=== PATIENT | male | born 1990 | race Caucasian/White ===

== ENCOUNTER 2022-10-12 00:48 | Outpatient (CLI) | payer BC, SELFPAY | END 2022-10-12 00:49 | disposition home or self-care (01) | LOC: AMB 02:42 | PROVIDERS: PCP Physician Assistant Medical; Visit Provider Family Medicine | DX: K70.31 Alcoholic cirrhosis of liver with ascites (principal); R45.1 Restlessness and agitation | CPT/HCPCS: 36415; 85610; A0425; A0427 ==

== ENCOUNTER 2022-10-12 01:22 | Emergency (ER) | payer BC, SELFPAY ==
[2022-10-12] VITALS (34 sets, daily range): BP systolic 112–138; BP diastolic 64–95; PULSE 79–114; RESP 16–23; TEMP 37.3–37.5; O2SAT 92–98
[2022-10-12 02:35] LABS: HCO3 VBG 23 mmol/L (21-28); PCO2 VBG 33 mmHG (40-50); pH VBG 7.455 (7.32-7.43)
[2022-10-12 02:40] LABS: Basophils Absolute Auto 0.02 K/uL (0.00-0.30); Basophils Percent Auto 0.3 % (0.0-3.0); Eosinophils Percent Auto 1.7 % (0.0-7.0); Hematocrit 33.5 % (37.0-53.0); Hemoglobin* 12.6 gm/dL (13.5-17.5); Immature Granulocytes Abs Auto 0.01 K/uL (0.00-0.30); Immature Granulocytes Pct Auto 0.2 %; Mean Corpuscular HGB Conc 38 gm/dL (32-36); Mean Corpuscular Hemoglobin 38 pg (26-34); Mean Corpuscular Volume 101 fL (80-100); Monocytes Percent Auto 7.1 % (0.0-11.0); Neutrophils Percent Auto 74.7 % (42.0-72.0); Red Blood Count 3.31 m/uL (4.30-5.90); White Blood Count* 5.93 K/uL (4.50-11.00)
[2022-10-12 02:45] LABS: Platelet Count* 36 K/uL (140-440); Slide Review Reflex Yes
[2022-10-12 02:52] LABS: Chloride* 110 mmol/L (96-114); Sodium* 141 mmol/L (135-149)
[2022-10-12 02:54] LABS: Creatinine* 0.4 mg/dL (0.5-1.5); Estimated Glomerular Filt Rate 150 ml/min
[2022-10-12 02:55] LABS: Blood Urea Nitrogen* 5 mg/dL (5-24); Carbon Dioxide* 20 mmol/L (20-32); Glucose* 115 mg/dL (60-115)
[2022-10-12 02:56] LABS: Calcium* 7.7 mg/dL (8.4-10.6)
[2022-10-12 02:58] LABS: Acetaminophen* < 10.0 ug/mL (10.0-30.0); C Reactive Protein* 3.3 mg/dL (0.5-1.0); Potassium* 2.6 mmol/L (3.6-5.1)
[2022-10-12] MEDS: 0.9 % SODIUM CHLORIDE 1000 ml 1,000 ML IV ×2 (03:00→07:25)
[2022-10-12 03:05] LABS: Albumin* 3.1 g/dL (3.3-5.0); Aspartate Amino Transferase* 259 U/L (12-35); Bilirubin Direct* 13.1 mg/dL (0.0-0.5); NT Pro B Type NatriureticPept* 143 pg/mL; Total Protein* 7.9 g/dL (6.0-8.3)
[2022-10-12 03:06] LABS: Alanine Aminotransferase* 76 U/L (4-50); Alkaline Phosphatase* 194 U/L (40-150); Ethanol* 0.23 % (0.01-0.03); Salicylate* < 1.0 mg/dL (1.0-10)
[2022-10-12 03:07] LABS: Bilirubin Total* 18.4 mg/dL (0.1-1.5)
[2022-10-12 03:19] LABS: SARS PCR* Negative SARS-CoV-2 (Negative)
[2022-10-12 03:31] LABS: Slide Review Acceptable Review (Acceptable)
[2022-10-12 04:23] LABS: Magnesium* 1.6 mg/dL (1.5-2.6)
--- NOTE | 2022-10-12 04:25 | ED.GENADULT ---
HPI - General Adult General Chief complaint: Unspecified Complaint, Adult <Chris Sparks MD - Last Filed: 10/12/22 09:14> Stated complaint: Mental Health <Chris Sparks MD - Last Filed: 10/12/22 09:14> Time Seen by Provider: 10/12/22 01:46 <Chris Sparks MD - Last Filed: 10/12/22 09:14> History of Present Illness HPI narrative: 32-year-old young man presenting to the emergency department with concern of not acting right. Has been increasingly jaundiced over the last 1-2 months. Drinks pt of vodka daily he says. Is a living with mom with a history of alcohol abuse and dependence. He thinks it was 1 maybe 2 years ago when he was last in treatment. Sounds like he ?fell off the wagon? he says after about 7 months. Mom's concerned about ammonia levels as he has not been acting right. Adrián does recall a history of detox-related seizure at about day 3. He believes he detoxed in [place] or [facility] where he has an aunt and uncle. Not really having any pain. Has been no recent falls described. During interview seems to have some difficulty with recall. More information from conversation later with Mom. He is welcome to return home though she is quite concerned about him. Her understanding and so questioning potentially high ammonia levels as related to the of Felix father her from alcohol-related liver failure within the last 2 years. She also has a [id number] from same. Adrián apparently was hospitalized/detox/treatment in [place]. [facility] that [facility]. This was about a year and half ago and did include alcohol treatment. Adrián is a diagnosis per mom of PTSD and probable depression. Certainly alcohol abuse dependence. Had been prescribed gabapentin for anxiety symptoms but isn't taking that. Mom does not believe that this was actually a detox related seizure as Adrián had reported. <Chris Sparks MD - Last Filed: 10/12/22 09:14> Related Data Allergies/adverse reactions: Allergies Allergy/AdvReac Type Severity Reaction Status Date / Time Penicillins Allergy Verified 10/12/22 01:32 <Chris Sparks MD - Last Filed: 10/12/22 09:14> Review of Systems Status of ROS: Reports: 6 or more systems reviewed and unremarkable except as noted in History and below <Chris Sparks MD - Last Filed: 10/12/22 09:14> [facility] Social History: Social History How often do you have a drink containing alcohol: 4 or more times a week AUDIT-C Alcohol total score: 4 Non-prescribed substance use: denies use service: Yes <Chris Sparks MD - Last Filed: 10/12/22 09:14> Exam Narrative: Exam Narrative: Is initially standoffish. Seems upset. Flat affect and slowed mentation. Skin is warm and dry. I do not see evidence of harm self-harm or accidental. He is generally jaundiced. There is marked scleral icterus. Does seem a little slowed in his thinking/processing though not inconsistent with intoxication. Erosion at right cheek/paralabial fold. Wearing a stocking cap. Is breathing slightly labored not tachypneic. Lungs are clear heart is elevated and in a regular rhythm. Abdomen is quite full and generally little tender. More so along the right and difficult to assess liver size. Cannot determine that there is a fluid wave. Extremities are without edema is well perfused. Oropharynx is hyperemic consistent with nicotine dependence. a little dry as well. Cranial nerves 2-12 look to be intact. <Chris Sparks MD - Last Filed: 10/12/22 09:14> Const: Vital Signs, click to edit/add: Vital Signs - 24 hr 10/12/22 01:32 10/12/22 05:47 10/12/22 07:11 Temperature 99.1 F Pulse Rate Pulse Rate [Apical ] Pulse Rate [Left F emoral] 100 86 Respiratory Rate 18 16 16 Blood Pressure Blood Pressure [Ri ght Upper Arm] 129/89 124/76 138/92 H Pulse Oximetry 98 98 96 Oxygen Delivery Me thod Room Air Room Air Room Air Fraction of Inspir ed Oxygen 10/12/22 02:15 10/12/22 02:14 10/12/22 04:08 Temperature Pulse Rate Pulse Rate [Apical ] Pulse Rate [Left F emoral] 106 H 106 H Respiratory Rate 16 16 Blood Pressure Blood Pressure [Ri ght Upper Arm] 136/82 126/64 Pulse Oximetry 97 96 98 Oxygen Delivery Me thod Room Air Room Air Fraction of Inspir ed Oxygen 10/12/22 08:00 10/12/22 09:00 10/12/22 10:45 Temperature 99.5 F Pulse Rate 97 Pulse Rate [Apical ] 96 Pulse Rate [Left F emoral] Respiratory Rate 23 16 Blood Pressure 132/95 H 129/90 H Blood Pressure [Ri ght Upper Arm] 112/81 Pulse Oximetry 94 93 Oxygen Delivery Me thod Room Air Room Air Fraction of Inspir ed Oxygen 93 10/12/22 01:48 10/12/22 02:00 10/12/22 02:03 Temperature Pulse Rate 88 84 88 Pulse Rate [Apical ] Pulse Rate [Left F emoral] Respiratory Rate Blood Pressure 124/87 Blood Pressure [Ri ght Upper Arm] Pulse Oximetry 97 97 97 Oxygen Delivery Me thod Fraction of Inspir ed Oxygen 10/12/22 02:15 10/12/22 02:30 10/12/22 02:45 Temperature Pulse Rate 86 87 89 Pulse Rate [Apical ] Pulse Rate [Left F emoral] Respiratory Rate Blood Pressure Blood Pressure [Ri ght Upper Arm] Pulse Oximetry 97 97 97 Oxygen Delivery Me thod Fraction of Inspir ed Oxygen 10/12/22 03:00 10/12/22 03:01 10/12/22 03:15 Temperature Pulse Rate 83 83 79 Pulse Rate [Apical ] Pulse Rate [Left F emoral] Respiratory Rate Blood Pressure 126/90 H Blood Pressure [Ri ght Upper Arm] Pulse Oximetry 97 96 98 Oxygen Delivery Me thod Fraction of Inspir ed Oxygen 10/12/22 03:30 10/12/22 03:45 10/12/22 04:00 Temperature Pulse Rate 82 82 100 Pulse Rate [Apical ] Pulse Rate [Left F emoral] Respiratory Rate Blood Pressure Blood Pressure [Ri ght Upper Arm] Pulse Oximetry 96 96 94 Oxygen Delivery Me thod Fraction of Inspir ed Oxygen 10/12/22 04:04 10/12/22 04:15 10/12/22 04:30 Temperature Pulse Rate 91 91 91 Pulse Rate [Apical ] Pulse Rate [Left F emoral] Respiratory Rate Blood Pressure 124/91 H Blood Pressure [Ri ght Upper Arm] Pulse Oximetry 94 96 96 Oxygen Delivery Me thod Fraction of Inspir ed Oxygen 10/12/22 04:45 10/12/22 05:00 10/12/22 05:01 Temperature Pulse Rate 89 95 93 Pulse Rate [Apical ] Pulse Rate [Left F emoral] Respiratory Rate Blood Pressure 132/90 H Blood Pressure [Ri ght Upper Arm] Pulse Oximetry 96 96 95 Oxygen Delivery Me thod Fraction of Inspir ed Oxygen 10/12/22 05:15 10/12/22 05:30 10/12/22 05:45 Temperature Pulse Rate 97 114 H 96 Pulse Rate [Apical ] Pulse Rate [Left F emoral] Respiratory Rate Blood Pressure Blood Pressure [Ri ght Upper Arm] Pulse Oximetry 94 92 95 Oxygen Delivery Me thod Fraction of Inspir ed Oxygen 10/12/22 06:00 10/12/22 06:02 10/12/22 06:15 Temperature Pulse Rate 104 H 94 92 Pulse Rate [Apical ] Pulse Rate [Left F emoral] Respiratory Rate Blood Pressure 121/90 H Blood Pressure [Ri ght Upper Arm] Pulse Oximetry 96 96 96 Oxygen Delivery Me thod Fraction of Inspir ed Oxygen 10/12/22 06:30 10/12/22 06:45 Temperature Pulse Rate 93 96 Pulse Rate [Apical ] Pulse Rate [Left F emoral] Respiratory Rate Blood Pressure Blood Pressure [Ri ght Upper Arm] Pulse Oximetry 96 95 Oxygen Delivery Me thod Fraction of Inspir ed Oxygen <Chris Sparks MD - Last Filed: 10/12/22 09:14> Vital Signs, click to edit/add: Vital Signs - 24 hr 10/12/22 01:32 10/12/22 05:47 10/12/22 07:11 Temperature 99.1 F Pulse Rate Pulse Rate [Apical ] Pulse Rate [Left F emoral] 100 86 Respiratory Rate 18 16 16 Blood Pressure Blood Pressure [Ri ght Upper Arm] 129/89 124/76 138/92 H Pulse Oximetry 98 98 96 Oxygen Delivery Me thod Room Air Room Air Room Air Fraction of Inspir ed Oxygen 10/12/22 02:15 10/12/22 02:14 10/12/22 04:08 Temperature Pulse Rate Pulse Rate [Apical ] Pulse Rate [Left F emoral] 106 H 106 H Respiratory Rate 16 16 Blood Pressure Blood Pressure [Ri ght Upper Arm] 136/82 126/64 Pulse Oximetry 97 96 98 Oxygen Delivery Me thod Room Air Room Air Fraction of Inspir ed Oxygen 10/12/22 08:00 10/12/22 09:00 10/12/22 10:45 Temperature 99.5 F Pulse Rate 97 Pulse Rate [Apical ] 96 Pulse Rate [Left F emoral] Respiratory Rate 23 16 Blood Pressure 132/95 H 129/90 H Blood Pressure [Ri ght Upper Arm] 112/81 Pulse Oximetry 94 93 Oxygen Delivery Me thod Room Air Room Air Fraction of Inspir ed Oxygen 93 10/12/22 01:48 10/12/22 02:00 10/12/22 02:03 Temperature Pulse Rate 88 84 88 Pulse Rate [Apical ] Pulse Rate [Left F emoral] Respiratory Rate Blood Pressure 124/87 Blood Pressure [Ri ght Upper Arm] Pulse Oximetry 97 97 97 Oxygen Delivery Me thod Fraction of Inspir ed Oxygen 10/12/22 02:15 10/12/22 02:30 10/12/22 02:45 Temperature Pulse Rate 86 87 89 Pulse Rate [Apical ] Pulse Rate [Left F emoral] Respiratory Rate Blood Pressure Blood Pressure [Ri ght Upper Arm] Pulse Oximetry 97 97 97 Oxygen Delivery Me thod Fraction of Inspir ed Oxygen 10/12/22 03:00 10/12/22 03:01 10/12/22 03:15 Temperature Pulse Rate 83 83 79 Pulse Rate [Apical ] Pulse Rate [Left F emoral] Respiratory Rate Blood Pressure 126/90 H Blood Pressure [Ri ght Upper Arm] Pulse Oximetry 97 96 98 Oxygen Delivery Me thod Fraction of Inspir ed Oxygen 10/12/22 03:30 10/12/22 03:45 10/12/22 04:00 Temperature Pulse Rate 82 82 100 Pulse Rate [Apical ] Pulse Rate [Left F emoral] Respiratory Rate Blood Pressure Blood Pressure [Ri ght Upper Arm] Pulse Oximetry 96 96 94 Oxygen Delivery Me thod Fraction of Inspir ed Oxygen 10/12/22 04:04 10/12/22 04:15 10/12/22 04:30 Temperature Pulse Rate 91 91 91 Pulse Rate [Apical ] Pulse Rate [Left F emoral] Respiratory Rate Blood Pressure 124/91 H Blood Pressure [Ri ght Upper Arm] Pulse Oximetry 94 96 96 Oxygen Delivery Me thod Fraction of Inspir ed Oxygen 10/12/22 04:45 10/12/22 05:00 10/12/22 05:01 Temperature Pulse Rate 89 95 93 Pulse Rate [Apical ] Pulse Rate [Left F emoral] Respiratory Rate Blood Pressure 132/90 H Blood Pressure [Ri ght Upper Arm] Pulse Oximetry 96 96 95 Oxygen Delivery Me thod Fraction of Inspir ed Oxygen 10/12/22 05:15 10/12/22 05:30 10/12/22 05:45 Temperature Pulse Rate 97 114 H 96 Pulse Rate [Apical ] Pulse Rate [Left F emoral] Respiratory Rate Blood Pressure Blood Pressure [Ri ght Upper Arm] Pulse Oximetry 94 92 95 Oxygen Delivery Me thod Fraction of Inspir ed Oxygen 10/12/22 06:00 10/12/22 06:02 10/12/22 06:15 Temperature Pulse Rate 104 H 94 92 Pulse Rate [Apical ] Pulse Rate [Left F emoral] Respiratory Rate Blood Pressure 121/90 H Blood Pressure [Ri ght Upper Arm] Pulse Oximetry 96 96 96 Oxygen Delivery Me thod Fraction of Inspir ed Oxygen 10/12/22 06:30 10/12/22 06:45 Temperature Pulse Rate 93 96 Pulse Rate [Apical ] Pulse Rate [Left F emoral] Respiratory Rate Blood Pressure Blood Pressure [Ri ght Upper Arm] Pulse Oximetry 96 95 Oxygen Delivery Me thod Fraction of Inspir ed Oxygen <Osvaldo Boogie MD - Last Filed: 10/12/22 13:20> Documenting provider has reviewed patient's vital signs: yes <Chris Sparks MD - Last Filed: 10/12/22 09:14> Course Reevaluation(s) Reevaluation #1: Patient was accepted to [facility], please see that dictation. Transferred by ALS <Osvaldo Boogie MD - Last Filed: 10/12/22 13:20> Time: 13:20 <Osvaldo Boogie MD - Last Filed: 10/12/22 13:20> Vital Signs Vital signs: Initial Vital Signs Temperature 99.1 F 10/12/22 01:32 Temperature Source Temporal Artery Scan 10/12/22 01:32 Respiratory Rate 18 10/12/22 01:32 Blood Pressure 129/89 10/12/22 01:32 Blood Pressure Mean 102 10/12/22 01:32 Blood Pressure Position Semi-Fowlers 10/12/22 01:32 Pulse Oximetry 98 10/12/22 01:32 Oxygen Delivery Method 10/12/22 01:32 Vital Signs Temperature 99.1 F 10/12/22 01:32 Respiratory Rate 18 10/12/22 01:32 Blood Pressure 129/89 10/12/22 01:32 Pulse Oximetry 98 10/12/22 01:32 Oxygen Delivery Method 10/12/22 01:32 Temperature 99.5 F 10/12/22 10:45 Pulse Rate 96 10/12/22 10:45 Respiratory Rate 16 10/12/22 10:45 Blood Pressure 112/81 10/12/22 10:45 Pulse Oximetry 93 10/12/22 10:45 Oxygen Delivery Method 10/12/22 10:45 Fraction of Inspired Oxygen 93 10/12/22 09:00 <Chris Sparks MD - Last Filed: 10/12/22 09:14> Initial Vital Signs Temperature 99.1 F 10/12/22 01:32 Temperature Source Temporal Artery Scan 10/12/22 01:32 Respiratory Rate 18 10/12/22 01:32 Blood Pressure 129/89 10/12/22 01:32 Blood Pressure Mean 102 10/12/22 01:32 Blood Pressure Position Semi-Fowlers 10/12/22 01:32 Pulse Oximetry 98 10/12/22 01:32 Oxygen Delivery Method 10/12/22 01:32 Vital Signs Temperature 99.1 F 10/12/22 01:32 Respiratory Rate 18 10/12/22 01:32 Blood Pressure 129/89 10/12/22 01:32 Pulse Oximetry 98 10/12/22 01:32 Oxygen Delivery Method 10/12/22 01:32 Temperature 99.5 F 10/12/22 10:45 Pulse Rate 96 10/12/22 10:45 Respiratory Rate 16 10/12/22 10:45 Blood Pressure 112/81 10/12/22 10:45 Pulse Oximetry 93 10/12/22 10:45 Oxygen Delivery Method 10/12/22 10:45 Fraction of Inspired Oxygen 93 10/12/22 09:00 <Osvaldo Boogie MD - Last Filed: 10/12/22 13:20> Medical Decision Making MDM Narrative Medical decision making narrative: I discussed with him that I was already concerned regarding potential liver failure. He agreed to do labs. Was also amenable to hospitalization somewhere. Ordered also for L of normal saline. Numerous abnormal labs. Of note his ammonia level of 105. [place] 0[place] [address]. Total bilirubin over 18. Potassium of 2.6. Red cell distribution is macrocytic, not unexpected. Do initiate IV hydration. This is also followed by administration of folate and thiamine. I do think that would benefit from medical stabilization and then detox and treatment. He was accepting of hospitalization in [facility] he tells me is near [place]. Later is intending on departing the emergency department. We have discussed that that is not an ideal situation at this point At a minimum I would anticipate returning home with multivitamin supplementation and lactulose and maybe potassium supplementation. I am still hoping to find a hospital bed somewhere. <Chris Sparks MD - Last Filed: 10/12/22 09:14> Lab Data Lab results reviewed: Yes I reviewed the patient's lab results <Chris Sparks MD - Last Filed: 10/12/22 09:14> Labs: Lab Results 10/12/22 10/12/22 10/12/22 Range/Units 02:32 02:32 02:32 WBC 5.93 (4.50-11.00) K/uL RBC 3.31 L (4.30-5.90) m/uL Hgb 12.6 L (13.5-17.5) gm/dL Hct 33.5 L (37.0-53.0) % MCV 101 H (80-100) fL MCH 38 H (26-34) pg MCHC 38 H (32-36) gm/dL RDW Coeff of Pastor 14.0 (11.5-15.5) % Plt Count 36 L* (140-440) K/uL Neut % (Auto) 74.7 H (42.0-72.0) % Lymph % (Auto) 16.0 L (20-44) % [place] % (Auto) 7.1 (0.0-11.0) % Eos % (Auto) 1.7 (0.0-7.0) % Baso % (Auto) 0.3 (0.0-3.0) % Neut # (Auto) 4.40 (1.7-7.0) K/uL Lymph # (Auto) 0.90 (0.90-2.90) K/uL [place] # (Auto) 0.40 (0.00-0.90) K/UL Eos # (Auto) 0.10 (0.00-0.50) K/uL Baso # (Auto) 0.02 (0.00-0.30) K/uL Diff Slide Review Acceptable Review (Acceptable) VBG pH (7.32-7.43) VBG pCO2 (40-50) mmHG VBG pO2 (25-47) mmHG VBG HCO3 (21-28) mmol/L Sodium 141 (135-149) mmol/L Potassium 2.6 L* (3.6-5.1) mmol/L Chloride 110 (96-114) mmol/L Carbon Dioxide 20 (20-32) mmol/L BUN 5 (5-24) mg/dL Creatinine 0.4 L (0.5-1.5) mg/dL Estimated GFR 150 ml/min Glucose 115 (60-115) mg/dL Calcium 7.7 L (8.4-10.6) mg/dL Magnesium 1.6 (1.5-2.6) mg/dL Total Bilirubin (0.1-1.5) mg/dL Direct Bilirubin (0.0-0.5) mg/dL AST (12-35) U/L ALT (4-50) U/L Alkaline Phosphatase (40-150) U/L Ammonia 105.0 H (13.1-30.0) umol/L C-Reactive Protein 3.3 H (0.5-1.0) mg/dL NT-Pro-B Natriuret Pep pg/mL Total Protein (6.0-8.3) g/dL Albumin (3.3-5.0) g/dL Urine Color (Yellow) Urine Appearance (Clear) Urine pH (5.0-8.5) Ur Specific [place] (1.000-1.030) Urine Protein (Negative) Urine Glucose (UA) (Negative) Urine Ketones (Negative) Urine Blood (Negative) Urine Nitrite (Negative) Urine Bilirubin (Negative) Urine Urobilinogen (0.2-1.0) Ur Leukocyte Esterase (Negative) Urine RBC (0-2) Urine WBC (0-5) Ur Squamous Epith Cells (None-Few) Urine Bacteria (None) Salicylates (1.0-10) mg/dL Urine Opiates Screen (Negative) Ur Oxycodone Screen (Negative) Urine Methadone Screen (Negative) Ur Propoxyphene Screen (Negative) Acetaminophen < 10.0 L (10.0-30.0) ug/mL Ur Barbiturates Screen (Negative) U Tricyclic Antidepress (Negative) Ur Phencyclidine Scrn (Negative) Ur Amphetamines Screen (Negative) U Methamphetamines Scrn (Negative) U Benzodiazepines Scrn (Negative) Urine Cocaine Screen (Negative) U Marijuana (THC) Screen (Negative) Ur Drug Screen Comment Ethyl Alcohol (0.01-0.03) % SARS-CoV-2 (PCR) (Negative) 10/12/22 10/12/22 10/12/22 Range/Units 02:32 02:32 02:32 WBC (4.50-11.00) K/uL RBC (4.30-5.90) m/uL Hgb (13.5-17.5) gm/dL Hct (37.0-53.0) % MCV (80-100) fL MCH (26-34) pg MCHC (32-36) gm/dL RDW Coeff of Pastor (11.5-15.5) % Plt Count (140-440) K/uL Neut % (Auto) (42.0-72.0) % Lymph % (Auto) (20-44) % [place] % (Auto) (0.0-11.0) % Eos % (Auto) (0.0-7.0) % Baso % (Auto) (0.0-3.0) % Neut # (Auto) (1.7-7.0) K/uL Lymph # (Auto) (0.90-2.90) K/uL [place] # (Auto) (0.00-0.90) K/UL Eos # (Auto) (0.00-0.50) K/uL Baso # (Auto) (0.00-0.30) K/uL Diff Slide Review (Acceptable) VBG pH 7.455 H (7.32-7.43) VBG pCO2 33 L (40-50) mmHG VBG pO2 56.0 H (25-47) mmHG VBG HCO3 23 (21-28) mmol/L Sodium (135-149) mmol/L Potassium (3.6-5.1) mmol/L Chloride (96-114) mmol/L Carbon Dioxide (20-32) mmol/L BUN (5-24) mg/dL Creatinine (0.5-1.5) mg/dL Estimated GFR ml/min Glucose (60-115) mg/dL Calcium (8.4-10.6) mg/dL Magnesium (1.5-2.6) mg/dL Total Bilirubin 18.4 H* (0.1-1.5) mg/dL Direct Bilirubin 13.1 H (0.0-0.5) mg/dL AST 259 H (12-35) U/L ALT 76 H (4-50) U/L Alkaline Phosphatase 194 H (40-150) U/L Ammonia (13.1-30.0) umol/L C-Reactive Protein (0.5-1.0) mg/dL NT-Pro-B Natriuret Pep 143 pg/mL Total Protein 7.9 (6.0-8.3) g/dL Albumin 3.1 L (3.3-5.0) g/dL Urine Color (Yellow) Urine Appearance (Clear) Urine pH (5.0-8.5) Ur Specific [place] (1.000-1.030) Urine Protein (Negative) Urine Glucose (UA) (Negative) Urine Ketones (Negative) Urine Blood (Negative) Urine Nitrite (Negative) Urine Bilirubin (Negative) Urine Urobilinogen (0.2-1.0) Ur Leukocyte Esterase (Negative) Urine RBC (0-2) Urine WBC (0-5) Ur Squamous Epith Cells (None-Few) Urine Bacteria (None) Salicylates < 1.0 L (1.0-10) mg/dL Urine Opiates Screen (Negative) Ur Oxycodone Screen (Negative) Urine Methadone Screen (Negative) Ur Propoxyphene Screen (Negative) Acetaminophen (10.0-30.0) ug/mL Ur Barbiturates Screen (Negative) U Tricyclic Antidepress (Negative) Ur Phencyclidine Scrn (Negative) Ur Amphetamines Screen (Negative) U Methamphetamines Scrn (Negative) U Benzodiazepines Scrn (Negative) Urine Cocaine Screen (Negative) U Marijuana (THC) Screen (Negative) Ur Drug Screen Comment Ethyl Alcohol 0.23 H (0.01-0.03) % SARS-CoV-2 (PCR) Negative SARS-CoV-2 (Negative) 01/28/23 01/28/23 Range/Units 07:10 07:10 WBC (4.50-11.00) K/uL RBC (4.30-5.90) m/uL Hgb (13.5-17.5) gm/dL Hct (37.0-53.0) % MCV (80-100) fL MCH (26-34) pg MCHC (32-36) gm/dL RDW Coeff of Pastor (11.5-15.5) % Plt Count (140-440) K/uL Neut % (Auto) (42.0-72.0) % Lymph % (Auto) (20-44) % [place] % (Auto) (0.0-11.0) % Eos % (Auto) (0.0-7.0) % Baso % (Auto) (0.0-3.0) % Neut # (Auto) (1.7-7.0) K/uL Lymph # (Auto) (0.90-2.90) K/uL [place] # (Auto) (0.00-0.90) K/UL Eos # (Auto) (0.00-0.50) K/uL Baso # (Auto) (0.00-0.30) K/uL Diff Slide Review (Acceptable) VBG pH (7.32-7.43) VBG pCO2 (40-50) mmHG VBG pO2 (25-47) mmHG VBG HCO3 (21-28) mmol/L Sodium (135-149) mmol/L Potassium (3.6-5.1) mmol/L Chloride (96-114) mmol/L Carbon Dioxide (20-32) mmol/L BUN (5-24) mg/dL Creatinine (0.5-1.5) mg/dL Estimated GFR ml/min Glucose (60-115) mg/dL Calcium (8.4-10.6) mg/dL Magnesium (1.5-2.6) mg/dL Total Bilirubin (0.1-1.5) mg/dL Direct Bilirubin (0.0-0.5) mg/dL AST (12-35) U/L ALT (4-50) U/L Alkaline Phosphatase (40-150) U/L Ammonia (13.1-30.0) umol/L C-Reactive Protein (0.5-1.0) mg/dL NT-Pro-B Natriuret Pep pg/mL Total Protein (6.0-8.3) g/dL Albumin (3.3-5.0) g/dL Urine Color [place] A (Yellow) Urine Appearance Clear (Clear) Urine pH 7.0 (5.0-8.5) Ur Specific [place] 1.015 (1.000-1.030) Urine Protein 1+ A (Negative) Urine Glucose (UA) Trace A (Negative) Urine Ketones Trace A (Negative) Urine Blood 2+ A (Negative) Urine Nitrite Negative (Negative) Urine Bilirubin 3+ A (Negative) Urine Urobilinogen >=8.0 (0.2-1.0) Ur Leukocyte Esterase Negative (Negative) Urine RBC 5-10 A (0-2) Urine WBC 0-2 (0-5) Ur Squamous Epith Cells Few (None-Few) Urine Bacteria Few A (None) Salicylates (1.0-10) mg/dL Urine Opiates Screen Negative (Negative) Ur Oxycodone Screen Negative (Negative) Urine Methadone Screen Negative (Negative) Ur Propoxyphene Screen Negative (Negative) Acetaminophen (10.0-30.0) ug/mL Ur Barbiturates Screen Negative (Negative) U Tricyclic Antidepress Negative (Negative) Ur Phencyclidine Scrn Negative (Negative) Ur Amphetamines Screen Negative (Negative) U Methamphetamines Scrn Negative (Negative) U Benzodiazepines Scrn Negative (Negative) Urine Cocaine Screen Negative (Negative) U Marijuana (THC) Screen Negative (Negative) Ur Drug Screen Comment See Note Ethyl Alcohol (0.01-0.03) % SARS-CoV-2 (PCR) (Negative) <Chris Sparks MD - Last Filed: 10/12/22 09:14> Lab Results 10/12/22 10/12/22 10/12/22 Range/Units 02:32 02:32 02:32 WBC 5.93 (4.50-11.00) K/uL RBC 3.31 L (4.30-5.90) m/uL Hgb 12.6 L (13.5-17.5) gm/dL Hct 33.5 L (37.0-53.0) % MCV 101 H (80-100) fL MCH 38 H (26-34) pg MCHC 38 H (32-36) gm/dL RDW Coeff of Pastor 14.0 (11.5-15.5) % Plt Count 36 L* (140-440) K/uL Neut % (Auto) 74.7 H (42.0-72.0) % Lymph % (Auto) 16.0 L (20-44) % [place] % (Auto) 7.1 (0.0-11.0) % Eos % (Auto) 1.7 (0.0-7.0) % Baso % (Auto) 0.3 (0.0-3.0) % Neut # (Auto) 4.40 (1.7-7.0) K/uL Lymph # (Auto) 0.90 (0.90-2.90) K/uL [place] # (Auto) 0.40 (0.00-0.90) K/UL Eos # (Auto) 0.10 (0.00-0.50) K/uL Baso # (Auto) 0.02 (0.00-0.30) K/uL Diff Slide Review Acceptable Review (Acceptable) VBG pH (7.32-7.43) VBG pCO2 (40-50) mmHG VBG pO2 (25-47) mmHG VBG HCO3 (21-28) mmol/L Sodium 141 (135-149) mmol/L Potassium 2.6 L* (3.6-5.1) mmol/L Chloride 110 (96-114) mmol/L Carbon Dioxide 20 (20-32) mmol/L BUN 5 (5-24) mg/dL Creatinine 0.4 L (0.5-1.5) mg/dL Estimated GFR 150 ml/min Glucose 115 (60-115) mg/dL Calcium 7.7 L (8.4-10.6) mg/dL Magnesium 1.6 (1.5-2.6) mg/dL Total Bilirubin (0.1-1.5) mg/dL Direct Bilirubin (0.0-0.5) mg/dL AST (12-35) U/L ALT (4-50) U/L Alkaline Phosphatase (40-150) U/L Ammonia 105.0 H (13.1-30.0) umol/L C-Reactive Protein 3.3 H (0.5-1.0) mg/dL NT-Pro-B Natriuret Pep pg/mL Total Protein (6.0-8.3) g/dL Albumin (3.3-5.0) g/dL Urine Color (Yellow) Urine Appearance (Clear) Urine pH (5.0-8.5) Ur Specific [place] (1.000-1.030) Urine Protein (Negative) Urine Glucose (UA) (Negative) Urine Ketones (Negative) Urine Blood (Negative) Urine Nitrite (Negative) Urine Bilirubin (Negative) Urine Urobilinogen (0.2-1.0) Ur Leukocyte Esterase (Negative) Urine RBC (0-2) Urine WBC (0-5) Ur Squamous Epith Cells (None-Few) Urine Bacteria (None) Salicylates (1.0-10) mg/dL Urine Opiates Screen (Negative) Ur Oxycodone Screen (Negative) Urine Methadone Screen (Negative) Ur Propoxyphene Screen (Negative) Acetaminophen < 10.0 L (10.0-30.0) ug/mL Ur Barbiturates Screen (Negative) U Tricyclic Antidepress (Negative) Ur Phencyclidine Scrn (Negative) Ur Amphetamines Screen (Negative) U Methamphetamines Scrn (Negative) U Benzodiazepines Scrn (Negative) Urine Cocaine Screen (Negative) U Marijuana (THC) Screen (Negative) Ur Drug Screen Comment Ethyl Alcohol (0.01-0.03) % SARS-CoV-2 (PCR) (Negative) 10/12/22 10/12/22 10/12/22 Range/Units 02:32 02:32 02:32 WBC (4.50-11.00) K/uL RBC (4.30-5.90) m/uL Hgb (13.5-17.5) gm/dL Hct (37.0-53.0) % MCV (80-100) fL MCH (26-34) pg MCHC (32-36) gm/dL RDW Coeff of Pastor (11.5-15.5) % Plt Count (140-440) K/uL Neut % (Auto) (42.0-72.0) % Lymph % (Auto) (20-44) % [place] % (Auto) (0.0-11.0) % Eos % (Auto) (0.0-7.0) % Baso % (Auto) (0.0-3.0) % Neut # (Auto) (1.7-7.0) K/uL Lymph # (Auto) (0.90-2.90) K/uL [place] # (Auto) (0.00-0.90) K/UL Eos # (Auto) (0.00-0.50) K/uL Baso # (Auto) (0.00-0.30) K/uL Diff Slide Review (Acceptable) VBG pH 7.455 H (7.32-7.43) VBG pCO2 33 L (40-50) mmHG VBG pO2 56.0 H (25-47) mmHG VBG HCO3 23 (21-28) mmol/L Sodium (135-149) mmol/L Potassium (3.6-5.1) mmol/L Chloride (96-114) mmol/L Carbon Dioxide (20-32) mmol/L BUN (5-24) mg/dL Creatinine (0.5-1.5) mg/dL Estimated GFR ml/min Glucose (60-115) mg/dL Calcium (8.4-10.6) mg/dL Magnesium (1.5-2.6) mg/dL Total Bilirubin 18.4 H* (0.1-1.5) mg/dL Direct Bilirubin 13.1 H (0.0-0.5) mg/dL AST 259 H (12-35) U/L ALT 76 H (4-50) U/L Alkaline Phosphatase 194 H (40-150) U/L Ammonia (13.1-30.0) umol/L C-Reactive Protein (0.5-1.0) mg/dL NT-Pro-B Natriuret Pep 143 pg/mL Total Protein 7.9 (6.0-8.3) g/dL Albumin 3.1 L (3.3-5.0) g/dL Urine Color (Yellow) Urine Appearance (Clear) Urine pH (5.0-8.5) Ur Specific [place] (1.000-1.030) Urine Protein (Negative) Urine Glucose (UA) (Negative) Urine Ketones (Negative) Urine Blood (Negative) Urine Nitrite (Negative) Urine Bilirubin (Negative) Urine Urobilinogen (0.2-1.0) Ur Leukocyte Esterase (Negative) Urine RBC (0-2) Urine WBC (0-5) Ur Squamous Epith Cells (None-Few) Urine Bacteria (None) Salicylates < 1.0 L (1.0-10) mg/dL Urine Opiates Screen (Negative) Ur Oxycodone Screen (Negative) Urine Methadone Screen (Negative) Ur Propoxyphene Screen (Negative) Acetaminophen (10.0-30.0) ug/mL Ur Barbiturates Screen (Negative) U Tricyclic Antidepress (Negative) Ur Phencyclidine Scrn (Negative) Ur Amphetamines Screen (Negative) U Methamphetamines Scrn (Negative) U Benzodiazepines Scrn (Negative) Urine Cocaine Screen (Negative) U Marijuana (THC) Screen (Negative) Ur Drug Screen Comment Ethyl Alcohol 0.23 H (0.01-0.03) % SARS-CoV-2 (PCR) Negative SARS-CoV-2 (Negative) 10/12/22 10/12/22 Range/Units 07:10 07:10 WBC (4.50-11.00) K/uL RBC (4.30-5.90) m/uL Hgb (13.5-17.5) gm/dL Hct (37.0-53.0) % MCV (80-100) fL MCH (26-34) pg MCHC (32-36) gm/dL RDW Coeff of Pastor (11.5-15.5) % Plt Count (140-440) K/uL Neut % (Auto) (42.0-72.0) % Lymph % (Auto) (20-44) % [place] % (Auto) (0.0-11.0) % Eos % (Auto) (0.0-7.0) % Baso % (Auto) (0.0-3.0) % Neut # (Auto) (1.7-7.0) K/uL Lymph # (Auto) (0.90-2.90) K/uL [place] # (Auto) (0.00-0.90) K/UL Eos # (Auto) (0.00-0.50) K/uL Baso # (Auto) (0.00-0.30) K/uL Diff Slide Review (Acceptable) VBG pH (7.32-7.43) VBG pCO2 (40-50) mmHG VBG pO2 (25-47) mmHG VBG HCO3 (21-28) mmol/L Sodium (135-149) mmol/L Potassium (3.6-5.1) mmol/L Chloride (96-114) mmol/L Carbon Dioxide (20-32) mmol/L BUN (5-24) mg/dL Creatinine (0.5-1.5) mg/dL Estimated GFR ml/min Glucose (60-115) mg/dL Calcium (8.4-10.6) mg/dL Magnesium (1.5-2.6) mg/dL Total Bilirubin (0.1-1.5) mg/dL Direct Bilirubin (0.0-0.5) mg/dL AST (12-35) U/L ALT (4-50) U/L Alkaline Phosphatase (40-150) U/L Ammonia (13.1-30.0) umol/L C-Reactive Protein (0.5-1.0) mg/dL NT-Pro-B Natriuret Pep pg/mL Total Protein (6.0-8.3) g/dL Albumin (3.3-5.0) g/dL Urine Color [place] A (Yellow) Urine Appearance Clear (Clear) Urine pH 7.0 (5.0-8.5) Ur Specific [place] 1.015 (1.000-1.030) Urine Protein 1+ A (Negative) Urine Glucose (UA) Trace A (Negative) Urine Ketones Trace A (Negative) Urine Blood 2+ A (Negative) Urine Nitrite Negative (Negative) Urine Bilirubin 3+ A (Negative) Urine Urobilinogen >=8.0 (0.2-1.0) Ur Leukocyte Esterase Negative (Negative) Urine RBC 5-10 A (0-2) Urine WBC 0-2 (0-5) Ur Squamous Epith Cells Few (None-Few) Urine Bacteria Few A (None) Salicylates (1.0-10) mg/dL Urine Opiates Screen Negative (Negative) Ur Oxycodone Screen Negative (Negative) Urine Methadone Screen Negative (Negative) Ur Propoxyphene Screen Negative (Negative) Acetaminophen (10.0-30.0) ug/mL Ur Barbiturates Screen Negative (Negative) U Tricyclic Antidepress Negative (Negative) Ur Phencyclidine Scrn Negative (Negative) Ur Amphetamines Screen Negative (Negative) U Methamphetamines Scrn Negative (Negative) U Benzodiazepines Scrn Negative (Negative) Urine Cocaine Screen Negative (Negative) U Marijuana (THC) Screen Negative (Negative) Ur Drug Screen Comment See Note Ethyl Alcohol (0.01-0.03) % SARS-CoV-2 (PCR) (Negative) <Osvaldo Boogie MD - Last Filed: 10/12/22 13:20> ECG Data Attestation: I personally reviewed and interpreted this ECG as follows: (Normal sinus rhythm of rate 89. QT of 422 to with QTC of 513) <Chris Sparks MD - Last Filed: 10/12/22 09:14> Discharge Plan Discharge Clinical Impression: Encephalopathy due to ammonia, Alcohol dependence, Alcohol intoxication, Alcoholic liver failure, Hypokalemia <Chris Sparks MD - Last Filed: 10/12/22 09:14> Patient Disposition: [facility] <Chris Sparks MD - Last Filed: 10/12/22 09:14> Discharge Location: [facility] <Chris Sparks MD - Last Filed: 10/12/22 09:14> Condition: Stable <Chris Sparks MD - Last Filed: 10/12/22 09:14> Stand Alone Forms: [facility] Info Instructions <Chris Sparks MD - Last Filed: 10/12/22 09:14>
[2022-10-12] MEDS: POTASSIUM BICARB 25 MEQ EFFERVESCENT TAB PO (04:33)
[2022-10-12] MEDS: POTASSIUM CHLORIDE 10 MEQ/100 ML PIGGYBACK 100 MEQ IVPB (04:34)
[2022-10-12 07:27] LABS: Appearance Urine Clear (Clear); Bilirubin Urine 3+ (Negative); Blood Urine 2+ (Negative); Color Urine Orange (Yellow); Glucose Urine Trace (Negative); Ketones Urine Trace (Negative); Leukocyte Esterase Urine Negative (Negative); Nitrite Urine Negative (Negative); Protein Urine 1+ (Negative); Specific Gravity Urine 1.015 (1.000-1.030); Urobilinogen Urine >=8.0 (0.2-1.0)
[2022-10-12 07:35] LABS: Bacteria Urine Few; Squamous Epithelial Cell Urine Few (None-Few); WBC Urine 0-2 (0-5)
[2022-10-12 07:38] LABS: Amphetamine Screen Urine Negative (Negative); Barbiturate Screen Urine Negative (Negative); Benzodiazepines Screen Urine Negative (Negative); Cannabinoid Screen Urine Negative (Negative); Cocaine Screen Urine Negative (Negative); Methadone Screen Urine Negative (Negative); Methamphetamines Screen Urine Negative (Negative); Opiate Screen Urine Negative (Negative); Oxycodone Screen Urine Negative (Negative); Phencyclidine Screen Urine Negative (Negative); Tricyclic Antidepressant Urine Negative (Negative)
[2022-10-12] MEDS: LACTULOSE 20 GM/30 ML PO (08:43)
[2022-10-12] MEDS: FOLIC ACID 1 MG TABLET PO (08:43)
[2022-10-12] MEDS: THIAMINE 250 MG in 0.9 % SODIUM CHLORIDE 100 ml 100 ML 102.5 MG IVPB (08:43)
[2022-10-12 08:44] LABS: INR 2.32 (0.91-1.10); Prothrombin Time 26.6 Seconds
--- NOTE | 2022-10-12 09:43 | ED.NURSE ---
[facility] called back and declines Pt.
[2022-10-12] MEDS: LACTULOSE 20 GM/30 ML 10 GM PO (11:00)
--- NOTE | 2022-10-12 11:15 | ED.NURSE ---
did not want to sign transfer sheet. was placed on a transport hold after dr queen was notified of him wanting to go home and not wanting to be transferred. did understand need to go to [facility] for further care.
--- NOTE | 2022-10-12 15:14 | ED.NURSE ---
report was given to Belinda jaimes at [facility] ok to transfer now. has been up to void.
== END 2022-10-12 11:10 | disposition short-term general hospital (02) ==
PROVIDERS: Family Medicine; Emergency Provider Family Medicine; PCP Physician Assistant Medical
DX: G92.8 Other toxic encephalopathy (principal); T50.995A Adverse effect of other drugs, medicaments and biological substances, initial encounter; F10.229 Alcohol dependence with intoxication, unspecified; K70.40 Alcoholic hepatic failure without coma; E87.6 Hypokalemia
CPT/HCPCS: 36415; 80048; 80076; 80143; 80179; 80306; 81001; 82077; 82140; 82803; 83735; 83880; 85025; 85610; 86140; 87086; 87635; 94761; 96361; 96365; 96367; 99284; 99285; A9270; J3411; J3480; J7030

== ENCOUNTER 2022-10-12 10:50 | Outpatient (CLI) | payer BC, SELFPAY | END 2022-10-12 10:51 | disposition home or self-care (01) | LOC: AMB 10-13 02:41 | PROVIDERS: PCP Physician Assistant Medical; Visit Provider Family Medicine | DX: K72.90 Hepatic failure, unspecified without coma (principal) | CPT/HCPCS: A0425; A0426 ==

== ENCOUNTER 2023-05-12 22:43 | Outpatient (CLI) | payer BC, SELFPAY | END 2023-05-12 22:44 | disposition home or self-care (01) | LOC: AMB 05-14 11:02 | PROVIDERS: PCP Physician Assistant Medical; Visit Provider Family Medicine | DX: R10.9 Unspecified abdominal pain (principal); R50.9 Fever, unspecified | CPT/HCPCS: A0425; A0427 ==

== ENCOUNTER 2023-05-12 23:14 | Emergency (ER) | payer BC, SELFPAY ==
[2023-05-12 23:19] VITALS: BP 131/74; PULSE 90; RESP 18; TEMP 37.2; O2SAT 96; BMI 23.1
[2023-05-12 23:34] LABS: Lactate* 2.3 mmol/L (0.5-1.9)
[2023-05-12 23:37] LABS: Basophils Absolute Auto 0.02 K/uL (0.00-0.30); Basophils Percent Auto 0.3 % (0.0-3.0); Eosinophils Percent Auto 7.4 % (0.0-7.0); Hematocrit 35.7 % (37.0-53.0); Hemoglobin* 12.3 gm/dL (13.5-17.5); Immature Granulocytes Abs Auto 0.02 K/uL (0.00-0.30); Immature Granulocytes Pct Auto 0.3 %; Lymphocytes Percent Auto 11.3 % (20-44); Mean Corpuscular HGB Conc 35 gm/dL (32-36); Mean Corpuscular Hemoglobin 34 pg (26-34); Mean Corpuscular Volume 98 fL (80-100); Monocytes Percent Auto 3.8 % (0.0-11.0); Neutrophils Percent Auto 76.9 % (42.0-72.0); RDW Coefficient of Variation % 14.5 % (11.5-15.5); Red Blood Count 3.64 m/uL (4.30-5.90); White Blood Count* 6.09 K/uL (4.50-11.00)
[2023-05-12 23:41] LABS: Platelet Count* 38 K/uL (140-440); Slide Review Reflex Yes
[2023-05-12 23:42] VITALS: BP 111/78; PULSE 88; RESP 18; O2SAT 93
[2023-05-12 23:43] LABS: Slide Review Acceptable Review (Acceptable)
[2023-05-12 23:52] LABS: Albumin* 2.9 g/dL (3.3-5.0); Chloride* 111 mmol/L (96-114); Potassium* 3.8 mmol/L (3.6-5.1); Sodium* 138 mmol/L (135-149)
[2023-05-12 23:55] LABS: Alanine Aminotransferase* 48 U/L (4-50); Alkaline Phosphatase* 243 U/L (40-150); Anion Gap 8 mEq/L (7-15); Aspartate Amino Transferase* 66 U/L (12-35); Bilirubin Direct* 2.4 mg/dL (0.0-0.5); Bilirubin Total* 9.8 mg/dL (0.1-1.5); Blood Urea Nitrogen* 8 mg/dL (5-24); Carbon Dioxide* 19 mmol/L (20-32); Creatinine* 0.6 mg/dL (0.5-1.5); Est. Creatinine Clearance* 194.56; Estimated Glomerular Filt Rate 132 ml/min; Glucose* 98 mg/dL (60-115); Total Protein* 6.5 g/dL (6.0-8.3)
[2023-05-12 23:57] LABS: HCO3 VBG 23 mmol/L (21-28); PCO2 VBG 38 mmHG (40-50); PO2 VBG 59.9 mmHG (25-47)
[2023-05-13] VITALS (10 sets, daily range): BP systolic 115–140; BP diastolic 62–78; PULSE 78–91; RESP 18; TEMP 37.1; O2SAT 88–93
[2023-05-13 00:06] LABS: Magnesium* 1.3 mg/dL (1.5-2.6); Phosphorus* 3.6 mg/dL (2.5-4.5)
[2023-05-13] MEDS: 0.9 % SODIUM CHLORIDE 1000 ml 1,000 ML 2000 ML IV (00:07)
[2023-05-13 00:10] LABS: C Reactive Protein* 0.9 mg/dL (0.5-1.0)
[2023-05-13 00:12] LABS: Ethanol* < 0.01 % (0.01-0.03)
--- NOTE | 2023-05-13 00:21 | CRLHL7_ITS ---
For Patients: As a result of the Century Cures Act, medical imaging exams and procedure reports are released immediately into your electronic medical record. You may view this report before your referring provider. If you have questions, please contact your health care provider. INDICATION: abdominal pain, hx cirrhosis, labs stable for liver, nausea and vomiting since 2100hrs. TECHNIQUE: CT abdomen and pelvis acquired with 83 cc Isovue 370 IV contrast. Permanently recorded images are archived. COMPARISON: None. FINDINGS: Lower chest: Partially imaged tiny pleural effusions, right greater than left, with associated passive atelectasis. Extensive collateral vessels in the posterior mediastinum about the distal esophagus. Probable esophageal varices. Liver: Shrunken, micro nodular liver. No focal suspicious lesion identified. Gallbladder and bile ducts: Hydropic with pericholecystic fluid, which may be reactive to the patient`s ascites. No discrete renal thickening. No biliary ductal dilatation. Pancreas: Unremarkable. No mass or inflammation. Spleen: Splenomegaly. No focal mass. Adrenal glands: Unremarkable. No nodules. Kidneys, Ureters, and Bladder: Unremarkable. No suspicious masses, stones, or hydronephrosis. Unremarkable ureters and bladder. GI tract: Mild mural thickening of the colon, particularly the ascending and transverse colon. No obstruction. Normal appendix. Vasculature: Abdominal aorta is normal in caliber. Mesenteric arteries are patent. Extensive collateral vessels within the upper abdomen, particularly about the distal esophagus. Lymph nodes: No lymphadenopathy. Peritoneum/Abdominal Wall: Mild to moderate volume simple ascites. Anasarca. No free air. Pelvis: Unremarkable. Bones: Unremarkable for age. IMPRESSION: Cirrhosis with stigmata of portal hypertension include prominence collateral vessels, particularly about the distal esophagus, splenomegaly, ascites, and probable esophageal varices. Mild mural thickening of the ascending colon and transverse colon. Differential considerations include colitis and portal hypertensive colopathy. Hydropic gallbladder with pericholecystic fluid, though no discrete mural thickening. These findings are likely reactive to the patient`s ascites; however, cannot entirely exclude acute cholecystitis in the correct clinical setting. Please note that all CT scans at this facility use dose modulation, iterative reconstruction, and/or weight-based dosing when appropriate to reduce radiation dose to as low as reasonably achievable. Dictated by Jatin Flower MD @ 05/13/2023 1:18:31 AM (Electronically Signed)
--- NOTE | 2023-05-13 00:25 | ED_ITS ---
HPI - General Adult General Chief complaint: Abdominal Pain Stated complaint: abdominal pain Time Seen by Provider: 05/13/23 00:01 Source: patient Mode of arrival: ambulatory History of Present Illness HPI narrative: 32-year-old male with known history of significant alcoholic cirrhosis presents to the emergency department with abdominal pain for the last 2-3 hours. Stabbing pain on occasion in the left upper quadrant area but also reporting diffuse periumbilical pain. States that he looks jaundiced and reports that he has not been jaundiced in quite a long time. I am able to Pare the statement down and he has a known history of significant alcoholic cirrhosis with severe liver failure from September. He reports that he has been sober for the past 9 months. He reports that he follows with a liver specialist but cannot tell me his last appointment for lab work. He reports that he was told his labs are getting better. With much coaxing and assistance on my part, we are able to follow-up on his phone that he follows with [facility] and last had labs performed in December. It looks like he had an endoscopy at that time also. In summary, his labs showed that his bilirubin was 9.6 with a direct bilirubin of 4.68. Alk-phos of 223 with an AST of 45 and an ALT of 22 respectively. Critically low platelets under 50. Again, these are from December. He reports that he has upcoming labs in June as well. On specific questioning, he states that he does take a stomach acid medicine but does not remember which 1. He has felt chilled today but has not checked his temperature. He has no localizing symptoms of infection and other sources likely urine, skin, throat or breathing difficulties. The abdominal pain is achy and out of character for him. He reports that he is significantly prone to nausea on a regular basis, worsens with perceived dehydration. He says that he vomits about once per month. He is adamant that he does not drink alcohol. He denies any trauma or injury or sick contacts, no pertinent travel. He has not tried taking any medications to help with the abdominal pain. He says that he initially just thought he may be dehydrated as he had darker urine today and he had been spending quite a bit of time outside over the last couple of days. He tried drinking more water and that made the vomiting worse. He does continue to feel nauseated. I do have a discharge summary from a line from back in September that documents the initial treatment of his alcoholic cirrhosis. Past medical history most notable for alcoholic cirrhosis, no longer drinking alcohol. Allergies are to penicillin. Outside records indicate that he should be on omeprazole 20 mg once daily and has also been prescribed spironolactone rifaximin lactulose and furosemide. He was not able to recall what he takes. ROS is notable for the abdominal symptoms and jaundice as described above. Otherwise, he denies times 12 systems. Related Data Home Medications Medication Instructions Recorded Confirmed furosemide 40 mg tablet 40 mg PO DAILY 05/12/23 05/12/23 lactulose 10 gram/15 mL oral 15 ml PO BID 05/12/23 05/12/23 solution omeprazole 20 mg capsule,delayed 20 mg PO DAILY 05/12/23 05/12/23 release rifaximin 550 mg tablet (Xifaxan) 550 mg PO BID 05/12/23 05/12/23 spironolactone 100 mg tablet 100 mg PO DAILY 05/12/23 05/12/23 Allergies Allergy/AdvReac Type Severity Reaction Status Date / Time Penicillins Allergy Intermediate Rash Verified 05/12/23 23:24 [facility] Medical History Acute alcoholic hepatitis ?K70.10 - Alcoholic hepatitis without ascites (ICD-10) Alcohol abuse ?F10.10 - Alcohol abuse, uncomplicated (ICD-10) Abdominal ascites ?R18.8 - Other ascites (ICD-10) Social History Smoking Status: Current every day smoker What tobacco products do you use: cigarettes How often do you have a drink containing alcohol: never How often do you have six or more drinks on one occasion: Never AUDIT-C Alcohol total score: 0 Non-prescribed substance use: marijuana (any form) Non-prescribed substance use details: pt states he quit drinking, last drink last year. service: Yes Exam Const: Vital Signs, click to edit/add: Vital Signs - 24 hr 05/12/23 23:19 05/12/23 23:42 05/13/23 00:02 Temperature 99.0 F Pulse Rate 88 79 Pulse Rate [Right Pulse Oximeter] 90 Respiratory Rate 18 18 Blood Pressure 111/78 120/74 Blood Pressure [Ri ght Upper Arm] 131/74 Pulse Oximetry 96 93 93 Oxygen Delivery Me thod Room Air Nasal Cannula 05/13/23 00:22 05/13/23 01:02 05/13/23 01:22 Temperature Pulse Rate 78 89 86 Pulse Rate [Right Pulse Oximeter] Respiratory Rate Blood Pressure 129/76 135/78 136/77 Blood Pressure [Ri ght Upper Arm] Pulse Oximetry 92 93 90 Oxygen Delivery Me thod Documenting provider has reviewed patient's vital signs: yes Common normals: alert Orientation/consciousness: Yes awake Other: Patient not a great historian, attributed to the alcoholic cirrhosis. Friendly and cooperative though with no agitation. HENMT: Common normals: normocephalic and head/scalp atraumatic Head and scalp: normocephalic and atraumatic Face and sinus: normal facial exam Mouth: oral and palatal mucosa normal Throat: posterior oropharynx normal Eye: Common normals: conjunctivae normal Conjunctiva: conjunctiva(e) normal Other: Moderate scleral icterus. Pupils otherwise equal and round. Normal visual gaze and tracking. Neck & C-Spine: Common normals: full ROM and no lymphadenopathy Resp: Common normals: normal respiratory effort, no use of accessory muscles and clear to auscultation bilaterally Effort & inspection: able to speak in complete sentences Auscultation: clear to auscultation bilaterally Cardio: Common normals: regular rate, regular rhythm, S1 normal heart sound and S2 normal heart sound Rate: regular rate Rhythm: regular rhythm Heart sounds: S1 normal and S2 normal GI: Other: Liver significantly enlarged. He is diffusely tender to the left upper quadrant and the mid abdomen. Liver so enlarged, it makes my interpretation of anatomy d ifficult. We certainly is quite tender and winces on exam with some mild guarding. No obvious rebound tenderness. Liver is enlarged in this obscures palpation of any mass. Extremity: Common normals: normal to inspection and normal capillary refill Other: Trace edema noted Neuro: Sensorium/orientation: awake and alert Cranial nerves: CN normal except as noted Other: Slight resting tremor Psych: Common normals: speech normal Attitude: engaged Activity/motor behavior: appropriate eye contact Speech: normal speech Mood and affect: euthymic mood Insight: fair Judgement: fair Skin: Narrative: Jaundice to face, neck, upper chest. Course Course Hospital Course: Differential diagnosis including pancreatitis, gastritis, colitis, cholecystitis, liver disease, obstruction, ischemic bowel, other complications of acute or chronic disease. Patient will receive 1 L of normal saline, 4 mg of Zofran use cautiously in the setting of his liver disease, initial CT scan and blood work. I was able to pull up his previous outpatient labs and prior hospital discharge summary for comparison. Await findings. Reevaluation(s) Time of Reevaluation #1: 03:34 Reevaluation #1: Patient is feeling markedly better after IV fluids. He has tolerated the oral magnesium. He has tolerated 2 glasses of clear liquids with no further vomiting. Pain is improved. He has had no bloody stools. All labs and imaging studies reviewed with patient. Though he has significant chronic changes, his labs are stable and his imaging studies look like chronic rather than acute problems with the exception of the colitis. The colitis would certainly explain his discomfort. He showing no signs of sepsis, hypotension, bloody stools, tachycardia or true fever. He responded well to limited interventions. We discussed safety of Zofran in someone with liver disease. He he can use this medication but only once every 18-24 hours and only for maximum of 3 doses, we discussed this and he verbalizes understanding and agreement. I will give him a supply of this for the next few days. He certainly is at very high risk of complications due to his underlying history of esophageal varices, liver disease. We discussed alarm symptoms especially bloody stools, upper GI discomfort, further dehydration, all of which would warrant ED presentation. He verbalizes understanding and agreement. He will be discharged home with family upon completion of the interventions as described above. Vital Signs Vital signs: Initial Vital Signs Temperature 99.0 F 05/12/23 23:19 Temperature Source Oral 05/12/23 23:19 Pulse Rate 90 05/12/23 23:19 Respiratory Rate 18 05/12/23 23:19 Blood Pressure 131/74 05/12/23 23:19 Blood Pressure Mean 93 05/12/23 23:19 Blood Pressure Position Sitting 05/12/23 23:19 Pulse Oximetry 96 05/12/23 23:19 Oxygen Delivery Method Room Air 05/12/23 23:19 Vital Signs Temperature 99.0 F 05/12/23 23:19 Pulse Rate 90 05/12/23 23:19 Respiratory Rate 18 05/12/23 23:19 Blood Pressure 131/74 05/12/23 23:19 Pulse Oximetry 96 05/12/23 23:19 Oxygen Delivery Method Room Air 05/12/23 23:19 Temperature 99.0 F 05/12/23 23:19 Pulse Rate 86 05/13/23 01:22 Respiratory Rate 18 05/12/23 23:42 Blood Pressure 136/77 05/13/23 01:22 Pulse Oximetry 90 05/13/23 01:22 Oxygen Delivery Method Nasal Cannula 05/12/23 23:42 Medical Decision Making [facility] Narrative Medical decision making narrative: Differential diagnosis including biliary obstruction, cholecystitis, pancreatitis, gastritis, spontaneous bacterial peritonitis, urine infection. He does have a low-grade fever. No hypotension or tachycardia to suspect sepsis. Will order basic labs including LFTs, CRP, lipase, urinalysis, electrolyte studies, lactate and await results. Previous provider has already ordered a L of normal saline. I will cautiously also give 4 mg of IV Zofran knowing that he should not have subsequent dosing due to his liver disease. 20 mg of oral famotidine and CT scan. Lab Data Lab results reviewed: Yes I reviewed the patient's lab results Lab results narrative: Reassuring in comparison only to his previous known outpatient values from December through his GI specialist which I am able to view on the patient's phone. Borderline elevation of amylase does appear chronic. Unfortunately we were unable to run lipase due to being out of the reagent temporarily. Labs: Lab Results 05/12/23 05/13/23 05/13/23 Range/Units 23:30 00:00 00:21 WBC 6.09 (4.50-11.00) K/uL RBC 3.64 L (4.30-5.90) m/uL Hgb 12.3 L (13.5-17.5) gm/dL Hct 35.7 L (37.0-53.0) % MCV 98 (80-100) fL MCH 34 (26-34) pg MCHC 35 (32-36) gm/dL RDW Coeff of Pastor 14.5 (11.5-15.5) % Plt Count 38 L* (140-440) K/uL Neut % (Auto) 76.9 H (42.0-72.0) % Lymph % (Auto) 11.3 L (20-44) % [place] % (Auto) 3.8 (0.0-11.0) % Eos % (Auto) 7.4 H (0.0-7.0) % Baso % (Auto) 0.3 (0.0-3.0) % Neut # (Auto) 4.70 (1.7-7.0) K/uL Lymph # (Auto) 0.70 L (0.90-2.90) K/uL [place] # (Auto) 0.20 (0.00-0.90) K/UL Eos # (Auto) 0.50 (0.00-0.50) K/uL Baso # (Auto) 0.02 (0.00-0.30) K/uL Abs Immat Gran (auto) 0.02 (0.00-0.30) K/uL Imm/Tot Granulo (auto) 0.3 % Diff Slide Review Acceptable Review (Acceptable) VBG pH 7.380 (7.32-7.43) VBG pCO2 38 L (40-50) mmHG VBG pO2 59.9 H (25-47) mmHG VBG HCO3 23 (21-28) mmol/L Sodium 138 (135-149) mmol/L Potassium 3.8 (3.6-5.1) mmol/L Chloride 111 (96-114) mmol/L Carbon Dioxide 19 L (20-32) mmol/L Anion Gap 8 (7-15) mEq/L BUN 8 (5-24) mg/dL Creatinine 0.6 (0.5-1.5) mg/dL Estimated Creat Clear 194.56 Estimated GFR 132 ml/min Glucose 98 (60-115) mg/dL Lactate 2.3 H (0.5-1.9) mmol/L Calcium 8.0 L (8.4-10.6) mg/dL Phosphorus 3.6 (2.5-4.5) mg/dL Magnesium 1.3 L (1.5-2.6) mg/dL Total Bilirubin 9.8 H (0.1-1.5) mg/dL Direct Bilirubin 2.4 H (0.0-0.5) mg/dL AST 66 H (12-35) U/L ALT 48 (4-50) U/L Alkaline Phosphatase 243 H (40-150) U/L Ammonia 71.0 H (13.1-30.0) umol/L C-Reactive Protein 0.9 (0.5-1.0) mg/dL Total Protein 6.5 (6.0-8.3) g/dL Albumin 2.9 L (3.3-5.0) g/dL Amylase 103 H (18-89) U/L Lipase Cancelled Ethyl Alcohol < 0.01 L (0.01-0.03) % Lab Acknowledgement Test Added Blood Type B Positive Antibody Screen NEGATIVE Imaging Data CT scan - abdomen: Attestation: I have reviewed the pertinent imaging results. My impression: Colon thickening suspicious for colitis but there is a lot of ascites and certainly some liver enlargement as well Radiologist's impression: IMPRESSION: Cirrhosis with stigmata of portal hypertension include prominence collateral vessels, particularly about the distal esophagus, splenomegaly, ascites, and probable esophageal varices. Mild mural thickening of the ascending colon and transverse colon. Differential considerations include colitis and portal hypertensive colopathy. Hydropic gallbladder with pericholecystic fluid, though no discrete mural thickening. These findings are likely reactive to the patient`s ascites; however, cannot entirely exclude acute cholecystitis in the correct clinical setting. Ultrasound abdomen: Attestation: I have reviewed the pertinent imaging results. My impression: No obvious obstructive pathology, no focal wall thickening of gallbladder. Radiologist's impression: IMPRESSION: 1. The visualized pancreatic parenchyma is hypoechoic in appearance. Correlation with serum amylase and lipase levels are recommended to exclude acute pancreatitis. Discharge Plan Discharge Clinical Impression: Colitis Patient Disposition: Home w/ Parent or Adult Condition: Improved Instructions: Colitis (ED) Additional Instructions: The blood tests reveal that your liver is stable from December which is certainly much better than September. Continue abstaining from alcohol, it is certainly helping. You are not more jaundiced than in December. Keep your follow-up appointment with your GI specialist as is planned for recheck of your labs in June like you told me. Continue taking your stomach acid medicine as prescribed. The ultrasound of your gallbladder today shows no new infection or inflammation other than the mild chronic changes you have from your liver disease. There are no changes needed for this today. Most likely, your symptoms are related to colitis, inflammation of the colon which is not related to your liver disease. This is usually caused by a virus, also known as a ?stomach flu? and tends to last 2-3 days. You were slightly dehydrated and your magnesium level was a little low. Because of this your given IV fluids and some magnesium. Your given a single dose of an anti nausea medicine, Zofran. With this, you have been able to hold down liquids which is reassuring. Because of your liver disease, you will not clear this medication normally. I would recommend that for you you only take this once daily as needed for nausea and vomiting and for no more than just the next few days. You could take another dose Friday evening if needed. As we discussed, the instructions on the package will not be correct for you. This is because of your liver disease. We discussed me sending correct instructions to your local pharmacy we you agreed the convenience of picking it up directly from the vending machine was worthwhile for you and you understand only to take this every 18-24 hours. Rest for the next 48 hours and continue to push fluids. As we discussed, you should come back to the emergency department if you start having bloody stools, bloody vomit, severe abdominal pain, severe weakness and or worsening of symptoms otherwise. Slowly advance her diet as you start feeling better. Activity Level: No strenuous activity Discharge Diet: Regular Prescriptions: No Action furosemide 40 mg tablet 40 mg PO DAILY spironolactone 100 mg tablet 100 mg PO DAILY omeprazole 20 mg capsule,delayed release(DR/EC) 20 mg PO DAILY lactulose 10 gram/15 mL solution 15 ml PO BID Xifaxan 550 mg tablet 550 mg PO BID Follow Up/Referrals: Raven Sanchez PA-C [Primary Care Provider] - Stand Alone Forms: [employer] Info Instructions
[2023-05-13] MEDS: ONDANSETRON 2 MG/ML inj 4 MG IVP (00:30)
[2023-05-13] MEDS: FAMOTIDINE 20 MG TABLET PO (00:30)
[2023-05-13 00:34] LABS: Amylase* 103 U/L (18-89)
--- NOTE | 2023-05-13 01:43 | CRLHL7_ITS ---
For Patients: As a result of the Cures Act, medical imaging exams and procedure reports are released immediately into your electronic medical record. You may view this report before your referring provider. If you have questions, please contact your health care provider. INDICATION: Abdominal pain, abnormal gallbladder TECHNIQUE: Ultrasound abdomen limited. Sonographic images of the right upper quadrant were obtained using diego-scale and color Doppler images. COMPARISON: CT 05/13/2023 FINDINGS: Liver: The liver has a nodular capsular contour, consistent with micronodular cirrhosis. No focal liver lesions are identified. Gallbladder: No gallstones or sludge seen in the lumen. Mild gallbladder wall thickening is present which is nonspecific and may be due to patient`s erosive. No pericholecystic fluid is present. No sonographic Figueroa???s sign is present. Common bile duct: 6 mm. No intrahepatic biliary ductal dilatation seen. Pancreas: The visualized pancreatic parenchyma is hypoechoic in appearance. Right Kidney: 10.8 cm. No hydronephrosis or ureterectasis is seen. Vascular: The visualized abdominal aorta and IVC are unremarkable. IMPRESSION: 1. The visualized pancreatic parenchyma is hypoechoic in appearance. Correlation with serum amylase and lipase levels are recommended to exclude acute pancreatitis. Dictated by Rich Salomon MD @ 05/13/2023 3:14:42 AM Dictated by: Rich Salomon MD @ 05/13/2023 03:14:44 (Electronically Signed)
--- NOTE | 2023-05-13 02:11 | ED.NURSE ---
pt verbal to give mother eric update, updated via phone, mother states she will be the ride home tonight.
[2023-05-13] MEDS: MAGNESIUM OXIDE 400 MG TABLET 800 MG PO (03:37)
== END 2023-05-13 04:00 | disposition home or self-care (01) ==
PROVIDERS: Family Medicine; Emergency Provider Family Medicine; PCP Physician Assistant Medical
DX: K52.9 Noninfective gastroenteritis and colitis, unspecified (principal)
CPT/HCPCS: 36415; 74177; 76705; 80048; 80076; 81003; 82077; 82140; 82150; 82803; 83605; 83690; 83735; 84100; 85025; 86140; 86850; 86900; 86901; 96374; 99284; 99285; A9270; J2405; J7030; Q9967

== ENCOUNTER 2024-10-30 19:34 | Outpatient (CLI) | payer OTHER, SELFPAY | END 2024-10-30 19:35 | disposition home or self-care (01) | PROVIDERS: PCP Physician Assistant Medical; Visit Provider Family Medicine | DX: S09.93XA Unspecified injury of face, initial encounter (principal); R42 Dizziness and giddiness; V43.51XA Car driver injured in collision with sport utility vehicle in traffic accident, initial encounter; Y92.410 Unspecified street and highway as the place of occurrence of the external cause | CPT/HCPCS: A0425; A0427 ==

== ENCOUNTER 2024-10-30 20:21 | Emergency (ER) | payer OTHER, BC, SELFPAY ==
[2024-10-30] VITALS (7 sets, daily range): BP systolic 118–124; BP diastolic 32–89; PULSE 61–67; RESP 14–22; TEMP 36.6–36.7; O2SAT 98–99; BMI 24.4
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
== END 2024-10-30 21:04 | disposition home or self-care (01) ==
LOC: ED 21:03
PROVIDERS: Emergency Provider Emergency Medicine Emergency Medical Services; PCP Internal Medicine Gastroenterology
DX: Z71.1 Person with feared health complaint in whom no diagnosis is made (principal); V43.52XA Car driver injured in collision with other type car in traffic accident, initial encounter
CPT/HCPCS: 94761; 99283; 99284

== ENCOUNTER 2024-12-19 07:09 | Emergency (ER) | payer BC, SELFPAY ==
[2024-12-19 07:15] VITALS: BP 118/78; PULSE 59; RESP 16; TEMP 37; O2SAT 99; BMI 25.1
--- NOTE | 2024-12-19 07:28 | ED_ITS ---
HPI - General Adult General Chief complaint: Overdose Stated complaint: took too much medication Time Seen by Provider: 12/19/24 07:24 History of Present Illness HPI narrative: Patient is a E 34-year-old gentleman with history of hepatic insufficiency. He was distracted by his cat this morning and inadvertently took double doses of Rifaximin, carvedilol 3.125 mg and omeprazole. Patient feels fine. He is concerned and came in for further evaluation. He has developed no nausea no v omiting no fevers no chills no night sweats no cough no shortness of breath no abdominal pain. His pulse is reasonable given the double dose of beta-mago. Related Data Home Medications ?Medication ?Instructions ?Recorded ?Confirmed furosemide 40 mg tablet 40 mg PO DAILY 05/12/23 05/12/23 lactulose 10 gram/15 mL oral 15 ml PO BID 05/12/23 05/12/23 solution omeprazole 20 mg capsule,delayed 20 mg PO DAILY 05/12/23 05/12/23 release rifaximin 550 mg tablet (Xifaxan) 550 mg PO BID 05/12/23 05/12/23 spironolactone 100 mg tablet 100 mg PO DAILY 05/12/23 05/12/23 carvedilol .ROUTE 10/30/24 lactulose PO 10/30/24 omeprazole .ROUTE 10/30/24 rifaximin .ROUTE 10/30/24 Allergies Allergy/AdvReac Type Severity Reaction Status Date / Time Penicillins Allergy Intermediate Rash Verified 12/19/24 07:14 Review of Systems Status of ROS: Reports: 10 or more systems reviewed and unremarkable except as noted in History and below [facility] Medical History Acute alcoholic hepatitis ?K70.10 - Alcoholic hepatitis without ascites (ICD-10) Alcohol abuse ?F10.10 - Alcohol abuse, uncomplicated (ICD-10) Abdominal ascites ?R18.8 - Other ascites (ICD-10) Liver cirrhosis ?K74.60 - Unspecified cirrhosis of liver (ICD-10) Social History Smoking Status: Former smoker What tobacco products do you use: cigarettes Smoking quit date/years: <= 15 years ago Do you use any of these nicotine containing products: None Second hand tobacco smoke exposure: No How often do you have a drink containing alcohol: never How often do you have six or more drinks on one occasion: Never AUDIT-C Alcohol total score: 0 Non-prescribed substance use: marijuana (any form) Non-prescribed substance use details: pt states he quit drinking, last drink last year. service: Yes Exam Narrative: Exam Narrative: EXAM GENERAL: Patient appears comfortable and well. EYES: No scleral icterus. ENT: Tympanic membranes and oropharynx normal. THYROID: no thyroid nodules or thyromegaly. LYMPH: No supraclavicular or cervical lymphadenopathy. SKIN: Visible skin seen during exam normal or with benign process only. EXT: No dependent lower extremity pedal edema. HEART: Regular rate and rhythm with no murmurs, rubs, or gallops. LUNGS: Clear to auscultation bilaterally with no crackles or wheezes. ABD: Soft, non tender, non distended. PSYCH: Good eye contact, speech is not pressured. Const: Vital Signs, click to edit/add: Vital Signs - 24 hr 12/19/24 07:15 Temperature 98.6 F Pulse Rate [Pulse Oximeter] 59 L Respiratory Rate 16 Blood Pressure [Le ft Upper Arm] 118/78 Pulse Oximetry 99 Oxygen Delivery Me thod Room Air Course Course ED Course: Patient seen and examined. I did review all of his medications. He is in no danger. Reassurance is offered. I do not believe he needs stay in the ER or have further evaluation. He can resume his usual dosing this evening will report any changes in his symptoms in the interim. Vital Signs Vital signs: Initial Vital Signs Temperature 98.6 F 12/19/24 07:15 Temperature Source Temporal Artery Scan 12/19/24 07:15 Pulse Rate 59 L 12/19/24 07:15 Pulse Rhythm Regular 12/19/24 07:15 Respiratory Rate 16 12/19/24 07:15 Blood Pressure 118/78 12/19/24 07:15 Blood Pressure Mean 91 12/19/24 07:15 Blood Pressure Position Sitting 12/19/24 07:15 Pulse Oximetry 99 12/19/24 07:15 Oxygen Delivery Method Room Air 12/19/24 07:15 Vital Signs Temperature 98.6 F 12/19/24 07:15 Pulse Rate 59 L 12/19/24 07:15 Respiratory Rate 16 12/19/24 07:15 Blood Pressure 118/78 12/19/24 07:15 Pulse Oximetry 99 12/19/24 07:15 Oxygen Delivery Method Room Air 12/19/24 07:15 Temperature 98.6 F 12/19/24 07:15 Pulse Rate 59 L 12/19/24 07:15 Respiratory Rate 16 12/19/24 07:15 Blood Pressure 118/78 12/19/24 07:15 Pulse Oximetry 99 12/19/24 07:15 Oxygen Delivery Method Room Air 12/19/24 07:15 Medical Decision Making MDM Narrative Medical decision making narrative: As above. Discharge Plan Discharge Clinical Impression: Drug overdose Instructions: Adult Overdose (ED) Additional Instructions: Continue current dosing of medication. Follow-up with your doctor as needed. Activity Level: No Restrictions Discharge Diet: Regular Prescriptions: No Action furosemide 40 mg tablet 40 mg PO DAILY spironolactone 100 mg tablet 100 mg PO DAILY omeprazole 20 mg capsule,delayed release(DR/EC) 20 mg PO DAILY lactulose 10 gram/15 mL solution 15 ml PO BID Xifaxan 550 mg tablet 550 mg PO BID omeprazole .ROUTE carvedilol .ROUTE rifaximin [Xifaxan] .ROUTE lactulose PO Follow Up/Referrals: Raven Sanchez PA-C [Primary Care Provider] - Stand Alone Forms: [employer] Info Instructions
--- OUTSIDE RECORDS SUMMARY | 2024-12-19 07:43 | XMS_ITS ---
Author Organization [place] Address [address] [place] [id number] Care Team Providers Care Laundry Assistant Name Role Phone TaranMoisesYesikacatracho Gee PA-C Unavailable [phone] Unavailable Unavail able Reinier Lehman MD Unavailable Mamadou Gong MD Unavailable + [phone] Arcelia Cid SAFE DEPOSIT BOX RENTAL CLERK Unavailable [phone] Mamadou Gong MD Unavailable + [phone] Reinier Lehman MD Unavailable Trung Duran AUTOMATIC LATHE SETTER Unavailable Unavailable Duran Luong MD Unavailable [phone] Osmany Rausch RN Unavailable Unavailable Hina Rojo MD Unavailable [phone] Fabiola Epperson APRN QUALITY CONTROL SYSTEMS MANAGER Unavailable [phone] Jatin Carcamo MD Unavailable [phone] Mamadou Gong MD Primary Care Provid er Transplant Episode Liver Candidate [facility] ([place], [place]) - [facility] Evaluation began on 08/19/2023 Marked as Active on 08/26/2023 Liver CoordinatorOsmany Rausch RN Phone: N/A Fax: N/A Email: N/A Scores Score Value Updated Expires Exceptions/[place] sons CPRA Not available UNOS MELD Not available MELD (Calc) 15 12/07/2024 [place] Organ Diagnosis Organ Primary Contributory Liver Alcohol-Associated C irrhosis Without Acute Alcohol-Associated Hepatitis Care Team Name Role Phone Fax Email Osmany Rausch RN Liver Coordinator N/A N/A N/A Reinier Lehman MD Transplant Surgeon [phone] [email or web address] Jana Garza LPN Consumer Services Advisor N/A N/A N/A Raven Sanchez PA-C Assigned PCP N/A N/A N/A Osmany Rausch RN Vp Product Marketing N/A N/A N/A Yesika Chirinos PA-C Referring Physician [phone] [email or web address] Mamadou Gong MD Director Of Business Services [phone] [email or web address] Events Pre-Transplant Referred: 07/14/2023 Evaluation began: 08/19/2023 Committee: 08/19/2023
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
--- OUTSIDE RECORDS SUMMARY | 2024-12-19 07:43 | XMS_ITS | Encounter Summary ---
Author Organization [place] Address [address] [place] [address] Care Team Providers Care Jacquard Loom Card Changer Name Role Phone TaranMoisesYesikacatracho Gee PA-C Unavailable [phone] Unavailable Unavail able Reinier Lehman MD Unavailable Ramona Gong MD Unavailable + [phone] Arcelia Cid TOP POLISHER Unavailable [phone] Ramona Gong MD Unavailable + [phone] Reinier Lehman MD Unavailable Trung Duran CONFIDENTIAL INVESTIGATOR Unavailable Unavailable Duran Luong MD Unavailable [phone] Osmany Rausch RN Unavailable Unavailable Hina Rojo MD Unavailable [phone] Fabiola Epperson APRN MACHINE CHAIN MAKER Unavailable [phone] Jatin Carcamo MD Unavailable [phone] Ramona Gong MD Primary Care Provid er Reason for Referral * Diagnostic Imaging Ultrasound (Routine) - Pending Review Specialty Diagnoses / Procedures Referred By Contgrayson t Referred To Contact Radiology. Diagnoses Alcoholic cirrhosis of liver with ascites (H) Secondary esophageal varices without bleeding (H) Procedures US TIPS Doppler Jatin Carcamo MD [address] [place] [address] Phone: tel: fax: Referral ID Status Reason Start Date Expiration Date V isits Requested Visits Authorized [id number] Pending Review 12/09/2024 12/09/2025 1 1 Reason for Visit * Reason Comments RECHECK Encounter Details Date Type Department Care Team (Late st Contact Info) Description 12/09/2024 2:30 PM CDT Virtual Visit [facility] [address] 3[address] [place] [address] Jatin Carcamo MD [address] [place], [place] [phone] Alcoholic cirrhosis of liver with ascites (H) (Primary Dx); Secondary esophageal varices without bleeding (H) Social History Tobacco Use Types Packs/Day Years Used Date Smoking Tobacco: Former Cigarettes 0.1 11.1 S tarted: 11/23/2013 Passive Smoke Exposure: Current Smokeless Tobacco: Never Tobacco Cessation:Counseling Given: Not Answered Alcohol Use Standard Drinks/Week Comments Not Currently 0 (1 standard drink = 0.6 oz pure alcohol) Last drink 10/12/2022; would drink 1.75L of hard alcohol every 2 days PHQ-2 Answer Date Recorded PHQ-2 Score 0 12/09/2024 Adolescent Education Answer Date Record ed Getting [...] PM CDT Legal 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 Gender Identity Male 07/17/2023 2:30 PM CDT Sexual Orientation Not on file documented as of this encounter Last Filed Vital Signs Vital Sign Reading Time Taken Comments Blood Pressure - - Pulse - - Temperature - - Respiratory Rate - - Oxygen Saturation - - Inhaled Oxygen Concentration - - Weight 81.6 kg (180 lb) 12/09/2024 2:08 PM CDT p er pt Height 182.9 cm (6') 12/09/2024 2:08 PM CDT Body Mass Index 24.41 12/09/2024 2:08 PM CDT documented in this encounter Patient Instructions * Patient Instructions* Janae Espinoza RN - 12/09/2024 2:30 PM CDT Efrain Bojorquez, We will have our ultrasound technol reach out and help schedule the US and labs to be completed prior to 's appt. She will also schedule a fup with Dr. Carcamo at that time also. Please do not hesitate to call with any questions. Sincerely, Janae oBone RN, BSN Interventional Radiology/Vascular Nurse Coordinator , option 2 documented in this encounter Progress Notes * Jatin Carcamo MD - 12/09/2024 2:30 PM CDT Images from the original note were not included. INTERVENTIONAL RADIOLOGY ESTABLISHED PATIENT FOLLOW UP HPI: Adrián Sheomaker is a 34 year old male with EtOH cirrhosis who underwent TIPS on 11/08/24 d/t very large esophageal varices. His TIPS was opened to 10 mm and the final portosystemic gradient was 2 mmHg. Initially felt a little sick postprocedurally. He has had no issues with confusion. He actually feels like if anything he has a little more clarity. Still takes lactulose and rifaximin, targeting 2-3bowel movements per day. Sees Dr. Young again in February. No chest pain, shortness of breath. No leg swelling. ROS: Negative unless otherwise stated in HPI. Physical Examination: VITALS: There were no vitals taken for this visit. CONSTITUTIONAL: healthy, alert and no distress. PSYCHIATRIC: mentation appears normal and affect normal. NEURO: Normal movements and speech. EYES: No jaundice or pallor. SKIN: No jaundice. RESP: No audible cough or wheeze. Labs: BMP RESULTS: Lab Results Component Value Date NA 142 12/07/2024 POTASSIUM 4.6 12/07/2024 CHLORIDE 109 (H) 12/07/2024 CHLORIDE 111 (H) 06/30/2023 CO2 23 12/07/2024 ANIONGAP 10 12/07/2024 GLC 105 (H) 12/07/2024 GLC 76 11/08/2024 BUN 7.0 12/07/2024 CR 0.82 12/07/2024 GFRESTIMATED >90 12/07/2024 GREGG 9.0 12/07/2024 CBC RESULTS: Lab Results Component Value Date WBC 5.1 12/07/2024 RBC 4.41 12/07/2024 HGB 14.2 12/07/2024 HGB 14.3 05/01/2004 HCT 38.3 (L) 12/07/2024 MCV 87 12/07/2024 MCH 32.2 12/07/2024 MCHC 37.1 (H) 12/07/2024 RDW 14.1 12/07/2024 PLT 56 (L) 12/07/2024 INR/PTT: Lab Results Component Value Date INR 1.48 (H) 12/07/2024 INR 2.0 (H) 06/30/2023 MELD 3.0: 15 at 12/07/2024 10:12 AM MELD-Na: 15 at 12/07/2024 10:12 AM Calculated from: Serum Creatinine: 0.82 mg/dL (Using min of 1 mg/dL) at 12/07/2024 10:12 AM Serum Sodium: 142 mmol/L (Using max of 137 mmol/L) at 12/07/2024 10:12 AM Total Bilirubin: 3.2 mg/dL at 12/07/2024 10:12 AM Serum Albumin: 3.6 g/dL (Using max of 3.5 g/dL) at 12/07/2024 10:12 AM INR(ratio): 1.48 at 12/07/2024 10:12 AM Age at listing (hypothetical): 34 years Sex: Male at 12/07/2024 10:12 AM Diagnostic studies: US Abdomen 12/07/24 - personally reviewed and interpreted by me. Patent TIPS without evidence of stenosis. Assessment 34 yo w/ EtOH cirrhosis who underwent TIPS placement due to very large esophageal varices. Since the TIPS he has recovered well. Imaging demonstrates patent TIPS without stenosis. From a laboratory standpoint, his liver function tolerated the change in physiology pretty well. Plan - Follow up TIPS duplex in 3 months (has follow up with [facility] in February). No follow up clinic visit with me needed at 3 months. - Follow up TIPS duplex in 6 months and clinic visit with me at that time. Physician Attestation I, Jatin Carcamo MD, saw this patient and agree with the findings and plan of care as documentedin the note. Items personally reviewed/procedural attestation: vitals, labs, imaging and agree with the interpretation documented in the note, and EKG and agree with the interpretation documented in the note. Jatin Carcamo MD Alcoholic cirrhosis of liver with ascites (H) - US TIPS Doppler; Future Secondary esophageal varices without bleeding (H) - US TIPS Doppler; Future Review of external notes as documented above Independent interpretation of a test performed by another physician/other qualified health patient care technician (not separately reported) - yes Discussion of management or test interpretation with external physician/other qualified healthcare professional/appropriate source - yes Diagnosis or treatment significantly limited by social determinants of health - yes 30 minutes spent by me on the date of the encounter doing chart review, review of outside records, review of test results, and interpretation of tests CC Patient Care Team: Ramona Gong MD as PCP - General (Gastroenterology) Yesika Chirinos PA-C as Referring Physician (Gastroenterology) Priscila Rogers RD as Registered Dietitian (Dietitian, Registered) Reinier Lehman MD (Transplant Surgery) Ramona Gong MD as MD (Gastroenterology) Arcelia Cid MSW as Mail Sorter And Delivery Ramona Gong MD as Assigned Gastroenterology Provider Reinier Lehman MD as Assigned Surgical Provider Trung Duran LGSW as Mail Sorter And Delivery (Mail Sorter And Delivery - Clinical) Duran Luong MD as Assigned Pulmonology Provider Rausch, Osmany P, RN as Light Armored Reconnaissance Officer (Transplant) Hina Rojo MD as Assigned Infectious Disease Provider Fabiola Epperson APRN CNP as Nurse Practitioner (Anesthesiology) Jatin Carcamo MD as Physician (Radiology) RAMONA GONG 6 minutes 20 seconds Video-Visit Details Type of service: Video Visit Video Start and End Time:226 - 236 PM (10 minutes) Originating Location (pt. Location): Home Distant Location (provider location): [facility] Platform used for Video Visit: Abraham documented in this encounter Nursing Notes * Yesika Rodríguez - 12/09/2024 2:30 PM CDT Current patient location: [address] [place] [phone] Is the patient currently in the state of OR? YES Visit mode: VIDEO If the visit is dropped, the patient can be reconnected by:VIDEO VISIT: Send to e-mail at: [email or web address] Will anyone else be joining the visit? NO (If patient encounters technical issues they should call [phone] Are changes needed to the allergy or medication list? Pt stated no med changes Are refills needed on medications prescribed by this physician? NO Rooming Documentation: Not applicable Reason for visit: RECHECK No other vitals to report per pt Yesika Rodríguez VVF documented in this encounter Plan of Treatment Upcoming Encounters Date Type Department Care Team (Late st Contact Info) Description 02/14/2025 10:30 AM CDT Appointment [facility] Imaging [address] [facility] [address] [place] [address] Jatin Carcamo MD [address] [place] [address] 02/21/2025 10:30 AM CDT Lab [address] [address] Ramona Gong MD [address] [place] [address] 02/21/2025 11:30 AM CDT Office Visit [facility] [address] [phone] Ramona Gong MD [address] [place] [address] 05/19/2025 10:30 AM CDT Appointment [facility] [address] [place] [phone] Jatin Carcamo MD [address] [place] [address] 05/19/2025 11:[address] [facility] [address] [place] [phone] 05/26/2025 10:30 AM CDT Virtual Visit [facility] [address] 3rd [place] [phone] Jatin Carcamo MD [address] [place] [address] 324275 Scheduled Orders Name Type Priority Associated Diagnoses Orde r Schedule US TIPS Doppler Imaging Routine Alcoholic cirrhosis of liver with ascites (H) Secondary esophageal varices without bleeding (H) Expected: 03/11/2025 (Approximate), Expires: 12/09/2025 documented as of this encounter Visit Diagnoses Diagnosis Alcoholic cirrhosis of liver with ascites (H)- Primary Alcoholic cirrhosis of liver Secondary esophageal varices without bleeding (H) Esophageal varices without mention of bleeding in diseases classified elsewhere Alcoholic cirrhosis of liver with ascites (H) Alcoholic cirrhosis of liver documented in this encounter Additional Health Concerns Assessment Noted Time PHQ-9 Depression Total Score: 23 08/04/ 023 8:49 AM PUBLIC RELATIONS ASSISTANT documented as of this encounter Care Teams Jacquard Loom Card Changer Relationship Specialty Start Date End Date Ramona Gong MD [address] [place] [address] PCP - General Gastroenterology 10/20/24 Yesika Chirinos PA-C [address] [place] [address] Referring Physician Gastroenterology 07/23/[address] [address] Registered Dietitian Dietitian, Registered 08/13/23 Reinier Lehman MD [address] [place] [address] Transplant Surgery 08/13/23 Ramona Gong MD [address] [place] [address] Gastroenterology 08/13/23 Arcelia Cid, TOP POLISHER Mail Sorter And Delivery 08/13/23 Ramona Gong MD [address] [place] [address] Assigned Gastroenterology Provider 08/30/23 Reinier Lehman MD [address] [place] [address] Assigned Surgical Provider 08/30/23 Trung Duran, [facility] Mail Sorter And Delivery Mail Sorter And Delivery - Clinical 09/30/23 Duran Luong MD [address] [place] [address] Assigned Pulmonology Provider 10/17/23 Osmany Rausch, bilingual call center representativeLight Armored Reconnaissance Officer Transplant 01/22/24 Hina Rojo MD [address] [place] [address] Assigned Infectious Disease Provider 03/07/24 Fabiola Epperson APRN [facility] [address] [place] [address] 604645 Nurse Practitioner Anesthesiology 09/30/24 Jatin Carcamo MD [address] [place] [address] Physician Radiology 09/30/24 documented as of this encounter
--- OUTSIDE RECORDS SUMMARY | 2024-12-19 07:43 | XMS_ITS | Encounter Summary ---
Author Organization [facility] Address [address] [place] [address] Care Team Providers Care Car Wash Attendant Name Role Phone Yesika Chirinos PA-C Unavailable [phone] Unavailable Unavail able Reinier Lehman MD Unavailable Mamadou Gong MD Unavailable + [phone] Arcelia Cid SOCIAL WORK SUPERVISOR Unavailable [phone] Mamadou Gong MD Unavailable + [phone] Reinier Lehman MD Unavailable Trung Duran STOCK REPLENISHER Unavailable Unavailable Duran Luong MD Unavailable +[phone] Osmany Rausch RN Unavailable Unavailable Hina Rojo MD Unavailable [phone] Fabiola Epperson APRN GERIATRIC SOCIAL WORK PROFESSOR Unavailable [phone] Jatin Carcamo MD Unavailable +[phone] Mamadou Gong MD Primary Care Provid er Reason for Visit * Reason Onset Date Comments Call Back 12/13/2024 Requesting omepr azole 20mg fax [phone] Encounter Details Date Type Department Care Team (Late st Contact Info) Description 12/13/2024 Telephone [facility] [address] [place] [phone] Osmany Rausch RN Call Back (Requesting omeprazole 20mg fax [phone]) Social History Tobacco Use Types Packs/Day Years [...] PM CDT 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 Yes Return Call Needed Same as documented in contacts section When to return call?: Greater than one day: Route standard priority documented in this encounter Plan of Treatment Upcoming Encounters Date Type Department Care Team (Late st Contact Info) Description 02/14/2025 10:30 AM CDT Appointment [facility] [id number] [facility] [address] [place] [address] Jatin Carcamo MD [address] [place] [address] 02/21/2025 10:30 AM CDT Lab [facility] [address] [phone] Mamadou Gong MD [address] [place] [address] 02/21/2025 11:30 AM CDT Office Visit [facility] [address] [phone] Mamadou Gong MD [address] [place] [address] 05/19/2025 10:30 AM CDT Appointment [facility] [address] [place] [phone] Jatin Carcamo MD [address] [place] [address] [phone] 05/19/2025 11:15 AM CDT Lab [facility] [address] [place] [phone] 05/26/2025 10:30 AM CDT Virtual Visit [facility] [address] [place] [phone] Jatin Carcamo MD [address] [place] [address] [phone] documented as of this encounter Visit Diagnoses Diagnosis Alcoholic cirrhosis of liver with ascites (H) Alcoholic cirrhosis of liver Alcoholic cirrhosis of liver with ascites (H) Alcoholic cirrhosis of liver documented in this encounter Additional Health Concerns Assessment Noted Time PHQ-9 Depression Total Score: 23 023 8:49 AM BOILER ENGINEER documented as of this encounter Care Teams Car Wash Attendant Relationship Specialty Start Date End Date Mamadou Gong MD [address] [place] [address] PCP - General Gastroenterology 10/20/24 Yesika Chirinos, ALEX [address] [place] [address] Referring Physician Gastroenterology 07/23/[address] [address] Registered Dietitian Dietitian, Registered 08/13/23 Reinier Lehman MD [address] [place] [address] Transplant Surgery 08/13/23 Mamadou Gong MD [address] [place] [address] Gastroenterology 08/13/23 Arcelia Cid, SOCIAL WORK SUPERVISOR Steel Loader 08/13/23 Mamadou Gong MD [address] [place] [address] Assigned Gastroenterology Provider 08/30/23 Reinier Lehman MD [address] [place] [address] Assigned Surgical Provider 08/30/23 Trung Duran, [facility] Steel Loader Steel Loader - Clinical 09/30/23 Duran Luong MD [address] [place] [address] Assigned Pulmonology Provider 10/17/23 Osmany Rausch, per diem rnCharge Weigher Transplant 01/22/24 Hina Rojo MD [address] [place] [address] Assigned Infectious Disease Provider 03/07/24 Fabiola Epperson APRN [facility] [address] [place] [address] Nurse Practitioner Anesthesiology 09/30/24 Jatin Carcamo MD [address] [place] [address] [phone] Physician Radiology 09/30/24 documented as of this encounter
--- OUTSIDE RECORDS SUMMARY | 2024-12-19 07:43 | XMS_ITS | Clinical Summary ---
Author Organization [facility] Address [address] [place] [address] Care Team Providers Care Recreational Vehicle Resort Manager Name Role Phone TaranMoisesYesikacatracho Gee PA-C Unavailable [phone] Unavailable Unavail able Reinier Lehman MD Unavailable Mamadou Gong MD Unavailable + [phone] Arcelia Cid MENTAL HEALTH TECH Unavailable [phone] Mamadou Gong MD Unavailable + [phone] Reinier Lehman MD Unavailable Trung Duran SIMULATION SPECIALIST Unavailable Unavailable Duran Luong MD Unavailable [phone] Osmany Rausch RN Unavailable Unavailable Hina Rojo MD Unavailable [phone] Fabiola Epperson APRN WIRE ANNEALER Unavailable [phone] Paula Colbert MD Unavailable [phone] Mamadou Gong MD Primary Care Provid er Allergies Active Allergy Reactions Criticality Noted Date Comments Penicillin G Benzathine & Proc 01/02/2021 Penicillins Anaphylaxis High 09/09/2003 Other Reaction(s): *Unknown - Childhood Rxn, Other: HIVES Rash - hives Spironolactone Other (See Comments) Low 01/05/2024 gynecomastia Medications * This document contains information received from the source organization and may not represent a complete record from that organization. lactulose (CHRONULAC) 10 GM/15ML solutionIndica tions:Alcoholi c cirrhosis of liver with ascites (H) Take 15 mLs (10 g) by mouth 3 times daily. 946 mL 11 4 Active eplerenone (INSPRA) 50 MG tabletIndicati ons:Alcoholic cirrhosis of liver with ascites (H) Take 1 tablet (50 mg) by mouth daily. 90 tablet 3 4 Active Additional Information Patient taking differently:50 mg OralEVERY MORNING, Reported on 11/08/2024 carvedilol (COREG) 3.125 MG tabletIndicati ons:Alcoholic cirrhosis of liver with ascites (H) Take 1 tablet (3.125 mg) by mouth 2 times daily (with meals). 180 tablet 3 4 Active rifaximin (XIFAXAN) 550 MG TABS tabletIndicati ons:Alcoholic cirrhosis of liver with ascites (H) Take 1 tablet (550 mg) by mouth 2 times daily. 180 tablet 3 4 Active nitroGLYcerin 9 MG CR capsule Take 9 mg by mouth 2 times daily. Active omeprazole (PRILOSEC) [address] capsuleIndicat ions:Alcoholic cirrhosis of liver with ascites (H) Take 1 capsule (20 mg) by mouth daily. 90 capsule 3 5 Active omeprazole (PRILOSEC) [address] capsuleIndicat ions:Alcoholic cirrhosis of liver with ascites (H) Take 1 capsule (20 mg) by mouth daily. 90 capsule 2 5 09/13/20 25 Active omeprazole (PRILOSEC) [address] capsuleIndicat ions:Alcoholic cirrhosis of liver with ascites (H) Take 1 capsule (20 mg) by mouth daily 90 capsule 1 4 12/15/19 25 Discontin ued(Reord er (No AVS)) Active Problems Problem Noted Date Diagnosed Date Hepatic encephalopathy 08/19/2023 Moderate protein-calorie malnutrition 08/19/2023 Secondary esophageal varices without bleeding Depressive disorder 07/23/2023 Alcoholic cirrhosis of liver with ascites 2022 Resolved Problems Problem Noted Date Diagnosed Date Resolved Date Alcohol use disorder, severe , in early remission 08/04/2023 08/19/2024 Acute alcoholic hepatitis 10/13/2022 Encounters Date Type Department Care Team Description 12/14/2024 MyC Refill [facility] [address] [phone] Mamadou Gong MD Refill Request 12/13/2024 Orders Only [facility] [address] [place] [address] Paula Colbert MD Alcoholic cirrhosis of liver with ascites (H) (Primary Dx); Secondary esophageal varices without bleeding (H) 12/13/2024 Telephone [facility] [address] [address] Osmany Rausch, RN Call Back (Requesting omeprazole 20mg fax [phone]) 12/09/2024 2:30 PM CDT Virtual Visit [address] [address] Paula Colbert MD Alcoholic cirrhosis of liver with ascites (H) (Primary Dx); Secondary esophageal varices without bleeding (H) 12/07/2024 10:45 AM CDT Lab [facility] [address] [facility] [facility] [address] [place] [address] Alcoholic cirrhosis of liver with ascites (H); Secondary esophageal varices without bleeding (H) 12/07/2024 8:29 AM CDT - 12/07/2024 11:59 PM CDT Hospital Encounter [facility] [address] [place] [address] Paula Colbert MD Alcoholic cirrhosis of liver with ascites (H); Secondary esophageal varices without bleeding (H) Discharge Disposition: Home or Self Care 12/07/2024 Travel 12/02/2024 Telephone [facility] [address] [place] [phone] Paula Colbert MD Clinic Care Coordination - Initial 11/09/2024 MyC Medical Advice [facility] [address] [phone] Rhoda Martinez 11/09/2024 Telephone [facility] [address] [address] Paula Colbert MD Call To Schedule Appointment 11/09/2024 Telephone [facility] [address] [phone] Janae Espinoza RN 11/08/2024 10:43 AM CHILD CARE GIVER Anesthesia Event [facility] [address] [place] [phone] Andre Sales MD Dobbe, Amy, GALLERY OR MUSEUM TECHNICIAN WIRE ANNEALER 11/08/2024 10:30 AM CHILD CARE GIVER - 11/08/2024 1:30 PM CHILD CARE GIVER Surgery [facility] [address] [place] [phone] GENERIC ANESTHESIA PROVIDER ANESTHESIA, IN NON-OPERATING ROOM SETTING transjugular intrahepatic portosystemic shunt (TIPS) procedure with ice possible embolization and paracentesis @1030 11/08/2024 8:14 AM CHILD CARE GIVER - 11/08/2024 8:20 PM CHILD CARE GIVER Hospital Encounter [facility] [address] [place] [address] Paula Colbert MD Alcoholic cirrhosis of liver with ascites (H) Discharge Disposition: Home or Self Care 11/08/2024 Travel 10/21/2024 MyC Medical Advice [facility] [address] [phone] Mamadou Gong MD Alcoholic cirrhosis of liver with ascites (H) 10/20/2024 10:30 AM CHILD CARE GIVER Lab [facility] [address] [place] [phone] Secondary esophageal varices without bleeding (H); Alcoholic cirrhosis of liver with ascites (H); Hepatic encephalopathy (H) 10/20/2024 Documentation Only [facility] [address] [phone] Janae Espinoza, RN 10/20/2024 Travel 10/14/2024 12:45 PM CHILD CARE GIVER Virtual Visit [facility] [address] [phone] Paula Colbert MD Dobbe, Amy, GALLERY OR MUSEUM TECHNICIAN WIRE ANNEALER Preop examination (Primary Dx); Alcoholic cirrhosis of liver with ascites (H); Secondary esophageal varices without bleeding (H) 10/14/2024 MyC Medical Advice [facility] [address] [phone] Arlen Merritt RN 10/14/2024 PRE VISIT [facility] [address] [phone] Fabiola Epperson APRN WIRE ANNEALER 10/01/2024 Documentation Only [facility] [address] [address] Mamadou Gong MD Alcoholic cirrhosis of liver with ascites (H) 09/30/2024 Telephone [facility] [address] [phone] Janae Espinoza, RN 09/28/2024 MyC Medical Advice [facility] [address] [phone] Mamadou Gong MD Alcoholic cirrhosis of liver with ascites (H) 09/28/2024 Telephone [facility] [address] [phone] Janae Espinoza, RN 09/23/2024 2:00 PM CHILD CARE GIVER Virtual Visit [facility] [address] [facility] 3rd [place] [address] Paula Colbert MD Alcoholic cirrhosis of liver with ascites (H) (Primary Dx) 09/21/2024 2:54 PM CHILD CARE GIVER - 09/21/2024 11:59 PM CHILD CARE GIVER Hospital Encounter [facility] [address] [place] [address] Paula Colbert MD Secondary esophageal varices without bleeding (H); Alcoholic cirrhosis of liver with ascites (H); Hepatic encephalopathy (H) Discharge Disposition: Home or Self Care 09/21/2024 Travel from Last 3 Months Immunizations Name Administration Dates Next Due Anthrax 12/29/2012,11/25/2012 COVID-19 12+ (Pfizer) 02/06/2024 COVID-19 Monovalent 18+ (Moderna) 02/06/2021, Hepatitis A/B (Twinrix) 04/07/2012,07/26,07/24/2011,07/05 Influenza (intradermal) 06/21/2013 Influenza Intranasal Vaccine 07/30/2012,07/05/20 11 Influenza Vaccine >6 months,quad, PF 06/29/2019 Influenza Vaccine, 6+MO IM (QUADRIVALENT W/PRESERVATIVES) 07/07/2014 MMR (MMRII) 05/01/2004 Meningococcal ACWY (Menactra ) 07/05/2011 Pneumo Conj 13-V (2010&after) 07/05/2011 Pneumococcal 23 valent 03/06/2021 Small Pox (Vaccinia) 01/09/2013 TD,PF 7+ (Tenivac) 05/01/2004 TDAP (Adacel,Boostrix) 03/06/2021,07/05/2011, Td (Adult), Adsorbed 05/01/2004 Typhoid IM 04/07/2012 Typhoid-h-p 04/04/2014 Yellow Fever 08/05/2011 Family History Medical History Relation Comments Substance Abuse Father Substance Abuse Mother Substance Abuse Paternal Uncle Anesthesia Reaction No family hx of Venous thrombosis No family hx of Relation Status Comments Father Maternal Grandfather Other Maternal Grandmother Alive Mother Alive Paternal Grandfather Alive Paternal Grandmother Alive Paternal Uncle Alive Sister Alive Social History Tobacco Use Types Packs/Day Years [...] PM CDT Legal Sex Male 3:07 AM CHILD CARE GIVER Gender Identity Male 07/17/2023 2:30 PM CDT Sexual Orientation Not on file Last Filed Vital Signs Vital Sign Reading Time Taken Comments Blood Pressure 111/71 11/08/2024 6:04 PM CHILD CARE GIVER Pulse 61 11/08/2024 6:04 PM CHILD CARE GIVER Temperature 37.2 C (99 F) 11/08/2024 6:04 PM CHILD CARE GIVER Respiratory Rate 12 11/08/2024 6:04 PM CHILD CARE GIVER Oxygen Saturation 98% 11/08/2024 8:00 PM CHILD CARE GIVER Inhaled Oxygen Concentration - - Weight 81.6 kg (180 lb) 12/09/2024 2:08 PM CDT p er pt Height 182.9 cm (6') 12/09/2024 2:08 PM CDT Body Mass Index 24.41 12/09/2024 2:08 PM CDT Plan of Treatment Upcoming Encounters Date Type Department Care Team (Late st Contact Info) Description 02/14/2025 10:30 AM CDT Appointment [facility] [address] [place] [address] Paula Colbert MD [address] [place] [address] 02/21/2025 10:30 AM CDT Lab [facility] [address] [place] [phone] Mamadou Gong MD [address] [place] [phone] 02/21/2025 11:30 AM CDT Office Visit [facility] [address] [phone] Mamadou Gong MD [address] [place] [phone] 05/19/2025 10:30 AM CDT Appointment [facility] [address] [place] [phone] Paula Colbert MD [address] [place] [phone] 05/19/2025 11:15 AM CDT Lab [facility] [address] [place] [phone] 05/26/2025 10:30 AM CDT Virtual Visit [facility] [address] [place] [phone] Paula Colbert MD [address] [place] [phone] Health Maintenance Due Date Last Done Comments ADVANCE CARE PLANNING 1990 ANNUAL REVIEW OF HM ORDERS 1990 YEARLY PREVENTIVE VISIT 05/01/2005 05/01/2004 HEPATITIS A IMMUNIZATION (4 of 4 - Hep A Twinrix risk 4-dose series) 07/05/2012 04/07/2012, 07/26/2011, 07/24/2011, Additional history exists HEPATITIS B IMMUNIZATION (4 of 4 - Hep B Twinrix 4-dose series) 07/05/2012 04/07/2012, 07/26/2011, 07/24/2011, Additional history exists COVID-19 Vaccine (5 - Mixed Product risk ) 04/20/2025 10/21/2024, 02/06/2024, 02/06/2021, Additional history exists DTAP/TDAP/TD IMMUNIZATION (4 - Td or Tdap) 03/06/2031 03/06/2021, 07/05/2011, 02/08/2011, Additional history exists Pneumococcal Vaccine: Pediatrics (0 to 5 Years) and At-Risk Patients (6 to 49 Years) (3 of 3 - PCV20 or PCV21) 2041 03/06/2021, 07/05/2011 ZOSTER IMMUNIZATION (1 of 2) 2041 MENINGITIS IMMUNIZATION Aged Out 07/05/2011 No l onger eligible based on patient's age to complete this topic HEPATITIS C SCREENING Completed 08/19/2024, 023 HIV SCREENING Completed 08/19/2024, 08/19/2023 INFLUENZA VACCINE Completed 10/21/2024, , 07/07/2014, Additional history exists PHQ-2 (once per calendar year) Completed 12/09/2024, 09/23/2024, 03/29/2024, Additional history exists HPV IMMUNIZATION Aged Out No longer e ligible based on patient's age to complete this topic Medical Devices Implanted Type Area Construction Ironworker Device Identifier Shelf Expiration Date Model / Serial / Lot Cordova Viatorr 8-10 Mm X 6cm/2cm Implanted:Qty: 1 on 11/08/2024 by Paula Colbert MD Stent Liver GORE 06/13/2027 [id number] / [id number] / Description:Cordova Viatorr 8-1 0 mm x 6cm/ 2cm 10FR Tips Stent Expires: 06/13/2027 Procedures Procedure Name Priority Date/Time Associated Diagnosis Comments INR Routine 12/07/2024 10:12 AM CDT Alcoholic cirrhosis of liver with ascites (H) Secondary esophageal varices without bleeding (H) COMPREHENSIVE METABOLIC PANEL Routine 12/07/2024 10:12 AM CDT Alcoholic cirrhosis of liver with ascites (H) Secondary esophageal varices without bleeding (H) CBC WITH PLATELETS Routine 12/07/2024 10:12 AM CDT Alcoholic cirrhosis of liver with ascites (H) Secondary esophageal varices without bleeding (H) US ABDOMEN COMPLETE WITH TIPS DOPPLER Routine 12/07/2024 9:14 AM CDT Alcoholic cirrhosis of liver with ascites (H) Secondary esophageal varices without bleeding (H) IR TRANSVEN INTRAHEPATIC PORTOSYST SHUNT Routine 11/08/2024 2:57 PM CHILD CARE GIVER Alcoholic cirrhosis of liver with ascites (H) IR PROCEDURE NOTE Routine 11/08/2024 2:5 3 PM CHILD CARE GIVER ANE AIRWAY ETT PERFORMABLE Routine 11/08/2024 11:01 AM CHILD CARE GIVER ANESTHESIA, IN NON-OPERATING ROOM SETTING 11/08/2024 10:30 AM CHILD CARE GIVER Alcoholic cirrhosis of liver with ascites (H) Special Needs PAC 10/14/24 CBC WITH PLATELETS & DIFFERENTIAL STAT 11/08/2024 9:14 AM CHILD CARE GIVER ABO/RH TYPE AND SCREEN STAT 11/08/2024 9:14 AM CHILD CARE GIVER TYPE AND SCREEN, ADULT STAT 11/08/2024 9:14 AM CHILD CARE GIVER CBC WITH PLATELETS AND DIFFERENTIAL STAT 11/08/2024 9:14 AM CHILD CARE GIVER BILIRUBIN DIRECT STAT 11/08/2024 9:14 AM CHILD CARE GIVER INR STAT 11/08/2024 9:14 AM CHILD CARE GIVER COMPREHENSIVE METABOLIC PANEL STAT 11/08/2024 9:14 AM CHILD CARE GIVER PREPARE RED BLOOD CELLS (UNIT) Routine 11/08/2024 8:56 AM CHILD CARE GIVER PREPARE RED BLOOD CELLS (UNIT) Routine 11/08/2024 8:56 AM CHILD CARE GIVER GLUCOSE BY METER Routine 11/08/2024 8:53 AM CHILD CARE GIVER INR Routine 10/20/2024 10:35 AM CHILD CARE GIVER Secondary esophageal varices without bleeding (H) Alcoholic cirrhosis of liver with ascites (H) Hepatic encephalopathy (H) HEPATIC FUNCTION PANEL Routine 10/20/2024 10:35 AM CHILD CARE GIVER Secondary esophageal varices without bleeding (H) Alcoholic cirrhosis of liver with ascites (H) Hepatic encephalopathy (H) BASIC METABOLIC PANEL Routine 10/20/2024 10:35 AM CHILD CARE GIVER Secondary esophageal varices without bleeding (H) Alcoholic cirrhosis of liver with ascites (H) Hepatic encephalopathy (H) CBC WITH PLATELETS Routine 10/20/2024 10:35 AM CHILD CARE GIVER Secondary esophageal varices without bleeding (H) Alcoholic cirrhosis of liver with ascites (H) Hepatic encephalopathy (H) CT ABDOMEN PELVIS W CONTRAST Routine 09/21/2024 3:28 PM CHILD CARE GIVER Secondary esophageal varices without bleeding (H) Alcoholic cirrhosis of liver with ascites (H) Hepatic encephalopathy (H) HIV ANTIGEN ANTIBODY COMBO PRETRANSPLANT Routine 08/19/2024 10:54 AM CHILD CARE GIVER Alcoholic cirrhosis of liver with ascites (H) HEPATITIS C ANTIBODY Routine 08/19/2024 10:54 AM CHILD CARE GIVER Alcoholic cirrhosis of liver with ascites (H) from Last 3 Months or Most Recently Relevant to Health Maintenance Results * (ABNORMAL) INR (12/07/2024 10:12 AM CDT) Only the most recent of3 resultswithin the time period is included. INR 1.48(H) 0.85 - 1.15 12/07/2024 6:35 PM CDT [facility] Blood BLOOD SPECIMEN / Unknown Venipuncture / Unknown 12/07/2024 10:12 AM CDT 12/07/2024 10:13 AM CDT us Paula Colbert MD LAB - BLOOD ORDERABLES Final Result [facility] [address] Lab (no room number, 1st floor of clinic) [place] [address], [facility] * (ABNORMAL) Comprehensive metabolic panel (12/07/2024 10:12 AM CDT) Only the most recent of2 resultswithin the time period is included. Sodium 142 135 - 145 mmol/L 12/07/2024 10:37 PM CDT [facility] Potassium 4.6 3.4 - 5.3 mmol/L 12/07/2024 10:37 PM CDT [facility] Carbon Dioxide (CO2) 23 22 - 29 mmol/L 12/07/2024 10:37 PM CDT [facility] Anion Gap 10 7 - 15 mmol/L 12/07/2024 10:37 PM CDT [facility] Urea Nitrogen 7.0 6.0 - 20.0 mg/dL 12/07/2024 10:37 PM CDT [facility] Creatinine 0.82 0.67 - 1.17 mg/dL 12/07/2024 10:37 PM CDT [facility] GFR Estimate >90 >60 mL/min/1.7 3m2 12/07/2024 10:37 PM CDT [facility] Comment:eGFR calculated 2020 CKD-EPI equation. Calcium 9.0 8.8 - 10.4 mg/dL 12/07/2024 10:37 PM CDT [facility] Chloride 109(H) 98 - 107 mmol/L 12/07/2024 10:37 PM CDT [facility] Glucose 105(H) 70 - 99 mg/dL 12/07/2024 10:37 PM CDT [facility] Alkaline Phosphatase 152(H) 40 - 150 U/L 12/07/2024 10:37 PM CDT [facility] AST 52(H) 0 - 45 U/L 12/07/2024 10:37 PM CDT [facility] ALT 39 0 - 70 U/L 12/07/2024 10:37 PM CDT [facility] Protein Total 6.5 6.4 - 8.3 g/dL 12/07/2024 10:37 PM CDT [facility] Albumin 3.6 3.5 - 5.2 g/dL 12/07/2024 10:37 PM CDT [facility] Bilirubin Total 3.2(H) <=1.2 mg/dL 12/07/2024 10:37 PM CDT [facility] Blood BLOOD SPECIMEN / Unknown Venipuncture / Unknown 12/07/2024 10:12 AM CDT 12/07/2024 10:13 AM CDT us Paula Colbert MD LAB - BLOOD ORDERABLES Final Result [facility] [address] [facility], Room [address] [phone] * (ABNORMAL) CBC with platelets (12/07/2024 10:12 AM CDT) Only the most recent of2 resultswithin the time period is included. WBC Count 5.1 4.0 - 11.0 10e3/uL 12/07/2024 5:54 PM CDT [facility] RBC Count 4.41 4.40 - 5.90 10e6/uL 12/07/2024 5:54 PM CDT [facility] Hemoglobin 14.2 13.3 - 17.7 g/dL 12/07/2024 5:54 PM CDT [facility] Hematocrit 38.3(L) 40.0 - 53.0 % 12/07/2024 5:54 PM CDT [facility] MCV 87 78 - 100 fL 12/07/2024 5:54 PM CDT [facility] MCH 32.2 26.5 - 33.0 pg 12/07/2024 5:54 PM CDT [facility] MCHC 37.1(H) 31.5 - 36.5 g/dL 12/07/2024 5:54 PM CDT [facility] RDW 14.1 10.0 - 15.0 % 12/07/2024 5:54 PM CDT [facility] Platelet Count 56(L) 150 - 450 10e3/uL 12/07/2024 5:54 PM CDT [facility] Blood BLOOD SPECIMEN / Unknown Venipuncture / Unknown 12/07/2024 10:12 AM CDT 12/07/2024 10:13 AM CDT us Paula Colbert MD LAB - BLOOD ORDERABLES Final Result LABORATORY [facility] [address] Lab (1st floor, no room number) [place] [address] * US Abdomen Complete with TIPS Doppler (12/07/2024 9:14 AM CDT) Anatomical Region Laterality Modality Abdomen/Pelvis, Vascular Ultraso und 12/07/2024 9:14 AM CDT Impressions 12/07/2024 4:24 PM CDT IMPRESSION: 1. Patent TIPS without definite evidence for a significant stenosis. Narrative 12/07/2024 4:24 PM CDT EXAM: US ABDOMEN COMPLETE WITH TIPS DOPPLER LOCATION: [facility] DATE: 12/07/2024 INDICATION: 1 mos fup [...] US ABDOMEN COMPLETE WITH TIPS DOPPLER LOCATION: [facility] DATE: 12/07/2024 INDICATION: 1 mos fup [...] without definite evidence for a significant stenosis. us Paula Colbert MD [facility] ORDERABLES Final Resul t * IR Transven Intrahepatic Portosyst Shunt (11/08/2024 2:57 PM CHILD CARE GIVER) Anatomical Region Laterality Modality Abdomen/Pelvis Radio Fluoroscop y Impressions 11/12/2024 8:08 AM CHILD CARE GIVER IMPRESSION: Initial TIPS placement with reduction of portosystemic gradient from 12 mmHg to 2 mmHg. Plan: -4 hour bedrest -TIPS ultrasound in 1 month -Follow up in clinic in 1 month PROCEDURE SUMMARY: - Venous access with ultrasound guidance - Transjugular intrahepatic portosystemic stent placement - Portosystemic pressure measurements - Additional procedure(s): None PROCEDURE DETAILS: Pre-procedure Consent: Informed consent for the procedure including risks, benefits and alternatives was obtained and time-out was performed prior to the procedure. Preparation: The site was prepared and draped using maximal sterile barrier technique including cutaneous antisepsis. Anesthesia/sedation Level of anesthesia/sedation: General anesthesia Anesthesia/sedation administered by: Anesthesiology Total intra-service sedation time (minutes): 0 Access The access vein was sonographically evaluated and determined to be patent. Real time ultrasound was used to visualize needle entry into the vessel and a permanent image was stored. A 10 Fr sheath was placed. Vein accessed: Right internal jugular vein Access technique: Micropuncture set with 21 gauge needle Access indication: TIPS placement The access vein was sonographically evaluated and determined to be patent. Real time ultrasound was used to visualize needle entry into the vessel and a permanent image was stored. A 9 Fr sheath was placed. Vein accessed: Right common femoral vein Access technique: Micropuncture set with 21 gauge needle Access indication: Intravascular ultrasound Venography Vein catheterized: Right hepatic vein Indication for venography: Document catheter position Findings: Patent right hepatic artery Indirect Portography Vein catheterized: Right hepatic vein Portography technique: Wedged end-hole catheter Portography contrast agent: Iodinated contrast Findings: Patent right portal and main portal vein Intravascular ultrasound: Ultrasound demonstrates patent and appropriate dark and waveforms in the right portal vein. No evidence of thrombus. TIPS A TIPS access needle was passed from the right hepatic vein into a portal vein branch under fluoroscopic, transabdominal ultrasound, and intravascular ultrasound guidance. Pressures were measured. Direct portal venography was performed. The TIPS was deployed and pressure measurements and portal venography were repeated. Intravascular ultrasound guidance: Yes Access needle: Liverty Portal vein accessed: Right portal vein TIPS device: Cordova Viatorr Cx TIPS diameter (mm): 10 TIPS covered length (mm): 60 TIPS uncovered length (mm): 20 Balloon dilation of TIPS (mm): 10 Findings: Portogram demonstrates patent right portal vein and main portal vein. There is a large esophageal varix opacified which fills preferentially vs the portal vein. Post-TIPS portogram demonstrates patent TIPS with brisk flow through the TIPS. There is reduction of flow into the esophageal varix. Pressure measurements Pressure measurements were obtained before and after TIPS placement. Mean right atrial pressure pre-TIPS (mmHg): 12 Mean portal pressure pre-TIPS (mmHg): 24 Mean portal pressure post-TIPS (mmHg): 11 Mean right atrial pressure post-TIPS (mmHg): 9 Closure The sheath was removed and hemostasis was achieved with absorbable suture and glue at the neck and woggle at the groin. Contrast Contrast agent: Visipaque 320 Contrast volume (mL): 100 Radiation Dose Fluoroscopy time (minutes): 59.3 Reference air kerma (mGy): 458.1 Kerma area product (uGy-cm2): 9839.0 Additional Details Additional description of procedure: None Registry event: V/3/g Device used: None Equipment details: None Unique Device Identifiers: Not available Specimens removed: None Estimated blood loss (mL): Less than 10 Standardized report: [email or web address]_v3.1 Attestation Signer name: PAULA COLBERT MD I, Dr. Paula Colbert, attest that I was present in the room for the entire procedure. I reviewed the stored images and agree with the report as written. I have personally reviewed the examination and initial interpretation and I agree with the findings. PAULA COLBERT MD Narrative 11/12/2024 8:08 AM CHILD CARE GIVER PROCEDURE: Transjugular Intrahepatic Portosystemic Shunt (TIPS) Procedural Personnel Attending physician(s): Primary: Paula Colbert, Secondary: Yani Smith Fellow physician(s): Rabia Collins Resident physician(s): None Advanced practice provider(s): None Pre-procedure diagnosis: Cirrhosis Post-procedure diagnosis: Same Indication: Variceal bleeding Additional clinical history: None Complications: No immediate complications. Procedure Note Paula Colbert MD - 11/12/2024 PROCEDURE: Transjugular Intrahepatic Portosystemic Shunt (TIPS) Procedural Personnel Attending physician(s): Primary: Paula Colbert, Secondary: Yani Smith Fellow physician(s): Rabia Collins Resident physician(s): None Advanced practice provider(s): None Pre-procedure diagnosis: Cirrhosis Post-procedure diagnosis: Same Indication: Variceal bleeding Additional clinical history: None Complications: No immediate complications. IMPRESSION: Initial TIPS placement with reduction of portosystemic gradient from 12 mmHg to 2 mmHg. Plan: -4 hour bedrest -TIPS ultrasound in 1 month -Follow up in clinic in 1 month PROCEDURE SUMMARY: - Venous access with ultrasound guidance - Transjugular intrahepatic portosystemic stent placement - Portosystemic pressure measurements - Additional procedure(s): None PROCEDURE DETAILS: Pre-procedure Consent: Informed consent for the procedure including risks, benefits and alternatives was obtained and time-out was performed prior to the procedure. Preparation: The site was prepared and draped using maximal sterile barrier technique including cutaneous antisepsis. Anesthesia/sedation Level of anesthesia/sedation: General anesthesia Anesthesia/sedation administered by: Anesthesiology Total intra-service sedation time (minutes): 0 Access The access vein was sonographically evaluated and determined to be patent. Real time ultrasound was used to visualize needle entry into the vessel and a permanent image was stored. A 10 Fr sheath was placed. Vein accessed: Right internal jugular vein Access technique: Micropuncture set with 21 gauge needle Access indication: TIPS placement The access vein was sonographically evaluated and determined to be patent. Real time ultrasound was used to visualize needle entry into the vessel and a permanent image was stored. A 9 Fr sheath was placed. Vein accessed: Right common femoral vein Access technique: Micropuncture set with 21 gauge needle Access indication: Intravascular ultrasound Venography Vein catheterized: Right hepatic vein Indication for venography: Document catheter position Findings: Patent right hepatic artery Indirect Portography Vein catheterized: Right hepatic vein Portography technique: Wedged end-hole catheter Portography contrast agent: Iodinated contrast Findings: Patent right portal and main portal vein Intravascular ultrasound: Ultrasound demonstrates patent and appropriate dark and waveforms in the right portal vein. No evidence of thrombus. TIPS A TIPS access needle was passed from the right hepatic vein into a portal vein branch under fluoroscopic, transabdominal ultrasound, and intravascular ultrasound guidance. Pressures were measured. Direct portal venography was performed. The TIPS was deployed and pressure measurements and portal venography were repeated. Intravascular ultrasound guidance: Yes Access needle: Liverty Portal vein accessed: Right portal vein TIPS device: Cordova Viatorr Cx TIPS diameter (mm): 10 TIPS covered length (mm): 60 TIPS uncovered length (mm): 20 Balloon dilation of TIPS (mm): 10 Findings: Portogram demonstrates patent right portal vein and main portal vein. There is a large esophageal varix opacified which fills preferentially vs the portal vein. Post-TIPS portogram demonstrates patent TIPS with brisk flow through the TIPS. There is reduction of flow into the esophageal varix. Pressure measurements Pressure measurements were obtained before and after TIPS placement. Mean right atrial pressure pre-TIPS (mmHg): 12 Mean portal pressure pre-TIPS (mmHg): 24 Mean portal pressure post-TIPS (mmHg): 11 Mean right atrial pressure post-TIPS (mmHg): 9 Closure The sheath was removed and hemostasis was achieved with absorbable suture and glue at the neck and woggle at the groin. Contrast Contrast agent: Visipaque 320 Contrast volume (mL): 100 Radiation Dose Fluoroscopy time (minutes): 59.3 Reference air kerma (mGy): 458.1 Kerma area product (uGy-cm2): 9839.0 Additional Details Additional description of procedure: None Registry event: V/3/g Device used: None Equipment details: None Unique Device Identifiers: Not available Specimens removed: None Estimated blood loss (mL): Less than 10 Standardized report: [email or web address]_v3.1 Attestation Signer name: PAULA COLBERT MD I, Dr. Paula Colbert, attest that I was present in the room for the entire procedure. I reviewed the stored images and agree with the report as written. I have personally reviewed the examination and initial interpretation and I agree with the findings. PAULA COLBERT MD Paula Colbert MD IM IR ORDERABLES Final Resul t * IR Procedure Note (11/08/2024 2:53 PM CHILD CARE GIVER) Narrative Paula Colbert MD - 11/08/2024 2:53 PM CHILD CARE GIVER Paula Colbert MD 11/10/2024 7:55 AM [facility] Procedure: IR Procedure Note Date/Time: 11/08/2024 2:53 PM Performed by: Rabia Collins DO Authorized by: Paula Colbert MD IR Fellow Physician: Pre Procedure Diagnosis: Cirrhosis Post Procedure Diagnosis: Same UNIVERSAL PROTOCOL Site Marked: NA Prior Images Obtained and Reviewed: Yes Required items: Required blood products, implants, devices and special equipment available Patient identity confirmed: Arm band, provided demographic data, hospital-assigned identification number and verbally with patient Patient was reevaluated immediately before administering moderate or deep sedation or anesthesia Confirmation Checklist: Correct equipment/implants were available, procedure was appropriate and matched the consent or emergent situation, relevant allergies and patient's identity using two indicators Time out: Immediately prior to the procedure a time out was called [place] Protocol: the Joint Commission [place] Protocol was followed Preparation: Patient was prepped and draped in usual sterile fashion ESBL (mL): 15 ANESTHESIA Anesthesia: Local infiltration Local Anesthetic: Lidocaine 1% without epinephrine Anesthetic Total (mL): 5 SEDATION Patient Sedated: Yes Sedation Type: Deep Sedation: See MAR for details Vital signs: Vital signs monitored during sedation See dictated procedure note for full details. Findings: Right internal jugular vein access. Right femoral vein access. 6 cm + 2 cm x 10 mm Viatorr Cx stent placed. Gradient 4 mmHg post TIPS. No immediate complications. Specimens: none Procedural Complications: None Condition: Stable Plan: - 4 hour bedrest head up 30 degrees. -TIPS ultrasound in 4 weeks, obtain prior to clinic appointment. -Follow up in clinic in 1 month PROCEDURE Patient Tolerance: Patient tolerated the procedure well with no immediate complications Length of time physician/provider present for 1:1 monitoring during sedation: 0 min us Paula Colbert MD PROCEDURE/MINOR SURGICAL SRINIVASA ADAMS Edited Result - Final * ANE AIRWAY ETT PERFORMABLE (11/08/2024 11:01 AM CHILD CARE GIVER) Narrative Jessica Ball MD - 11/08/2024 11:01 AM CHILD CARE GIVER Jessica Ball MD 11/08/2024 11:17 AM Airway Patient location during procedure: OR Procedure Start/Stop Times: 11/08/2024 11:01 AM Staff - Anesthesiologist: Andre Sales MD Resident/Fellow: Jessica Ball MD Performed By: resident Consent for Airway Urgency: elective Indications and Patient Condition Indications for airway management: marielena-procedural Induction type:intravenous Mask difficulty assessment: 1 - vent by mask Final Airway Details Final airway type: endotracheal airway Successful airway: ETT - single Endotracheal Airway Details ETT size (mm): 7.5 Cuffed: yes Successful intubation technique: direct laryngoscopy DL Blade Type: MAC 4 Grade View of Cords: 1 Adjucts: stylet Position: Left Measured from: gums/teeth Secured at (cm): 23 Bite block used: None Post intubation assessment Placement verified by: capnometry, equal breath sounds and chest rise Number of attempts at approach: 1 Number of other approaches attempted: 0 Secured with: pink tape Ease of procedure: easy Dentition: Intact and Unchanged Medication(s) Administered Medication Administration Time: 11/08/2024 11:01 AM us Andre Sales MD [place] ANESTHESIA Final Result * (ABNORMAL) CBC with platelets and differential (11/08/2024 9:14 AM CHILD CARE GIVER) WBC Count 5.2 4.0 - 11.0 10e3/uL 11/08/2024 9:31 AM CHILD CARE GIVER [facility] RBC Count 4.54 4.40 - 5.90 10e6/uL 11/08/2024 9:31 AM CHILD CARE GIVER [facility] Hemoglobin 14.6 13.3 - 17.7 g/dL 11/08/2024 9:31 AM CHILD CARE GIVER [facility] Hematocrit 43.2 40.0 - 53.0 % 11/08/2024 9:31 AM CHILD CARE GIVER [facility] MCV 95 78 - 100 fL 11/08/2024 9:31 AM CHILD CARE GIVER [facility] MCH 32.2 26.5 - 33.0 pg 11/08/2024 9:31 AM CHILD CARE GIVER [facility] MCHC 33.8 31.5 - 36.5 g/dL 11/08/2024 9:31 AM CHILD CARE GIVER [facility] RDW 13.2 10.0 - 15.0 % 11/08/2024 9:31 AM CHILD CARE GIVER [facility] Platelet Count 50(L) 150 - 450 10e3/uL 11/08/2024 9:31 AM CHILD CARE GIVER [facility] % Neutrophils 56 % 11/08/2024 9:31 AM CHILD CARE GIVER [facility] % Lymphocytes 31 % 11/08/2024 9:31 AM CHILD CARE GIVER [facility] % Monocytes 8 % 11/08/2024 9:31 AM CHILD CARE GIVER [facility] % Eosinophils 4 % 11/08/2024 9:31 AM CHILD CARE GIVER [facility] % Basophils 1 % 11/08/2024 9:31 AM CHILD CARE GIVER [facility] % Immature Granulocytes 0 % 11/08/2024 9:31 AM CHILD CARE GIVER [facility] NRBCs per 100 WBC 0 <1 /100 025 9:31 AM CHILD CARE GIVER [facility] Absolute Neutrophils 2.9 1.6 - 8.3 10e3/uL 11/08/2024 9:31 AM CHILD CARE GIVER [facility] Absolute Lymphocytes 1.6 0.8 - 5.3 10e3/uL 11/08/2024 9:31 AM CHILD CARE GIVER [facility] Absolute Monocytes 0.4 0.0 - 1.3 10e3/uL 11/08/2024 9:31 AM CHILD CARE GIVER [facility] Absolute Eosinophils 0.2 0.0 - 0.7 10e3/uL 11/08/2024 9:31 AM CHILD CARE GIVER [facility] Absolute Basophils 0.1 0.0 - 0.2 10e3/uL 11/08/2024 9:31 AM CHILD CARE GIVER [facility] Absolute Immature Granulocytes 0.0 <=0.4 10e3/uL 11/08/2024 9:31 AM CHILD CARE GIVER [facility] Absolute NRBCs 0.0 10e3/uL 11/08/2024 9:31 AM CHILD CARE GIVER [facility] Blood STRUCTURE OF RIGHT UPPER LIMB / Unknown Venipuncture / Unknown 11/08/2024 9:14 AM CHILD CARE GIVER 11/08/2024 9:21 AM CHILD CARE GIVER Peg Rai APRN, CNP LAB - BLOOD ORDERABL ES Final Result LABORATORY [facility] [address] [facility], [address] [id number] * Adult Type and Screen (11/08/2024 9:14 AM CHILD CARE GIVER) ABO/RH(D) B POS 11/08/2024 8:56 AM CHILD CARE GIVER U BLOOD BANK Antibody Screen Negative Negative 11/08/2024 8:56 AM CHILD CARE GIVER U BLOOD BANK SPECIMEN EXPIRATION DATE [id number] 11/08/2024 8:56 AM CHILD CARE GIVER BLOOD BANK Blood STRUCTURE OF RIGHT UPPER LIMB / Unknown Venipuncture / Unknown 11/08/2024 9:14 AM CHILD CARE GIVER 11/08/2024 9:20 AM CHILD CARE GIVER Peg Rai APRN, CNP LAB - BLOOD BANK BOB T ORDER Final Result BLOOD BANK [address] [place] [address] * (ABNORMAL) Bilirubin direct (11/08/2024 9:14 AM CHILD CARE GIVER) Bilirubin Direct 1.46(H) 0.00 - 0.30 mg/dL 11/08/2024 9:53 AM CHILD CARE GIVER [facility] Blood STRUCTURE OF RIGHT UPPER LIMB / Unknown Venipuncture / Unknown 11/08/2024 9:14 AM CHILD CARE GIVER 11/08/2024 9:21 AM CHILD CARE GIVER Peg Rai APRN WIRE ANNEALER LAB - BLOOD ORDERABL ES Final Result U LABORATORY [facility] [address] [facility], Room [address] * Glucose by meter (11/08/2024 8:53 AM CHILD CARE GIVER) Pathologist [facility] GLUCOSE BY METER POCT 76 70 - 99 mg/dL 11/08/2024 9:00 AM CHILD CARE GIVER [facility] POC Blood, Capillary BLOOD SPECIMEN / Unknown 11/08/2024 8:53 AM CHILD CARE GIVER 11/08/2024 9:00 AM CHILD CARE GIVER us Paula Colbert MD LAB - BEAKER POCT Final Resul t Performing Organization Address City/[facility]/ZIP Co de Phone Number LABORATORY POC [facility] [address] [facility], Room [address] * (ABNORMAL) Hepatic panel (10/20/2024 10:35 AM CHILD CARE GIVER) Protein Total 6.2(L) 6.4 - 8.3 g/dL 10/20/2024 10:56 AM CHILD CARE GIVER [facility] Albumin 3.7 3.5 - 5.2 g/dL 10/20/2024 10:56 AM CHILD CARE GIVER [facility] Bilirubin Total 3.4(H) <=1.2 mg/dL 10/20/2024 10:56 AM CHILD CARE GIVER [facility] Alkaline Phosphatase 152(H) 40 - 150 U/L 10/20/2024 10:56 AM CHILD CARE GIVER [facility] AST 52(H) 0 - 45 U/L 10/20/2024 10:56 AM CHILD CARE GIVER [facility] ALT 38 0 - 70 U/L 10/20/2024 10:56 AM [facility] LABORATORY Bilirubin Direct 0.91(H) 0.00 - 0.30 mg/dL 10/20/2024 10:56 AM [facility] LABORATORY Blood BLOOD SPECIMEN / Unknown Venipuncture / Unknown 10/20/2024 10:35 AM CHILD CARE GIVER 10/20/2024 10:35 AM [facility] Paula Colbert MD LAB - BLOOD ORDERABLES Final Result LABORATORY [facility] Acute Care Lab [address] [facility] Lab (1st floor, no room number) [place] [address] * (ABNORMAL) Basic metabolic panel (10/20/2024 10:35 AM [facility]) Sodium 137 135 - 145 mmol/L 10/20/2024 10:56 AM [facility]ORATORY Potassium 4.0 3.4 - 5.3 mmol/L 10/20/2024 10:56 AM [facility] Chloride 106 98 - 107 mmol/L 10/20/2024 10:56 AM [facility] Carbon Dioxide (CO2) 23 22 - 29 mmol/L 10/20/2024 10:56 AM [facility] Anion Gap 8 7 - 15 mmol/L 10/20/2024 10:56 AM [facility] Urea Nitrogen 8.6 6.0 - 20.0 mg/dL 10/20/2024 10:56 AM [facility]ORY Creatinine 0.82 0.67 - 1.17 mg/dL 10/20/2024 10:56 AM [facility] GFR Estimate >90 >60 mL/min/1.7 3m2 10/20/2024 10:56 AM [facility] Comment:eGFR calculated usin g 2020 CKD-EPI equation. Calcium 8.6(L) 8.8 - 10.4 mg/dL 10/20/2024 10:56 AM [facility] Glucose 96 70 - 99 mg/dL 10/20/2024 10:56 AM [facility] Blood BLOOD SPECIMEN / Unknown Venipuncture / Unknown 10/20/2024 10:35 AM CHILD CARE GIVER 10/20/2024 10:35 AM CHILD CARE GIVER us Paula Colbert MD LAB - BLOOD ORDERABLES Final Result [facility] Acute Care Lab [address] Lab (1st floor, no room number) [place] [address], [facility] * CT Abdomen pelvis w contrast* (09/21/2024 3:28 PM CHILD CARE GIVER) Anatomical Region Laterality Modality Abdomen/Pelvis, SUBRAD CT NIKKIE DY, UMP CT ABDOMEN PELVIS, RAD CT Computed Tomography 09/21/2024 3:28 PM CHILD CARE GIVER Impressions 09/22/2024 7:55 AM CHILD CARE GIVER IMPRESSION: 1. Cirrhotic configuration of the liver. 2. Sequelae of portal venous hypertension, including portosystemic collaterals and splenomegaly. 3. Diffuse edematous wall thickening of the gallbladder, likely secondary to underlying liver disease. Narrative 09/22/2024 7:55 AM CHILD CARE GIVER EXAM: CT ABDOMEN AND PELVIS WITH CONTRAST LOCATION: [facility] DATE: 09/21/2024 INDICATION: Multiphasic CT for pending TIPS placement. COMPARISON: None. TECHNIQUE: CT scan of the abdomen and pelvis was performed following injection of IV contrast. Multiplanar reformats were obtained. Dose reduction techniques were used. CONTRAST: 94 mL Isovue 370. FINDINGS: LOWER CHEST: Normal. HEPATOBILIARY: The liver demonstrates a diffusely nodular and shrunken appearance, compatible with cirrhosis. There is a single tiny nonenhancing cyst in the left hepatic lobe measuring 5 mm. No specific follow-up is necessary. No suspicious-appearing hepatic observations are seen. Specifically, no areas of early arterial enhancement or capsule appearance. The gallbladder demonstrates diffuse edematous wall thickening and possible trace pericholecystic fluid. No signs of cholelithiasis. No bile duct dilation. PANCREAS: Normal. SPLEEN: The spleen is enlarged at 20.1 cm in craniocaudal dimension. No splenic mass. ADRENAL GLANDS: Normal. KIDNEYS/BLADDER: Normal. BOWEL: Normal. LYMPH NODES: Normal. VASCULATURE: The portal vein is patent. Portosystemic collaterals are seen in the upper abdomen with large distal paraesophageal varices and splenorenal shunting. No significant atherosclerosis of the abdominal aorta or iliac arteries. No aneurysmal dilation. Conventional hepatic artery. PELVIC ORGANS: Normal. MUSCULOSKELETAL: Normal. Procedure Note Gab Brothers, DO - 09/22/2024 EXAM: CT ABDOMEN AND PELVIS WITH CONTRAST LOCATION: [facility] DATE: 09/21/2024 INDICATION: Multiphasic CT for pending TIPS placement. COMPARISON: None. TECHNIQUE: CT scan of the abdomen and pelvis was performed followinginjection of IV contrast. Multiplanar reformats were obtained. Dosereduction techniques were used. CONTRAST: 94 mL Isovue 370. FINDINGS: LOWER CHEST: Normal. HEPATOBILIARY: The liver demonstrates a diffusely nodular and shrunkenappearance, compatible with cirrhosis. There is a single tiny nonenhancingcyst in the left hepatic lobe measuring 5 mm. No specific follow-up isnecessary. No suspicious-appearing hepatic observations are seen. Specifically, no areas of early arterialenhancement or capsule appearance. The gallbladder demonstrates diffuseedematous wall thickening and possible trace pericholecystic fluid. Nosigns of cholelithiasis. No bile duct dilation. PANCREAS: Normal. SPLEEN: The spleen is enlarged at 20.1 cm in craniocaudal dimension. Nosplenic mass. ADRENAL GLANDS: Normal. KIDNEYS/BLADDER: Normal. BOWEL: Normal. LYMPH NODES: Normal. VASCULATURE: The portal vein is patent. Portosystemic collaterals are seenin the upper abdomen with large distal paraesophageal varices andsplenorenal shunting. No significant atherosclerosis of the abdominalaorta or iliac arteries. No aneurysmal dilation. Conventional hepatic artery. PELVIC ORGANS: Normal. MUSCULOSKELETAL: Normal. IMPRESSION: 1. Cirrhotic configuration of the liver. 2. Sequelae of portal venous hypertension, including portosystemiccollaterals and splenomegaly. 3. Diffuse edematous wall thickening of the gallbladder, likely secondaryto underlying liver disease. Paula Colbert MD [facility] [place] ORDERABLES Final Resul t * HIV Antigen Antibody Combo Pretransplant [place] (08/19/2024 10:54 AM CHILD CARE GIVER) HIV Antigen Antibody Combo Pretransplant Nonreactive Nonreactive 08/19/2024 2:42 PM CHILD CARE GIVER [facility] Comment:Negative HIV-1 p24 a ntigen and HIV-1/2 antibody screening test results usually indicate the absence of HIV-1 and HIV-2 infection. However, such negative results do not rule-out acute HIV infection. If acute HIV-1 or HIV-2 infection is suspected, detection of HIV-1 or HIV-2 RNA is recommended. This result is obtained using the [employer] HIV Duo method on the sadie e801 immunoassay analyzer. Blood STRUCTURE OF RIGHT UPPER LIMB / Unknown Venipuncture / Unknown 08/19/2024 10:54 AM CHILD CARE GIVER 08/19/2024 10:54 AM CHILD CARE GIVER Mamadou Gong MD LAB - BLOOD ORDERABL ES Final Result Performing Organization Address [facility] Co de Phone Number LABORATORY [facility] Core Lab [address] [place] [address], [facility] [address] * Hepatitis C antibody (08/19/2024 10:54 AM CHILD CARE GIVER) [facility] Hepatitis C Antibody Nonreactive Nonreactive 08/19/2024 2:42 PM CHILD CARE GIVER [facility]ORY Comment:A nonreactive screen ing test result does not exclude the possibility of exposure to or infection with HCV. Nonreactive screening test results in individuals with prior exposure to HCV may be due to antibody levels below the limit of detection of this assay or lack of reactivity to the HCV antigens used in this assay. Patients with recent HCV infections (<3 months from time of exposure) may have false- negative HCV antibody results due to the time needed for seroconversion (average of 8 to 9 weeks). Blood STRUCTURE OF RIGHT UPPER LIMB / Unknown Venipuncture / Unknown 08/19/2024 10:54 AM CHILD CARE GIVER 08/19/2024 10:54 AM CHILD CARE GIVER Mamadou Gong MD LAB - BLOOD ORDERABL ES Final Result Performing Organization Address [facility] Co de Phone Number LABORATORY [facility] Core Lab [address] [place] [address], [address] from Last 3 Months or Most Recently Relevant to Health Maintenance Insurance [employer] [place] [employer] [facility] [employer] [place] [employer] [facility] Care Teams Recreational Vehicle Resort Manager Relationship Specialty Start Date End Date Mamadou Gong MD [address] [place] [id number] PCP - General Gastroenterology 10/20/24 Yesika Chirinos PA-C [facility] [address] [place] [address] [place] [address] Referring Physician Gastroenterology 07/23/[address] [facility] [address] [facility] [address] [place] [address] Registered Dietitian Dietitian, Registered 08/13/23 Reinier Lehman MD [address] [place] [id number] Transplant Surgery 08/13/23 Mamadou Gong MD [address] [place] [id number] MD Gastroenterology 08/13/23 Arcelia Cid, MENTAL HEALTH TECH Caramel Candy Maker 08/13/23 Mamadou Gong MD [address] [place] [address] [phone] Assigned Gastroenterology Provider 08/30/23 Reinier Lehman MD [address] [place] [id number] Assigned Surgical Provider 08/30/23 Trung Duran, [facility] Caramel Candy Maker Caramel Candy Maker - Clinical 09/30/23 Duran Luong MD [address] [place] [address] [id number] Assigned Pulmonology Provider 10/17/23 Osmany Rausch, semiconductor packages testerDeveloping Machine Operator Transplant 01/22/24 Hina Rojo MD [address] [place] [address] [address] [place], [place] [address] Assigned Infectious Disease Provider 03/07/24 Fabiola Epperson APRN [facility] [address] [place] [address] Nurse Practitioner Anesthesiology 09/30/24 Paula Colbert MD [address] [place] [address] Physician Radiology 09/30/24
--- OUTSIDE RECORDS SUMMARY | 2024-12-19 07:43 | XMS_ITS | Encounter Summary ---
Author Organization [place] Address [address] [place] [address] Care Team Providers Care Hay Baler Name Role Phone TaranMoisesYesikacatracho Gee PA-C Unavailable [phone] Unavailable Unavail able Reinier Lehman MD Unavailable Mamadou Gong MD Unavailable + [phone] Arcelia Cid ADVICE NURSE Unavailable [phone] Mamadou Gong MD Unavailable + [phone] Reinier Lehman MD Unavailable Trung Duran WHARF HAND Unavailable Unavailable Duran Luong MD Unavailable [phone] Osmany Rausch RN Unavailable Unavailable Hina Rojo MD Unavailable [phone] Fabiola Epperson APRN FOOD SERVICE HOTEL RUNNER Unavailable [phone] Jatin Carcamo MD Unavailable [phone] Mamadou Gong MD Primary Care Provid er Encounter Details Date Type Department Care Team (Latest Contact Info) Description 12/07/2024 Travel Social History Tobacco Use Types Packs/Day Years [...] PM CDT Legal 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 Gender Identity Male 07/17/2023 2:30 PM CDT Sexual Orientation Not on file documented as of this encounter Plan of Treatment Upcoming Encounters Date Type Department Care Team (Late st Contact Info) Description 02/14/2025 10:30 AM CDT Appointment [facility] [address] [facility] [address] [place] [address] Jatin Carcamo MD [address] [place] [address] [phone] 02/21/2025 10:30 AM CDT Lab [facility] Lab [address] [address] Mamadou Gong MD [address] [place] [address] 142005 02/21/2025 11:30 AM CDT Office Visit [facility]ology [facility] [address] [address] Mamadou Gong MD [address] [place] [address] 05/19/2025 10:30 AM CDT Appointment [facility] Imaging [address] [place] [address] [place] [phone] Jatin Carcamo MD [address] [place] [address] 05/19/2025 11:15 AM CDT Lab [facility] [address] [place] [phone] 05/26/2025 10:30 AM CDT Virtual Visit [facility] [address] 3rd [place] [phone] Jatin Carcamo MD [address] [place] [address] [phone] documented as of this encounter Visit Diagnoses Not on filedocumented in this encounter Additional Health Concerns Assessment Noted Time PHQ-9 Depression Total Score: 23 023 8:49 AM VESSEL CREW MEMBER documented as of this encounter Care Teams Hay Baler Relationship Specialty Start Date End Date Mamadou Gong MD [address] [place] [address] PCP - General Gastroenterology 10/20/24 Yesika Chirinos PA-C [facility] [address] [place] [address] [place] [address] Referring Physician Gastroenterology 07/23/[address] [place] [address] Registered Dietitian Dietitian, Registered 08/13/23 Reinier Lehman MD [address] [place] [address] Transplant Surgery 08/13/23 Mamadou Gong MD [address] [place] [address] [id number] Gastroenterology 08/13/23 Arcelia Cid, ADVICE NURSE Consulting Solution Director 08/13/23 Mamadou Gong MD [address] [place] [address] Assigned Gastroenterology Provider 08/30/23 Reinier Lehman MD [address] [place] [address] Assigned Surgical Provider 08/30/23 Trung Duran, [facility] Consulting Solution Director Consulting Solution Director - Clinical 09/30/23 Duran Luong MD [address] [place] [address] Assigned Pulmonology Provider 10/17/23 Osmany Rausch, lumber straightenedTrack Welder Transplant 01/22/24 Hina Rojo MD [address] [place] [address] [phone] Assigned Infectious Disease Provider 03/07/24 Fabiola Epperson APRN FOOD SERVICE HOTEL RUNNER [address] [place] [address] [id number] Nurse Practitioner Anesthesiology 09/30/24 Jatin Carcamo MD [address] [place] [address] [id number] Physician Radiology 09/30/24 documented as of this encounter
--- OUTSIDE RECORDS SUMMARY | 2024-12-19 07:43 | XMS_ITS | Encounter Summary ---
Author Organization [place] Address [address] [place] [address] Care Team Providers Care Voucher Clerk Name Role Phone TaranMoisesYesikacatracho Gee PA-C Unavailable [phone] Unavailable Unavail able Reinier Lehman MD Unavailable Mamadou Gong MD Unavailable + [phone] Arcelia Cid BUTTON SAWYER Unavailable [phone] Mamadou Gong MD Unavailable + [phone] Reinier Lehman MD Unavailable Trung Duran MOVIE WRITER Unavailable Unavailable Duran Luong MD Unavailable [phone] Osmany Rausch RN Unavailable Unavailable Hina Rojo MD Unavailable [phone] Fabiola Epperson APRN LEAF BINNER Unavailable [phone] Jatin Carcamo MD Unavailable [phone] Mamadou Gong MD Primary Care Provid er Reason for Referral * Diagnostic Imaging Ultrasound (Routine) - Pending Review Specialty Diagnoses / Procedures Referred By Contgrayson t Referred To Contact Radiology. Diagnoses Alcoholic cirrhosis of liver with ascites (H) Secondary esophageal varices without bleeding (H) Procedures US TIPS Doppler Jatin Carcamo MD [address] [place] [address] Phone: tel: fax: Referral ID Status Reason Start Date Expiration Date V isits Requested Visits Authorized [id number] Pending Review 12/13/2024 12/13/2025 1 1 Encounter Details Date Type Department Care Team (Nhi Fowler Info) Description 12/13/2024 Orders Only [facility] [address] 3rd [place] [address] Jatin Carcaom MD [address] [place] [address] Alcoholic cirrhosis of liver with ascites (H) [...] PM CDT 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 Gender Identity Male 07/17/2023 2:30 PM CDT Sexual Orientation Not on file documented as of this encounter Plan of Treatment Upcoming Encounters Date Type Department Care Team (Nhi maza Contact Info) Description 02/14/2025 10:30 AM CDT Appointment [facility] Imaging [address] [place] [phone] Jatin Carcamo MD [address] [place] [address] 02/21/2025 10:30 AM CDT Lab [facility] Lab [address] [phone] Mamadou Gong MD [address] [place] [address] [phone] 02/21/2025 11:30 AM CDT Office Visit [facility] [address] [phone] Mamadou Gong MD [address] [place] [address] 659805 05/19/2025 10:30 AM CDT Appointment [facility] Imaging [address] [place] [phone] Jatin Carcamo MD [address] [place] [address] [phone] 05/19/2025 11:15 AM CDT Lab [facility] [address] [place] [address] 05/26/2025 10:30 AM CDT Virtual Visit [facility] [address] [phone] Jatin Carcamo MD [address] [place] [address] [phone] Scheduled Orders Name Type Priority Associated Diagnoses Orde r Schedule US TIPS Doppler Imaging Routine Alcoholic cirrhosis of liver with ascites (H) Secondary esophageal varices without bleeding (H) Expected: 06/14/2025 (Approximate), Expires: 12/13/2025 CBC with platelets Lab Routine Alcoholic cirrhosis of liver with ascites (H) Secondary esophageal varices without bleeding (H) Expected: 06/14/2025 (Approximate), Expires: 12/13/2025 Comprehensive metabolic panel Lab Routine Alcoholic cirrhosis of liver with ascites (H) Secondary esophageal varices without bleeding (H) Expected: 06/14/2025 (Approximate), Expires: 12/13/2025 INR Lab Routine Alcoholic cirrhosis of liver with ascites (H) Secondary esophageal varices without bleeding (H) Expected: 06/14/2025 (Approximate), Expires: 12/13/2025 documented as of this encounter Visit Diagnoses [...] Depression Total Score: 23 023 8:49 AM LANDFILL GAS COLLECTION OPERATOR documented as of this encounter Care Teams Voucher Clerk Relationship Specialty Start Date End Date Mamadou Gong MD [address] [place] [address] PCP - General Gastroenterology 10/20/24 Yesika Chirnios PA-C [facility] [address] [place] [address] [place] [address] Referring Physician Gastroenterology 07/23/[address] [place] [address] Registered Dietitian Dietitian, Registered 08/13/23 Reinier Lehman MD [address] [place] [address] Transplant Surgery 08/13/23 Mamadou Gong MD [address] [place] [address] Gastroenterology 08/13/23 Arcelia Cid, BUTTON SAWYER Grape Crusher 08/13/23 Mamadou Gong MD [address] [place] [address] Assigned Gastroenterology Provider 08/30/23 Reinier Lehman MD [address] [place] [address] Assigned Surgical Provider 08/30/23 Trung Duran, [facility] Grape Crusher Grape Crusher - Clinical 09/30/23 Duran Luong MD [address] [place] [address] Assigned Pulmonology Provider 10/17/23 Osmany Rausch, road roller operator hot mixEcg Technician Transplant 01/22/24 Hina Rojo MD [address] [place] [address] Assigned Infectious Disease Provider 03/07/24 Fabiola Epperson APRN LEAF BINNER [address] [place] [address] 71349 Nurse Practitioner Anesthesiology 09/30/24 Jatin Carcamo MD [address] [place] [address] [phone] Physician Radiology 09/30/24 documented as of this encounter
--- OUTSIDE RECORDS SUMMARY | 2024-12-19 07:43 | XMS_ITS | Encounter Summary ---
Author Organization [place] Address [address] [place] [address] Care Team Providers Care Director Of Student Life Name Role Phone Moises Gaston MD Primary Care Provider [phone] Yesika Chirinos PA-C Unavailable [phone] Everette Pfeiffer RN, Mamadou Unavailable [phone] No Ref-Primary, Physician Primary Care Provider Priscila Rogers RD Unavailable Unavail able Reinier Lehman MD Unavailable Mamadou Gong MD Unavailable + [phone] Arcelia Cid MACHINE VENEER REPAIRER Unavailable [phone] Mamadou Gong MD Unavailable + [phone] Reinier Lehman MD Unavailable Trung Duran SNACK BAR CASHIER Unavailable Unavailable Duran Luong MD Unavailable [phone] Osmany Rausch RN Unavailable Unavailable Hina Rojo MD Unavailable [phone] Fabiola Epperson APRN [facility] Unavailable [phone] Jatin Carcamo MD Unavailable [phone] Mamadou Gong MD Primary Care Provid er Encounter Details Date Type Department Care Team (Late st Contact Info) Description 12/23/2022 External Order Results [facility] [address] [place] [address] Outside, Provider Social History Tobacco Use Types Packs/Day Years Used Date Smoking Tobacco: Never Assessed Sex and Gender Information Value Date Recorded Sex Assigned at Male 07/17/2023 2:30 PM CDT 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 Gender Identity Male 07/17/2023 2:30 PM CDT Sexual Orientation Not on file documented as of this encounter Plan of Treatment Upcoming Encounters Date Type Department Care Team (Late st Contact Info) Description 02/14/2025 10:30 AM CDT Appointment [facility] Imaging [address] [facility] [address] [place] [phone] Jatin Carcamo MD [address] [place] [address] [phone] 02/21/2025 10:30 AM CDT Lab [facility] [address] [phone] Mamadou Gong MD [address] [place] [address] 02/21/2025 11:30 AM CDT Office Visit [facility] [address] [phone] Mamadou Gong MD [address] [place] [address] 05/19/2025 10:30 AM CDT Appointment [facility] Imaging [address] [place] [address] [place] [phone] Jatin Carcamo MD [address] [place] [address] 05/19/2025 11:15 AM CDT Lab [facility] [address] [place] [address] 05/26/2025 10:30 AM CDT Virtual Visit [facility] [address] [place] [phone] Jatin Carcamo MD [address] [place] [address] documented as of this encounter Procedures Procedure Name Priority Date/Time Associated Diagnosis Comments INR Routine 06/30/2023 10:13 AM CDT HEPATIC FUNCTION PANEL Routine 06/30/2023 10:13 AM CDT AFP TUMOR MARKER Routine 06/30/2023 10:1 3 AM CDT BASIC METABOLIC PANEL Routine 06/30/2023 10:13 AM CDT CBC WITH PLATELETS Routine 06/30/2023 10 :13 AM CDT INR Routine 12/23/2022 2:11 PM CDT HEPATIC FUNCTION PANEL Routine 12/23/2022 2:11 PM CDT CREATININE Routine 12/23/2022 2:11 PM CDT CBC WITH PLATELETS Routine 12/23/2022 2: 11 PM CDT documented in this encounter Results * (ABNORMAL) INR (06/30/2023 10:13 AM CDT) INR (External) 2.0(H) 0.9 - 1.2 NON-I NTERFACE D (ONBASE SCANS) PT - Prothrombine Time (External) 20.5(H) 9.1 - 12.0 sec NON-INTERFACE D (ONBASE SCANS) Blood BLOOD SPECIMEN / Unknown 06/30/2023 10:13 AM CDT Narrative BREEZE PFT - 07/24/2023 9:54 AM DRAFT ROLLER PICKER Verified by Alexsander Vila on 07/24/2023. Provider Outside LAB - BLOOD ORDERABLES Edited [facility] Performing Organization Address [facility] de Phone Number KIKE PFT NON-INTERFACED (ONBASE SCANS) * AFP tumor marker (06/30/2023 10:13 AM CDT) [facility] Alpha Fetoprotein Nonpreg (External) 2.4 0.0 - 6.9 ng/mL NON-INTERFACED (ONBASE SCANS) Blood BLOOD SPECIMEN / Unknown 06/30/2023 10:13 AM CDT Narrative BREEZE PFT - 07/24/2023 9:54 AM DRAFT ROLLER PICKER Verified by Alexsander Vila on 07/24/2023. Provider Outside LAB - BLOOD ORDERABLES Edited [facility] Performing Organization Address [facility] de Phone Number KIKE PFT NON-INTERFACED (ONBASE SCANS) * (ABNORMAL) Hepatic function panel (06/30/2023 10:13 AM CDT) [facility] Bilirubin Total (External) 7.7(H) 0.0 - 1.2 mg/dL NON-INTERFACE D (ONBASE SCANS) Bilirubin Direct (External) 2.32(H) 0.00 - 0.40 mg/dL NON-INTERFACE D (ONBASE SCANS) AST (External) 48(H) 0 - 40 IU/L NON-INTERFACE D (ONBASE SCANS) ALT (External) 35 0 - 44 IU/L NON-INTERFACE D (ONBASE SCANS) Albumin (External) 2.9(L) 4.1 - 5.1 g/dL NON-INTERFACE D (ONBASE SCANS) Alk Phosphatase (External) 191(H) 44 - 121 IU/L NON-INTERFACE D (ONBASE SCANS) Protein Total (External) 5.8(L) 6.0 - 8.5 g/dL NON-INTERFACE D (ONBASE SCANS) Blood BLOOD SPECIMEN / Unknown 06/30/2023 10:13 AM CDT Narrative KIKE PFT - 07/24/2023 9:54 AM DRAFT ROLLER PICKER Verified by Alexsander Vila on 07/24/2023. Provider Outside LAB - BLOOD ORDERABLES Edited R esult - Final KIKE PFT NON-INTERFACED (ONBASE SCANS) * (ABNORMAL) Basic metabolic panel (06/30/2023 10:13 AM CDT) Pathologist [facility] Urea Nitrogen (External) 6 6 - 20 mg/dL NON-INTERFACE D (ONBASE SCANS) BUN/Creatinine Ratio (External) 9 9 - 20 NON-INTERFACE D (ONBASE SCANS) CO2 (External) 21 20 - 29 mmol/L NON-INTERFACE D (ONBASE SCANS) Calcium (External) 8.4(L) 8.7 - 10.2 mg/dL NON-INTERFACE D (ONBASE SCANS) Chloride (External) 111(H) 96 - 106 mmol/L NON-INTERFACE D (ONBASE SCANS) Creatinine (External) 0.65(L) 0.76 - 1.27 mg/dL NON-INTERFACE D (ONBASE SCANS) GFR Estimated (External) 129 >59 mL/min NON-INTERFACE D (ONBASE SCANS) Glucose (External) 123(H) 70 - 99 mg/dL NON-INTERFACE D (ONBASE SCANS) Potassium (External) 3.8 3.5 - 5.2 mmol/L NON-INTERFACE D (ONBASE SCANS) Sodium (External) 141 134 - 144 mmol/L NON-INTERFACE D (ONBASE SCANS) Blood BLOOD SPECIMEN / Unknown 06/30/2023 10:13 AM CDT Narrative KIKE PFT - 07/24/2023 9:54 AM DRAFT ROLLER PICKER Verified by Alexsander Vila on 07/24/2023. Provider Outside LAB - BLOOD ORDERABLES Edited R esult - Final KIKE PFT NON-INTERFACED (ONBASE SCANS) * (ABNORMAL) CBC with platelets (06/30/2023 10:13 AM CDT) Hematocrit (External) 32.4(L) 37.5 - 51.0 % NON-INTERFACE D (ONBASE SCANS) Hemoglobin (External) 11.6(L) 13.0 - 17.7 g/dL NON-INTERFACE D (ONBASE SCANS) MCH (External) 34.3(H) 26.6 - 33.0 pg NON-INTERFACE D (ONBASE SCANS) MCHC (External) 35.8(H) 31.5 - 35.7 g/dL NON-INTERFACE D (ONBASE SCANS) MCV (External) 96 79 - 97 fL NON- INTERFACE D (ONBASE SCANS) Platelet Count (External) 32(LL) 150 - 450 x10E3/uL NON-INTERFACE D (ONBASE SCANS) RBC Count (External) 3.38(L) 4.14 - 5.80 x10E6/uL NON-INTERFACE D (ONBASE SCANS) RDW (External) 12.9 11.6 - 15.4 % NON-INTERFACE D (ONBASE SCANS) WBC Count (External) 5.5 3.4 - 10.8 x10E3/uL NON-INTERFACE D (ONBASE SCANS) Blood BLOOD SPECIMEN / Unknown 06/30/2023 10:13 AM CDT Sharda STOKES PFT - 07/24/2023 9:54 AM DRAFT ROLLER PICKER Verified by Alexsander Vila on 07/24/2023. us Provider Outside LAB - BLOOD ORDERABLES Mellissa R kris - Final KIKE PFT NON-INTERFACED (ONBASE SCANS) * (ABNORMAL) Creatinine (12/23/2022 2:11 PM CDT) Creatinine (External) 0.49(L) 0.76 - 1.27 mg/dL NON-INTERFACE D (ONBASE SCANS) GFR Estimated (External) 141 >59 mL/min/1.7 3m2 NON-INTERFACE D (ONBASE SCANS) Blood BLOOD SPECIMEN / Unknown 12/23/2022 2:11 PM CDT Narrative BREEZE PFT - 07/24/2023 9:43 AM DRAFT ROLLER PICKER Verified by Alexsander Vila on 07/24/2023. Provider Outside LAB - BLOOD ORDERABLES Edited [facility] KIKE PFT NON-INTERFACED (ONBASE SCANS) * (ABNORMAL) Hepatic function panel (12/23/2022 2:11 PM CDT) Bilirubin Total (External) 9.6(H) 0.0 - 1.2 mg/dL NON-INTERFACE D (ONBASE SCANS) Bilirubin Direct (External) 4.68(H) 0.00 - 0.40 mg/dL NON-INTERFACE D (ONBASE SCANS) AST (External) 45(H) 0 - 40 IU/L NON-INTERFACE D (ONBASE SCANS) ALT (External) 22 0 - 44 IU/L NON-INTERFACE D (ONBASE SCANS) Albumin (External) 2.9(L) 4.0 - 5.0 g/dL NON-INTERFACE D (ONBASE SCANS) Alk Phosphatase (External) 223(H) 44 - 121 IU/L NON-INTERFACE D (ONBASE SCANS) Protein Total (External) 6.1 6.0 - 8.5 g/dL NON-INTERFACE D (ONBASE SCANS) Blood BLOOD SPECIMEN / Unknown 12/23/2022 2:11 PM CDT Narrative IVANAE PFT - 07/24/2023 9:43 AM DRAFT ROLLER PICKER Verified by Alexsander Vila on 07/24/2023. Provider Outside LAB - BLOOD ORDERABLES Edited [employer] IVANAE PFT NON-INTERFACED (ONBASE SCANS) * (ABNORMAL) CBC with platelets (12/23/2022 2:11 PM CDT) Hematocrit (External) 33.7(L) 37.5 - 51.0 % NON-INTERFACE D (ONBASE SCANS) Hemoglobin (External) 12.1(L) 13.0 - 17.7 g/dL NON-INTERFACE D (ONBASE SCANS) MCH (External) 36.4(H) 26.6 - 33.0 pg NON-INTERFACE D (ONBASE SCANS) MCHC (External) 35.9(H) 31.5 - 35.7 g/dL NON-INTERFACE D (ONBASE SCANS) MCV (External) 102(H) 79 - 97 fL NON- INTERFACE D (ONBASE SCANS) Platelet Count (External) 48(L) 150 - 450 x10E3/uL NON-INTERFACE D (ONBASE SCANS) RBC Count (External) 3.32(L) 4.14 - 5.80 x10E6/uL NON-INTERFACE D (ONBASE SCANS) RDW (External) 13.1 11.6 - 15.4 % NON-INTERFACE D (ONBASE SCANS) WBC Count (External) 4.7 3.4 - 10.8 x10E3/uL NON-INTERFACE D (ONBASE SCANS) Blood BLOOD SPECIMEN / Unknown 12/23/2022 2:11 PM CDT Narrative BREEZE PFT - 07/24/2023 9:43 AM DRAFT ROLLER PICKER Verified by Alexsander Vila on 07/24/2023. Provider Outside LAB - BLOOD ORDERABLES Edited [employer] Performing Organization Address City/[facility]/ZIP Co de Phone Number KIKE PFT NON-INTERFACED (ONBASE SCANS) * (ABNORMAL) INR (12/23/2022 2:11 PM CDT) INR (External) 1.9(H) 0.9 - 1.2 NON-I NTERFACE D (ONBASE SCANS) PT - Prothrombine Time (External) 20.0(H) 9.1 - 12.0 sec NON-INTERFACE D (ONBASE SCANS) Blood BLOOD SPECIMEN / Unknown 12/23/2022 2:11 PM CDT Narrative RAUDELEZE PFT - 07/24/2023 9:43 AM DRAFT ROLLER PICKER Verified by Alexsander Vila on 07/24/2023. us Provider Outside LAB - BLOOD ORDERABLES Edited [facility] KIKE PFT NON-INTERFACED (ONBASE SCANS) documented in this encounter Visit Diagnoses Not on filedocumented in this encounter Care Teams Director Of Student Life Relationship Specialty [place] [address] [place] [address] PCP - General 10/30/01 07/15/23 No Ref-Primary, Physician PCP - General 07/24/23 10/19/24 Mamadou Gong MD [address] [place] [address]21 PCP - General Gastroenterology 10/20/24 Yesika Chirinos, ALEX [address] [place] [address] Referring Physician Gastroenterology 07/23/23 Mamadou Gaviria Jr., RN Nurse Coordinator Transplant 07/23/23 01/21/[address] [address] Registered Dietitian Dietitian, Registered 08/13/23 Reinier Lehman MD [address] [place] [address] Transplant Surgery 08/13/23 Mamadou Gong MD [address] [place] [address] Gastroenterology 08/13/23 Arcelia Cid, MACHINE VENEER REPAIRER Party Demonstrator 08/13/23 Mamadou Gong MD [address] [place] [address]259 Assigned Gastroenterology Provider 08/30/23 Reinier Lehman MD [address] [place] [address]2277 Assigned Surgical Provider 08/30/23 Trung Duran, [facility] Party Demonstrator Party Demonstrator - Clinical 09/30/23 Duran Luong MD [address] [place] [address] Assigned Pulmonology Provider 10/17/23 Osmany Rausch, shredder pickerCustomer Service Cashier Transplant 01/22/24 Hina Rojo MD [address] [place] [address] 13473 Assigned Infectious Disease Provider 03/07/24 Fabiola Epperson APRN BLUE LINE OPERATOR [address] [place] [address] [phone] Nurse Practitioner Anesthesiology 09/30/24 Jatin Carcamo MD [address] [place] [address] 290805 Physician Radiology 09/30/24 documented as of this encounter
--- OUTSIDE RECORDS SUMMARY | 2024-12-19 07:43 | XMS_ITS | Encounter Summary ---
Author Organization [place] Address [address] [place] [address] Care Team Providers Care Church History Professor Name Role Phone Yesika Chirinos PA-C Unavailable [phone] Unavailable Unavail able Reinier Lehman MD Unavailable Mamadou Gong MD Unavailable + [phone] Arcelia Cid AIRPLANE ELECTRICAL REPAIRER Unavailable [phone] Mamadou Gong MD Unavailable + [phone] Reinier Lehman MD Unavailable Trung Duran PUBLIC HEALTH TRAINING ASSISTANT Unavailable Unavailable Duran Luong MD Unavailable +[phone] Osmany Rausch RN Unavailable Unavailable Hina Rojo MD Unavailable +[phone] Fabiola Epperson APRN AUTOMATIC PAINT SPRAYER OPERATOR Unavailable +[phone] Jatin Carcamo MD Unavailable +[phone] Mamadou Gong MD Primary Care Provid er Encounter Details Date Type Department Care Team (Late st Contact Info) Description 12/07/2024 10:45 AM CDT [facility] [address] [place] [address] Alcoholic cirrhosis of liver with ascites (H); Secondary esophageal varices without bleeding (H) Social [...] PM CDT 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 Gender Identity Male 07/17/2023 2:30 PM CDT Sexual Orientation Not on file documented as of this encounter Plan of Treatment Upcoming Encounters Date Type Department Care Team (Late st Contact Info) Description 02/14/2025 10:30 AM CDT Appointment [facility] [address] [facility] [address] [place] [address] Jatin Carcamo MD [address] [place] [address] 505815 02/21/2025 10:30 AM CDT Lab [address] [address] Mamadou Gong MD [address] [place] [address] 308535 02/21/2025 11:30 AM CDT Office Visit [facility]ology [facility] [address] [phone] Mamadou Gong MD [address] [place] [address] 05/19/2025 10:30 AM CDT Appointment [facility] [address] [place] [phone] Jatin Carcamo MD [address] [place] [address] 05/19/2025 11:15 AM CDT Lab [facility] [address] [place] [address] 05/26/2025 10:30 AM CDT Virtual Visit [facility] V[facility] Clinic [address] 3rd [place] [phone] Jatin Carcamo MD [address] [place] [address] 359665 documented as of this encounter Procedures Procedure Name Priority Date/Time Associated Diagnosis Comments INR Routine 12/07/2024 10:12 AM CDT Alcoholic cirrhosis of liver with ascites (H) Secondary esophageal varices without bleeding (H) COMPREHENSIVE METABOLIC PANEL Routine 12/07/2024 10:12 AM CDT Alcoholic cirrhosis of liver with ascites (H) Secondary esophageal varices without bleeding (H) CBC WITH PLATELETS Routine 12/07/2024 10 :12 AM CDT Alcoholic cirrhosis of liver with ascites (H) Secondary esophageal varices without bleeding (H) documented in this encounter Results * (ABNORMAL) INR (12/07/2024 10:12 AM CDT) INR 1.48(H) 0.85 - 1.15 12/07/2024 6:35 PM CDT [facility] Blood BLOOD SPECIMEN / Unknown Venipuncture / Unknown 12/07/2024 10:12 AM CDT 12/07/2024 10:13 AM CDT Jatin Carcamo MD LAB - BLOOD ORDERABLES Final Result [facility] Lab [address] Lab (no room number, 1st floor of clinic) [place] [address], [facility] * (ABNORMAL) Comprehensive metabolic panel (12/07/2024 10:12 AM CDT) Sodium 142 135 - 145 mmol/L 12/07/2024 [...] 10:37 PM CDT [facility] Comment:eGFR calculated us2020 CKD-EPI equation. Calcium 9.0 8.8 - 10.4 [...] AM CDT 12/07/2024 10:13 AM CDT us Jatin Carcamo MD LAB - BLOOD ORDERABLES Final Result [facility] [address] [facility], Room [address] [place] [id number] * (ABNORMAL) CBC with platelets (12/07/2024 10:12 AM CDT) WBC Count 5.1 4.0 - 11.0 10e3/uL [...] - 450 10e3/uL 12/07/2024 5:54 PM CDT LABORATORY Blood BLOOD SPECIMEN / Unknown Venipuncture / Unknown 12/07/2024 10:12 AM CDT 12/07/2024 10:13 AM CDT us Jatin Carcamo MD LAB - BLOOD ORDERABLES Final Result LABORATORY [facility] [address] Lab (1st floor, no room number) [place] [address] documented in this encounter Visit Diagnoses Diagnosis Alcoholic cirrhosis of liver with ascites (H) Alcoholic cirrhosis of liver Secondary esophageal varices without bleeding (H) Esophageal varices without mention of bleeding in diseases classified elsewhere Alcoholic cirrhosis of liver with ascites (H) Alcoholic cirrhosis of liver documented in this encounter Additional Health Concerns Assessment Noted Time PHQ-9 Depression Total Score: 23 023 8:49 AM BLEACHING SUPERVISOR documented as of this encounter Care Teams Church History Professor Relationship Specialty Start Date End Date Mamadou Gong MD [address] [place] [address] PCP - General Gastroenterology 10/20/24 Yesika Chirinos PA-C [facility] [address] [place] [address] [place] [address] Referring Physician Gastroenterology 07/23/[address] [address] Registered Dietitian Dietitian, Registered 08/13/23 Reinier Lehman MD [address] [place] [address] 957875 Transplant Surgery 08/13/23 Mamadou Gong MD [address] [place] [address] Gastroenterology 08/13/23 Arcelia Cid, AIRPLANE ELECTRICAL REPAIRER Plastics Spreading Machine Operator 08/13/23 Mamadou Gong MD [address] [place] [address]60 Assigned Gastroenterology Provider 08/30/23 Reinier Lehman MD [address] [place] [address] Assigned Surgical Provider 08/30/23 Trung Duran, [facility] Plastics Spreading Machine Operator Plastics Spreading Machine Operator - Clinical 09/30/23 Duran Luong MD [address] [place] [address] 266215 Assigned Pulmonology Provider 10/17/23 Osmany Rausch, buccaroManager New Product Transplant 01/22/24 Hina Rojo MD [address] [place] [address] 390955 Assigned Infectious Disease Provider 03/07/24 Fabiola Epperson APRN AUTOMATIC PAINT SPRAYER OPERATOR [address] [place] [address] 098765 Nurse Practitioner Anesthesiology 09/30/24 Jatin Carcamo MD [address] [place] [address] 347855 Physician Radiology 09/30/24 documented as of this encounter
--- OUTSIDE RECORDS SUMMARY | 2024-12-19 07:44 | XMS_ITS | Encounter Summary ---
Author Organization [facility] Address [address] [place] [address] Care Team Providers Care .Net Developer Name Role Phone TaranMoisesYesikacatracho Gee PA-C Unavailable [phone] No Ref-Primary, Physician Primary Care Provider Priscila Rogers RD Unavailable Unavail able Reinier Lehman MD Unavailable Mamadou Gong MD Unavailable + [phone] Arcelia Cid HEATER HELPER FORGE Unavailable [phone] Mamadou Gong MD Unavailable + [phone] Reinier Lehman MD Unavailable Trung Duran LGSW Unavailable Unavailable Duran Luong MD Unavailable [phone] Osmany Rausch RN Unavailable Unavailable Hina Rojo MD Unavailable [phone] Fabiola Epperson APRN GENERAL CAR YARD SUPERVISOR Unavailable +[phone] Jtain Carcamo MD Unavailable +[phone] Mamadou Gong MD Primary Care Provid er Encounter Details Date Type Department Care Team (Late st Contact Info) Description 04/07/2024 [facility] [address] [phone] Felipa Flynn Social History Tobacco Use Types Packs/Day Years Used Date Smoking Tobacco: Former Cigarettes 0.1 11.1 S tarted: 11/23/2013 Passive Smoke Exposure: Current Smokeless Tobacco: Never Comments:Down 1-2 cigs daily Alcohol Use Standard Drinks/Week Comments Not Currently 0 (1 standard drink = 0.6 oz pure alcohol) Last drink 10/12/2022; would drink 1.75L of hard alcohol every 2 days PHQ-2 Answer Date Recorded PHQ-2 Score 2 03/29/2024 Adolescent Education Answer Date Record ed Getting School Help Needed Not on file 06/21 Sex and Gender Information Value Date Recorded Sex Assigned at Male 07/17/2023 2:30 PM CDT Legal 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 Gender Identity Male 07/17/2023 2:30 PM CDT Sexual Orientation Not on file documented as of this encounter Plan of Treatment Upcoming Encounters Date Type Department Care Team (Late st Contact Info) Description 02/14/2025 10:30 AM CDT Appointment [facility] Imaging [address] [place] [phone] Jatin Carcamo MD [address] [place] [address] 02/21/2025 10:30 AM CDT Lab [facility] Lab [address] 1st [place] [phone] Mamadou Gong MD [address] [place] [address] 02/21/2025 11:30 AM CDT Office Visit [facility] Hepatology Clinic [address] [address] Mamadou Gong MD [address] [place] [address] 05/19/2025 10:30 AM CDT Appointment [facility] Imaging [address] [place] [address] [place] [phone] Jatin Carcamo MD [address] [place] [address] 05/19/2025 11:15 AM CDT Lab [facility] [address] [place] [phone] 05/26/2025 10:30 AM CDT Virtual Visit [facility] Vascular Clinic [address] 3rd [place] [phone] Jatin Carcamo MD [address] [place] [address] documented as of this encounter Visit Diagnoses Not on filedocumented in this encounter Additional Health Concerns Assessment Noted Time PHQ-9 Depression Total Score: 023 8:49 AM MAGISTRATE ASSISTANT documented as of this encounter Care Teams .Net Developer Relationship Specialty Start Date End Date No Ref-Primary, Physician PCP - General 07/24/23 10/19/24 Mamadou Gong MD [address] [place] [address]46 PCP - General Gastroenterology 10/20/24 Yesika Chirinos PA-C [facility] [address] [place] [address] [place] [address] Referring Physician Gastroenterology 07/23/[address] [place] [address] Registered Dietitian Dietitian, Registered 08/13/23 Reinier Lehman MD [address] [place] [address] Transplant Surgery 08/13/23 Mamadou Gong MD [address] [place] [address] 755245 Gastroenterology 08/13/23 Arcelia Cid, HEATER HELPER FORGE Patternmaker Pressure Cast 08/13/23 Mamadou Gong MD [address] [place] [address] 957755 Assigned Gastroenterology Provider 08/30/23 Reinier Lehman MD [address] [place] [address] 485595 Assigned Surgical Provider 08/30/23 Trung Duran, [facility] Patternmaker Pressure Cast Patternmaker Pressure Cast - Clinical 09/30/23 Duran Luong MD [address] [place] [address] 943495 Assigned Pulmonology Provider 10/17/23 Osmany Rausch, winder fixerDirector College Transplant 01/22/24 Hina Rojo MD [address] [place] [address] 977865 Assigned Infectious Disease Provider 03/07/24 Fabiola Epperson APRN GENERAL CAR YARD SUPERVISOR [address] [place] [address] 772385 Nurse Practitioner Anesthesiology 09/30/24 Jatin Carcamo MD [address] [place] [address] 366065 Physician Radiology 09/30/24 documented as of this encounter
--- OUTSIDE RECORDS SUMMARY | 2024-12-19 07:44 | XMS_ITS | Encounter Summary ---
Author Organization [facility] Address [address] [place] [address] Care Team Providers Care Proof Tester Name Role Phone TaranMoisesYesikacatracho Gee PA-C Unavailable [phone] No Ref-Primary, Physician Primary Care Provider Priscila Rogers RD Unavailable Unavail able Reinier Lehman MD Unavailable Mamadou Gong MD Unavailable + [phone] Arcelia Cid MINIBUS DRIVER Unavailable [phone] Mamadou Gong MD Unavailable + [phone] Reinier Lehman MD Unavailable Trung Duran LGSW Unavailable Unavailable Duran Luong MD Unavailable [phone] Osmany Rausch RN Unavailable Unavailable Hina Rojo MD Unavailable [phone] Fabiola Epperson APRN POT BUILDER Unavailable [phone] Jatin Carcamo MD Unavailable [phone] Mamadou Gong MD Primary Care Provid er Encounter Details Date Type Department Care Team (Late st Contact Info) Description 05/12/2024 [facility] Gastroenterology Clinic [address] [phone] Yeimy Briceño RN Social History Tobacco Use Types Packs/Day Years [...] PM CDT Legal 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 Male 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 DESK OFFICER Gender Identity Male 07/17/2023 2:30 PM CDT Sexual Orientation Not on file documented as of this encounter Plan of Treatment Upcoming Encounters Date Type Department Care Team (Late st Contact Info) Description 02/14/2025 10:30 AM CDT Appointment [facility] Imaging [address] [place] [phone] Jatin Carcamo MD [address] [place] [address] 02/21/2025 10:30 AM CDT Lab [facility] Lab [address] 1st [place] [phone] Mamadou Gong MD [address] [place] [address] 02/21/2025 11:30 AM CDT Office Visit [facility] Hepatology Clinic [address] [phone] Mamadou Gong MD [address] [place] [address] 05/19/2025 10:30 AM CDT Appointment [facility] Imaging [address] [place] [phone] Jatin Caracmo MD [address] [place] [address] 05/19/2025 11:15 AM CDT Lab [facility] [address] [place] [phone] 05/26/2025 10:30 AM CDT Virtual Visit [facility] Vascular Clinic [address] 3rd [place] [address] Jatin Carcamo MD [address] [place] [address] documented as of this encounter Visit Diagnoses Not on filedocumented in this encounter Additional Health Concerns Assessment Noted Time PHQ-9 Depression Total Score: 023 8:49 AM DESK OFFICER documented as of this encounter Care Teams Proof Tester Relationship Specialty Start Date End Date No Ref-Primary, Physician PCP - General 07/24/23 10/19/24 Mamadou Gong MD [address] [place] [address] 156215 PCP - General Gastroenterology 10/20/24 Yesika Chirinos PA-C [facility] [address] [place] [address] [place] [address] Referring Physician Gastroenterology 07/23/[address] [place] [address] Registered Dietitian Dietitian, Registered 08/13/23 Reinier Lehman MD [address] [place] [address] Transplant Surgery 08/13/23 Mamadou Gong MD [address] [place] [address] 779755 Gastroenterology 08/13/23 Arcelia Cid, MINIBUS DRIVER Jordan Worker 08/13/23 Mamadou Gong MD [address] [place] [address]45 Assigned Gastroenterology Provider 08/30/23 Reinier Lehman MD [address] [place] [address]246 Assigned Surgical Provider 08/30/23 Trung Duran, [facility] Jordan Worker Jordan Worker - Clinical 09/30/23 Duran Luong MD [address] [place] [address]217 Assigned Pulmonology Provider 10/17/23 Osmany Rausch, cafeteria aideTeam Primary Care Physician Transplant 01/22/24 Hina Rojo MD [address] [place] [address] 595515 Assigned Infectious Disease Provider 03/07/24 Fabiola Epperson APRN POT BUILDER [address] [place] [address] 187165 Nurse Practitioner Anesthesiology 09/30/24 Jatin Carcamo MD [address] [place] [address] 919005 Physician Radiology 09/30/24 documented as of this encounter
--- OUTSIDE RECORDS SUMMARY | 2024-12-19 07:44 | XMS_ITS | Encounter Summary ---
Author Organization [facility] Address [address] [place] [address] Care Team Providers Care Highway Construction Inspector Name Role Phone TaranMoisesYesikacatracho Gee PA-C Unavailable [phone] Everette Pfeiffer RN, Thomas Unavailable [phone] No Ref-Primary, Physician Primary Care Provider Priscila Rogers RD Unavailable Unavail able Reinier Lehman MD Unavailable Mamadou Gong MD Unavailable + [phone] Arcelia Cid GUIDE TRAVEL Unavailable [phone] Mamadou Gong MD Unavailable + [phone] Reinier Lehman MD Unavailable Trung Duran GEOLOGICAL MANAGER Unavailable Unavailable Duran Luong MD Unavailable [phone] Osmany Rausch RN Unavailable Unavailable Hina Rojo MD Unavailable [phone] Fabiola Epperson APRN WINE BLENDER Unavailable [phone] Jatni Carcamo MD Unavailable [phone] Mamadou Gong MD Primary Care Provid er Encounter Details Date Type Department Care Team (Late st Contact Info) Description 01/06/2024 [facility] Gastroenterology Clinic [address] [place] [phone] Danyel Whaley Social History Tobacco Use Types Packs/Day Years Used Date Smoking Tobacco: Every Day Cigarettes 0.1 10 Smokeless Tobacco: Never Comments:Down 1-2 cigs daily Alcohol Use Standard Drinks/Week Comments Not Currently 0 (1 standard drink = 0.6 oz pure alcohol) Last drink 10/12/2022; would drink 1.75L of hard alcohol every 2 days PHQ-2 Answer Date Recorded PHQ-2 Score 0 01/05/2024 Adolescent Education Answer Date Record ed Getting School Help Needed Not on file 06/21 Sex and Gender Information Value Date Recorded Sex Assigned at Male 07/17/2023 2:30 PM CDT Legal Sex Male 3:07 AM CAR SALTER Gender Identity Male 07/17/2023 2:30 PM CDT Sexual Orientation Not on file documented as of this encounter Plan of Treatment Upcoming Encounters Date Type Department Care Team (Late st Contact Info) Description 02/14/2025 10:30 AM CDT Appointment [facility] Imaging [address] [facility] [address] [place] [phone] Jatin Carcamo MD [address] [place] [address] 432475 02/21/2025 10:[address] [facility] Lab [address] [place] [phone] Mamadou Gong MD [address] [place] [address] 02/21/2025 11:30 AM CDT Office [facility] Hepatology Clinic [address] [phone] Mamadou Gong MD [address] [place] [address] 05/19/2025 10:30 AM CDT Appointment [facility] Imaging [address] [place] [phone] Jatin Carcamo MD [address] [place] [address] 05/19/2025 11:15 AM CDT Lab [facility] [address] [place] [phone] 05/26/2025 10:30 AM CDT Virtual Visit [facility] Vascular Clinic [address] 3rd [place] [phone] Jatin Carcamo MD [address] [place] [address] documented as of this encounter Visit Diagnoses Not on filedocumented in this encounter Additional Health Concerns Assessment Noted Time PHQ-9 Depression Total Score: 023 8:49 AM CAR SALTER documented as of this encounter Care Teams Highway Construction Inspector Relationship Specialty Start Date End Date No Ref-Primary, Physician PCP - General 07/24/23 10/19/24 Mamadou Gong MD [address] [place] [address]70 PCP - General Gastroenterology 10/20/24 Yesika Chirinos PA-C [facility] [address] [place] [address] [place] [address] Referring Physician Gastroenterology 07/23/23 Mamadou Gaviria Jr., RN Nurse Coordinator Transplant 07/23/23 01/21/[address] [facility] [address] [facility] 84 [place] [address] Registered Dietitian Dietitian, Registered 08/13/23 Reinier Lehman MD [address] [place] [address]277 Transplant Surgery 08/13/23 Mamadou Gong MD [address] [place] [address]751 Gastroenterology 08/13/23 Arcelia Cid, GUIDE TRAVEL Grease And Tallow Pumper 08/13/23 Mamadou Gong MD [address] [place] [address] 066545 Assigned Gastroenterology Provider 08/30/23 Reinier Lehman MD [address] [place] [address] 69061 Assigned Surgical Provider 08/30/23 Trung Duran, [facility] Grease And Tallow Pumper Grease And Tallow Pumper - Clinical 09/30/23 Duran Luong MD [address] [place] [address] [phone] Assigned Pulmonology Provider 10/17/23 Osmany Rausch, mounter handRoustabout Crew Transplant 01/22/24 Hina Rojo MD [address] [place] [address] 64368 Assigned Infectious Disease Provider 03/07/24 Fabiola Epperson APRN WINE BLENDER [address] [place] [address] 919405 Nurse Practitioner Anesthesiology 09/30/24 Jatin Carcamo MD [address] [place] [address] 166625 Physician Radiology 09/30/24 documented as of this encounter
--- OUTSIDE RECORDS SUMMARY | 2024-12-19 07:44 | XMS_ITS | Encounter Summary ---
Author Organization [facility] Address [address] [place] [address] Care Team Providers Care Office Aide Name Role Phone TaranMoisesYesikacatracho Gee PA-C Unavailable [phone] Everette Pfeiffer RN, Thomas Unavailable [phone] No Ref-Primary, Physician Primary Care Provider Priscila Rogers RD Unavailable Unavail able Reinier Lehman MD Unavailable Mamadou Gong MD Unavailable + [phone] Arcelia Cid COMMUNICATIONS EXECUTIVE Unavailable [phone] Mamadou Gong MD Unavailable + [phone] Reinier Lehman MD Unavailable Trung Duran VOLTAGE TESTER Unavailable Unavailable Duran Luong MD Unavailable [phone] Osmany Rausch RN Unavailable Unavailable Hina Rojo MD Unavailable +[phone] Fabiola Epperson APRN RADIAL DRILL OPERATOR FOR PLASTIC Unavailable [phone] Jatin Carcamo MD Unavailable [phone] Mamadou Gong MD Primary Care Provid er Encounter Details Date Type Department Care Team (Late st Contact Info) Description 08/26/2023 [facility] Transplant Clinic [address] [place] [phone] Mamadou Gaviria Jr., RN Social History Tobacco Use Types Packs/Day Years Used Date Smoking Tobacco: Every Day Cigarettes 0.1 10 Smokeless Tobacco: Never Comments:Down 2-3 cigs daily Alcohol Use Standard Drinks/Week Comments Not Currently 0 (1 standard drink = 0.6 oz pure alcohol) Last drink 10/12/2022; would drink 1.75L of hard alcohol every 2 days PHQ-2 Answer Date Recorded PHQ-2 Score 5 08/04/2023 Adolescent Education Answer Date Record ed Getting School Help Needed Not on file 06/21 Sex and Gender Information Value Date Recorded Sex Assigned at Male 07/17/2023 2:30 PM CDT Legal 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 [address] [place] [address] Jatin Carcamo MD [address] [place] [address] 02/21/2025 10:30 AM CDT Lab [facility] Lab [address] 1st [place] [phone] Mamadou Gong MD [address] [place] [address] 02/21/2025 11:30 AM CDT Office Visit [facility] Hepatology Clinic [address] [phone] Mamadou Gong MD [address] [place] [address] 05/19/2025 10:30 AM CDT Appointment [facility] Imaging [address] [place] [phone] Jatin Carcamo MD [address] [place] [address] [phone] 05/19/2025 11:15 AM CDT Lab [facility] [address] [place] [phone] 05/26/2025 10:30 AM CDT Virtual Visit [facility] Vascular Clinic [address] 3rd [place] [address] Jatin Carcamo MD [address] [place] [address] [phone] documented as of this encounter Visit Diagnoses Not on filedocumented in this encounter Additional Health Concerns Assessment Noted Time PHQ-9 Depression Total Score: 023 8:49 AM ACID CRANE OPERATOR documented as of this encounter Care Teams Office Aide Relationship Specialty Start Date End Date No Ref-Primary, Physician PCP - General 07/24/23 10/19/24 Mamadou Gong MD [address] [place] [address] PCP - General Gastroenterology 10/20/24 Yesika Chirinos PA-C [facility] [address] [place] [address] [place] [address] Referring Physician Gastroenterology 07/23/23 Mamadou Gaviria Jr., RN Nurse Coordinator Transplant 07/23/23 01/21/[address] [place] [address] Registered Dietitian Dietitian, Registered 08/13/23 Reinier Lehman MD [address] [place] [address] Transplant Surgery 08/13/23 Mamadou Gong MD [address] [place] [address] Gastroenterology 08/13/23 Arcelia Cid, COMMUNICATIONS EXECUTIVE Trip Rider 08/13/23 Mamadou Gong MD [address] [place] [address] 455005 Assigned Gastroenterology Provider 08/30/23 Reinier Lehman MD [address] [place] [address] 50109 Assigned Surgical Provider 08/30/23 Trung Duran, [facility] Trip Rider Trip Rider - Clinical 09/30/23 Duran Luong MD [address] [place] [address] [phone] Assigned Pulmonology Provider 10/17/23 Osmany Rausch, academic advisorInterventional Sale Consultant Transplant 01/22/24 Hina Rojo MD [address] [place] [address] 893175 Assigned Infectious Disease Provider 03/07/24 Fabiola Epperson APRN RADIAL DRILL OPERATOR FOR PLASTIC [address] [place] [address] [phone] Nurse Practitioner Anesthesiology 09/30/24 Jatin Carcamo MD [address] [place] [address]39 Physician Radiology 09/30/24 documented as of this encounter
--- OUTSIDE RECORDS SUMMARY | 2024-12-19 07:44 | XMS_ITS | Encounter Summary ---
Author Organization [facility] Address [address] [place] [address] Care Team Providers Care Director Market Research Name Role Phone TaranMoisesYesikacatracho Gee PA-C Unavailable [phone] Everette Pfeiffer RN, Thomas Unavailable [phone] No Ref-Primary, Physician Primary Care Provider Priscila Rogers RD Unavailable Unavail able Reinier Lehman MD Unavailable Mamadou Gong MD Unavailable + [phone] Arcelia Cid RECOVERY RN Unavailable [phone] Mamadou Gong MD Unavailable + [phone] Reinier Lehman MD Unavailable Trung Duran Unavailable Unavailable Duran Luong MD Unavailable [phone] Osmany Rausch RN Unavailable Unavailable Hina Rojo MD Unavailable [phone] Fabiola Epperson APRN FENCE ERECTOR Unavailable [phone] Jatin Carcamo MD Unavailable [phone] Mamadou Gong MD Primary Care Provid er Reason for Visit * Reason Onset Date Comments Eval/Assessment 07/24/2023 Encounter Details Date Type Department Care Team (Late st Contact Info) Description 07/24/2023 Telephone [facility] Behavioral Health Intake [address] [place] [phone] Generic, Behavioral Intake, MD Palomo/Assessment Social History Tobacco Use Types Packs/Day Years Used Date Smoking Tobacco: Every Day Cigarettes Smokeless Tobacco: Never Comments:6-7 cigs daily Alcohol Use Standard Drinks/Week Comments Not Currently 0 (1 standard drink = 0.6 oz pur e alcohol) Last drink 10/12/2022 Adolescent Education Answer Date Record ed Getting School Help Needed Not on file 06/21 Sex and Gender Information Value Date Recorded Sex Assigned at Male 07/17/2023 2:30 PM CDT Legal Sex Male 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 Discussed, but not limited too, the following: - [facility] will put together a summary from IVANIA anuedy done 08/04 with possible recs for him to complete that will be part of his evaluation, so he should jump on them right away. - this will be spearheaded by MING who he will meet on 08/19. - otherwise, bulk of evaluation will happen starting 08/19. He has my direct number to call with questions. AL REHABILITATOR * Telephone Encounter - Sabrina Espinoza - 08/04/2023 12:11 PM CST 08/04/2023 Patient requesting follow-up call from MING from Liver Transplant team regarding his transplant status and further requirements. Sabrina Espinoza, Patient Navigator [phone] AL REHABILITATOR * Telephone Encounter - Carmen Sousa LADC - 08/04/2023 11:30 AM ANIMAL REHABILITATOR Telecommunications Cable Jointer Summary of Patient Care Communication Handoff to Patient Navigator Coordinator PATIENT'S NAME: Adrián Shoemaker : 1990 DATE OF SERVICE: 07/24/23 Referral Needed: No Is the patient coming from an inpatient unit? No Adult Substance Use Disorder Level of Care Recommended: Abstain from the use of alcohol and all mood-altering drugs except those prescribed by a medical professional. The pt meets criteria for an Intensive outpatient co-occurring IVANIA Program(resources provided). Discussed [facility] options, but pt prefers services in the [facility] or with the [place]. In addition, the pt prefers to work with an individual therapist rather than participate in a Tx group. Pt reports he will reach out to the [place] to find a therapist knowledgeable in addiction and mental health (other resources also provided). Follow all recommendations of your treatment and medical providers. Pt reports he is interested in getting a medical marijuana card. Schedule Preferences: NA Referral Needed: No Other Referrals Needed: Adult IVANIA LOC Recommendations: Abstain from alcohol and from all other non-prescribed mood altering chemicals. and Other: Pt will reach out if needing his evaluation to be sent to any providers. Is this a Lodging Plus Referral? Lodging Plus Screening: No. Are there any potential barriers for entrance into programmatic care? 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 Specialty Gm Video Referral Needed: No Mental Health Referral Needed: No Release of Information Needed: Not at this time. Faxing Needed: No Follow up Requests: Patient Navigator Coordinator Follow-Up Needed: Other: Per pt request, could someone ask that a SW from the Liver Transplant reach out to him as to his status for a transplant andwhat is required. Comments: MADAN San Patient Navigator Coordinator Contact Information Pool Message: [email or web address] ([id number]) Email: [email or web address] AL REHABILITATOR * Telephone Encounter - Sabrina Espinoza - 08/01/2023 11:29 AM CST 08/01/2023 Completed reminder call regarding appointment date and time. No further questions at this time. Sabrina Espinoza, Patient Navigator [phone] AL REHABILITATOR * Telephone Encounter - Sabrina Espinoza - 07/29/2023 11:51 AM CST Substance Use Evaluation Intake Form Demographic Information Patient's legal name: Adrián Shoemaker Patient's preferred/chosen name: [place] Patient's pronouns: He/Him Last 4 of SSN: [id number] Insurance: [employer] [place] PMI: [id number] Date of eval: 08/04/2023 Emergency contact: Art tong Does the patient have a legal guardian (if so, phone number for guardian about placement): No Applicable guardianship and decision making information was sent to honoring choices: No Does the patient have a psychiatric advance directive: No Appointment Information Who is recommending/reason for appointment: did not ask ict customer support officer/ HPSP / other entity that might need assessment: no Drug of Choice: did not ask Have you ever had a [facility]: [facility] Service information Primary Care Provider: no Mental Health Providers: no Are there MH concerns: No Where is the patient in the care system: Pt is in the community and self referred. Has consent been obtained for Care Everywhere: No Advised patient/guardian that appt may take up to 120 min: Yes Reminder to arrive 15 minutes early: Yes Is there an active my chart: No Have pre-visit forms been sent: No Would you like another reminder call: yes AL REHABILITATOR * Telephone Encounter - Denise Bryan - 07/24/2023 10:11 AM CST Pt is a(n) adult (18+ out of HS) Seeking as eval for Adult IVANIA Assessment required for court.. Appointment scheduled by: Other (no cost estimate) Caller name: Aster WYATT [facility] Caller phone #: [phone] Legal Guardianship Reviewed? No Honoring Choices Notified? No Brief reason for appt: SOT needs pt to get eval for transplant Risk Assessment Analyst needed? NO Contact information verified/updated: Yes Denise Bryan AL REHABILITATOR documented in this encounter Plan of Treatment Upcoming Encounters Date Type Department Care Team (Late st Contact Info) Description 02/14/2025 10:[address] [facility] Imaging [address] [place] [address] Jatin Carcamo MD [address] [place] [address] [phone] 02/21/2025 10:30 AM CDT Lab [facility] Lab [address] [place] [phone] Mamadou Gong MD [address] [place] [address] 02/21/2025 11:30 AM CDT Office Visit [facility] Hepatology Clinic [address] [phone] Mamadou Gong MD [address] [place] [address] 29[address] 05/19/2025 10:[address] [facility] Imaging [address] [facility] [address] [place] [phone] Jatin Carcamo MD [address] [place] [address] [phone] 05/19/2025 11:15 AM CDT Lab [facility] [address] [place] [address] [place] [address] 05/26/2025 10:30 AM CDT Virtual Visit [facility] Vascular Clinic [address] [facility] 3[address] [place] [address] Jatin Carcamo MD [address] [place] [address] 024185 documented as of this encounter Visit Diagnoses Not on filedocumented in this encounter Care Teams Director Market Research Relationship Specialty Start Date End Date No Ref-Primary, Physician PCP - General 07/24/23 10/19/24 Mamadou Gong MD [address] [place] [address] 664815 PCP - General Gastroenterology 10/20/24 Yesika Chirinos PA-C [address] [place] [address] Referring Physician Gastroenterology 07/23/23 Mamadou Gaviria Jr., RN Nurse Coordinator Transplant 07/23/23 01/21/[address] [address] Registered Dietitian Dietitian, Registered 08/13/23 Reinier Lehman MD [address] [place] [address]60 Transplant Surgery 08/13/23 Mamadou Gong MD [address] [place] [address] [phone] Gastroenterology 08/13/23 Arcelia Cid, RECOVERY RN In Class Special Education Teacher 08/13/23 Mamadou Gong MD [address] [place] [address] [phone] Assigned Gastroenterology Provider 08/30/23 Reinier Lehman MD [address] [place] [address] [phone] Assigned Surgical Provider 08/30/23 Trung Duran, [facility] In Class Special Education Teacher In Class Special Education Teacher - Clinical 09/30/23 Duran Luong MD [address] [place] [address] 75452 Assigned Pulmonology Provider 10/17/23 Osmany Rausch, mechanical product engineerCigar Head Pegger Transplant 01/22/24 Hina Rojo MD [address] [place] [address] 309125 Assigned Infectious Disease Provider 03/07/24 Fabiola Epperson APRN FENCE ERECTOR [address] [place] [address] 739225 Nurse Practitioner Anesthesiology 09/30/24 Jatin Carcamo MD [address] [place] [address] [phone] Physician Radiology 09/30/24 documented as of this encounter
--- OUTSIDE RECORDS SUMMARY | 2024-12-19 07:44 | XMS_ITS | Encounter Summary ---
Author Organization [facility] Address [address] [place] [address] Care Team Providers Care Press Operator Automatic Name Role Phone Taran Yesikacatracho Gee PA-C Unavailable [phone] No Ref-Primary, Physician Primary Care Provider Priscila Rogers RD Unavailable Unavail able Reinier Lehman MD Unavailable Mamadou Gong MD Unavailable + [phone] Arcelia Cid MAINT MECHANIC Unavailable [phone] Mamadou Gong MD Unavailable + [phone] Reinier Lehman MD Unavailable Trung Duran LGSW Unavailable Unavailable Duran Luong MD Unavailable [phone] Osmany Rausch RN Unavailable Unavailable Hina Rojo MD Unavailable [phone] Fabiola Epperson APRN TUFTING MACHINE FIXER Unavailable [phone] Jatin Carcamo MD Unavailable [phone] Mamadou Gong MD Primary Care Provid er Reason for Visit * Reason Onset Date Comments Appointment 08/02/2024 Encounter Details Date Type Department Care Team (Late st Contact Info) Description 08/02/2024 Telephone [facility] Transplant [address] [place] [phone] Mamadou Gong MD [address] [place] [address] Appointment Social History Tobacco Use Types Packs/Day Years [...] PM CDT Legal Sex Male 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 Pt declined to schedule stating that he wanted to see MD on 08/19 to discuss overall health before anymore testing or appts. FYI only. I will defer order to 08/21 and check back with you then. Thanks! AND FENDER WORKER documented in this encounter Plan of Treatment Upcoming Encounters Date Type Department Care Team (Late st Contact Info) Description 02/14/2025 10:30 AM CDT Appointment [facility] Imaging [address] [facility] [address] [place] [phone] Jatin Carcamo MD [address] [place] [address] 02/21/2025 10:30 AM CDT Lab [facility] Lab [address] [place] [phone] Mamadou Gong MD [address] [place] [address] 02/21/2025 11:30 AM CDT Office Visit [facility] Hepatology Clinic [address] [phone] Mamadou Gong MD [address] [place] [address] 05/19/2025 10:30 AM CDT Appointment [facility] Imaging [address] [place] [phone] Jatin Carcamo MD [address] [place] [address] 05/19/2025 11:15 AM CDT Lab [facility] [address] [place] [address] 05/26/2025 10:30 AM CDT Virtual Visit [facility] Vascular Clinic [address] [place] [phone] Jatin Carcamo MD [address] [place] [address] documented as of this encounter Visit Diagnoses Diagnosis Alcoholic cirrhosis of liver with ascites (H) Alcoholic cirrhosis of liver Alcoholic cirrhosis of liver with ascites (H) Alcoholic cirrhosis of liver documented in this encounter Additional Health Concerns Assessment Noted Time PHQ-9 Depression Total Score: 023 8:49 AM BODY AND FENDER WORKER documented as of this encounter Care Teams Press Operator Automatic Relationship Specialty Start Date End Date No Ref-Primary, Physician PCP - General 07/24/23 10/19/24 Mamadou Gong MD [address] [place] [address] PCP - General Gastroenterology 10/20/24 Yesika Chirinos PA-C [address] [place] [address] Referring Physician Gastroenterology 07/23/[address] [address] Registered Dietitian Dietitian, Registered 08/13/23 Reinier Lehman MD [address] [place] [address] Transplant Surgery 08/13/23 Mamadou Gong MD [address] [place] [address]40 MD Gastroenterology 08/13/23 Arcelia Cid, MAINT MECHANIC Development Consultant 08/13/23 Mamadou Gong MD [address] [place] [address] 57465 Assigned Gastroenterology Provider 08/30/23 Reinier Lehman MD [address] [place] [address] 04804 Assigned Surgical Provider 08/30/23 Trung Duran, [facility] Development Consultant Development Consultant - Clinical 09/30/23 Duran Luong MD [address] [place] [address] 36074 Assigned Pulmonology Provider 10/17/23 Osmany Rausch, personal clothing laundry aideLegal Officer Transplant 01/22/24 Hina Rojo MD [address] [place] [address] 950885 Assigned Infectious Disease Provider 03/07/24 Fabiola Epperson APRN TUFTING MACHINE FIXER [address] [place] [address] 298285 Nurse Practitioner Anesthesiology 09/30/24 Jatin Carcamo MD [address] [place] [address]455 Physician Radiology 09/30/24 documented as of this encounter
--- OUTSIDE RECORDS SUMMARY | 2024-12-19 07:44 | XMS_ITS | Encounter Summary ---
Author Organization [facility] Address [address] [place] [address] Care Team Providers Care Sales Expert Name Role Phone TaranMoisesYesikacatracho Gee PA-C Unavailable [phone] No Ref-Primary, Physician Primary Care Provider Priscila Rogers RD Unavailable Unavail able Reinier Lehman MD Unavailable Mamadou Gong MD Unavailable + [phone] Arcelia Cid GUIDE Unavailable [phone] Mamadou Gong MD Unavailable + [phone] Reinier Lehman MD Unavailable Trung Duran LGSW Unavailable Unavailable Duran Luong MD Unavailable +[phone] Osmany Rausch RN Unavailable Unavailable Hina Rojo MD Unavailable +[phone] Fabiola Epperson APRN PATIENT SCHEDULER Unavailable [phone] Jatin Carcamo MD Unavailable +[phone] Mamadou Gong MD Primary Care Provid er Encounter Details Date Type Department Care Team (Late st Contact Info) Description 04/07/2024 [facility] Gastroenterology Clinic [address] [phone] Janae Villafuerte RN Social History Tobacco Use Types Packs/Day [...] PM CDT Legal 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 Male 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 Gender Identity Male 07/17/2023 2:30 PM CDT Sexual Orientation Not on file documented as of this encounter Plan of Treatment Upcoming Encounters Date Type Department Care Team (Late st Contact Info) Description 02/14/2025 10:30 AM CDT Appointment [facility] Imaging [address] [facility] [address] [place] [phone] Jatin Carcamo MD [address] [place] [address] 02/21/2025 10:30 AM CDT Lab [facility] Lab [address] 1st [place] [phone] Mamadou Gong MD [address] [place] [address] 02/21/2025 11:30 AM CDT Office Visit [facility] Hepatology Clinic [address] [phone] Mamadou Gong MD [address] [place] [address] 05/19/2025 10:30 AM CDT Appointment [facility] Imaging [address] [place] [phone] Jatin Carcamo MD [address] [place] [address] 05/19/2025 11:15 AM CDT Lab [facility] [address] [place] [phone] 05/26/2025 10:30 AM CDT Virtual Visit [facility] Vascular Clinic [address] 3rd [place] [phone] Jatin Carcamo MD [address] [place] [address] documented as of this encounter Visit Diagnoses Not on filedocumented in this encounter Additional Health Concerns Assessment Noted Time PHQ-9 Depression Total Score: 023 8:49 AM HOBBING PRESS OPERATOR documented as of this encounter Care Teams Sales Expert Relationship Specialty Start Date End Date No Ref-Primary, Physician PCP - General 07/24/23 10/19/24 Mamadou Gong MD [address] [place] [address] PCP - General Gastroenterology 10/20/24 Yesika Chirinos PA-C [facility] [address] [place] [address] [place] [address] Referring Physician Gastroenterology 07/23/[address] [place] [address] Registered Dietitian Dietitian, Registered 08/13/23 Reinier Lehman MD [address] [place] [address] Transplant Surgery 08/13/23 Mamadou Gong MD [address] [place] [address] 777965 Gastroenterology 08/13/23 Arcelia Cid, GUIDE Forestry Instructor 08/13/23 Mamadou Gong MD [address] [place] [address] 214675 Assigned Gastroenterology Provider 08/30/23 Reinier Lehman MD [address] [place] [address]20 Assigned Surgical Provider 08/30/23 Trung Duran, [facility] Forestry Instructor Forestry Instructor - Clinical 09/30/23 Duran Luong MD [address] [place] [address] 024675 Assigned Pulmonology Provider 10/17/23 Osmany Rausch, slot floor attendantEnglish As A Second Language Teacher Transplant 01/22/24 Hina Rojo MD [address] [place] [address] 837745 Assigned Infectious Disease Provider 03/07/24 Fabiola Epperson APRN PATIENT SCHEDULER [address] [place] [address] 160005 Nurse Practitioner Anesthesiology 09/30/24 Jatin Carcamo MD [address] [place] [address] 992665 Physician Radiology 09/30/24 documented as of this encounter
--- OUTSIDE RECORDS SUMMARY | 2024-12-19 07:44 | XMS_ITS | Encounter Summary ---
Author Organization [facility] Address [address] [place] [address] Care Team Providers Care Business Support Assistant Name Role Phone TaranMoisesYesikacatracho Gee PA-C Unavailable [phone] Everette Pfeiffer RN, Thomas Unavailable [phone] No Ref-Primary, Physician Primary Care Provider Priscila Rogers RD Unavailable Unavail able Reinier Lehman MD Unavailable Mamadou Gong MD Unavailable + [phone] Arcelia Cid CASHIER AND SALESPERSON Unavailable [phone] Mamadou Gong MD Unavailable + [phone] Reinier Lehman MD Unavailable Trung Duran EARTH SCIENCE LABORATORY TECHNICIAN Unavailable Unavailable Duran Luong MD Unavailable [phone] Osmany Rausch RN Unavailable Unavailable Hina Rojo MD Unavailable [phone] Fabiola Epperson APRN FITNESS CENTRE MANAGER Unavailable [phone] Jatin Carcamo MD Unavailable [phone] Mamadou Gong MD Primary Care Provid er Encounter Details Date Type Department Care Team (Late st Contact Info) Description 11/18/2023 [facility] Transplant Clinic [address] [place] [phone] Mamadou Gong MD [address] [place] [address] [phone] Social History Tobacco Use Types Packs/Day Years [...] PM CDT Legal Sex Male 3:07 AM FOUNDATION RELATIONS DIRECTOR Gender Identity Male 07/17/2023 2:30 PM CDT Sexual Orientation Not on file documented as of this encounter Plan of Treatment Upcoming Encounters Date Type Department Care Team (Late st Contact Info) Description 02/14/2025 10:30 AM CDT Appointment [facility] Specialty Care [facility] Imaging [address] [facility] [address] [place] [phone] Jatin Carcamo MD [address] [place] [address] [phone] 02/21/2025 10:30 AM CDT Lab [facility] Lab [address] 1st [place] [phone] Mamadou Gong MD [address] [place] [address] 249975 02/21/2025 11:30 AM CDT Office Visit [facility] Hepatology Clinic [address] [phone] Mamadou Gong MD [address] [place] [address] 05/19/2025 10:30 AM CDT Appointment [facility] Care Center Imaging [address] [place] [address] Jatin Carcamo MD [address] [place] [address] 05/19/2025 11:15 AM CDT Lab [facility] [address] [place] [phone] 05/26/2025 10:30 AM CDT Virtual Visit [facility] Vascular Clinic [address] 3rd [place] [phone] Jatin Carcamo MD [address] [place] [address] documented as of this encounter Visit Diagnoses Not on filedocumented in this encounter Additional Health Concerns Assessment Noted Time PHQ-9 Depression Total Score: 23 023 8:49 AM FOUNDATION RELATIONS DIRECTOR documented as of this encounter Care Teams Business Support Assistant Relationship Specialty Start Date End Date No Ref-Primary, Physician PCP - General 07/24/23 10/19/24 Mamadou Gong MD [address] [place] [address] PCP - General Gastroenterology 10/20/24 Yesika Chirinos PA-C [facility] [address] [place] [address] TASHIA SYED [address] Referring Physician Gastroenterology 07/23/23 Mamadou Gaviria Jr., RN Nurse Coordinator Transplant 07/23/23 01/21/[address] [facility] [address] [facility] [address] [place] [address] Registered Dietitian Dietitian, Registered 08/13/23 Reinier Lehman MD [address] [place] [address] Transplant Surgery 08/13/23 Mamadou Gong MD [address] [place] [address] Gastroenterology 08/13/23 Arcelia Cid, CASHIER AND SALESPERSON Rehabilitation Manager 08/13/23 Mamadou Gong MD [address] [place] [address]882 Assigned Gastroenterology Provider 08/30/23 Reinier Lehman MD [address] [place] [address] 80503 Assigned Surgical Provider 08/30/23 Trung Duran, [facility] Rehabilitation Manager Rehabilitation Manager - Clinical 09/30/23 Duran Luong MD [address] [place] [address] Assigned Pulmonology Provider 10/17/23 Osmany Rausch, eligibility workerLocal Tanker Truck Driver Transplant 01/22/24 Hina Rojo MD [address] [place] [address] 250 [place] [address] Assigned Infectious Disease Provider 03/07/24 Fabiola Epperson APRN FITNESS CENTRE MANAGER [address] [place] [address] 31902 Nurse Practitioner Anesthesiology 09/30/24 Jatin Carcamo MD [address] [place] [address] Physician Radiology 09/30/24 documented as of this encounter
--- OUTSIDE RECORDS SUMMARY | 2024-12-19 07:44 | XMS_ITS | Encounter Summary ---
Author Organization [facility] Address [address] [place] [address] Care Team Providers Care Operations Project Manager Name Role Phone TaranMoisesYesikacatracho Gee PA-C Unavailable [phone] Everette Pfeiffer RN, Thomas Unavailable [phone] No Ref-Primary, Physician Primary Care Provider Priscila Rogers RD Unavailable Unavail able Reinier Lehman MD Unavailable Mamadou Gong MD Unavailable + [phone] Arcelia Cid RETURNING OFFICER Unavailable [phone] Mamadou Gong MD Unavailable + [phone] Reinier Lehman MD Unavailable Trung Duran DRAY TRUCK DRIVER Unavailable Unavailable Duarn Luong MD Unavailable [phone] Osmany Rausch RN Unavailable Unavailable Hina Rojo MD Unavailable [phone] Fabiola Epperson APRN DIVISIONAL MERCHANDISING MANAGER Unavailable [phone] Jatin Carcamo MD Unavailable [phone] Mamadou Gong MD Primary Care Provid er Encounter Details Date Type Department Care Team (Late st Contact Info) Description 08/19/2023 [facility] Transplant Clinic [address] [place] [phone] Arcelia Cid, RETURNING OFFICER Social History Tobacco Use Types Packs/Day Years [...] PM CDT Legal Sex Male 3:07 AM RADIO INTERFERENCE EXPERT Gender Identity Male 07/17/2023 2:30 PM CDT Sexual Orientation Not on file documented as of this encounter Plan of Treatment Upcoming Encounters Date Type Department Care Team (Late st Contact Info) Description 02/14/2025 10:30 AM CDT Appointment [facility] Specialty Care Center Imaging [address] [facility] [address] [place] [address] Jatin Carcamo MD [address] [place] [address] [phone] 02/21/2025 10:30 AM CDT Lab [facility] [address] 1st [place] [phone] Mamadou Gong MD [address] [place] [address] 02/21/2025 11:30 AM CDT Office Visit [facility] Hepatology Clinic [address] [phone] Mamadou Gong MD [address] [place] [address] 05/19/2025 10:30 AM CDT Appointment [facility] Care Center Imaging [address] [place] [address] [place] [phone] Jatin Carcamo MD [address] [place] [address] 05/19/2025 11:15 AM CDT Lab [facility] [address] [place] [phone] 05/26/2025 10:30 AM CDT Virtual Visit [facility] Vascular Clinic [address] 3rd [place] [address] Jatin Carcamo MD [address] [place] [address] [phone] documented as of this encounter Visit Diagnoses Not on filedocumented in this encounter Additional Health Concerns Assessment Noted Time PHQ-9 Depression Total Score: 23 023 8:49 AM RADIO INTERFERENCE EXPERT documented as of this encounter Care Teams Operations Project Manager Relationship Specialty Start Date End Date No Ref-Primary, Physician PCP - General 07/24/23 10/19/24 Mamadou Gong MD [address] [place] [address] PCP - General Gastroenterology 10/20/24 Yesika Chirinos PA-C [facility] [address] [place] [address] [place] [address] Referring Physician Gastroenterology 07/23/23 Mamadou Gaviria Jr., RN Nurse Coordinator Transplant 07/23/23 01/21/[address] [place] [address] Registered Dietitian Dietitian, Registered 08/13/23 Reinier Lehman MD [address] [place] [address] Transplant Surgery 08/13/23 Mamadou Gong MD [address] [place] [address] 908345 Gastroenterology 08/13/23 Arcelia Cid, RETURNING OFFICER Raw Finish Mill Operator 08/13/23 Mamadou Gong MD [address] [place] [address] 213555 Assigned Gastroenterology Provider 08/30/23 Reinier Lehman MD [address] [place] [address] Assigned Surgical Provider 08/30/23 Trung Duran, [facility] Raw Finish Mill Operator Raw Finish Mill Operator - Clinical 09/30/23 Duran Luong MD [address] [place] [address] 833585 Assigned Pulmonology Provider 10/17/23 Osmany Raushc, feeder driverInterior Surface Insulation Worker Transplant 01/22/24 Hina Rojo MD [address] [place] [address] [phone] Assigned Infectious Disease Provider 03/07/24 Fabiola Epperson APRN DIVISIONAL MERCHANDISING MANAGER [address] [place] [address]691 Nurse Practitioner Anesthesiology 09/30/24 Jatin Carcamo MD [address] [place] [address] Physician Radiology 09/30/24 documented as of this encounter
--- OUTSIDE RECORDS SUMMARY | 2024-12-19 07:44 | XMS_ITS | Clinical Summary ---
Author Organization [facility] Address [address] [place] [address] Care Team Providers Care Pricing/Signage Team Member Name Role Phone None Primary Care Provider Unavailabl e Allergies Active Allergy Reactions Criticality Noted Date Comments Penicillins *Unknown - Childhood Rxn 05/12/2009 Rash - hives Medications lactulose 10 gram/15 mL solutionIndicat ions:Alcoholic liver disease (HC) Take 15 mL (10 g) by mouth or nasogastric tube two times daily. 900 mL 1 3 Active spironolactone (ALDACTONE) 100 mg tabletIndicatio ns:Ascites due to alcoholic cirrhosis (HC) Take 1 Tablet (100 mg) by mouth every morning. 30 Tablet 10/18/2022 12:48 PM CLOTH BOIL OFF MACHINE OPERATOR 3 Active rifAXIMin (XIFAXAN) 550 mg tabletIndicatio ns:Alcoholic liver disease (HC) Take 1 Tablet (550 mg) by mouth two times daily. 60 Tablet 1 3 Active magnesium oxide (MAG-OX 400) 400 mg tabletIndicatio ns:Hypomagnesem ia,Alcoholic hepatitis with ascites (HC) Take 1 Tablet (400 mg) by mouth once daily. 90 Tablet 3 Active carvediloL (COREG) 3.125 mg tablet Take 3.125 mg by mouth two times daily. Active Active Problems Problem Noted Date Diagnosed Date Anxiety 11/06/2023 End stage liver disease 11/06/2023 Overview (11/06/2023): Oct 14, 2023 Entered By: BASILIO MAC Comment: due to Laennec's Somnolence 11/06/2023 Depressive disorder 07/23/2023 Acute alcoholic hepatitis 10/13/2022 Alcohol abuse 10/13/2022 Ascites 10/13/2022 Alcohol dependence in remission 06/25/2018 Hematemesis 06/25/2018 Alcoholic liver disease 06/25/2018 Immunizations Immunization Administration Dates Next Due Influenza, IIV4 06/29/2019 MMR 05/01/2004 Td (Age >=7 Years) 05/01/2004 Td, Preservative Free (age >= 7 Years) 4 Tdap 02/08/2011 Family History Medical History Relation Name Comments Alcoholism Father Liver disease Father No Known Problems Mother Alcoholism Paternal Uncle No Known Problems Sister Anesthesia Malignant Hyperthermia No Family History Anesthesia Problem No Family History Relation Name Status Comments Father Mother Alive Paternal Uncle Alive Sister Alive Social History Tobacco Use Types Packs/Day Years Used Date Smoking Tobacco: Every Day Cigarettes Smokeless Tobacco: Never Tobacco Cessation:Ready to Q uit: No; Counseling Given: Yes Alcohol Use Standard Drinks/Week Comments Not Currently 0 (1 standard drink = 0.6 oz pur e alcohol) quit beginning of May 2019 PHQ-2 Answer Date Recorded PHQ-2 Score 0 06/29/2019 Social Connections Answer Date Recorded Frequency of Communication with Friends and Fami ly Not on file 10/21/2022 Sex and Gender Information Value Date Recorded Sex Assigned at Not on file Legal Sex Male 7:12 AM CLOTH BOIL OFF MACHINE OPERATOR Gender Identity Not on file Sexual Orientation Not on file Obstetrics History Last Filed Vital Signs Vital Sign Reading Time Taken Comments Blood Pressure 107/57 11/07/2023 8:00 AM CLOTH BOIL OFF MACHINE OPERATOR Pulse 63 11/07/2023 8:00 AM CLOTH BOIL OFF MACHINE OPERATOR Temperature 36.4 C (97.5 F) 11/07/2023 8:00 AM CLOTH BOIL OFF MACHINE OPERATOR Respiratory Rate 18 11/07/2023 8:00 AM CLOTH BOIL OFF MACHINE OPERATOR Oxygen Saturation 93% 11/07/2023 8:00 AM CLOTH BOIL OFF MACHINE OPERATOR Inhaled Oxygen Concentration - - Weight 83.9 kg (185 lb) 10/21/2022 1:52 PM CLOTH BOIL OFF MACHINE OPERATOR Height 182.9 cm (6') 10/21/2022 1:52 PM CLOTH BOIL OFF MACHINE OPERATOR Body Mass Index 25.09 10/21/2022 1:52 PM CLOTH BOIL OFF MACHINE OPERATOR Plan of Treatment Health Maintenance Due Date Last Done Comments HIV for age 15-65 2006 Hepatitis C screening for ag e 18-79 2009 Pneumococcal series for age 6-49 (1 of 2 - PCV) 2010 Depression screening for age 12+ 06/29/2020 06/29/2019, 06/24/2018, 06/22/2018 Tetanus booster 02/08/2021 02/08/2011, 04/15, 05/01/2004 BMI (ht and wt on same day) for age 18+ 10/21/2023 10/21/2022, 06/29/2019, 06/24/2018, Additional history exists COVID-19 vaccine series ( season) 2024 Influenza Vaccine (Season Ended) 2025 06/29/20 19 Tdap Completed 02/08/2011 Insurance [facility] [employer] INS Advance Directives * Full Code (Latest Code Status on File) Date Activated Date Inactivated Comments 11/06/2023 4:49 PM 11/07/2023 2:52 PM Question Answer Comments Code Status Discussion: Reviewed Preferences * Full Code Date Activated Date Inactivated Comments 10/12/2022 12:00 PM 10/18/2022 3:46 PM Question Answer Comments Code Status Discussion: Reviewed Preferences Care Teams Pricing/Signage Team Member Relationship Specialty Start Date End Date None . PCP - General 08/15/23
--- OUTSIDE RECORDS SUMMARY | 2024-12-19 07:44 | XMS_ITS | Encounter Summary ---
Author Organization [place] Address [address] [place] [address] Care Team Providers Care Manager [id number] Name Role Phone Moises Gaston MD Primary Care Provider [phone] Yesika Chirinos PA-C Unavailable [phone] Everette Pfeiffer RN, Mamadou Unavailable [phone] Ref-Primary, Physician Primary Care Provider Priscila Rogers RD Unavailable Unavail able Reinier Lehman MD Unavailable Mamadou Gong MD Unavailable + [phone] Arcelia Cid ADMINISTRATIVE INTERN Unavailable [phone] Mamadou Gong MD Unavailable + [phone] Reinier Lehman MD Unavailable Trung Duran HISTORY FACULTY MEMBER Unavailable Unavailable Duran Luong MD Unavailable +[phone] Osmany Raucsh RN Unavailable Unavailable Hina Rojo MD Unavailable [phone] Fabiola Epperson APRN [facility] Unavailable +[phone] Jatin Carcamo MD Unavailable [phone] Mamadou Gong MD Primary Care Provid er Encounter Details Date Type Department Care Team (Late st Contact Info) Description 07/11/2023 External Order Results [facility] [address] [place] [address] Outside, Provider Social History Tobacco Use Types Packs/Day Years Used Date Smoking Tobacco: Never Assessed Adolescent Education Answer Date Record ed Getting School Help Needed Not on file 06/21 Sex and Gender Information Value Date Recorded Sex Assigned at Male 07/17/2023 2:30 PM CDT Legal Sex Male 3:07 AM ANALYTICS DIRECTOR Gender Identity Male 07/17/2023 2:30 PM CDT Sexual Orientation Not on file documented as of this encounter Plan of Treatment Upcoming Encounters Date Type Department Care Team (Late st Contact Info) Description 02/14/2025 10:30 AM CDT Appointment [facility] [address] [place] [phone] Jatin Carcamo MD [address] [place] [address] [phone] 02/21/2025 10:[address] [facility] [address] 1st [place] [phone] Mamadou Gong MD [address] [place] [address] [phone] 02/21/2025 11:30 AM CDT Office Visit [facility] Hepatology Clinic [address] [phone] Mamadou Gong MD [address] [place] [address] [phone] 05/19/2025 10:30 AM CDT Appointment [facility] [address] [place] [phone] Jatin Carcamo MD [address] [place] [address] 855405 05/19/2025 11:15 AM CDT Lab [facility] [place] [address] 05/26/2025 10:30 AM CDT Virtual Visit [facility] Vascular Clinic [address] [place] [address] Jatin Carcamo MD [address] [place] [address] documented as of this encounter Procedures Procedure Name Priority Date/Time Associated Diagnosis Comments PHOSPHATIDYLETHANOL (PETH), WHOLE BLOOD Routine 07/11/2023 8:52 AM CDT CBC WITH PLATELETS Routine 07/11/2023 8: 52 AM CDT documented in this encounter Results * (ABNORMAL) CBC with platelets (07/11/2023 8:52 AM CDT) Hematocrit (External) 31.6(L) 37.5 - 51.0 % NON-INTERFACE D (ONBASE SCANS) Hemoglobin (External) 12.0(L) 13.0 - 17.7 g/dL NON-INTERFACE D (ONBASE SCANS) MCH (External) 34.8(H) 26.6 - 33.0 pg NON-INTERFACE D (ONBASE SCANS) MCHC (External) 38.0(H) 31.5 - 35.7 g/dL NON-INTERFACE D (ONBASE SCANS) MCV (External) 92 79 - 97 fL NON- INTERFACE D (ONBASE SCANS) Platelet Count (External) 36(LL) 150 - 450 x10E3/uL NON-INTERFACE D (ONBASE SCANS) RBC Count (External) 3.45(L) 4.14 - 5.80 x10E6/uL NON-INTERFACE D (ONBASE SCANS) RDW (External) 12.2 11.6 - 15.4 % NON-INTERFACE D (ONBASE SCANS) WBC Count (External) 5.2 3.4 - 10.8 x10E3/uL NON-INTERFACE D (ONBASE SCANS) Blood BLOOD SPECIMEN / Unknown 07/11/2023 8:52 AM CDT Narrative [facility] - 07/24/2023 10:03 AM ANALYTICS DIRECTOR Verified by Alexsander Vila on 07/24/2023. Provider Outside LAB - BLOOD ORDERABLES Edited R [facility] NON-INTERFACED (ONBASE SCANS) * Phosphatidylethanol (PEth), Whole Blood (07/11/2023 8:52 AM CDT) Phosphatidylethanol (External) Negative Negative ng/mL NON-INTERFA TAMMI (ONBASE SCANS) Blood BLOOD SPECIMEN / Unknown 07/11/2023 8:52 AM CDT Narrative [facility] - 07/24/2023 10:03 AM ANALYTICS DIRECTOR Verified by Alexsander Vila on 07/24/2023. Provider Outside LAB - BLOOD ORDERABLES Edited R [employer] - Final [facility] NON-INTERFACED (ONBASE SCANS) documented in this encounter Visit Diagnoses Not on filedocumented in this encounter Care Teams Manager Business Relationship Specialty [place] [address] [place] [address] PCP - General 10/30/01 07/15/23 No Ref-Primary, Physician PCP - General 07/24/23 10/19/24 Mamadou Gong MD [address] [place] [address] 94[address] PCP - General Gastroenterology 10/20/24 Yesika Chirinos PA-C [facility] [address] [place] [address] [place] [address] Referring Physician Gastroenterology 07/23/23 Mamadou Gaviria Jr., RN Nurse Coordinator Transplant 07/23/23 01/21/[address] [facility] [address] [address] Registered Dietitian Dietitian, Registered 08/13/23 Reinier Lehman MD [address] [place] [address] 79646 Transplant Surgery 08/13/23 Mamadou Gong MD [address] [place] [address]912 Gastroenterology 08/13/23 Arcelia Cid, ADMINISTRATIVE INTERN Supervisor Vacuum Metalizing 08/13/23 Mamadou Gong MD [address] [place] [address] 146605 Assigned Gastroenterology Provider 08/30/23 Reinier Lehman MD [address] [place] [address] 09486 Assigned Surgical Provider 08/30/23 Trung Duran, [facility] Supervisor Vacuum Metalizing Supervisor Vacuum Metalizing - Clinical 09/30/23 Duran Luong MD [address] [place] [address] [phone] Assigned Pulmonology Provider 10/17/23 Osmany Rausch, computer installation engineerEthanol Operator Transplant 01/22/24 Hina Rojo MD [address] [place] [address] 515235 Assigned Infectious Disease Provider 03/07/24 Fabiola Epperson APRN [facility] [address] [place] [address] Nurse Practitioner Anesthesiology 09/30/24 Jatin Carcamo MD [address] [place], [place] [phone] Physician Radiology 09/30/24 documented as of this encounter
--- OUTSIDE RECORDS SUMMARY | 2024-12-19 07:44 | XMS_ITS | Encounter Summary ---
Author Organization [place] Address [address] [place] [address] Care Team Providers Care Wood Router Name Role Phone Taran Yesikacatracho Gee PA-C Unavailable [phone] Unavailable Unavail able Reinier Lehman MD Unavailable Mamadou Gong MD Unavailable + [phone] Arcelia Cid RANGE AIDE Unavailable Mamadou Gong MD Unavailable + [phone] Reinier Lehman MD Unavailable Trung Duran CLIENT PROGRAM MANAGER Unavailable Unavailable Duran Luong MD Unavailable [phone] Osmany Rausch RN Unavailable Unavailable Hina Rojo MD Unavailable [phone] Fabiola Epperson APRN [facility] Unavailable [phone] Jatin Carcamo MD Unavailable [phone] Mamadou Gong MD Primary Care Provid er Reason for Visit * Reason Onset Date Comments Clinic Care Coordination - Initial 12/02/2024 Encounter Details Date Type Department Care Team (Late st Contact Info) Description 12/02/2024 Telephone [facility] V[facility] Clinic [address] [phone] Jatin Carcamo MD [address] [place], [place] [phone] Clinic Care Coordination - Initial Social History Tobacco Use Types Packs/Day Years [...] PM CDT Legal Sex Male 3:07 AM BOX GLUER Gender Identity Male 07/17/2023 2:30 PM CDT Sexual Orientation Not on file documented as of this encounter Progress Notes * Rhoda Martinez - 12/02/2024 8:42 AM CDT Patient confirmed rescheduled appointment: Date: 12/07/24 Time: 10:45 AM Visit type: Lab Requested by provider: Carlos Alberto Location: [facility] Lab Additional Notes: Rescheduled per lab; patient cannot be scheduled in Cardiology Lab documented in this encounter Plan of Treatment Upcoming Encounters Date Type Department Care Team (Late st Contact Info) Description 02/14/2025 10:30 AM CDT Appointment [facility] [address] [facility] [address] [place] [address] Jatin Carcamo MD [address] [place] [address] 02/21/2025 10:30 AM CDT Lab [facility] Lab [address]st [place] [phone] Mamadou Gong MD [address] [place] [address] 02/21/2025 11:30 AM CDT Office Visit [facility] Hepatology Clinic [address] [phone] Mamadou Gong MD [address] [place] [address] 05/19/2025 10:30 AM CDT Appointment [facility] [address] [place] [address] [place] [address] Jatin Carcamo MD [address] [place] [address] 295735 05/19/2025 11:15 AM CDT Lab [facility] [address] [place] [address] 05/26/2025 10:30 AM CDT Virtual Visit [facility] Vascular Clinic [address] [place] [phone] Jatin Carcamo MD [address] [place] [address] 999055 documented as of this encounter Visit Diagnoses Not on filedocumented in this encounter Additional Health Concerns Assessment Noted Time PHQ-9 Depression Total Score: 23 08/04/ 023 8:49 AM BOX GLUER documented as of this encounter Care Teams Wood Router Relationship Specialty Start Date End Date Mamadou Gong MD [address] [place] [address] PCP - General Gastroenterology 10/20/24 Yesika Chirinos PA-C [facility] [address] [place] [address] [place] [address] Referring Physician Gastroenterology 07/23/[address] [address] Registered Dietitian Dietitian, Registered 08/13/23 Reinier Lehman MD [address] [place] [address] 9[address]37 Transplant Surgery 08/13/23 Mamadou Gong MD [address] [place] [address] 13535 Gastroenterology 08/13/23 Arcelia Cid, RANGE AIDE Shine Worker 08/13/23 Mamadou Gong MD [address] [place] [address] 29510 Assigned Gastroenterology Provider 08/30/23 Reinier Lehman MD [address] [place] [address] 14070 Assigned Surgical Provider 08/30/23 Trung Duran, [facility] Shine Worker Shine Worker - Clinical 09/30/23 Duran Luong MD [address] [place] [address] Assigned Pulmonology Provider 10/17/23 Osmany Rausch, launderer handPacking Machine Inspector Transplant 01/22/24 Hina Rojo MD [address] [place] [address] Assigned Infectious Disease Provider 03/07/24 Fabiola Epperson APRN [facility] [address] [place] [address] 338885 Nurse Practitioner Anesthesiology 09/30/24 Jatin Carcamo MD [address] [place] [address] [phone] Physician Radiology 09/30/24 documented as of this encounter
--- OUTSIDE RECORDS SUMMARY | 2024-12-19 07:44 | XMS_ITS | Encounter Summary ---
Author Organization [place] Address [address] [place] [address] Care Team Providers Care Corral Boss Name Role Phone Moises Gaston MD Primary Care Provider [phone] Yesika Chirinos PA-C Unavailable [phone] Everette Pfeiffer RN, Mamadou Unavailable [phone] No Ref-Primary, Physician Primary Care Provider Priscila Rogers RD Unavailable Unavail able Reinier Lehman MD Unavailable Mamadou Gong MD Unavailable + [phone] Arcelia Cid TRACER CLERK Unavailable [phone] Mamadou Gong MD Unavailable + [phone] Reinier Lehman MD Unavailable Trung Duran CARBIDER Unavailable Unavailable Duran Luong MD Unavailable +[phone] Osmany Rausch RN Unavailable Unavailable Hina Rojo MD Unavailable [phone] Fabiola Epperson APRN [facility] Unavailable [phone] Jatin Carcamo MD Unavailable [phone] Mamadou Gong MD Primary Care Provid er Encounter Details Date Type Department Care Team (Late st Contact Info) Description 07/11/2023 External Order Results [facility] [address] [place] [address] Outside, Provider Social History Tobacco Use Types Packs/Day Years Used Date Smoking Tobacco: Never Assessed Adolescent Education Answer Date Record ed Getting School Help Needed Not on file 06/21 Sex and Gender Information Value Date Recorded Sex Assigned at Male 07/17/2023 2:30 PM CDT Legal Sex Male 3:07 AM ENGINEERING INSTRUCTOR Gender Identity Male 07/17/2023 2:30 PM CDT Sexual Orientation Not on file documented as of this encounter Plan of Treatment Upcoming Encounters Date Type Department Care Team (Late st Contact Info) Description 02/14/2025 10:30 AM CDT Appointment [facility] [address] [place] [phone] Jatin Carcamo MD [address] [place] [address] [phone] 02/21/2025 10:30 AM CDT Lab [facility] Lab [address] 1st [place] [phone] Mamadou Gong MD [address] [place] [address] 816815 02/21/2025 11:30 AM CDT Office Visit [facility] Hepatology Clinic [address] [phone] Mamadou Gong MD [address] [place] [address] [phone] 05/19/2025 10:30 AM CDT Appointment [facility] [address] [place] [phone] Jatin Carcamo MD [address] [place] [address] 808695 05/19/2025 11:15 AM CDT Lab [facility] [address] [place] [address] 05/26/2025 10:30 AM CDT Virtual Visit [facility] Vascular Clinic [place] [address] [facility] 3rd [place] [phone] Jatin Carcamo MD [address] [place] [address] [phone] documented as of this encounter Visit Diagnoses Not on filedocumented in this encounter Care Teams Corral Boss Relationship Specialty [place] [address] [place] [address] PCP - General 10/30/01 07/15/23 No Ref-Primary, Physician PCP - General 07/24/23 10/19/24 Mamadou Gong MD [address] [place] [address] PCP - General Gastroenterology 10/20/24 Yesika Chirinos, PAVitorC [facility] [address] [place] [address] [place] [address] Referring Physician Gastroenterology 07/23/23 Mamadou Gaviria Jr., RN Nurse Coordinator Transplant 07/23/23 01/21/[address] [place] [address] Registered Dietitian Dietitian, Registered 08/13/23 Reinier Lehman MD [address] [place] [address] Transplant Surgery 08/13/23 Mamadou Gong MD [address] [place] [address] 859395 Gastroenterology 08/13/23 Arcelia Cid, TRACER CLERK Peanut Picker 08/13/23 Mamadou Gong MD [address] [place] [address] Assigned Gastroenterology Provider 08/30/23 Reinier Lehman MD [address] [place] [address]84 Assigned Surgical Provider 08/30/23 Trung Duran, [facility] Peanut Picker Peanut Picker - Clinical 09/30/23 Duran Luong MD [address] [place] [address] 842565 Assigned Pulmonology Provider 10/17/23 Osmany Rausch, crayon molding machine operatorClaim Analyst Transplant 01/22/24 Hina Rojo MD [address] [place] [address] 751725 Assigned Infectious Disease Provider 03/07/24 Fabiola Epperson APRN SKIN FITTER [address] [place] [address] 760675 Nurse Practitioner Anesthesiology 09/30/24 Jatin Carcamo MD [address] [place] [address] [phone] Physician Radiology 09/30/24 documented as of this encounter
--- OUTSIDE RECORDS SUMMARY | 2024-12-19 07:44 | XMS_ITS | Clinical Summary ---
Author Organization [facility] Address [address] [address] Phone Care Team Providers Care Investments Manager Name Role Phone Unavailable Primary Care Provider Unavailabl e Allergies Active Allergy Reactions Criticality Noted Date Comments Penicillin G Anaphylaxis 02/03/2019 Medications pantoprazole (PROTONIX) 40 MG delayed-release tablet TK 1 T PO BID 2 08/27/2018 Active Active Problems No known active problems Social History Tobacco Use Types Packs/Day Years Used Date Smoking Tobacco: Every Day Cigarettes Smokeless Tobacco: Never PHQ-2 Answer Date Recorded PHQ-2 Score 0 02/03/2019 Sex and Gender Information Value Date Recorded Sex Assigned at Not on file Legal Sex Male 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 Gender Identity Not on file Sexual Orientation Not on file Obstetrics History Last Filed Vital Signs Vital Sign Reading Time Taken Comments Blood Pressure 125/73 02/03/2019 8:40 PM CDT Pulse 77 02/03/2019 8:40 PM CDT Temperature 37.1 C (98.7 F) 02/03/2019 8:40 PM CDT Respiratory Rate 18 02/03/2019 8:40 PM CDT Oxygen Saturation 100% 02/03/2019 8:40 PM CDT Inhaled Oxygen Concentration - - Weight 76 kg (167 lb 8 oz) 02/03/2019 5:02 PM CD T Height - - Body Mass Index - - Plan of Treatment Health Maintenance Due Date Last Done Comments Hepatitis B Vaccine (Standin g Order) (1 of 3 - 19+ 3-dose series) 2010 PERTUSSIS (Standing Order) 2010 TETANUS (Standing Order) 2010 COVID-19 Vaccine (2023-2 5 season) 2024 Influenza Vaccine Seasonal (Standing Order) (#1) 2024 HPV Vaccine (Standing Order) Aged Out No longer eligible based on patient's age to complete this topic Pneumococcal/PCV20 Vaccine: Pediatrics (2-5 yrs) and At-Risk Patients (6-49 yrs) (Standing Order) Aged Out No longer eligible b ased on patient's age to complete this topic [place] [address] [place] [address]
--- OUTSIDE RECORDS SUMMARY | 2024-12-19 07:44 | XMS_ITS | Encounter Summary ---
Author Organization [place] Address [address] [place] [address] Care Team Providers Care Fur Grader Name Role Phone TaranMoisesYesikacatracho Gee PA-C Unavailable [phone] Ref-Primary, Physician Primary Care Provider Priscila Rogers RD Unavailable Unavail able Reinier Lehman MD Unavailable Mamadou Gong MD Unavailable + [phone] Arcelia Cid SITE INTERPRETER Unavailable [phone] Mamadou Gong MD Unavailable + [phone] Reinier Lehman MD Unavailable Trnug Duran LGSW Unavailable Unavailable Duran Luong MD Unavailable [phone] Osmany Rausch RN Unavailable Unavailable Hina Rojo MD Unavailable [phone] Fabiola Epperson APRN INSURANCE CLAIMS ANALYST Unavailable [phone] Jatin Carcamo MD Unavailable [phone] Mamadou Gong MD Primary Care Provid er Encounter Details Date Type Department Care Team (Late st Contact Info) Description 04/12/2024 [facility] Transplant Clinic [address] [place] [address] Osmany Rausch, RN Social History Tobacco Use Types Packs/Day [...] PM CDT 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 Gender Identity Male 07/17/2023 2:30 PM CDT Sexual Orientation Not on file documented as of this encounter Plan of Treatment Upcoming Encounters Date Type Department Care Team (Late st Contact Info) Description 02/14/2025 10:30 AM CDT Appointment [facility] [address] [facility] [address] [place] [phone] Jatin Carcamo MD [address] [place] [address] 765125 02/21/2025 10:30 AM CDT Lab [facility] Lab [address] 1st [place] [phone] Mamadou Gong MD [address] [place] [address] 02/21/2025 11:30 AM CDT Office Visit [facility] Hepatology Clinic [address] [phone] Mamadou Gong MD [address] [place] [address] 05/19/2025 10:30 AM CDT Appointment [facility] [address] [place] [address] [place] [phone] Jatin Carcamo MD [address] [place] [address] 05/19/2025 11:15 AM CDT Lab [facility] [address] [place] [phone] 05/26/2025 10:30 AM CDT Virtual Visit [facility] Vascular Clinic [address] 3rd [place] [phone] Jatin Carcamo MD [address] [place] [address] documented as of this encounter Visit Diagnoses Not on filedocumented in this encounter Additional Health Concerns Assessment Noted Time PHQ-9 Depression Total Score: 023 8:49 AM RETAIL SALES ASSOCIATE documented as of this encounter Care Teams Fur Grader Relationship Specialty Start Date End Date No Ref-Primary, Physician PCP - General 07/24/23 10/19/24 Mamadou Gong MD [address] [place] [address] PCP - General Gastroenterology 10/20/24 Yesika Chirinos PA-C [facility] [address] [place] [address] [place] [address] Referring Physician Gastroenterology 07/23/[address] [place] [address] Registered Dietitian Dietitian, Registered 08/13/23 Reinier Lehman MD [address] [place] [address] Transplant Surgery 08/13/23 Mamadou Gong MD [address] [place] [address] 614305 Gastroenterology 08/13/23 Arcelia Cid, SITE INTERPRETER Music Therapy Teacher 08/13/23 Mamadou Gong MD [address] [place] [address] Assigned Gastroenterology Provider 08/30/23 Reinier Lehman MD [address] [place] [address] 61566 Assigned Surgical Provider 08/30/23 Trung Duran, [facility] Music Therapy Teacher Music Therapy Teacher - Clinical 09/30/23 Duran Luong MD [address] [place] [address] Assigned Pulmonology Provider 10/17/23 Osmany Rausch, high school music teacherTeacher Of Gifted Students Transplant 01/22/24 Hina Rojo MD [address] [place] [address] [phone] Assigned Infectious Disease Provider 03/07/24 Fabiola Epperson APRN INSURANCE CLAIMS ANALYST [address] [place] [address] [phone] Nurse Practitioner Anesthesiology 09/30/24 Jatin Carcamo MD [address] [place] [address] 867175 Physician Radiology 09/30/24 documented as of this encounter
--- OUTSIDE RECORDS SUMMARY | 2024-12-19 07:44 | XMS_ITS | Encounter Summary ---
Author Organization [facility] Address [address] [place] [address] Care Team Providers Care Reservations Sales Agent Name Role Phone TaranMoisesYesikacatracho Gee PA-C Unavailable [phone] Everette Pfeiffer RN, Thomas Unavailable [phone] No Ref-Primary, Physician Primary Care Provider Priscila Rogers RD Unavailable Unavail able Reinier Lehman MD Unavailable Mamadou Gong MD Unavailable + [phone] Arcelia Cid SUSHI CHEF Unavailable [phone] Mamadou Gong MD Unavailable + [phone] Reinier Lehman MD Unavailable Trung Duran SATELLITE SPECIALIST Unavailable Unavailable Duran Luong MD Unavailable +[phone] Osmany Rausch RN Unavailable Unavailable Hina Rojo MD Unavailable +[phone] Fabiola Epperson APRN POULTRY FEED SUPERVISOR Unavailable [phone] Jatin Carcamo MD Unavailable [phone] Mamadou Gong MD Primary Care Provid er Encounter Details Date Type Department Care Team (Late st Contact Info) Description 10/17/2023 [facility] [address] [place] [phone] Mamadou Gaviria Jr., RN Social History Tobacco [...] PM CDT Legal 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 Gender Identity Male 07/17/2023 2:30 PM CDT Sexual Orientation Not on file documented as of this encounter Plan of Treatment Upcoming Encounters Date Type Department Care Team (Late st Contact Info) Description 02/14/2025 10:30 AM CDT Appointment [facility] [address] [facility] [address] [place] [address] Jatin Carcamo MD [address] [place] [address] 15124 02/21/2025 10:30 AM CDT Lab [facility] Lab [address] 1st [place] [phone] Mamadou Gong MD [address] [place] [address] 77848 02/21/2025 11:30 AM CDT Office Visit [facility] Hepatology Clinic [address] [phone] Mamadou Gong MD [address] [place] [address] 86317 05/19/2025 10:30 AM CDT Appointment [facility] Imaging [address] [place] [phone] Jatin Carcamo MD [address] [place] [address] 271485 05/19/2025 11:15 AM CDT Lab [facility] [address] [place] [phone] 05/26/2025 10:30 AM CDT Virtual Visit [facility] Vascular Clinic [address] 3rd [place] [address] Jatin Carcamo MD [address] [place] [address] 163325 documented as of this encounter Visit Diagnoses Not on filedocumented in this encounter Additional Health Concerns Assessment Noted Time PHQ-9 Depression Total Score: 023 8:49 AM BUFFING WHEEL RAKER documented as of this encounter Care Teams Reservations Sales Agent Relationship Specialty Start Date End Date No Ref-Primary, Physician PCP - General 07/24/23 10/19/24 Mamadou Gong MD [address] [place] [address] 80728 PCP - General Gastroenterology 10/20/24 Yesika Chirinos PA-C [facility] [address] [place] [address] [place] [address] Referring Physician Gastroenterology 07/23/23 Mamadou Gaviria Jr., RN Nurse Coordinator Transplant 07/23/23 01/21/[address] [place] [address] Registered Dietitian Dietitian, Registered 08/13/23 Reinier Lehman MD [address] [place] [address] 85171 Transplant Surgery 08/13/23 Mamadou Gong MD [address] [place] [address] 17130 Gastroenterology 08/13/23 Arcelia Cid, SUSHI CHEF Freight Car Builder 08/13/23 Mamadou Gong MD [address] [place] [address] 474685 Assigned Gastroenterology Provider 08/30/23 Reinier Lehman MD [address] [place] [address] 80332 Assigned Surgical Provider 08/30/23 Trung Duran, [facility] Freight Car Builder Freight Car Builder - Clinical 09/30/23 Duran Luong MD [address] [place] [address] 401295 Assigned Pulmonology Provider 10/17/23 Osmany Rausch, french polisherEngineering Production Liaison Transplant 01/22/24 Hina Rojo MD [address] [place] [address] 536365 Assigned Infectious Disease Provider 03/07/24 Fabiola Epperson APRN POULTRY FEED SUPERVISOR [address] [place] [address] 558265 Nurse Practitioner Anesthesiology 09/30/24 Jatin Carcamo MD [address] [place] [address] 73089 Physician Radiology 09/30/24 documented as of this encounter
--- OUTSIDE RECORDS SUMMARY | 2024-12-19 07:44 | XMS_ITS | Encounter Summary ---
Author Organization [place] Address [address] [place] [address] 18921 Care Team Providers Care Integrated Circuits Inspector Name Role Phone TaranMoisesYesikacatracho Gee PA-C Unavailable [phone] No Ref-Primary, Physician Primary Care Provider Priscila Rogers RD Unavailable Unavail able Reinier Lehman MD Unavailable Mamadou Gong MD Unavailable + [phone] Arcelia Cid BIZTALK DEVELOPER Unavailable [phone] Mamadou Gong MD Unavailable + [phone] Reinier Lehman MD Unavailable Trung Duran LGSW Unavailable Unavailable Duran Luong MD Unavailable [phone] Osmany Rausch RN Unavailable Unavailable Hina Rojo MD Unavailable [phone] Fabiola Epperson APRN FREELANCE DATA ENTRY Unavailable +[phone] Jatin Carcamo MD Unavailable [phone] Mamadou Gong MD Primary Care Provid er Encounter Details Date Type Department Care Team (Late st Contact Info) Description 08/23/2024 [facility] [address] [place] [address] Osmany Rausch, RN Alcoholic cirrhosis of liver with ascites (H) Social History Tobacco Use Types Packs/Day [...] PM CDT 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 Gender Identity Male 07/17/2023 2:30 PM CDT Sexual Orientation Not on file documented as of this encounter Plan of Treatment Upcoming Encounters Date Type Department Care Team (Late st Contact Info) Description 02/14/2025 10:30 AM CDT Appointment [facility] Imaging [address] [facility] [address] [place] [address] Jatin Carcamo MD [address] [place] [address] 008475 02/21/2025 10:30 AM CDT Lab [facility] Lab [address] 1st [place] [phone] Mamadou Gong MD [address] [place] [address] 46199 02/21/2025 11:30 AM CDT Office Visit [facility] Hepatology Clinic [address] [phone] Mamadou Gong MD [address] [place] [address] 10438 05/19/2025 10:30 AM CDT Appointment [facility] Imaging [address] [place] [phone] Jatin Carcamo MD [address] [place] [address] 67370 05/19/2025 11:15 AM CDT Lab [facility] [address] [place] [phone] 05/26/2025 10:30 AM CDT Virtual Visit [facility] Vascular Clinic [address] 3rd [place] [phone] Jatin Carcamo MD [address] [place] [address] 20799 documented as of this encounter Visit Diagnoses Diagnosis Alcoholic cirrhosis of liver with ascites (H) Alcoholic cirrhosis of liver Alcoholic cirrhosis of liver with ascites (H) Alcoholic cirrhosis of liver documented in this encounter Additional Health Concerns Assessment Noted Time PHQ-9 Depression Total Score: 023 8:49 AM DESKTOP SPECIALIST documented as of this encounter Care Teams Integrated Circuits Inspector Relationship Specialty Start Date End Date No Ref-Primary, Physician PCP - General 07/24/23 10/19/24 Mamadou Gong MD [address] [place] [address] 35300 PCP - General Gastroenterology 10/20/24 Yesika Chirinos PAVitorC [facility] [address] [place] [address] TASHIA SYED [address] Referring Physician Gastroenterology 07/23/[address] [place] [address] Registered Dietitian Dietitian, Registered 08/13/23 Reinier Lehman MD [address] [place] [address] 17287 Transplant Surgery 08/13/23 Mamadou Gong MD [address] [place] [address] 10344 Gastroenterology 08/13/23 Arcelia Cid, BIZTALK DEVELOPER Periodicals Library Assistant 08/13/23 Mamadou Gong MD [address] [place] [address] 623075 Assigned Gastroenterology Provider 08/30/23 Reinier Lehman MD [address] [place] [address] 715645 Assigned Surgical Provider 08/30/23 Trung Duran, [facility] Periodicals Library Assistant Periodicals Library Assistant - Clinical 09/30/23 Duran Luong MD [address] [place] [address] 930575 Assigned Pulmonology Provider 10/17/23 Osmany Rausch, nurseEmergency Spill Response Technician Transplant 01/22/24 Hina Rojo MD [address] [place] [address] 983415 Assigned Infectious Disease Provider 03/07/24 Fabiola Epperson APRN FREELANCE DATA ENTRY [address] [place] [address] 065405 Nurse Practitioner Anesthesiology 09/30/24 Jatin Carcamo MD [address] [place] [address] 677905 Physician Radiology 09/30/24 documented as of this encounter
--- OUTSIDE RECORDS SUMMARY | 2024-12-19 07:44 | XMS_ITS | Encounter Summary ---
Author Organization [place] Address [address] [place] [address] 41429 Care Team Providers Care Television Maintenance Worker Name Role Phone Taran Yesikacatracho Gee PA-C Unavailable [phone] Unavailable Unavail able Reinier Lehman MD Unavailable Mamadou Gong MD Unavailable + [phone] Arcelia Cid SOLID PLASTERER Unavailable [phone] Mamadou Gong MD Unavailable + [phone] Reinier Lehman MD Unavailable Trung Duran SENIOR MECHANICAL PROJECT MANAGER Unavailable Unavailable Duran Luong MD Unavailable [phone] Osmany Rausch RN Unavailable Unavailable Hina Rojo MD Unavailable [phone] Fabiola Epperson APRN EDUCATION INSTRUCTOR Unavailable [phone] Jatin Carcamo MD Unavailable [phone] Mamadou Gong MD Primary Care Provid er Reason for Visit * Reason Onset Date Comments Refill Request 12/14/2024 Encounter Details Date Type Department Care Team (Late st Contact Info) Description 12/14/2024 Victorino Paredes [facility] [address] [place] [address] Mamadou Gong MD [address] [place] [address] 782935 Refill Request Social History Tobacco Use Types Packs/Day Years [...] CDT Legal 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 Male 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 DESK LIEUTENANT Gender Identity Male 07/17/2023 2:30 PM CDT Sexual Orientation Not on file documented as of this encounter Plan of Treatment Upcoming Encounters Date Type Department Care Team (Late st Contact Info) Description 02/14/2025 10:30 AM CDT Appointment [facility] Imaging [address] [facility] [address] [place] [address] Jatin Carcamo MD [address] [place] [address] 556175 02/21/2025 10:30 AM CDT Lab [address] [phone] Mamadou Gong MD [address] [place] [address] [phone] 02/21/2025 11:30 AM CDT Office Visit [facility] [address] [phone] Mamadou Gong MD [address] [place] [address] 73940 05/19/2025 10:30 AM CDT Appointment [facility] Imaging [address] [address] [place] [phone] Jatin Carcamo MD [address] [place] [address] 68639 05/19/2025 11:15 AM CDT Lab [facility] [address] [place] [address]-9627[address] 05/26/2025 10:30 AM CDT Virtual Visit [facility] [address] 3rd [place] [address] Jatin Carcamo MD [address] [place] [address] 20874 documented as of this encounter Visit Diagnoses Diagnosis Alcoholic cirrhosis of liver with ascites (H) Alcoholic cirrhosis of liver Alcoholic cirrhosis of liver with ascites (H) Alcoholic cirrhosis of liver documented in this encounter Additional Health Concerns Assessment Noted Time PHQ-9 Depression Total Score: 23 023 8:49 AM DESK LIEUTENANT documented as of this encounter Care Teams Television Maintenance Worker Relationship Specialty Start Date End Date Mamadou Gong MD [address] [place] [address] 28194 PCP - General Gastroenterology 10/20/24 Yesika Chirinos PA-C [facility] [address] [place] [address] [place] [address] Referring Physician Gastroenterology 07/23/[address] [facility] [address] [facility] 84 [place] [address] Registered Dietitian Dietitian, Registered 08/13/23 Reinier Lehman MD [address] [place] [address] 18366 Transplant Surgery 08/13/23 Mamadou Gong MD [address] [place] [address] 29273 MD Gastroenterology 08/13/23 Arcelia Cid, SOLID PLASTERER Strategic Manager 08/13/23 Mamadou Gong MD [address] [place] [address] 40615 Assigned Gastroenterology Provider 08/30/23 Reinier Lehman MD [address] [place] [address] 79774 Assigned Surgical Provider 08/30/23 Trung Duran, [facility] Strategic Manager Strategic Manager - Clinical 09/30/23 Duran Luong MD [address] [place] [address] 01517 Assigned Pulmonology Provider 10/17/23 Osmany Rausch, chick room supervisorTelevision Service Engineer Transplant 01/22/24 Hina Rojo MD [address] [place] [address] 250 [place] [address] Assigned Infectious Disease Provider 03/07/24 Fabiola Epperson APRN EDUCATION INSTRUCTOR [address] [place] [address] Nurse Practitioner Anesthesiology 09/30/24 Jatin Carcamo MD [address] [place] [address] Physician Radiology 09/30/24 documented as of this encounter
--- OUTSIDE RECORDS SUMMARY | 2024-12-19 07:44 | XMS_ITS | Encounter Summary ---
Author Organization [place] Address [address] [place] [address] 75682 Care Team Providers Care Top Frame Maker Name Role Phone Taran Yesikacatracho Gee PA-C Unavailable [phone] No Ref-Primary, Physician Primary Care Provider Priscila Rogers RD Unavailable Unavail able Reinier Lehman MD Unavailable Mamadou Gong MD Unavailable + [phone] Arcelia Cid MEAT TEAM LEAD Unavailable [phone] Mamadou Gong MD Unavailable + [phone] Reinier Lehman MD Unavailable Trung Duran LGSW Unavailable Unavailable Duran Luong MD Unavailable [phone] Osmany Rausch RN Unavailable Unavailable Hina Rojo MD Unavailable +[phone] Fabiola Epperson APRN ECOLOGIST Unavailable [phone] Jatin Carcamo MD Unavailable +[phone] Mamadou Gong MD Primary Care Provid er Encounter Details Date Type Department Care Team (Late st Contact Info) Description 08/23/2024 Telephone [facility] Transplant Clinic [address] [place] [address] Mamadou Gong MD [address] [place], [place] [phone] Social History Tobacco Use Types Packs/Day Years [...] PM CDT Legal Sex Male 3:07 AM HUMAN SERVICE SPECIALIST Gender Identity Male 07/17/2023 2:30 PM CDT Sexual Orientation Not on file documented as of this encounter Miscellaneous Notes * Telephone Encounter - Germania Hudson - 08/23/2024 3:11 PM CST Spoke to [place] - he believes that the CT scheduled on 09/[address] of the US needed. [place] stated that is what he was told on 08/19. Please review and let me know - pt will need a call from you to discuss if the US is still needed. Thanks! N SERVICE SPECIALIST * Telephone Encounter - Germania Hudson - 08/23/2024 3:11 PM CST ----- Message from Osmany Jimenez sent at 08/23/2024 3:03 PM HUMAN SERVICE SPECIALIST ----- Regarding: RE: US order Yes please. Cesar is fine with me ----- Message ----- From: Germania Hudson Sent: 08/23/2024 2:50 PM HUMAN SERVICE SPECIALIST To: Osmany Rausch RN Subject: US order Peter Ceron - I have a note to check back with you after Dr Gong appt 08/19 for this pt. Can I move forward with reaching out to [place] to schedule the US? And if so, is Troutmanmehrdad ok? Let me know please. Thanks! Germania N SERVICE SPECIALIST documented in this encounter Plan of Treatment Upcoming Encounters Date Type Department Care Team (Late st Contact Info) Description 02/14/2025 10:30 AM CDT Appointment [facility] Imaging [address] [facility] [address] [place] [phone] Jatin Carcamo MD [address] [place] [address] 376425 02/21/2025 10:30 AM CDT Lab [facility] Lab [address] [place] [phone] Mamadou Gong MD [address] [place] [address] 99717 02/21/2025 11:30 AM CDT Office Visit [facility] Hepatology Clinic [address] [phone] Mamadou Gong MD [address] [place] [address] 68581 05/19/2025 10:30 AM CDT Appointment [facility] Imaging [address] [facility] [address] [place] [phone] Jatin Carcamo MD [address] [place] [address] 750625 05/19/2025 11:15 AM CDT Lab [facility] [address] [place] [address]14 05/26/2025 10:30 AM CDT Virtual Visit [facility] Vascular Clinic [address] [place] [address] Jatin Carcamo MD [address] [place] [address] 001385 documented as of this encounter Visit Diagnoses Diagnosis Alcoholic cirrhosis of liver with ascites (H) Alcoholic cirrhosis of liver Alcoholic cirrhosis of liver with ascites (H) Alcoholic cirrhosis of liver documented in this encounter Additional Health Concerns Assessment Noted Time PHQ-9 Depression Total Score: 023 8:49 AM HUMAN SERVICE SPECIALIST documented as of this encounter Care Teams Top Frame Maker Relationship Specialty Start Date End Date No Ref-Primary, Physician PCP - General 07/24/23 10/19/24 Mamadou Gong MD [address] [place] [address] 22653 PCP - General Gastroenterology 10/20/24 Yesika Chirinos PA-C [facility] [address] [place] [address] [place] [address] Referring Physician Gastroenterology 07/23/[address] [place] [address] Registered Dietitian Dietitian, Registered 08/13/23 Reinier Lehman MD [address] [place] [address] 84115 Transplant Surgery 08/13/23 Mamadou Gong MD [address] [place] [address] 29342 Gastroenterology 08/13/23 Arcelia Cid, MEAT TEAM LEAD Resourcing Advisor 08/13/23 Mamadou Gong MD [address] [place] [address] 69379 Assigned Gastroenterology Provider 08/30/23 Reinier Lehman MD [address] [place] [address] 73344 Assigned Surgical Provider 08/30/23 Trung Duran, [facility] Resourcing Advisor Resourcing Advisor - Clinical 09/30/23 Duran Luong MD [address] [place] [address] 50009 Assigned Pulmonology Provider 10/17/23 Osmany Rausch, regional transportation managerMachine Whitener Transplant 01/22/24 Hina Rojo MD [address] [place] [address] 81740 Assigned Infectious Disease Provider 03/07/24 Fabiola Epperson APRN ECOLOGIST [address] [place] [address] 093455 Nurse Practitioner Anesthesiology 09/30/24 Jatin Carcamo MD [address] [place] [address] [phone] Physician Radiology 09/30/24 documented as of this encounter
--- OUTSIDE RECORDS SUMMARY | 2024-12-19 07:44 | XMS_ITS | Encounter Summary ---
Author Organization [place] Address [address] [place] [address] 8[address]56 Care Team Providers Care Eyeglass Lens Grinder Name Role Phone TaranMoisesYesikacatracho Gee PA-C Unavailable [phone] Everette Pfeiffer RN, Thomas Unavailable [phone] No Ref-Primary, Physician Primary Care Provider Priscila Rogers RD Unavailable Unavail able Reinier Lehman MD Unavailable Mamadou Gong MD Unavailable + [phone] Arcelia Cid SERVICE DOG TRAINER Unavailable [phone] Mamadou Gong MD Unavailable + [phone] Reinier Lehman MD Unavailable Trung Duran ACCOUNTING MANAGER ASSISTANT CONTROLLER Unavailable Unavailable Duran Luong MD Unavailable [phone] Osmany Rausch RN Unavailable Unavailable Hina Rojo MD Unavailable [phone] Fabiola Epperson APRN GOLF SALES MANAGER Unavailable [phone] Jatin Carcamo MD Unavailable [phone] Mamadou Gong MD Primary Care Provid er Encounter Details Date Type Department Care Team (Late st Contact Info) Description 01/06/2024 [facility] Gastroenterology Clinic [address] [place] [phone] Ingrid Carballo Social History Tobacco Use Types Packs/Day Years [...] PM CDT Legal Sex Male 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 Gender Identity Male 07/17/2023 2:30 PM CDT Sexual Orientation Not on file documented as of this encounter Plan of Treatment Upcoming Encounters Date Type Department Care Team (Late st Contact Info) Description 02/14/2025 10:30 AM CDT Appointment [facility] Imaging [address] [facility] [address] [place] [address] Jatin Carcamo MD [address] [place] [address] 216075 02/21/2025 10:30 AM CDT Lab [facility] Lab [address] [phone] Mamadou Gong MD [address] [place] [address] 13266 02/21/2025 11:30 AM CDT Office Visit [facility] Hepatology Clinic [address] [phone] Mamadou Gong MD [address] [place] [address] 21644 05/19/2025 10:30 AM CDT Appointment [facility] Imaging [address] [place] [phone] Jatin Carcamo MD [address] [place] [address] 78266 05/19/2025 11:15 AM CDT Lab [facility] [address] [place] [phone] 05/26/2025 10:30 AM CDT Virtual Visit [facility] Vascular Clinic [address] 3rd [place] [phone] Jatin Carcamo MD [address] [place] [address] 29985 documented as of this encounter Visit Diagnoses Not on filedocumented in this encounter Additional Health Concerns Assessment Noted Time PHQ-9 Depression Total Score: 023 8:49 AM SUPERVISOR BORDER DEPARTMENT documented as of this encounter Care Teams Eyeglass Lens Grinder Relationship Specialty Start Date End Date No Ref-Primary, Physician PCP - General 07/24/23 10/19/24 Mamadou Gong MD [address] [place] [address] 26409 PCP - General Gastroenterology 10/20/24 Yesika Chirinos PA-C [facility] [address] [place] [address] [place] [address] Referring Physician Gastroenterology 07/23/23 Mamadou Gaviria Jr., RN Nurse Coordinator Transplant 07/23/23 01/21/[address] [facility] 420 [facility] 84 [place] [address] Registered Dietitian Dietitian, Registered 08/13/23 Reinier Lehman MD [address] [place] [address] 92063 Transplant Surgery 08/13/23 Mamadou Gong MD [address] [place] [address] 00848 Gastroenterology 08/13/23 Arcelia Cid, SERVICE DOG TRAINER Floor Supervisor 08/13/23 Mamadou Gong MD [address] [place] [address] 690305 Assigned Gastroenterology Provider 08/30/23 Reinier Lehman MD [address] [place] [address] 009215 Assigned Surgical Provider 08/30/23 Trung Duran, [facility] Floor Supervisor Floor Supervisor - Clinical 09/30/23 Duran Luong MD [address] [place] [address] 036935 Assigned Pulmonology Provider 10/17/23 Osmany Rausch, center machine operatorInspector Poising Transplant 01/22/24 Hina Rojo MD [address] [place] [address] 46363 Assigned Infectious Disease Provider 03/07/24 Fabiola Epperson APRN GOLF SALES MANAGER [address] [place] [address] 926455 Nurse Practitioner Anesthesiology 09/30/24 Jatin Carcamo MD [address] [place] [address] 819725 Physician Radiology 09/30/24 documented as of this encounter
--- OUTSIDE RECORDS SUMMARY | 2024-12-19 07:44 | XMS_ITS | Encounter Summary ---
Author Organization [place] Address [address] [place] [address] 49959 Care Team Providers Care Condenser Winder Name Role Phone TaranMoisesYesikacatracho Gee PA-C Unavailable [phone] Everette Pfeiffer RN, Thomas Unavailable [phone] No Ref-Primary, Physician Primary Care Provider Priscila Rogers RD Unavailable Unavail able Reinier Lehman MD Unavailable Mamadou Gong MD Unavailable + [phone] Arcelia Cid DIE MAKER ELECTRONIC Unavailable [phone] Mamadou Gong MD Unavailable + [phone] Reinier Lehman MD Unavailable Trung Duran RETORT FEEDER GROUND BONE Unavailable Unavailable Duran Luong MD Unavailable [phone] Osmany Rausch RN Unavailable Unavailable Hina Rojo MD Unavailable [phone] Fabiola Epperson APRN CHILD CARE DEVELOPMENT SPECIALIST Unavailable [phone] Jatin Carcamo MD Unavailable [phone] Mamadou Gong MD Primary Care Provid er Encounter Details Date Type Department Care Team (Late st Contact Info) Description 09/04/2023 MyC Medical [facility] [address] [place] [phone] Trung Duran, RETORT FEEDER GROUND BONE Social History Tobacco Use Types Packs/Day Years [...] PM CDT Legal 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 Male 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 Gender Identity Male 07/17/2023 2:30 PM CDT Sexual Orientation Not on file documented as of this encounter Plan of Treatment Upcoming Encounters Date Type Department Care Team (Late st Contact Info) Description 02/14/2025 10:30 AM CDT Appointment [facility] Imaging [address] [facility] [address] [place] [phone] Jatin Carcamo MD [address] [place] [address] 269955 02/21/2025 10:30 AM CDT Lab [facility] [address] 1st [place] [phone] Mamadou Gong MD [address] [place] [address] 22553 02/21/2025 11:30 AM CDT Office Visit [facility]ology [facility] [address] [phone] Mamadou Gong MD [address] [place] [address] 66531 05/19/2025 10:30 AM CDT Appointment [facility] Imaging [address] [place] [address] [place] [phone] Jatin Carcamo MD [address] [place] [address] 49965 05/19/2025 11:15 AM CDT Lab [facility] [address] [place] [phone] 05/26/2025 10:30 AM CDT Virtual Visit [facility] [address] 3rd [place] [phone] Jatin Carcamo MD [address] [place] [address] 36197 documented as of this encounter Visit Diagnoses Not on filedocumented in this encounter Additional Health Concerns Assessment Noted Time PHQ-9 Depression Total Score: 023 8:49 AM AIRPORT 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 documented as of this encounter Care Teams Condenser Winder Relationship Specialty Start Date End Date No Ref-Primary, Physician PCP - General 07/24/23 10/19/24 Mamadou Gong MD [address] [place] [address] 00947 PCP - General Gastroenterology 10/20/24 Yesika Chirinos PA-C [facility] [address] [place] [address] [place] [address] Referring Physician Gastroenterology 07/23/23 Mamadou Gaviria Jr., RN Nurse Coordinator Transplant 07/23/23 01/21/[address] [facility] [address] [facility] 84 [place] [address] Registered Dietitian Dietitian, Registered 08/13/23 Reinier Lehman MD [address] [place] [address] 91132 Transplant Surgery 08/13/23 Mamadou Gong MD [address] [place] [address] 76767 Gastroenterology 08/13/23 Arcelia Cid, DIE MAKER ELECTRONIC Board Setter 08/13/23 Mamadou Gong MD [address] [place] [address] 12358 Assigned Gastroenterology Provider 08/30/23 Reinier Lehman MD [address] [place] [address] [phone] Assigned Surgical Provider 08/30/23 Trung Duran, [facility] Board Setter Board Setter - Clinical 09/30/23 Duran Luong MD [address] [place] [address] [phone] Assigned Pulmonology Provider 10/17/23 Osmany Rausch, group fitness assistant department headRoller Coaster Designer Transplant 01/22/24 Hina Rojo MD [address] [place] [address] 21923 Assigned Infectious Disease Provider 03/07/24 Fabiola Epperson APRN CHILD CARE DEVELOPMENT SPECIALIST [address] [place] [address] 847445 Nurse Practitioner Anesthesiology 09/30/24 Jatin Carcamo MD [address] [place] [address] 914255 Physician Radiology 09/30/24 documented as of this encounter
--- OUTSIDE RECORDS SUMMARY | 2024-12-19 07:44 | XMS_ITS | Encounter Summary ---
Author Organization [place] Address [address] [place] [address]120 Care Team Providers Care Clinical Research Manager Name Role Phone Taran Yesikacatracho Gee PA-C Unavailable [phone] Unavailable Unavail able Reinier Lehman MD Unavailable Mamadou Gong MD Unavailable + [phone] Arcelia Cid RANCH HAND SUPERVISOR Unavailable [phone] Mamadou Gong MD Unavailable + [phone] Reinier Lehman MD Unavailable Trung Duran SENIOR IOS DEVELOPER Unavailable Unavailable Duran Luong MD Unavailable [phone] Osmany Rausch RN Unavailable Unavailable Hina Rojo MD Unavailable [phone] Fabiola Epperson APRN LITIGATION LEGAL ASSISTANT Unavailable [phone] Jatin Carcamo MD Unavailable [phone] Mamadou Gong MD Primary Care Provid er Encounter Details Date Type Department Care Team (Late st Contact Info) Description 11/09/2024 MyC Medical Advice [facility] Clinic [address] 3[address] [place] [address] Rhoda Martinez Social History Tobacco Use Types Packs/Day Years [...] PM CDT Legal Sex Male 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 TOLL TRANSMISSION 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 Gender Identity Male 07/17/2023 2:30 PM CDT Sexual Orientation Not on file documented as of this encounter Plan of Treatment Upcoming Encounters Date Type Department Care Team (Late st Contact Info) Description 02/14/2025 10:30 AM CDT Appointment [facility] [address] [facility] [address] [place] [phone] Jatin Carcamo MD [address] [place] [address] [phone] 02/21/2025 10:30 AM CDT Lab [facility] Lab [address] 1st [place] [address] Mamadou Gong MD [address] [place] [address] 878805 02/21/2025 11:30 AM CDT Office Visit [facility] Hepatology Clinic [address] [address] Mamadou Gong MD [address] [place] [address] 46610 05/19/2025 10:30 AM CDT Appointment [facility] Imaging [address] [place] [address] [place] [phone] Jatin Carcamo MD [address] [place] [address] 770[address] 05/19/2025 11:15 AM CDT Lab [facility] [address] [place] [address] 05/26/2025 10:30 AM CDT Virtual Visit [facility] [address] 3rd [place] [phone] Jatin Carcamo MD [address] [place] [address] 54626 documented as of this encounter Visit Diagnoses Not on filedocumented in this encounter Additional Health Concerns Assessment Noted Time PHQ-9 Depression Total Score: 23 023 8:49 AM TOLL TRANSMISSION WORKER documented as of this encounter Care Teams Clinical Research Manager Relationship Specialty Start Date End Date Mamadou Gong MD [address] [place] [address] 29898 PCP - General Gastroenterology 10/20/24 Yesika Chirinos PA-C [facility] [address] [place] [address] TASHIA SYED 14779 Referring Physician Gastroenterology 07/23/[address] [place] [address] Registered Dietitian Dietitian, Registered 08/13/23 Reinier Lehman MD [address] [place] [address] 32004 Transplant Surgery 08/13/23 Mamadou Gong MD [address] [place] [address] 11001 Gastroenterology 08/13/23 Arcelia Cid, RANCH HAND SUPERVISOR Director Of Supply Chain 08/13/23 Mamadou Gong MD [address] [place] [address] 759465 Assigned Gastroenterology Provider 08/30/23 Reinier Lehman MD [address] [place] [address] 75009 Assigned Surgical Provider 08/30/23 Trung Duran, [facility] Director Of Supply Chain Director Of Supply Chain - Clinical 09/30/23 Duran Luong MD [address] [place] [address] 163335 Assigned Pulmonology Provider 10/17/23 Osmany Rausch, student services counselorFlame Burner Transplant 01/22/24 Hina Rojo MD [address] [place] [address] 797135 Assigned Infectious Disease Provider 03/07/24 Fabiola Epperson APRN [facility] [address] [place] [address] 349395 Nurse Practitioner Anesthesiology 09/30/24 Jatin Carcamo MD [address] [place] [address] [phone] Physician Radiology 09/30/24 documented as of this encounter
--- OUTSIDE RECORDS SUMMARY | 2024-12-19 07:45 | XMS_ITS | Encounter Summary ---
Author Organization [place] Address [address] [place] [address]60 Care Team Providers Care Cell Pourer Name Role Phone TaranMoisesYesikacatracho Gee PA-C Unavailable [phone] No Ref-Primary, Physician Primary Care Provider Priscila Rogers RD Unavailable Unavail able Reinier Lehman MD Unavailable Mamadou Gong MD Unavailable + [phone] Arcelia Cid CHILLER TECHNICIAN Unavailable [phone] Mamadou Gong MD Unavailable + [phone] Reinier Lehman MD Unavailable Trung Duran LGSW Unavailable Unavailable Duran Luong MD Unavailable [phone] Osmany Rausch RN Unavailable Unavailable Hina Rojo MD Unavailable [phone] Fabiola Epperson APRN SOUND ENGINEER AUDIO CONTROL Unavailable [phone] Jatin Carcamo MD Unavailable [phone] Mamadou Gong MD Primary Care Provid er Encounter Details Date Type Department Care Team (Late st Contact Info) Description 01/23/2024 [facility] [address] [place] [phone] Osmany Rausch, RN Social History Tobacco Use [...] PM CDT Legal Sex Male 3:07 AM SOCIAL MEDIA DEVELOPER Gender Identity Male 07/17/2023 2:30 PM CDT Sexual Orientation Not on file documented as of this encounter Plan of Treatment Upcoming Encounters Date Type Department Care Team (Late st Contact Info) Description 02/14/2025 10:30 AM CDT Appointment [facility] Imaging [address] [place] [address] [place] [address] Jatin Carcamo MD [address] [place] [address] 166005 02/21/2025 10:30 AM CDT Lab [facility] [address] [place] [phone] Mamadou Gong MD [address] [place] [address] 32700 02/21/2025 11:30 AM CDT Office Visit [facility] Hepatology Clinic [address] [phone] Mamadou Gong MD [address] [place] [address] 47023 05/19/2025 10:30 AM CDT Appointment [facility] Imaging [address] [place] [address] [place] [phone] Jatin Carcamo MD [address] [place] [address] 84317 05/19/2025 11:15 AM CDT Lab [facility] [address] [place] [phone] 05/26/2025 10:30 AM CDT Virtual Visit [facility] V[facility] Clinic [address] 3rd [place] [address] Jatin Carcamo MD [address] [place] [address] 655275 documented as of this encounter Visit Diagnoses Not on filedocumented in this encounter Additional Health Concerns Assessment Noted Time PHQ-9 Depression Total Score: 023 8:49 AM SOCIAL MEDIA DEVELOPER documented as of this encounter Care Teams Cell Pourer Relationship Specialty Start Date End Date No Ref-Primary, Physician PCP - General 07/24/23 10/19/24 Mamadou Gong MD [address] [place] [address] 28370 PCP - General Gastroenterology 10/20/24 Yesika Chirinos, PA-C [facility] [address] [place] [address] [place] [address] Referring Physician Gastroenterology 07/23/[address] [place] [address] Registered Dietitian Dietitian, Registered 08/13/23 Reinier Lehman MD [address] [place] [address] 00670 Transplant Surgery 08/13/23 Mamadou Gong MD [address] [place] [address] 04623 Gastroenterology 08/13/23 Arcelia Cid, CHILLER TECHNICIAN Hospitality Manager 08/13/23 Mamadou Gong MD [address] [place] [address] 64868 Assigned Gastroenterology Provider 08/30/23 Reinier Lehman MD [address] [place] [address] 978145 Assigned Surgical Provider 08/30/23 Trung Duran, [facility] Hospitality Manager Hospitality Manager - Clinical 09/30/23 Duran Luong MD [address] [place] [address] 76294 Assigned Pulmonology Provider 10/17/23 Osmany Rausch, scene and lighting design lecturerRn Orthopedic Transplant 01/22/24 Hina Rojo MD [address] [place] [address] 04464 Assigned Infectious Disease Provider 03/07/24 Fabiola Epperson APRN SOUND ENGINEER AUDIO CONTROL [address] [place] [address] 53396 Nurse Practitioner Anesthesiology 09/30/24 Jatin Carcamo MD [address] [place] [address] 437175 Physician Radiology 09/30/24 documented as of this encounter
--- OUTSIDE RECORDS SUMMARY | 2024-12-19 07:45 | XMS_ITS | Encounter Summary ---
Author Organization [place] Address [address] [place] [address]23 Care Team Providers Care Cmm Operator Name Role Phone TaranMoisesYesikacatracho Gee PA-C Unavailable [phone] Unavailable Unavail able Reinier Lehman MD Unavailable Mamadou Gong MD Unavailable + [phone] Arcelia Cid BENCH WORKER HOLLOW HANDLE Unavailable [phone] Mamadou Gong MD Unavailable + [phone] Reinier Lehman MD Unavailable Trung Duran [facility] Unavailable Unavailable Duran Luong MD Unavailable [phone] Osmany Rausch RN Unavailable Unavailable Hina Rojo MD Unavailable [phone] Fabiola Epperson APRN LIBRARIAN SPECIAL COLLECTIONS Unavailable [phone] Jatin Carcamo MD Unavailable +[phone] Mamadou Gong MD Primary Care Provid er Encounter Details Date Type Department Care Team (Late st Contact Info) Description 10/21/2024 [place] Medical Advice [facility] Hepatology Clinic [address] [address] Mamadou Gong MD [address] [place] [place] [address] 02399 Alcoholic cirrhosis of liver with ascites (H) [...] PM CDT Legal Sex Male 3:07 AM BLOOD BANK ORDER CONTROL CLERK Gender Identity Male 07/17/2023 2:30 PM CDT Sexual Orientation Not on file documented as of this encounter Plan of Treatment Upcoming Encounters Date Type Department Care Team (Late st Contact Info) Description 02/14/2025 10:30 AM CDT Appointment [facility] Imaging [address] [facility] [address] [place] [address] Jatin Carcamo MD [address] [place] [address] 02/21/2025 10:30 AM CDT Lab [facility] Lab [address] 1st [place] [phone] Mamadou Gong MD [address] [place] [place] [address] 00456 02/21/2025 11:30 AM CDT Office Visit [facility] Hepatology Clinic [address] [phone] Mamadou Gong MD [address] [place] [place] [address] 43546 05/19/2025 10:30 AM CDT Appointment [facility] Imaging [address] [place] [address] [place] [address]25[address] Jatin Carcamo MD [address] [place] [address] 02109 05/19/2025 11:15 AM CDT Lab [facility] [address] [place] [phone] 05/26/2025 10:30 AM CDT Virtual Visit [facility] Vascular Clinic [address] 3rd [place] [phone] Jatin Carcamo MD [address] [place] [address] 363535 documented as of this encounter Visit Diagnoses Diagnosis Alcoholic cirrhosis of liver with ascites (H) Alcoholic cirrhosis of liver Alcoholic cirrhosis of liver with ascites (H) Alcoholic cirrhosis of liver documented in this encounter Additional Health Concerns Assessment Noted Time PHQ-9 Depression Total Score: 23 023 8:49 AM BLOOD BANK ORDER CONTROL CLERK documented as of this encounter Care Teams Cmm Operator Relationship Specialty Start Date End Date Mamadou Gong MD [address] [place] [place] [address] 15478 PCP - General Gastroenterology 10/20/24 Yesika Chirinos PA-C [facility] [address] [place] [address] [place] [address] Referring Physician Gastroenterology 07/23/[address] [place] [address] Registered Dietitian Dietitian, Registered 08/13/23 Reinier Lehman MD [address] [place] [address] 89986 Transplant Surgery 08/13/23 Mamadou Gong MD [address] [place] [place] [address] 96290 Gastroenterology 08/13/23 Arcelia Cid, BENCH WORKER HOLLOW HANDLE Float Phlebotomist 08/13/23 Mamadou Gong MD [address] [place] [place] [address] 96118 Assigned Gastroenterology Provider 08/30/23 Reinier Lehman MD [address] [place] [address] 63203 Assigned Surgical Provider 08/30/23 Trung Duran, [facility] Float Phlebotomist Float Phlebotomist - Clinical 09/30/23 Duran Luong MD [address] [place] [address] 83397 Assigned Pulmonology Provider 10/17/23 Osmany Rausch, teacher home therapyUnderwriting Account Representative Transplant 01/22/24 Hina Rojo MD [address] [place] [address] 17051 Assigned Infectious Disease Provider 03/07/24 Fabiola Epperson APRN LIBRARIAN SPECIAL COLLECTIONS [address] [place] [place] [address] 089665 Nurse Practitioner Anesthesiology 09/30/24 Jatin Carcamo MD [address] [place] [address] 69416 Physician Radiology 09/30/24 documented as of this encounter
--- OUTSIDE RECORDS SUMMARY | 2024-12-19 07:45 | XMS_ITS | Encounter Summary ---
Author Organization [place] Address [address] [place] [address] 69755 Care Team Providers Care Hand Cloth Folder Name Role Phone TaranMoisesYesikacatracho Gee PA-C Unavailable [phone] No Ref-Primary, Physician Primary Care Provider Priscila Rogers RD Unavailable Unavail able Reinier Lehman MD Unavailable Mamadou Gong MD Unavailable + [phone] Arcelia Cid ORACLE DATABASE DEVELOPER Unavailable [phone] Mamadou Gong MD Unavailable + [phone] Reinier Lehman MD Unavailable Trung Duran LGSW Unavailable Unavailable Duran Luong MD Unavailable +[phone] Osmany Rausch RN Unavailable Unavailable Hina Rojo MD Unavailable [phone] Fabiola Epperson APRN TOMBSTONE CARVER Unavailable [phone] Jatin Carcamo MD Unavailable [phone] Mamadou Gong MD Primary Care Provid er Encounter Details Date Type Department Care Team (Late st Contact Info) Description 09/28/2024 [facility] Hep[facility]ology Clinic [address] [phone] Mamadou Gong MD [address] [place] [place] [address]1852 Alcoholic cirrhosis of liver with ascites (H) [...] PM CDT Legal Sex Male 3:07 AM WELL DRILL OPERATOR HELPER CABLE TOOL Gender Identity Male 07/17/2023 2:30 PM CDT Sexual Orientation Not on file documented as of this encounter Plan of Treatment Upcoming Encounters Date Type Department Care Team (Late st Contact Info) Description 02/14/2025 10:30 AM CDT Appointment [facility] Imaging [address] [facility] [address] [place] [phone] Jatin Carcamo MD [address] [place] [address] 058545 02/21/2025 10:30 AM CDT Lab [facility] [address] 1st [place] [address] Mamadou Gong MD [address] [place] [place] [address] 46656 02/21/2025 11:30 AM CDT Office Visit [facility] Hepatology Clinic [address] [phone] Mamadou Gong MD [address] [place] [place] [address] 08387 05/19/2025 10:30 AM CDT Appointment [facility] Imaging [address] [place] [address] [place] [phone] Jatin Carcamo MD [address] [place] [address] 36324 05/19/2025 11:15 AM CDT Lab [facility] [address] [place] [address] 05/26/2025 10:30 AM CDT Virtual Visit [facility] V[facility] Clinic [address] 3rd [place] [phone] Jatin Carcamo MD [address] [place] [address] 69606 documented as of this encounter Visit Diagnoses Diagnosis Alcoholic cirrhosis of liver with ascites (H) Alcoholic cirrhosis of liver Alcoholic cirrhosis of liver with ascites (H) Alcoholic cirrhosis of liver documented in this encounter Additional Health Concerns Assessment Noted Time PHQ-9 Depression Total Score: 23 023 8:49 AM WELL DRILL OPERATOR HELPER CABLE TOOL documented as of this encounter Care Teams Hand Cloth Folder Relationship Specialty Start Date End Date No Ref-Primary, Physician PCP - General 07/24/23 10/19/24 Mamadou Gong MD [address] [place] [place] [address] 00192 PCP - General Gastroenterology 10/20/24 Yesika Chirinos PA-C [facility] [address] [place] [address] [place] [address] Referring Physician Gastroenterology 07/23/[address] [facility] 420 [facility] 84 [place] [address] Registered Dietitian Dietitian, Registered 08/13/23 Reinier Lehman MD [address] [place] [address] 58793 Transplant Surgery 08/13/23 Mamadou Gong MD [address] [place] [place] [address] 18578 Gastroenterology 08/13/23 Arcelia Cid, ORACLE DATABASE DEVELOPER Marble Cutter 08/13/23 Mamadou Gong MD [address] [place] [place] [address] 35692 Assigned Gastroenterology Provider 08/30/23 Reinier Lehman MD [address] [place] [address] 51232 Assigned Surgical Provider 08/30/23 Trung Duran, [facility] Marble Cutter Marble Cutter - Clinical 09/30/23 Duran Luong MD [address] [place] [address] 57628 Assigned Pulmonology Provider 10/17/23 Osmany Rausch, director blood bankSenior Technical Writer Transplant 01/22/24 Hina Rojo MD [address] [place] [address] [address] [place] [address] Assigned Infectious Disease Provider 03/07/24 Fabiola Epperson APRN TOMBSTONE CARVER [address] [place] [address] 40157 Nurse Practitioner Anesthesiology 09/30/24 Jatin Carcamo MD [facility] [place] [address] Physician Radiology 09/30/24 documented as of this encounter
--- OUTSIDE RECORDS SUMMARY | 2024-12-19 07:45 | XMS_ITS | Encounter Summary ---
Author Organization [facility] Address [address] [place] [id number] Care Team Providers Care Residency Program Coordinator Name Role Phone Yesika Chirinos PA-C Unavailable [phone] Unavailable Unavail able Reinier Lehman MD Unavailable Mamadou Gong MD Unavailable + [phone] Arcelia Cid TON CONTAINER SHIPPER Unavailable [phone] Mamadou Gong MD Unavailable + [phone] Reinier Lehman MD Unavailable Trung Duran TERMITE INSPECTOR Unavailable Unavailable Duran Luong MD Unavailable +[phone] Osmany Rausch RN Unavailable Unavailable Hina Rojo MD Unavailable +[phone] Fabiola Epperson APRN RN NEONATAL Unavailable +[phone] Jatin Carcamo MD Unavailable +[phone] Mamadou Gong MD Primary Care Provid er Reason for Visit * Reason Onset Date Comments Call To Schedule Appointment 11/09/2024 Encounter Details Date Type Department Care Team (Late st Contact Info) Description 11/09/2024 Telephone [facility] [address] [phone] Jatin Carcamo MD [address] [place], [place] [phone] Call To Schedule Appointment Social History Tobacco Use Types Packs/Day [...] PM CDT Legal Sex Male 3:07 AM BAILIFF Gender Identity Male 07/17/2023 2:30 PM CDT Sexual Orientation Not on file documented as of this encounter Progress Notes * Michelle Rhoda - 11/09/2024 3:06 PM CST Patient called because he was having difficulty seeing the appointments we scheduled in his [facility]. I verified that his appointment we still scheduled and referred him to the [facility] support number ([phone]). eyr IFF documented in this encounter Miscellaneous Notes * Telephone Encounter - Rhoda Martinez - 11/09/2024 3:06 PM CST Patient confirmed scheduled appointment: Date: 12/09/24 Time: 2:30 PM Appt type: Return Vascular Patient Appt mode: In Person Provider: Dr. Jatin Carcamo Location: [facility] Vascular Is Imaging Needed: Yes, US & labs in [place] (scheduled 12/07) Additional Notes: [address] [place] [address] IFF documented in this encounter Plan of Treatment Upcoming Encounters Date Type Department Care Team (Late st Contact Info) Description 02/14/2025 10:30 AM CDT Appointment [facility] [id number] [facility] [address] [place] [phone] Jatin Carcamo MD [address] [place] [address] [id number] 02/21/2025 10:30 AM CDT Lab [facility] [address] 1st [place] [phone] Mamadou Gong MD [address] [place] [address] 02/21/2025 11:30 AM CDT Office Visit [facility] [address] [phone] Mamadou Gong MD [address] [place] [address] 05/19/2025 10:30 AM CDT Appointment [facility] [address] [facility] [address] [place] [phone] Jatin Carcamo MD [address] [place] [address] [id number] 05/19/2025 11:[address] [facility] [address] [place] [phone] 05/26/2025 10:30 AM CDT Virtual Visit [facility] [address] [facility] 3rd [place] [phone] Jatin Carcamo MD [address] [place] [address] [phone] documented as of this encounter Visit Diagnoses Not on filedocumented in this encounter Additional Health Concerns Assessment Noted Time PHQ-9 Depression Total Score: 23 023 8:49 AM BAILIFF documented as of this encounter Care Teams Residency Program Coordinator Relationship Specialty Start Date End Date Mamadou Gong MD [address] [place] [address] PCP - General Gastroenterology 10/20/24 Yesika Chirinos PA-C [facility] [address] [place] [address] [place] [address] Referring Physician Gastroenterology 07/23/[address] [address] Registered Dietitian Dietitian, Registered 08/13/23 Reinier Lehman MD [address] [place] [address] Transplant Surgery 08/13/23 Mamadou Gong MD [address] [place] [address] Gastroenterology 08/13/23 Arcelia Cid, TON CONTAINER SHIPPER Collar Worker 08/13/23 Mamadou Gong MD [address] [place] [address] Assigned Gastroenterology Provider 08/30/23 Reinier Lehman MD [address] [place] [address] Assigned Surgical Provider 08/30/23 Trung Duran, [facility] Collar Worker Collar Worker - Clinical 09/30/23 Duran Luong MD [address] [place] [address] Assigned Pulmonology Provider 10/17/23 Osmany Rausch, lap cutter truer operatorEnglish Tutor Transplant 01/22/24 Hina Rojo MD [address] [place] [address] [id number] Assigned Infectious Disease Provider 03/07/24 Fabiola Epperson APRN RN NEONATAL [address] [place] [address] [phone] Nurse Practitioner Anesthesiology 09/30/24 Jatin Carcamo MD [address] [place] [address] [id number] Physician Radiology 09/30/24 documented as of this encounter
--- OUTSIDE RECORDS SUMMARY | 2024-12-19 07:45 | XMS_ITS | Encounter Summary ---
Author Organization [facility] Address [address] [place] [address] Care Team Providers Care Print Finishing Worker Name Role Phone Taran Yesikacatracho Gee PA-C Unavailable [phone] Unavailable Unavail able Reinier Lehman MD Unavailable Mamadou Gong MD Unavailable + [phone] Arcelia Cid COMMERCIAL ACCOUNT MANAGER Unavailable [phone] Mamadou Gong MD Unavailable + [phone] Reinier Lehman MD Unavailable Trung Duran PROFESSOR OF BIBLICAL STUDIES Unavailable Unavailable Duran Luong MD Unavailable [phone] Osmany Rausch RN Unavailable Unavailable Hina Rojo MD Unavailable [phone] Fabiola Epperson APRN BLUEPRINT BLOCKER Unavailable [phone] Jatin Carcamo MD Unavailable +[phone] Mamadou Gong MD Primary Care Provid er Reason for Visit * Auth/Cert Specialty Diagnoses / Procedures Referred By Contgrayson t Referred To Contact Surgery Diagnoses Alcoholic cirrhosis of liver with ascites (H) Alcoholic cirrhosis of liver with ascites (H) [K70.31] Procedures ANESTHESIA, IN NON-OPERATING ROOM SETTING transjugular intrahepatic portosystemic shunt (TIPS) procedure with ice possible embolization and paracentesis @1030 [facility] [address] [place] [address] Phone: tel: fax: Referral ID Status Reason Start Date Expiration Date Visits Re quested Visits Authorized [id number] 1 1 Encounter Details Date Type Department Care Team (Late st Contact Info) Description 11/08/2024 10:43 AM AQUEDUCT AND RESERVOIR KEEPER Anesthesia Event [facility] [address] [place] [phone] Andre Sales MD [address] [place] [address] Jessica Ball MD [address] [place] [address] Anesthesia Record Procedure Summary Procedure Name Responsible Anesthesiologist Anesthesia Start Time Anesthesia Stop Time ANESTHESIA, IN NON-OPERATING ROOM SETTING transjugular intrahepatic portosystemic shunt (TIPS) procedure with ice possible embolization and paracentesis @1030 (Update) Andre Sales MD 11/08/24 1043 11/08/24 1457 Events Date Time Event Comment 11/08/2024 0923 Blood Req 0923 Blood Req 1043 An Start Anesthesia Star t is defined as when the anesthesia provider assumed care, began anesthesia prep, remained continuously present with the patient, and excludes all time for performing the pre-anesthesia evaluation. The Pre-Anesthesia Evaluation was completed before Anesthesia Start. 1043 An Start Data 1043 AN REASSESS I attest that I have identified and re-evaluated the patient immediately before the induction of anesthesia and I am satisfied that the anesthetic plan is suitable for the patient's condition and procedure. The first vital signs recorded are pre-induction. Jessica Ball MD 1057 An Induction 1101 An Intubation 1106 Anesthesia Ready for Procedu re 1444 AN Extubation All extubation criteria met prior to removal. 1447 an stop data 1457 An Stop Electronically signed by Jessica Ball MD on November 08, 2024 2:57 PM Meds Name Total fentaNYL 50 mcg/mL 100 mcg lidocaine 2% 80 mg propofol 10 mg/mL 200 mg rocuronium 10 mg/mL 150 mg phenylephrine (ANITA-SYNEPHRINE) injection 400 mcg dexamethasone (DECADRON) 4 mg/mL 4 mg ondansetron 2 mg/mL 4 mg sugammadex (BRIDION) 200mg/2mL 300 mg clindamycin (CLEOCIN) 900 mg in 50 mL D5 W intermittent infusion 900 mg fosaprepitant (EMEND) 150 mg in sodium chloride 0.9 % 275 mL intermittent infusion 150 mg LR 2,000 mL * Agents Name O2 N2O Air Exp Sevoflurane Exp Isoflurane Exp Desflurane Ins Sevoflurane Ins Isoflurane Ins Desflurane * Blood No blood administrations on file. Lines, Drains, and Airways Type Details Placement Removal Peripheral IV 11/08/24; 1021; 16 G ; Anterior, Right; Upper forearm; 1; 1 11/08/24 1021 by Sudhir Garcia RN 11/08/241949 by Dora Montelongo RN ETT Placement Date: 11/08/24; Placement Time: 110 (created via procedure documentation); Mask Ventilation: 1; Induction Type: Intravenous; Ease of Intubation: Easy; Technique: Direct laryngoscopy; Tube Size: 7.5 mm; DL Blade Size: MAC 4; Grade View: 1; Adjucts: Stylet; Placement Person: Resident; Attempts: 1 11/08/24 1101 by Jessica Ball MD 11/08/24 1444 by Jessica Ball MD Peripheral IV 11/08/24; 1105; 16 G ; BD; Left; Lower forearm 11/08/24 1105 by Jessica Ball MD 11/08/241999 by Dora Montelongo RN Urinary Drain 11/08/24; 1116; Urethral Catheter; No; Bull Garcia; Surgical procedure; 16 fr 11/08/24 1116 by Kristen Betancur RN 11/08/24 1430 by Chichi Torres RN Right Jugular Interventional Procedure Access #1; 11/08/24; 1135; 11/08/24; 212811/08/24 1135 by Kristen Betancur RN 11/08/242128 by Inpatient, Nurse Right Groin Interventional Procedure Access #1 (venous); 11/08/24; 1136; 11/08/24; 212811/08/24 1136 by Kristen Betancur RN 11/08/242128 by Inpatient, Nurse documented in this encounter Social History Tobacco Use Types Packs/Day Years [...] PM CDT Legal Sex Male 3:07 AM AQUEDUCT AND RESERVOIR KEEPER Gender Identity Male 07/17/2023 2:30 PM CDT Sexual Orientation Not on file documented as of this encounter OR Notes * Anesthesia Postprocedure Evaluation - Chris Valverde MD - 11/08/2024 3:05 PM CST Patient: Adrián Shoemaker Procedure: Procedure(s): ANESTHESIA, IN NON-OPERATING ROOM SETTING transjugular intrahepatic portosystemic shunt (TIPS) procedure with ice possible embolization and paracentesis @1030 Anesthesia Type: General Note: Disposition: Outpatient Postop Pain Control: Uneventful Sign Out: Well controlled pain PONV: No Neuro/Psych: Uneventful Sign Out: Acceptable/Baseline neuro status Airway/Respiratory: Uneventful Sign Out: Acceptable/Baseline resp. status CV/Hemodynamics: Uneventful Sign Out: Acceptable CV status; No obvious hypovolemia; No obvious fluid overload Other NRE: NONE DID A NON-ROUTINE EVENT OCCUR? No Last vitals: Vitals Value Taken Time BP 123/102 02/24/25 1500 Temp Pulse 78 11/08/24 1504 Resp 16 11/08/24 1504 SpO2 96 % 11/08/24 1504 Vitals shown include unfiled device data. Electronically Signed By: Chris Valverde MD November 08, 2024 3:05 PM DUCT AND RESERVOIR KEEPER * Anesthesia Procedure Notes - Jessica Ball MD - 11/08/2024 11:16 AM AQUEDUCT AND RESERVOIR KEEPER Associated Order(s): Airway Airway Patient location during procedure: OR Procedure [...] Administered Medication Administration Time: 11/08/2024 11:01 AM DUCT AND RESERVOIR KEEPER * Anesthesia Preprocedure Evaluation - Andre Sales MD - 11/07/2024 3:06 PM AQUEDUCT AND RESERVOIR KEEPER Anesthesia Pre-Procedure Evaluation Patient: Adrián Shoemaker : 1990 Procedure : Procedure(s): ANESTHESIA, IN NON-OPERATING ROOM SETTING transjugular intrahepatic portosystemic shunt (TIPS) procedure with ice possible embolization and paracentesis @1030 Past Medical History: Diagnosis Date Acute alcoholic hepatitis (H) Alcoholic cirrhosis of liver with ascites (H) 07/23/2023 Depressive disorder Infectious mononucleosis Marijuana use PTSD (post-traumatic stress disorder) Past Surgical History: Procedure Laterality Date HAND SURGERY Right IR PARACENTESIS 10/13/2022 LIVER BIOPSY Allergies Allergen Reactions Penicillins Anaphylaxis Other Reaction(s): *Unknown - Childhood Rxn, Other: HIVES Rash - hives Penicillin G Benzathine & Proc Spironolactone Other (See Comments) gynecomastia Social History Tobacco Use Smoking status: Former Current packs/day: 0.10 Average packs/day: 0.1 packs/day for 11.0 years (1.1 ttl pk-yrs) Types: Cigarettes Start date: 11/23/2013 Passive exposure: Current Smokeless tobacco: Never Substance Use Topics Alcohol use: Not Currently Comment: Last drink 10/12/2022; would drink 1.75L of hard alcohol every 2 days Wt Readings from Last 1 Encounters: 10/14/24 85.3 kg (188 lb) Anesthesia Evaluation Pt has had prior anesthetic. History of anesthetic complications - PONV. admitted after liver biopsy after receiving midazolam and fentanyl for sleepiness. Had delayed nausea after being admitted to obs.. ROS/MED HX ENT/Pulmonary: (+) tobacco use, Past use, (-) asthma, COPD, sleep apnea and recent URI Neurologic: Comment: - hepatic encephalopathy - H/o TBI in 2014 (+) seizures (alcohol withdrawal seizure), last seizure: 2019, (-) no CVA and migraines Cardiovascular: (+) - - - - - Previous cardiac testing Echo: Date: 08/19/23 Results: Interpretation Summary Global and regional left ventricular function is normal with an EF of 60-65%. Global right ventricular function is normal. No significant valvular abnormalities present. Pulmonary artery systolic pressure is normal. IVC diameter and respiratory changes fall into an intermediate range suggesting an RA pressure of 8 mmHg. No pericardial effusion is present. Stress Test: Date: Results: ECG Reviewed: Date: 08/19/23 Results: SB with sinus arrhythmia Cath: Date: 08/20/23 Results: IMPRESSION: 1. Normal coronary anatomy with no detectable atherosclerosis. 2. Total Agatston score 0 placing the patient in the lowest percentile when compared to an age- and gender-matched control group. 3. Please review the separate Radiology report for incidental noncardiac findings. (-) hypertension, PARR, orthopnea/PND and dyslipidemia METS/Exercise Tolerance: >4 METS Comment: Able to work out for 40 mins without any exertional symptoms. Hematologic: Comments: - Thrombocytopenia (-) history of blood clots and history of blood transfusion Musculoskeletal: - neg musculoskeletal ROS GI/Hepatic: Comment: - Esophageal varices s/p banding in 12/2022 (+) GERD, Asymptomatic on medication, liver disease (alcoholic cirrhosis), Renal/Genitourinary: - neg Renal ROS (-) renal disease and nephrolithiasis Endo: - neg endo ROS (-) Type II DM Psychiatric/Substance Use: (+) psychiatric history anxiety, depression and other (comment) (PTSD) alcohol abuse (in remission since 09/2022) Recreational drug usage: Cannabis. Infectious Disease: - neg infectious disease ROS (-) Recent Fever Malignancy: - neg malignancy ROS Other: Physical Exam Airway Mallampati: I TM distance: > 3 FB Neck ROM: full Mouth opening: > 3 cm Respiratory Devices and Support Dental (+) Minor Abnormalities - some fillings, tiny chips Cardiovascular cardiovascular exam normal Rhythm and rate: regular and normal Pulmonary breath sounds clear to auscultation OUTSIDE LABS: CBC: Lab Results Component Value Date WBC 4.4 10/20/2024 WBC 4.8 08/19/2024 HGB 13.5 10/20/2024 HGB 14.6 08/19/2024 HCT 38.4 (L) 10/20/2024 HCT 41.3 08/19/2024 PLT 45 (LL) 10/20/2024 PLT 46 (LL) 08/19/2024 BMP: Lab Results Component Value Date NA 137 10/20/2024 NA 140 08/19/2024 POTASSIUM 4.0 10/20/2024 POTASSIUM 3.9 08/19/2024 CHLORIDE 106 10/20/2024 CHLORIDE 109 (H) 08/19/2024 CO2 23 10/20/2024 CO2 25 08/19/2024 BUN 8.6 10/20/2024 BUN 6.9 08/19/2024 CR 0.82 10/20/2024 CR 0.84 08/19/2024 GLC 96 10/20/2024 GLC 114 (H) 08/19/2024 COAGS: Lab Results Component Value Date INR 1.67 (H) 10/20/2024 POC: No results found for: BGM, HCG, HCGS HEPATIC: Lab Results Component Value Date ALBUMIN 3.7 10/20/2024 PROTTOTAL 6.2 (L) 10/20/2024 ALT 38 10/20/2024 AST 52 (H) 10/20/2024 ALKPHOS 152 (H) 10/20/2024 BILITOTAL 3.4 (H) 10/20/2024 OTHER: Lab Results Component Value Date A1C 5.0 08/19/2024 GREGG 8.6 (L) 10/20/2024 PHOS 2.8 08/19/2024 TSH 2.32 08/19/2024 Anesthesia Plan ASA Status: 3 NPO Status: NPO Appropriate Anesthesia Type: General. - Airway: ETT Induction: Intravenous, Propofol. Maintenance: Balanced. Techniques and Equipment: - Lines/Monitors: 2nd IV, BIS - Blood: Blood in Room, PRBC, T&C, PLT, FFP Consents Anesthesia Plan(s) and associated risks, benefits, and realistic alternatives discussed. Questions answered and patient/counter sales representative(s) expressed understanding. - Discussed: Risks, Benefits and Alternatives for BOTH SEDATION and the PROCEDURE were discussed - Discussed with: - Extended Intubation/Ventilatory Support Discussed: No. - Patient is DNR/DNI Status: No Use of blood products discussed: Yes. - Discussed with: Patient. - Consented: consented to blood products Postoperative Care Pain management: IV analgesics, Oral pain medications, Multi-modal analgesia. PONV prophylaxis: Ondansetron (or other 5HT-3), Dexamethasone or Solumedrol, Aprepitant Comments: Jessica Ball MD I have reviewed the pertinent notes and labs in the chart from the past 30 days and (re)examined the patient. Any updates or changes from those notes are reflected in this note. Clinically Significant Risk Factors Present on Admission # Overweight: Estimated body mass index is 25.5 kg/m?? as calculated from the following: Height as of 10/14/24: 1.829 m (6'). Weight as of 10/14/24: 85.3 kg (188 lb). DUCT AND RESERVOIR KEEPER DUCT AND RESERVOIR KEEPER DUCT AND RESERVOIR KEEPER documented in this encounter Miscellaneous Notes * Anesthesia Care Transfer Note - Jessica Ball MD - 11/08/2024 2:58 PM AQUEDUCT AND RESERVOIR KEEPER Patient: Adrián Shoemaker Procedure: Procedure(s): ANESTHESIA, IN NON-OPERATING ROOM SETTING transjugular intrahepatic portosystemic shunt (TIPS) procedure with ice possible embolization and paracentesis @1030 Diagnosis: Alcoholic cirrhosis of liver with ascites (H) [K70.31] Diagnosis Additional Information: No value filed. Anesthesia Type: General Note: Oropharynx: oropharynx clear of all foreign objects and spontaneously breathing Level of Consciousness: awake and drowsy Oxygen Supplementation: face mask Level of Supplemental Oxygen (L/min / FiO2): 6 Independent Airway: airway patency satisfactory and stable Dentition: dentition unchanged Vital Signs Stable: post-procedure vital signs reviewed and stable Report to RN Given: handoff report given Patient transferred to: PACU Handoff Report: Identifed the Patient, Identified the Reponsible Provider, Reviewed the pertinent medical history, Discussed the surgical course, Reviewed Intra-OP anesthesia mangement and issues during anesthesia, Set expectations for post-procedure period and Allowed opportunity for questions andacknowledgement of understanding Vitals: Vitals Value Taken Time BP Temp Pulse 91 11/08/24 1457 Resp 12 11/08/24 1457 SpO2 99 % 11/08/24 1457 Vitals shown include unfiled device data. Electronically Signed By: Jessica Ball MD November 08, 2024 2:58 PM DUCT AND RESERVOIR KEEPER documented in this encounter Plan of Treatment Upcoming Encounters Date Type Department Care Team (Late st Contact Info) Description 02/14/2025 10:30 AM CDT Appointment [facility] [id number] [facility] [address] [place] [phone] Jatin Carcamo MD [address] [place] [phone] 02/21/2025 10:30 AM CDT Lab [facility] [address] [place] [phone] Mamadou Gong MD [address] [place] [address] 02/21/2025 11:30 AM CDT Office Visit [facility] [address] [phone] Mamadou Gong MD [address] [place] [address] 05/19/2025 10:30 AM CDT Appointment [facility] [address] [place] [phone] Jatin Carcamo MD [address] [place] [address] 05/19/2025 11:15 AM CDT Lab [facility] [address] [place] [phone] 05/26/2025 10:30 AM CDT Virtual Visit [facility] [address] [place] [phone] Jatin Carcamo MD [address] [place] [address] documented as of this encounter Procedures Procedure Name Priority Date/Time Associated Diagnosis Comments ANE AIRWAY ETT PERFORMABLE Routine 11/08/2024 11:01 AM AQUEDUCT AND RESERVOIR KEEPER documented in this encounter Results * ANE AIRWAY ETT PERFORMABLE (11/08/2024 11:01 AM AQUEDUCT AND RESERVOIR KEEPER) Narrative Jessica Ball MD - 11/08/2024 11:01 AM AQUEDUCT AND RESERVOIR KEEPER Jessica Ball MD 11/08/2024 11:17 AM Airway [...] Administered Medication Administration Time: 11/08/2024 11:01 AM Andre Sales MD [place] ANESTHESIA Final Result documented in this encounter Visit Diagnoses Not on filedocumented in this encounter Administered Medications Inactive Administered Medications - up to 3 most recent administrations Medication Order MAR Action Action Date Dose Rate Site clindamycin (CLEOCIN) 900 mg in 50 mL D5W intermittent infusion Routine, 900 mg, Intravenous, SEE ADMIN INSTRUCTIONS, Starting on Fri11/08/24 at 0855, Intra-Op Dose. Give every 6 hours while patient in surgery, starting 6 hours after pre-op dose., Indications: Perioperative Pharmacoprophylaxis, Pre-procedureIndications:Perioperat tamika Pharmacoprophylaxis $Given 11/08/2024 10:19 AM AQUEDUCT AND RESERVOIR KEEPER 900 mg dexAMETHasone (DECADRON) injection Intravenous, PRN, Administer over 1 Minutes, Starting on Fri11/08/24 at 1113, Anesthesia Intra-op $Given 11/08/2024 11:13 AM AQUEDUCT AND RESERVOIR KEEPER 4 mg fentaNYL (PF) (SUBLIMAZE) injection Intravenous, PRN, Administer over 3-5 Minutes, Starting on Fri11/08/24 at 1050, Anesthesia Intra-op $Given 11/08/2024 2:36 PM AQUEDUCT AND RESERVOIR KEEPER 50 mcg $Given 11/08/2024 10:50 AM AQUEDUCT AND RESERVOIR KEEPER 50 mcg fosaprepitant (EMEND) 150 mg in sodium chloride 0.9 % 275 mL intermittent infusion 150 mg, Intravenous, ONCE, On Fri11/08/24 at 0900, For 1 dose, Administer over 20 Minutes, Pre-procedure $New Bag 11/08/2024 10:36 AM AQUEDUCT AND RESERVOIR KEEPER 150 mg lactated ringers infusion Intravenous, CONTINUOUS PRN, Anesthesia Intra-op, Starting on Fri11/08/24 at 1043, Until Fri11/08/24 at 1457 $New Bag 11/08/2024 10:43 AM AQUEDUCT AND RESERVOIR KEEPER lidocaine 2% injection (MDV) Intravenous, PRN, Starting on Fri11/08/24 at 1057, Anesthesia Intra-op $Given 11/08/2024 10:57 AM AQUEDUCT AND RESERVOIR KEEPER 80 mg ondansetron (ZOFRAN) injection Intravenous, PRN, Administer over 2-5 Minutes, Starting on Fri11/08/24 at 1423, Anesthesia Intra-op $Given 11/08/2024 2:23 PM AQUEDUCT AND RESERVOIR KEEPER 4 mg phenylephrine (ANITA-SYNEPHRINE) injection Intravenous, CONTINUOUS PRN, Starting on Fri11/08/24 at 1057, Anesthesia Intra-op $Bolus 11/08/2024 2:09 PM AQUEDUCT AND RESERVOIR KEEPER 200 mcg $Bolus 11/08/2024 2:02 PM AQUEDUCT AND RESERVOIR KEEPER 100 mcg $New Bag 11/08/2024 10:57 AM AQUEDUCT AND RESERVOIR KEEPER 100 mcg propofol (DIPRIVAN) injection 10 mg/mL vial Intravenous, PRN, Starting on Fri11/08/24 at 1057, Anesthesia Intra-op $Given 11/08/2024 10:57 AM AQUEDUCT AND RESERVOIR KEEPER 200 mg rocuronium injection Intravenous, PRN, Starting on Fri11/08/24 at 1058, Anesthesia Intra-op $Given 11/08/2024 1:35 PM AQUEDUCT AND RESERVOIR KEEPER 30 mg $Given 11/08/2024 1:03 PM AQUEDUCT AND RESERVOIR KEEPER 20 mg $Given 11/08/2024 12:10 PM AQUEDUCT AND RESERVOIR KEEPER 30 mg sugammadex (BRIDION) injection Intravenous, PRN, Starting on Fri11/08/24 at 1439, Anesthesia Intra-op $Given 11/08/2024 2:42 PM AQUEDUCT AND RESERVOIR KEEPER 100 mg $Given 11/08/2024 2:39 PM AQUEDUCT AND RESERVOIR KEEPER 200 mg documented in this encounter Additional Health Concerns Assessment Noted Time PHQ-9 Depression Total Score: 23 023 8:49 AM AQUEDUCT AND RESERVOIR KEEPER documented as of this encounter Care Teams Print Finishing Worker Relationship Specialty Start Date End Date Mamadou Gong MD [address] [place] [address] PCP - General Gastroenterology 10/20/24 Yesika Chirinos PA-C [address] [place] [address] Referring Physician Gastroenterology 07/23/[address] [address] Registered Dietitian Dietitian, Registered 08/13/23 Reinier Lehman MD [address] [place] [address] Transplant Surgery 08/13/23 Mamadou Gong MD [address] [place] [address] Gastroenterology 08/13/23 Arcelia Cid, COMMERCIAL ACCOUNT MANAGER Component Assembler Supervisor 08/13/23 Mamadou Gong MD [address] [place] [address] Assigned Gastroenterology Provider 08/30/23 Reinier Lehman MD [address] [place] [address] Assigned Surgical Provider 08/30/23 Trung Duran, [facility] Component Assembler Supervisor Component Assembler Supervisor - Clinical 09/30/23 Duran Luong MD [address] [place] [address] Assigned Pulmonology Provider 10/17/23 Osmany Rausch, book joggerBrand Communications Manager Transplant 01/22/24 Hina Rojo MD [address] [place] [address] Assigned Infectious Disease Provider 03/07/24 Fabiola Epperson APRN [facility] [address] [place] [address] Nurse Practitioner Anesthesiology 09/30/24 Jatin Carcamo MD [address] [place] [address] [phone] Physician Radiology 09/30/24 documented as of this encounter
--- OUTSIDE RECORDS SUMMARY | 2024-12-19 07:45 | XMS_ITS | Encounter Summary ---
Author Organization [facility] Address [address] [place] [address] 41697 Care Team Providers Care Traffic Reporter Name Role Phone Taran Yesikacatracho Gee PA-C Unavailable [phone] Everette Pfeiffer RN, Thomas Unavailable [phone] No Ref-Primary, Physician Primary Care Provider Priscila Rogers RD Unavailable Unavail able Reinier Lehman MD Unavailable Mamadou Gong MD Unavailable + [phone] Arcelia Cid BOILER MECHANIC Unavailable [phone] Mamadou Gong MD Unavailable + [phone] Reinier Lehman MD Unavailable Trung Duran AUTOMATIC DIE CUTTING MACHINE OPERATOR Unavailable Unavailable Duran Luong MD Unavailable [phone] Osmany Rausch RN Unavailable Unavailable Hina Rojo MD Unavailable [phone] Fabiola Epperson APRN ELECTRONIC PLOTTING SYSTEM OPERATOR Unavailable +[phone] Jatin Carcamo MD Unavailable [phone] Mamadou Gong MD Primary Care Provid er Encounter Details Date Type Department Care Team (Late st Contact Info) Description 01/08/2024 [facility] Transplant [facility] [address] [place] [phone] Mamadou Gaviria Jr., RN Social History Tobacco [...] PM CDT Legal Sex Male 3:07 AM FLORAL ARRANGER Gender Identity Male 07/17/2023 2:30 PM CDT Sexual Orientation Not on file documented as of this encounter Plan of Treatment Upcoming Encounters Date Type Department Care Team (Late st Contact Info) Description 02/14/2025 10:30 AM CDT Appointment [facility] [address] [facility] [address] [place] [address] Jatin Carcamo MD [address] [place] [address] [phone] 02/21/2025 10:30 AM CDT Lab [facility] Lab [address] 1st [place] [phone] Mamadou Gong MD [address] [place] [address] 02[address] 02/21/2025 11:30 AM CDT Office Visit [facility] Hepatology Clinic [address] [phone] Mamadou Gong MD [address] [place] [address]09[address] 05/19/2025 10:30 AM CDT Appointment [facility] [address] [place] [phone] Jatin Carcamo MD [address] [place] [address] [phone] 05/19/2025 11:15 AM CDT Lab [facility] [address] [place] [phone] 05/26/2025 10:30 AM CDT Virtual Visit [facility] Vascular Clinic [address] 3rd [place] [address] Jatin Carcamo MD [address] [place] [address] 786365 documented as of this encounter Visit Diagnoses Not on filedocumented in this encounter Additional Health Concerns Assessment Noted Time PHQ-9 Depression Total Score: 023 8:49 AM FLORAL ARRANGER documented as of this encounter Care Teams Traffic Reporter Relationship Specialty Start Date End Date No Ref-Primary, Physician PCP - General 07/24/23 10/19/24 Mamadou Gong MD [address] [place] [address] 80614 PCP - General Gastroenterology 10/20/24 Yesika Chirinos PA-C [facility] [address] [place] [address] [place] [address] Referring Physician Gastroenterology 07/23/23 Mamadou Gaviria Jr., RN Nurse Coordinator Transplant 07/23/23 01/21/[address] [place] [address] Registered Dietitian Dietitian, Registered 08/13/23 eRinier Lehman MD [address] [place] [address] 80809 Transplant Surgery 08/13/23 Mamadou Gong MD [address] [place] [address] 27741 Gastroenterology 08/13/23 Arcelia Cid, BOILER MECHANIC Solar Panel Technician 08/13/23 Mamadou Gong MD [address] [place] [address] [phone] Assigned Gastroenterology Provider 08/30/23 Reinier Lehman MD [address] [place] [address] 49833 Assigned Surgical Provider 08/30/23 Trung Duran, [facility] Solar Panel Technician Solar Panel Technician - Clinical 09/30/23 Duran Luong MD [address] [place] [address] 497855 Assigned Pulmonology Provider 10/17/23 Osmany Rausch, trim attacherPublic Address System Installer Transplant 01/22/24 Hina Rojo MD [address] [place] [address] 956745 Assigned Infectious Disease Provider 03/07/24 Fabiola Epperson APRN ELECTRONIC PLOTTING SYSTEM OPERATOR [address] [place] [address] 507145 Nurse Practitioner Anesthesiology 09/30/24 Jatin Carcamo MD [address] [place] [address]8 Physician Radiology 09/30/24 documented as of this encounter
--- OUTSIDE RECORDS SUMMARY | 2024-12-19 07:45 | XMS_ITS | Encounter Summary ---
Author Organization [facility] Address [address] [place] [address] Care Team Providers Care Acting Manager Name Role Phone TaranMoisesYesikacatracho Gee PA-C Unavailable [phone] Unavailable Unavail able Reinier Lehman MD Unavailable Mamadou Gong MD Unavailable + [phone] Arcelia Cid EXPANDED FUNCTION DENTAL ASSISTANT Unavailable [phone] Mamadou Gong MD Unavailable + [phone] Reinier Lehman MD Unavailable Trung Duran PACKER DENTURE Unavailable Unavailable Duran Luong MD Unavailable [phone] Osmany Rausch RN Unavailable Unavailable Hina Rojo MD Unavailable [phone] Fabiola Epperson APRN PERSONAL FITNESS TRAINER Unavailable [phone] Jatin Carcamo MD Unavailable +[phone] Mamadou Gong MD Primary Care Provid er Reason for Referral * Diagnostic Imaging Ultrasound (Routine) - Pending Review Specialty Diagnoses / Procedures Referred By Josep t Referred To Contact Radiology. Diagnoses Alcoholic cirrhosis of liver with ascites (H) Secondary esophageal varices without bleeding (H) Procedures US Abdomen Complete with TIPS Doppler Jatin Carcamo MD [address] [place] [address] Phone: tel: fax: Referral ID Status Reason Start Date Expiration Date V isits Requested Visits Authorized [id number] Pending Review 11/09/2024 11/09/2025 1 1 LING GRADER Encounter Details Date Type Department Care Team (Late st Contact Info) Description 11/09/2024 Telephone [facility] Clinic [address] [place] [address] Janae Espinoza, RN Social History Tobacco Use Types Packs/Day [...] PM CDT Legal Sex Male 3:07 AM PICKLING GRADER Gender Identity Male 07/17/2023 2:30 PM CDT Sexual Orientation Not on file documented as of this encounter Miscellaneous Notes * Telephone Encounter - Janae Espinoza, RN - 11/09/2024 10:58 AM CST Called pt to fup on him s/p tips placement. He is doing well; no issues. Denies swelling Does have some pain but getting better; no issues at this time Puncture sites; looks good; closed-not oozing Advised to go back to all his medications stephanie. The lactulose and rifaximin. Informed him of HE. He states that he will. We talked about calling with any questions if needed prior to 1 mos fup. Pt has RN line We will have our communications executive reach out to help him schedule this appt He verbalized understanding Janae Boone RN, BSN Interventional Radiology/Vascular Nurse Coordinator , option 2 LING GRADER documented in this encounter Plan of Treatment Upcoming Encounters Date Type Department Care Team (Late st Contact Info) Description 02/14/2025 10:30 AM CDT Appointment [facility] Imaging [address] [facility] [address] [place] [phone] Jatin Carcamo MD [address] [place] [address] [phone] 02/21/2025 10:30 AM CDT Lab [facility] Lab [address] [place] [phone] Mamadou Gong MD [address] [place] [address] 02/21/2025 11:30 AM CDT Office Visit [facility] Hepatology Clinic [address] [phone] Mamadou Gong MD [address] [place] [address] 05/19/2025 10:30 AM CDT Appointment [facility] Imaging [address] [place] [phone] Jatin Carcamo MD [address] [place] [address] 05/19/2025 11:15 AM CDT Lab [facility] [place] [phone] 05/26/2025 10:30 AM CDT Virtual Visit [facility] Vascular Clinic [address] 3rd [place] [phone] Jatin Caracmo MD [address] [place] [address] documented as of this encounter Results * (ABNORMAL) INR (12/07/2024 10:12 AM CDT) INR 1.48(H) 0.85 - 1.15 12/07/2024 6:35 PM CDT [facility] Blood BLOOD SPECIMEN / Unknown Venipuncture / Unknown 12/07/2024 10:12 AM CDT 12/07/2024 10:13 AM CDT Jatin Carcamo MD LAB - BLOOD ORDERABLES Final Result [facility] [address] Lab (no room number, 1st floor of clinic) [place] [address], [facility] * (ABNORMAL) Comprehensive metabolic [...] - BLOOD ORDERABLES Final Result [facility] [place] [facility] [address] [facility], Room 3-895 [place] [address], [facility] * (ABNORMAL) CBC with platelets (12/07/2024 10:12 [...] MD LAB - BLOOD ORDERABLES Final Result [facility] [address] Lab (1st floor, no room number) [place] [address], [facility] * US Abdomen Complete with TIPS Doppler (12/07/2024 9:14 AM CDT) Anatomical Region Laterality Modality Abdomen/Pelvis, Vascular Ultraso und 12/07/2024 9:14 AM CDT Impressions 12/07/2024 4:24 PM CDT IMPRESSION: 1. Patent TIPS without definite evidence for a significant stenosis. Narrative 12/07/2024 4:24 PM CDT EXAM: US ABDOMEN COMPLETE WITH TIPS DOPPLER LOCATION: [facility] DATE: 12/07/2024 INDICATION: 1 mos fup [...] US ABDOMEN COMPLETE WITH TIPS DOPPLER LOCATION: [facility] DATE: 12/07/2024 INDICATION: 1 mos fup [...] for a significant stenosis. Jatin Carcamo MD Cristela US ORDERABLES Final Resul t documented in this [...] Depression Total Score: 23 023 8:49 AM PICKLING GRADER documented as of this encounter Care Teams Acting Manager Relationship Specialty Start Date End Date Mamadou Gong MD [address] [place] [address] 87369 PCP - General Gastroenterology 10/20/24 Yesika Chirinos PA-C [facility] [address] [place] [address] [place] [address] Referring Physician Gastroenterology 07/23/[address] [address] Registered Dietitian Dietitian, Registered 08/13/23 Reinier Lehman MD [address] [place] [address] 38562 Transplant Surgery 08/13/23 Mamadou Gong MD [address] [place] [address] 20199 Gastroenterology 08/13/23 Arcelia Cid, EXPANDED FUNCTION DENTAL ASSISTANT Contracts Advisor 08/13/23 Mamadou Gong MD [address] [place] [address] 11209 Assigned Gastroenterology Provider 08/30/23 Reinier Lehman MD [address] [place] [address] 52650 Assigned Surgical Provider 08/30/23 Trung Duran, [facility] Contracts Advisor Contracts Advisor - Clinical 09/30/23 Duran Luong MD [address] [place] [address] [phone] Assigned Pulmonology Provider 10/17/23 Osmany Rausch, applications chemistMilking Machine Mechanic Transplant 01/22/24 Hina Rojo MD [address] [place] [address] 56550 Assigned Infectious Disease Provider 03/07/24 Fabiola Epperson APRN [facility] [address] [place] [address] 794365 Nurse Practitioner Anesthesiology 09/30/24 Jatin Carcamo MD [address] [place] [address] [phone] Physician Radiology 09/30/24 documented as of this encounter
--- OUTSIDE RECORDS SUMMARY | 2024-12-19 07:45 | XMS_ITS | Encounter Summary ---
Author Organization [facility] Address [address] [place] [address] 18636 Care Team Providers Care Travel Attendants Name Role Phone TaranMoisesYesikacatracho Gee PA-C Unavailable [phone] No Ref-Primary, Physician Primary Care Provider Priscila Rogers RD Unavailable Unavail able Reinier Lehman MD Unavailable Mamadou Gong MD Unavailable + [phone] Arcelia Cid VULCAN CREWMEMBER Unavailable [phone] Mamadou Gong MD Unavailable + [phone] Reinier Lehman MD Unavailable Trung Duran LGSW Unavailable Unavailable Duran Luong MD Unavailable [phone] Osmany Rausch RN Unavailable Unavailable Hina Rojo MD Unavailable [phone] Fabiola Epperson APRN CORE OVEN TENDER Unavailable [phone] Jatin Carcamo MD Unavailable [phone] Mamadou Gong MD Primary Care Provid er Encounter Details Date Type Department Care Team (Late st Contact Info) Description 02/04/2024 [facility] Gastroenterology Clinic [address] [phone] Reddy Reeves Social History Tobacco Use Types Packs/Day Years [...] PM CDT Legal Sex Male 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 Imaging [address] [facility] [address] [place] [address] Jatin Caracmo MD [address] [place] [address] [phone] 02/21/2025 10:30 AM CDT Lab [facility] [address] 1st [place] [phone] Mamadou Gong MD [address] [place] [address] 687[address] 02/21/2025 11:30 AM CDT Office Visit [facility] Hepatology Clinic [address] [phone] Mamadou Gong MD [address] [place] [address] 15882 05/19/2025 10:[address] [facility] Imaging [address] [address] [place] [phone] Jatin Carcamo MD [address] [place] [address] 69278 05/19/2025 11:15 AM CDT Lab [facility] [address] [place] [phone] 05/26/2025 10:30 AM CDT Virtual Visit [facility] Vascular Clinic [address] 3rd [place] [phone] Jatin Carcamo MD [address] [place] [address] [phone] documented as of this encounter Visit Diagnoses Not on filedocumented in this encounter Additional Health Concerns Assessment Noted Time PHQ-9 Depression Total Score: 023 8:49 AM FLEET OPERATIONS MANAGER documented as of this encounter Care Teams Travel Attendants Relationship Specialty Start Date End Date No Ref-Primary, Physician PCP - General 07/24/23 10/19/24 Mamadou Gong MD [address] [place] [address] 39503 PCP - General Gastroenterology 10/20/24 Yesika Chirinos, PA-C [facility] [address] [place] [address] [place] [address] Referring Physician Gastroenterology 07/23/[address] [facility] [address] [facility] [address] [place] [address] Registered Dietitian Dietitian, Registered 08/13/23 Reinier Lehman MD [address] [place] [address] 14903 Transplant Surgery 08/13/23 Mamadou Gong MD [address] [place] [address] 94755 Gastroenterology 08/13/23 Arcelia Cid, VULCAN CREWMEMBER Store Clerk Checker 08/13/23 Mamadou Gong MD [address] [place] [address] 86059 Assigned Gastroenterology Provider 08/30/23 Reinier Lehman MD [address] [place] [address] [phone] Assigned Surgical Provider 08/30/23 Trung Duran, [facility] Store Clerk Checker Store Clerk Checker - Clinical 09/30/23 Duran Luong MD [address] [place] [address] 52885 Assigned Pulmonology Provider 10/17/23 Osmany Rausch, county coronerReducing Machine Operator Transplant 01/22/24 Hina Rojo MD [address] [place] [address] [phone] Assigned Infectious Disease Provider 03/07/24 Fabiola Epperson APRN CORE OVEN TENDER [address] [place] [address] 76145 Nurse Practitioner Anesthesiology 09/30/24 Jatin Carcamo MD [address] [place] [address] [phone] Physician Radiology 09/30/24 documented as of this encounter
--- OUTSIDE RECORDS SUMMARY | 2024-12-19 07:45 | XMS_ITS | Encounter Summary ---
Author Organization [place] Address [address] [place] [address] Care Team Providers Care Urgent Care Name Role Phone Yesika Chirinos PA-C Unavailable [phone] Unavailable Unavail able Reinier Lehman MD Unavailable Mamadou Gong MD Unavailable + [phone] Arcelia Cid LIFT DRIVER Unavailable Mamadou Gong MD Unavailable + [phone] Reinier Lehman MD Unavailable Trung Duran STITCHDOWN THREAD LASTER Unavailable Unavailable Duran Luong MD Unavailable [phone] Osmany Rausch RN Unavailable Unavailable Hina Rojo MD Unavailable [phone] Fabiola Epperson APRN OFFICE ADMINISTRATION INSTRUCTOR Unavailable [phone] Paula Colbert MD Unavailable [phone] Mamadou Gong MD Primary Care Provid er Reason for Referral * Diagnostic Imaging Ultrasound (Routine) - Pending Review Specialty Diagnoses / Procedures Referred By Josep t Referred To Contact Radiology. Diagnoses Alcoholic cirrhosis of liver with ascites (H) Procedures US Abdomen Complete with TIPS Doppler Rabia Collins, DO [address] [place] [address] Phone: tel: fax: Referral ID Status Reason Start Date Expiration Date V isits Requested Visits Authorized [id number] Pending Review 11/08/2024 11/08/2025 1 1 MANAGEMENT SPECIALIST Reason for Visit * Auth/Cert Specialty Diagnoses / Procedures Referred By Josep birch Referred To Contact Surgery Diagnoses Alcoholic cirrhosis of liver with ascites (H) Alcoholic cirrhosis of liver with ascites (H) [K70.31] Procedures ANESTHESIA, IN NON-OPERATING ROOM SETTING transjugular intrahepatic portosystemic shunt (TIPS) procedure with ice possible embolization and paracentesis @1030 M [facility] [address] [place] [address] Phone: tel: fax: Referral ID Status Reason Start Date Expiration Date Visits Re quested Visits Authorized [id number] 1 1 Encounter Details Date Type Department Care Team (Latest Contact Info) Description 11/08/2024 8:14 AM RISK MANAGEMENT SPECIALIST - 11/08/2024 8:20 PM RISK MANAGEMENT SPECIALIST Hospital Encounter [facility] [address] [place] [phone] Paula Colbert MD [address] [place] [address] [id number] Alcoholic cirrhosis of liver with ascites (H) [...] PM CDT Legal Sex Male 3:07 AM RISK MANAGEMENT SPECIALIST Gender Identity Male 07/17/2023 2:30 PM CDT Sexual Orientation Not on file documented as of this encounter Last Filed Vital Signs Vital Sign Reading Time Taken Comments Blood Pressure 111/71 11/08/2024 6:04 PM RISK MANAGEMENT SPECIALIST Pulse 61 11/08/2024 6:04 PM RISK MANAGEMENT SPECIALIST Temperature 37.2 C (99 F) 11/08/2024 6:04 PM RISK MANAGEMENT SPECIALIST Respiratory Rate 12 11/08/2024 6:04 PM RISK MANAGEMENT SPECIALIST Oxygen Saturation 98% 11/08/2024 8:00 PM RISK MANAGEMENT SPECIALIST Inhaled Oxygen Concentration - - Weight 82.8 kg (182 lb 8.7 oz) 11/08/2024 8:46 A M RISK MANAGEMENT SPECIALIST Height 182.9 cm (6') 11/08/2024 8:46 AM RISK MANAGEMENT SPECIALIST Body Mass Index 24.76 11/08/2024 8:46 AM RISK MANAGEMENT SPECIALIST documented in this encounter Discharge Summaries * Paula Colbert MD - 11/08/2024 8:14 AM CST IR DISCHARGE SUMMARY Date: 11/10/2024 Client Name Adrián Shoemaker Date of 1990 MR# [id number] Discharge Status: Same day discontinue as admit PROBLEMS PRESENTED AT ADMISSION: (Include reasons & circumstances for admission) Adrián Shoemaker is a 34 year old year old male with alcoholic liver cirrhosis and MELD score of 10. Pt admitted for TIPS procedure and discharged the same day without complications. Admitting diagnosis: Cirrhosis PROGRESS: Successful TIPS stent placement. Pt cleared for D/c Discharge Diagnosis: Cirrhosis s/p TIPS stent Discharge Medications: No current facility-administered medications for this encounter. Current Outpatient Medications Medication Sig Dispense Refill carvedilol (COREG) 3.125 MG tablet Take 1 tablet (3.125 mg) by mouth 2 times daily (with meals). 180 tablet 3 eplerenone (INSPRA) 50 MG tablet Take 1 tablet (50 mg) by mouth daily. (Patient taking differently:Take 50 mg by mouth every morning.) 90 tablet 3 lactulose (CHRONULAC) 10 GM/15ML solution Take 15 mLs (10 g) by mouth 3 times daily. 946 mL 11 omeprazole (PRILOSEC) [address] capsule Take 1 capsule (20 mg) by mouth daily (Patient taking differently: Take 20 mg by mouth 2 times daily.) 90 capsule 1 rifaximin (XIFAXAN) 550 MG TABS tablet Take 1 tablet (550 mg) by mouth 2 times daily. 180 tablet 3 nitroGLYcerin 9 MG CR capsule Take 9 mg by mouth 2 times daily. Discharge Plan and Recommendations: Living arrangements at discharge home. Prognosis: Nory Colbert MD VIR faculty MANAGEMENT SPECIALIST documented in this encounter Discharge Instructions * Discharge Instructions* Dora Montelongo RN - 11/08/2024 7:29 PM RISK MANAGEMENT SPECIALIST Contacting your Doctor - To contact a doctor, call the hospital drop hammer set up operator at [phone] and ask for the resident chemical operations specialist Interventional Radiology (answered 24 hours a day) Emergency Department: [facility]: [phone] 911 if you are in need of immediate or emergent help MANAGEMENT SPECIALIST MANAGEMENT SPECIALIST * Attachments The following attachments cannot be sent through Care Everywhere. * (s) After Anesthesia (Sleep Medicine) (Lithuanian) documented in this encounter Medications at Time of Discharge [...] 02/11/2024 12/14/2024 documented as of this encounter Procedure Notes * Paula Colbert MD - 11/08/2024 2:57 PM CSTAssociated Order(s): IR Procedure Note [facility] Procedure: IR Procedure Note Date/Time: 11/08/2024 2:53 PM Performed by: Rabia Collins DO Authorized by: Paula Colbert MD IR Fellow Physician: Pre Procedure Diagnosis: Cirrhosis Post Procedure Diagnosis: Same UNIVERSAL PROTOCOL Site Marked: NA Prior Images Obtained and Reviewed: Yes Required items: Required blood products, implants, devices and special equipment available Patient identity confirmed: Arm band, provided demographic data, hospital- assigned identification number and verbally with patient Patient was reevaluated immediately before administering moderate or deep sedation or anesthesia Confirmation Checklist: Correct equipment/implants were available, procedure was appropriate and matched the consent or emergent situation, relevant allergies and patient's identity using two indicators Time out: Immediately prior to the procedure a time out was called Albin Protocol: the Joint Commission Albin Protocol was followed Preparation: Patient was prepped [...] for 1:1 monitoring during sedation: 0 min MANAGEMENT SPECIALIST MANAGEMENT SPECIALIST documented in this encounter Miscellaneous Notes * Provider Notification - Inga Trujillo RN - 11/08/2024 5:02 PM RISK MANAGEMENT SPECIALIST Dr. Collins notified to removed woggle device; IR paged x3 with no response from either. IR fellow paged, as well, to see pt and remove woggle device. Awaiting response. MANAGEMENT SPECIALIST * IR Note - Surjit Vergara ARRT - 11/08/2024 2:52 PM CSTSummary: Pressures Pre: Wedge: 23,24 RA: 12 Post: Main portal: 11 Portal vein end of stent: 12 Mid stent:10 Hepatic venous end of stent: 8 RA: 9 MANAGEMENT SPECIALIST * IR Note - Chichi Torres RN - 11/08/2024 9:50 AM CST Patient Name: Adrián Shoemaker Today's Date: 11/08/2024 Procedure: Transvenous Intrahepatic Portosystemic Shunt Placement Proceduralist: Dr. Colbert, Dr Smith, Dr. Collins Pathology present: n/a Procedure Start: 112 Procedure end: 1430 Sedation: General Anesthesia Interventional Access: Right internal jugular vein Right femoral vein Report given to: Inga in PACU Manager Heart: n/a Other Notes: Pt arrived to IR room 4 from . Consent reviewed. Pt denies any questions or concernsregarding procedure. Pt positioned supine and monitored per protocol. Pt tolerated procedure without any noted complications. Pt transferred back to PACU. MANAGEMENT SPECIALIST documented in this encounter Plan of Treatment Upcoming Encounters Date Type Department Care Team (Late st Contact Info) Description 02/14/2025 10:[address] [facility] [address] [place] [address] Paula Colbert MD [address] [place] [phone] 02/21/2025 10:30 AM CDT Lab [facility] [address] [place] [phone] Mamadou Gong MD [address] [place] [address] 02/21/2025 11:30 AM CDT Office Visit [facility] [address] [phone] Mamadou Gong MD [address] [place] [address] 05/19/2025 10:[address] [facility] [address] [place] [address] Paula Colbert MD [address] [place] [address] 05/19/2025 11:15 AM CDT Lab [facility] [address] [place] [phone] 05/26/2025 10:30 AM CDT Virtual Visit [facility] [address]rd [place] [phone] Paula Colbert MD [address] [place] [phone] Pending Results Name Type Priority Associated Diagnoses Date /Time Prepare red blood cells (unit) Blood Bank Routine 11/08/2024 8:56 AM RISK MANAGEMENT SPECIALIST Prepare red blood cells (unit) Blood Bank Routine 11/08/2024 8:56 AM RISK MANAGEMENT SPECIALIST Scheduled Orders Name Type Priority Associated Diagnoses Orde r Schedule US Abdomen Complete with TIPS Doppler Imaging Radiology After Discharge Alcoholic cirrhosis of liver with ascites (H) Expected: 12/06/2024 (Approximate), Expires: 11/08/2025 documented as of this encounter Procedures Procedure Name Priority Date/Time Associated Diagnosis Comments IR TRANSVEN INTRAHEPATIC PORTOSYST SHUNT Routine 11/08/2024 2:57 PM RISK MANAGEMENT SPECIALIST Alcoholic cirrhosis of liver with ascites (H) IR PROCEDURE NOTE Routine 11/08/2024 2:5 3 PM RISK MANAGEMENT SPECIALIST ANESTHESIA, IN NON-OPERATING ROOM SETTING 11/08/2024 10:30 AM RISK MANAGEMENT SPECIALIST Alcoholic cirrhosis of liver with ascites (H) Special Needs PAC 10/14/24 CBC WITH PLATELETS AND DIFFERENTIAL STAT 11/08/2024 9:14 AM RISK MANAGEMENT SPECIALIST TYPE AND SCREEN, ADULT STAT 11/08/2024 9:14 AM RISK MANAGEMENT SPECIALIST CBC WITH PLATELETS & DIFFERENTIAL STAT 11/08/2024 9:14 AM RISK MANAGEMENT SPECIALIST INR STAT 11/08/2024 9:14 AM RISK MANAGEMENT SPECIALIST COMPREHENSIVE METABOLIC PANEL STAT 11/08/2024 9:14 AM RISK MANAGEMENT SPECIALIST BILIRUBIN DIRECT STAT 11/08/2024 9:14 AM RISK MANAGEMENT SPECIALIST ABO/RH TYPE AND SCREEN STAT 11/08/2024 9:14 AM RISK MANAGEMENT SPECIALIST PREPARE RED BLOOD CELLS (UNIT) Routine 11/08/2024 8:56 AM RISK MANAGEMENT SPECIALIST PREPARE RED BLOOD CELLS (UNIT) Routine 11/08/2024 8:56 AM RISK MANAGEMENT SPECIALIST GLUCOSE BY METER Routine 11/08/2024 8:53 AM RISK MANAGEMENT SPECIALIST documented in this encounter Results * IR Transven Intrahepatic Portosyst Shunt (11/08/2024 2:57 PM RISK MANAGEMENT SPECIALIST) Anatomical Region Laterality Modality Abdomen/Pelvis Radio Fluoroscop y Impressions 11/12/2024 8:08 AM RISK MANAGEMENT SPECIALIST IMPRESSION: Initial TIPS placement with reduction of [...] vein accessed: Right portal vein TIPS device: [place] Port Viatorr Cx TIPS diameter (mm): 10 TIPS [...] PAULA COLBERT MD Narrative 11/12/2024 8:08 AM RISK MANAGEMENT SPECIALIST PROCEDURE: Transjugular Intrahepatic Portosystemic Shunt (TIPS) Procedural [...] vein accessed: Right portal vein TIPS device: [place] Port Viatorr Cx TIPS diameter (mm): 10 TIPS [...] agree with the findings. PAULA COLBERT MD us Paula Colbert MD IMG IR ORDERABLES Final Resul t * IR Procedure Note (11/08/2024 2:53 PM RISK MANAGEMENT SPECIALIST) Narrative Paula Colbert MD - 11/08/2024 2:53 PM RISK MANAGEMENT SPECIALIST Paula Colbert MD 11/10/2024 7:55 AM [facility] Procedure: IR Procedure Note Date/Time: 11/08/2024 2:53 [...] the procedure a time out was called Albin Protocol: the Joint Commission Albin Protocol was followed Preparation: Patient was prepped [...] for 1:1 monitoring during sedation: 0 min Paula Colbert MD PROCEDURE/MINOR SURGICAL ORDYevgeniy ADAMS Edited Result - Final * (ABNORMAL) CBC with platelets and differential (11/08/2024 9:14 AM RISK MANAGEMENT SPECIALIST) WBC Count 5.2 4.0 - 11.0 10e3/uL 11/08/2024 9:31 AM RISK MANAGEMENT SPECIALIST [facility] RBC Count 4.54 4.40 - 5.90 10e6/uL 11/08/2024 9:31 AM RISK MANAGEMENT SPECIALIST [facility] Hemoglobin 14.6 13.3 - 17.7 g/dL 11/08/2024 9:31 AM RISK MANAGEMENT SPECIALIST [facility] Hematocrit 43.2 40.0 - 53.0 % 11/08/2024 9:31 AM RISK MANAGEMENT SPECIALIST [facility] MCV 95 78 - 100 fL 11/08/2024 9:31 AM RISK MANAGEMENT SPECIALIST [facility] MCH 32.2 26.5 - 33.0 pg 11/08/2024 9:31 AM RISK MANAGEMENT SPECIALIST [facility] MCHC 33.8 31.5 - 36.5 g/dL 11/08/2024 9:31 AM RISK MANAGEMENT SPECIALIST [facility] RDW 13.2 10.0 - 15.0 % 11/08/2024 9:31 AM RISK MANAGEMENT SPECIALIST [facility] Platelet Count 50(L) 150 - 450 10e3/uL 11/08/2024 9:31 AM RISK MANAGEMENT SPECIALIST [facility] % Neutrophils 56 % 11/08/2024 9:31 AM RISK MANAGEMENT SPECIALIST [facility] % Lymphocytes 31 % 11/08/2024 9:31 AM RISK MANAGEMENT SPECIALIST [facility] % Monocytes 8 % 11/08/2024 9:31 AM RISK MANAGEMENT SPECIALIST [facility] % Eosinophils 4 % 11/08/2024 9:31 AM RISK MANAGEMENT SPECIALIST [facility] % Basophils 1 % 11/08/2024 9:31 AM RISK MANAGEMENT SPECIALIST [facility] % Immature Granulocytes 0 % 11/08/2024 9:31 AM RISK MANAGEMENT SPECIALIST [facility] NRBCs per 100 WBC 0 <1 /100 025 9:31 AM RISK MANAGEMENT SPECIALIST [facility] Absolute Neutrophils 2.9 1.6 - 8.3 10e3/uL 11/08/2024 9:31 AM RISK MANAGEMENT SPECIALIST [facility] Absolute Lymphocytes 1.6 0.8 - 5.3 10e3/uL 11/08/2024 9:31 AM RISK MANAGEMENT SPECIALIST [facility] Absolute Monocytes 0.4 0.0 - 1.3 10e3/uL 11/08/2024 9:31 AM RISK MANAGEMENT SPECIALIST [facility] Absolute Eosinophils 0.2 0.0 - 0.7 10e3/uL 11/08/2024 9:31 AM RISK MANAGEMENT SPECIALIST [facility] Absolute Basophils 0.1 0.0 - 0.2 10e3/uL 11/08/2024 9:31 AM RISK MANAGEMENT SPECIALIST [facility] Absolute Immature Granulocytes 0.0 <=0.4 10e3/uL 11/08/2024 9:31 AM RISK MANAGEMENT SPECIALIST [facility] Absolute NRBCs 0.0 10e3/uL 11/08/2024 9:31 AM RISK MANAGEMENT SPECIALIST [facility] Blood STRUCTURE OF RIGHT UPPER LIMB / Unknown Venipuncture / Unknown 11/08/2024 9:14 AM RISK MANAGEMENT SPECIALIST 11/08/2024 9:21 AM RISK MANAGEMENT SPECIALIST Peg Rai APRN OFFICE ADMINISTRATION INSTRUCTOR LAB - BLOOD ORDERABL ES Final Result [facility] [address] [facility], Room [address] [phone] * Adult Type and Screen (11/08/2024 9:14 AM RISK MANAGEMENT SPECIALIST) ABO/RH(D) B POS 11/08/2024 8:56 AM RISK MANAGEMENT SPECIALIST [facility] Antibody Screen Negative Negative 11/08/2024 8:56 AM RISK MANAGEMENT SPECIALIST [facility] SPECIMEN EXPIRATION DATE [id number] 11/08/2024 8:56 AM RISK MANAGEMENT SPECIALIST [facility] Blood STRUCTURE OF RIGHT UPPER LIMB / Unknown Venipuncture / Unknown 11/08/2024 9:14 AM RISK MANAGEMENT SPECIALIST 11/08/2024 9:20 AM RISK MANAGEMENT SPECIALIST Peg Rai APRN OFFICE ADMINISTRATION INSTRUCTOR LAB - BLOOD BANK BOB T ORDER Final Result [facility] [address] [place] [address], [facility] * (ABNORMAL) Bilirubin direct (11/08/2024 9:14 AM RISK MANAGEMENT SPECIALIST) Bilirubin Direct 1.46(H) 0.00 - 0.30 mg/dL 11/08/2024 9:53 AM RISK MANAGEMENT SPECIALIST [facility] Blood STRUCTURE OF RIGHT UPPER LIMB / Unknown Venipuncture / Unknown 11/08/2024 9:14 AM RISK MANAGEMENT SPECIALIST 11/08/2024 9:21 AM RISK MANAGEMENT SPECIALIST Peg Rai APRN, CNP LAB - BLOOD ORDERABL ES Final Result [facility] [address] [facility], [address] * (ABNORMAL) INR (11/08/2024 9:14 AM RISK MANAGEMENT SPECIALIST) INR 1.49(H) 0.85 - 1.15 11/08/2024 9:54 AM RISK MANAGEMENT SPECIALIST [facility] Blood STRUCTURE OF RIGHT UPPER LIMB / Unknown Venipuncture / Unknown 11/08/2024 9:14 AM RISK MANAGEMENT SPECIALIST 11/08/2024 9:21 AM RISK MANAGEMENT SPECIALIST Peg Rai APRN, CNP LAB - BLOOD ORDERABL ES Final Result [facility] [address] [place] [address], [address] * (ABNORMAL) Comprehensive metabolic panel (11/08/2024 9:14 AM RISK MANAGEMENT SPECIALIST) Sodium 141 135 - 145 mmol/L 11/08/2024 9:53 AM RISK MANAGEMENT SPECIALIST [facility] Potassium 4.4 3.4 - 5.3 mmol/L 11/08/2024 9:53 AM RISK MANAGEMENT SPECIALIST [facility] Carbon Dioxide (CO2) 21(L) 22 - 29 mmol/L 11/08/2024 9:53 AM RISK MANAGEMENT SPECIALIST [facility] Anion Gap 9 7 - 15 mmol/L 11/08/2024 9:53 AM RISK MANAGEMENT SPECIALIST [facility] Urea Nitrogen 8.8 6.0 - 20.0 mg/dL 11/08/2024 9:53 AM RISK MANAGEMENT SPECIALIST [facility] Creatinine 0.77 0.67 - 1.17 mg/dL 11/08/2024 9:53 AM RISK MANAGEMENT SPECIALIST [facility] GFR Estimate >90 >60 mL/min/1.7 3m2 11/08/2024 9:53 AM RISK MANAGEMENT SPECIALIST [facility] Comment:eGFR calculated us2020 CKD-EPI equation. Calcium 9.2 8.8 - 10.4 mg/dL 11/08/2024 9:53 AM RISK MANAGEMENT SPECIALIST [facility] Chloride 111(H) 98 - 107 mmol/L 11/08/2024 9:53 AM RISK MANAGEMENT SPECIALIST [facility] Glucose 85 70 - 99 mg/dL 11/08/2024 9:53 AM RISK MANAGEMENT SPECIALIST [facility] Alkaline Phosphatase 144 40 - 150 U/L 11/08/2024 9:53 AM RISK MANAGEMENT SPECIALIST [facility] AST 60(H) 0 - 45 U/L 11/08/2024 9:53 AM RISK MANAGEMENT SPECIALIST [facility] ALT 39 0 - 70 U/L 11/08/2024 9:53 AM RISK MANAGEMENT SPECIALIST [facility] Protein Total 7.0 6.4 - 8.3 g/dL 11/08/2024 9:53 AM RISK MANAGEMENT SPECIALIST [facility] Albumin 3.8 3.5 - 5.2 g/dL 11/08/2024 9:53 AM RISK MANAGEMENT SPECIALIST [facility] Bilirubin Total 3.7(H) <=1.2 mg/dL 11/08/2024 9:53 AM RISK MANAGEMENT SPECIALIST [facility] Blood STRUCTURE OF RIGHT UPPER LIMB / Unknown Venipuncture / Unknown 11/08/2024 9:14 AM RISK MANAGEMENT SPECIALIST 11/08/2024 9:21 AM RISK MANAGEMENT SPECIALIST us Peg Rai SYSTEMS ENGINEERING MANAGER OFFICE ADMINISTRATION INSTRUCTOR LAB - BLOOD ORDERABL ES Final Result [facility] [address] [facility], [address] [place] [address], [facility] * Glucose by meter (11/08/2024 8:53 AM RISK MANAGEMENT SPECIALIST) GLUCOSE BY METER POCT 76 70 - 99 mg/dL 11/08/2024 9:00 AM RISK MANAGEMENT SPECIALIST [facility] POC Blood, Capillary BLOOD SPECIMEN / Unknown 11/08/2024 8:53 AM RISK MANAGEMENT SPECIALIST 11/08/2024 9:00 AM RISK MANAGEMENT SPECIALIST us Paula Colbert MD LAB - BEAKER POCT Final Resul t [facility] POC [facility] [address] [facility], [address] [place] [address] documented in this encounter Visit Diagnoses Diagnosis Alcoholic cirrhosis of liver with ascites (H) Alcoholic cirrhosis of liver Alcoholic cirrhosis of liver with ascites (H) Alcoholic cirrhosis of liver documented in this encounter Admitting Diagnoses Diagnosis Alcoholic cirrhosis of liver with ascites (H) Alcoholic cirrhosis of liver documented in this encounter Administered Medications Inactive Administered Medications - up to 3 most recent administrations Medication Order MAR Action Action Date Dose Rate Site acetaminophen (TYLENOL) tablet 975 mg 975 mg, Oral, EVERY 4 HOURS PRN, mild pain, fever, Starting on Fri11/08/24 at 1643, Maximum acetaminophen dose from all sources = 75 mg/kg/day not to exceed 4 grams/day. $Given 11/08/2024 4:51 PM RISK MANAGEMENT SPECIALIST 975 mg clindamycin (CLEOCIN) 900 mg in 50 mL D5W intermittent infusion Routine, 900 mg, Intravenous, PRE-OP/PRE-PROCEDURE, Starting on Fri11/08/24 at 0855, For 1 dose, Give first dose within 1 hour PRIOR to incision., Indications: Perioperative Pharmacoprophylaxis, Pre-procedureIndications:Per ioperative Pharmacoprophylaxis $New Bag 11/08/2024 10:25 AM RISK MANAGEMENT SPECIALIST 900 mg 100 mL/hr clindamycin (CLEOCIN) 900 mg in 50 mL D5W intermittent infusion Routine, 900 mg, Intravenous, SEE ADMIN INSTRUCTIONS, Starting on Fri11/08/24 at 0855, Intra-Op Dose. Give every 6 hours while patient in surgery, starting 6 hours after pre-op dose., Indications: Perioperative Pharmacoprophylaxis, Pre-procedureIndications:Per ioperative Pharmacoprophylaxis $Given 11/08/2024 10:19 AM RISK MANAGEMENT SPECIALIST 900 mg dexAMETHasone (DECADRON) injection 4 mg 4 mg, Intravenous, ONCE PRN, vomiting, nausea, Administer over 1-4 Minutes, Starting on Fri11/08/24 at 1455, For 1 dose, Administer ONLY if dexamethasone (DECADRON) NOT given in the OR. This is Step 2 of nausea and vomiting management. IF nausea vomiting NOT resolved within 30 minutes or dexamethasone (DECADRON) was given in the OR go to Step 3 prochlorperazine (COMPAZINE)., PACU dexAMETHasone (DECADRON) injection 4 mg 4 mg, Intravenous, ONCE PRN, vomiting, nausea, Administer over 1-4 Minutes, Starting on Fri11/08/24 at 1823, For 1 dose, Administer ONLY if dexamethasone (DECADRON) NOT given in the OR. This is Step 2 of nausea and vomiting management. IF nausea vomiting NOT resolved within 30 minutes or dexamethasone (DECADRON) was given in the OR go to Step 3 prochlorperazine (COMPAZINE)., Phase ll fentaNYL (PF) (SUBLIMAZE) injection 25 mcg 25 mcg, Intravenous, EVERY 5 MIN PRN, moderate pain, Give fentaNYL (SUBLIMAZE) first if HYDROmorphone (DILAUDID) also ordered., Starting on Fri11/08/24 at 1455, Administer fentaNYL (SUBLIMAZE) for acute pain control. Move to HYDROmorphone (DILAUDID): - IF patient has received up to 200 mcg of fentaNYL (SUBLIMAZE) OR - IF patient has received 2 doses of fentaNYL (SUBLIMAZE) AND continues to have pain score greater than or equal to six (6) or is unable to participate in post op recovery due to pain. Wait 5 minutes AFTER last fentaNYL (SUBLIMAZE) dose before administering HYDROmorphone (DILADUDID). Postop Anesthesia Phase I only. Notify Provider to assess for uncontrolled pain or analgesic side effects. DO NOT revert back to fentanyl (SUBLIMAZE) after administering HYDROmorphone (DILAUDID)., PACU fentaNYL (PF) (SUBLIMAZE) injection 50 mcg 50 mcg, Intravenous, EVERY 5 MIN PRN, severe pain, Give fentaNYL (SUBLIMAZE) first if HYDROmorphone (DILAUDID) also ordered., Starting on Fri11/08/24 at 1455, Administer fentaNYL (SUBLIMAZE) for acute pain control. Move to HYDROmorphone (DILAUDID): - IF patient has received up to 200 mcg of fentaNYL (SUBLIMAZE), OR - IF patient has received 2 doses of fentaNYL (SUBLIMAZE) AND continues to have severe pain (pain score greater than or equal to seven (7) or is unable to participate in post op recovery due to pain. Wait 5 minutes AFTER last fentaNYL (SUBLIMAZE) dose before administering HYDROmorphone (DILADUDID). Postop Anesthesia Phase I only. Notify Provider to assess for uncontrolled pain or analgesic side effects. DO NOT revert back to fentanyl (SUBLIMAZE) after administering HYDROmorphone (DILAUDID)., PACU heparin 2 Units/mL 0.9% NaCl (1000 mL) 1 Bag, TABLE SOLN, EVERY 5 MIN PRN, Catheter prep table solution use as directed by provider., Starting on Fri11/08/24 at 1333, Maximum total dose 10 liters. Nurse will document total number of bags used at the end of the procedure., Intra-procedure $Given by Other Clinician 11/08/2024 1:33 PM RISK MANAGEMENT SPECIALIST 2 Bags HYDROmorphone (PF) (DILAUDID) injection 0.2 mg 0.2 mg, Intravenous, EVERY 5 MIN PRN, moderate pain, Starting on Fri11/08/24 at 1455, Use FentaNYL (SUBLIMAZE) first if ordered. Maximum total cumulative dose NOT to exceed 2 mg. DO NOT revert back to fentanyl (SUBLIMAZE) after administering HYDROmorphone (DILAUDID). Notify Provider to assess for uncontrolled pain or analgesic side effects., PACU HYDROmorphone (PF) (DILAUDID) injection 0.4 mg 0.4 mg, Intravenous, EVERY 5 MIN PRN, severe pain, Starting on Fri11/08/24 at 1455, Use FentaNYL (SUBLIMAZE) first if ordered. Maximum total cumulative dose NOT to exceed 2 mg. DO NOT revert back to fentanyl (SUBLIMAZE) after administering HYDROmorphone (DILAUDID). Notify Provider to assess for uncontrolled pain or analgesic side effects., PACU lactated ringers infusion at 100 mL/hr, Intravenous, CONTINUOUS, Pre-procedure, Starting on Fri11/08/24 at 0900, Until Fri11/08/24 at 2229 lactated ringers infusion at 100 mL/hr, Intravenous, CONTINUOUS, Continue until IV catheter is weaned, PACU, Starting on Fri11/08/24 at 1500, Until Fri11/08/24 at 2229 lidocaine (LMX4) cream Topical, EVERY 1 HOUR PRN, pain, with VAD insertion, Starting on Fri11/08/24 at 0855, Apply at least 30 minutes prior to VAD insertion in divided doses as needed for size of site for insertion. MAX Dose: 2.5 g ( of 5 g tube) Do NOT give if patient has a history of allergy to any local anesthetic or any valerie product. Do NOT use both lidocaine intradermal/subcutaneous injection and the lidocaine cream on the same site., Pre-procedure lidocaine (PF) (XYLOCAINE) 1 % injection 1-30 mL 1-30 mL, Subcutaneous, ONCE PRN, local anesthetic, Starting on Fri11/08/24 at 1138, For 1 dose, Dose may be into smaller doses dependent upon the procedure when ordered by provider during the procedure., IR Intra-procedure $Given by Other Clinician 11/08/2024 11:38 AM RISK MANAGEMENT SPECIALIST 5 mLs lidocaine 1 % 0.1-1 mL 0.1-1 mL, Other, EVERY 1 HOUR PRN, mild pain with VAD insertion, Starting on Fri11/08/24 at 0855, MAX dose 1 mL subcutaneous OR intradermal along the side of the vein in divided doses as needed for VAD insertion. Do NOT give if patient has a history of allergy to any local anesthetic or any valerie product. Do NOT use both lidocaine intradermal/subcutaneous injection and the lidocaine cream on the same site., Pre-procedure methocarbamol (ROBAXIN) tablet 1,000 mg 1,000 mg, Oral, 4 TIMES DAILY, First dose on Fri11/08/24 at 1700 $Given 11/08/2024 4:52 PM RISK MANAGEMENT SPECIALIST 1,000 mg naloxone (NARCAN) injection 0.1 mg 0.1 mg, Intravenous, EVERY 2 MIN PRN, opioid reversal, Starting on Fri11/08/24 at 1455, Notify Anesthesia Provider when administering naloxone (NARCAN) for unintended sedation or respiratory depression IF all three of the following criteria are met: 1. Respiratory rate LESS than or EQUAL to 8. 2. SaO2 is LESS than 92% and/or end-tidal CO2 is GREATER than 50. 3. Patient is receiving an opioid, has unintended sedation assessed as RASS (-4) or (-5) and patient is NOT currently on mechanical ventilation. RASS scale (-4) is deep sedation with no response to voice but movement or eye opening to physical stimulation. RASS scale (-5) is unarousable. Notify Anesthesia Provider PRIOR to administering additional opioids if naloxone (NARCAN) given. Monitor in Phase I for 2 hours after last naloxone (NARCAN) dose PRIOR to transfer to Patient Care Unit or Phase II., PACU naloxone (NARCAN) injection 0.1 mg 0.1 mg, Intravenous, EVERY 2 MIN PRN, opioid reversal, Starting on Fri11/08/24 at 1823, Notify Anesthesia Provider when administering naloxone (NARCAN) for unintended sedation or respiratory depression IF all three of the following criteria are met: 1. Respiratory rate LESS than or EQUAL to 8. 2. SaO2 is LESS than 92% and/or end-tidal CO2 is GREATER than 50. 3. Patient is receiving an opioid, has unintended sedation assessed as RASS (-4) or (-5) and patient is NOT currently on mechanical ventilation. RASS scale (-4) is deep sedation with no response to voice but movement or eye opening to physical stimulation. RASS scale (-5) is unarousable. Notify Anesthesia Provider PRIOR to administering additional opioids if naloxone (NARCAN) given. Once patient has demonstrated a response to naloxone (NARCAN), continue to monitor respiratory rate, depth, oxygen saturation EVERY 15 minutes x 2, then EVERY 30 minutes x 2, then EVERY hour x 1 after each naloxone (NARCAN) dose. Monitor in Phase II for 2 hours after last naloxone (NARCAN) dose PRIOR to discharge., Phase ll ondansetron (ZOFRAN ODT) ODT tab 4 mg 4 mg, Oral, EVERY 30 MIN PRN, nausea, Starting on Fri11/08/24 at 1455, For 2 doses, Administer if NO vascular access present. This is Step 1 of nausea and vomiting management. If nausea/vomiting not resolved in 15 minutes, go to Step 2 dexamethasone (DECADRON) IV. MAX total dose = 8 mg, including OR dosing. With dry hands, peel back foil backing and gently remove tablet. Do not push oral disintegrating tablet through foil backing. Administer immediately on tongue and oral disintegrating tablet dissolves in seconds, then swallow with saliva. Liquid not required., PACU ondansetron (ZOFRAN ODT) ODT tab 4 mg 4 mg, Oral, EVERY 30 MIN PRN, nausea, Starting on Fri11/08/24 at 1823, For 2 doses, Administer if NO vascular access present. This is Step 1 of nausea and vomiting management. If nausea/vomiting not resolved in 15 minutes, go to Step 2 dexamethasone (DECADRON) IV. MAX total dose = 8 mg, including OR dosing. With dry hands, peel back foil backing and gently remove tablet. Do not push oral disintegrating tablet through foil backing. Administer immediately on tongue and oral disintegrating tablet dissolves in seconds, then swallow with saliva. Liquid not required., Phase ll ondansetron (ZOFRAN) injection 4 mg 4 mg, Intravenous, EVERY 30 MIN PRN, nausea, Administer over 2-5 Minutes, Starting on Fri11/08/24 at 1455, For 2 doses, This is Step 1 of nausea and vomiting management. If nausea/vomiting not resolved in 15 minutes, then go to Step 2 dexamethasone (DECADRON) IV. MAX total dose = 8 mg, including OR dosing., PACU ondansetron (ZOFRAN) injection 4 mg 4 mg, Intravenous, EVERY 30 MIN PRN, nausea, Administer over 2-5 Minutes, Starting on Fri11/08/24 at 1823, For 2 doses, This is Step 1 of nausea and vomiting management. If nausea/vomiting not resolved in 15 minutes, then go to Step 2 dexamethasone (DECADRON) IV. MAX total dose = 8 mg, including OR dosing., Phase ll oxyCODONE (ROXICODONE) tablet 5 mg 5 mg, Oral, ONCE PRN, moderate pain, other, or is unable to participate in post op recovery due to pain., Starting on Fri11/08/24 at 1823, For 1 dose, Max: 5 mg for opioid-na ve patient., Phase ll oxyCODONE IR (ROXICODONE) tablet 10 mg 10 mg, Oral, ONCE PRN, severe pain, Starting on Fri11/08/24 at 1823, For 1 dose, Max: 5 mg for opioid-na ve patient. Use caution with patient Age GREATER than 65 years, COPD, or CrCl LESS than 50 mL/min., Phase ll prochlorperazine (COMPAZINE) injection 5 mg 5 mg, Intravenous, EVERY 6 HOURS PRN, nausea, vomiting, Administer over 1-2 Minutes, Starting on Fri11/08/24 at 1455, This is Step 3 of the nausea and vomiting protocol. If nausea/vomitting not resolved in 15-30 minutes, notify Provider., PACU $Given 11/08/2024 3:01 PM RISK MANAGEMENT SPECIALIST 5 mg prochlorperazine (COMPAZINE) injection 5 mg 5 mg, Intravenous, EVERY 6 HOURS PRN, nausea, vomiting, Administer over 1-2 Minutes, Starting on Fri11/08/24 at 1823, This is Step 3 of the nausea and vomiting protocol. If nausea/vomitting not resolved in 15-30 minutes, notify Provider., Phase ll sodium chloride (PF) 0.9% PF flush 3 mL 3 mL, Intracatheter, EVERY 8 HOURS, First dose on Fri11/08/24 at 0900, to lock peripheral IV dormant line, Pre-procedure sodium chloride (PF) 0.9% PF flush 3 mL 3 mL, Intracatheter, EVERY 1 MIN PRN, line flush, other, to ensure patency or to lock dormant line, Starting on Fri11/08/24 at 0855, Pre-procedure documented in this encounter Active and Recently Administered Medications Times are shown in RISK MANAGEMENT SPECIALIST. Scheduled Medication Order 11/06/2024 11/07/2024 11/08/2024 clindamycin (CLEOCIN) 900 mg in 50 mL D5W intermittent infusion (COMPLETED) Routine, 900 mg, Intravenous, PRE-OP/PRE-PROCEDURE, Starting on Fri11/08/24 at 0855, For 1 dose, Give first dose within 1 hour PRIOR to incision., Indications: Perioperative Pharmacoprophylaxis, Pre-procedure 1025 ($New Bag - Pro vider: Cassie Larkin RN) clindamycin (CLEOCIN) 900 mg in 50 mL D5W intermittent infusion Routine, 900 mg, Intravenous, SEE ADMIN INSTRUCTIONS, Starting on Fri11/08/24 at 0855, Intra-Op Dose. Give every 6 hours while patient in surgery, starting 6 hours after pre-op dose., Indications: Perioperative Pharmacoprophylaxis, Pre-procedure 1019 ($Given - Provi phil: Jessica Ball MD) fosaprepitant (EMEND) 150 mg in sodium chloride 0.9 % 275 mL intermittent infusion (COMPLETED) 150 mg, Intravenous, ONCE, On Fri11/08/24 at 0900, For 1 dose, Administer over 20 Minutes, Pre-procedure 1036 ($New Bag - Pro vider: Jessica Ball MD) iodixanol (VISIPAQUE 320) injection 100 mL 100 mL, Intravenous, ONCE, On Fri11/08/24 at 1100, For 1 dose 1100 (Canceled Entry - Provider: Orders Generic Provider - Comment: Automatically canceled at discontinue of medication order) methocarbamol (ROBAXIN) tablet 1,000 mg 1,000 mg, Oral, 4 TIMES DAILY, First dose on Fri11/08/24 at 1700 1652 ($Given - Provi phil: Inga Trujillo RN)2000 (Canceled Entry - Provider: Orders Generic Provider - Comment: Automatically canceled at discontinue of medication order) sodium chloride (PF) 0.9% PF flush 3 mL 3 mL, Intracatheter, EVERY 8 HOURS, First dose on Fri11/08/24 at 0900, to lock peripheral IV dormant line, Pre-procedure 0900 (Canceled Entry - Provider: Orders Generic Provider - Comment: Automatically canceled at discontinue of medication order)1700 (Canceled Entry - Provider: Orders Generic Provider - Comment: Automatically canceled at discontinue of medication order) Continuous Medication Order 11/06/2024 11/07/2024 11/08/2024 lactated ringers infusion at 100 mL/hr, Intravenous, CONTINUOUS, Pre-procedure, Starting on Fri11/08/24 at 0900, Until Fri11/08/24 at 2229 0900 (Canceled Entry - Provider: Orders Generic Provider - Comment: Automatically canceled at discontinue of medication order) lactated ringers infusion at 100 mL/hr, Intravenous, CONTINUOUS, Continue until IV catheter is weaned, PACU, Starting on Fri11/08/24 at 1500, Until Fri11/08/24 at 2229 1500 (Canceled Entry - Provider: Orders Generic Provider - Comment: Automatically canceled at discontinue of medication order) PRN Medication Order 11/06/2024 11/07/2024 11/08/2024 acetaminophen (TYLENOL) tablet 975 mg 975 mg, Oral, EVERY 4 HOURS PRN, mild pain, fever, Starting on Fri11/08/24 at 1643, Maximum acetaminophen dose from all sources = 75 mg/kg/day not to exceed 4 grams/day. 1651 ($Given - Provi phil: Inga Trujillo RN) dexAMETHasone (DECADRON) injection 4 mg 4 mg, Intravenous, ONCE PRN, vomiting, nausea, Administer over 1-4 Minutes, Starting on Fri11/08/24 at 1455, For 1 dose, Administer ONLY if dexamethasone (DECADRON) NOT given in the OR. This is Step 2 of nausea and vomiting management. IF nausea vomiting NOT resolved within 30 minutes or dexamethasone (DECADRON) was given in the OR go to Step 3 prochlorperazine (COMPAZINE)., PACU dexAMETHasone (DECADRON) injection 4 mg 4 mg, Intravenous, ONCE PRN, vomiting, nausea, Administer over 1-4 Minutes, Starting on Fri11/08/24 at 1823, For 1 dose, Administer ONLY if dexamethasone (DECADRON) NOT given in the OR. This is Step 2 of nausea and vomiting management. IF nausea vomiting NOT resolved within 30 minutes or dexamethasone (DECADRON) was given in the OR go to Step 3 prochlorperazine (COMPAZINE)., Phase ll fentaNYL (PF) (SUBLIMAZE) injection 25 mcg 25 mcg, Intravenous, EVERY 5 MIN PRN, moderate pain, Give fentaNYL (SUBLIMAZE) first if HYDROmorphone (DILAUDID) also ordered., Starting on Fri11/08/24 at 1455, Administer fentaNYL (SUBLIMAZE) for acute pain control. Move to HYDROmorphone (DILAUDID): - IF patient has received up to 200 mcg of fentaNYL (SUBLIMAZE) OR - IF patient has received 2 doses of fentaNYL (SUBLIMAZE) AND continues to have pain score greater than or equal to six (6) or is unable to participate in post op recovery due to pain. Wait 5 minutes AFTER last fentaNYL (SUBLIMAZE) dose before administering HYDROmorphone (DILADUDID). Postop Anesthesia Phase I only. Notify Provider to assess for uncontrolled pain or analgesic side effects. DO NOT revert back to fentanyl (SUBLIMAZE) after administering HYDROmorphone (DILAUDID)., PACU fentaNYL (PF) (SUBLIMAZE) injection 50 mcg 50 mcg, Intravenous, EVERY 5 MIN PRN, severe pain, Give fentaNYL (SUBLIMAZE) first if HYDROmorphone (DILAUDID) also ordered., Starting on Fri11/08/24 at 1455, Administer fentaNYL (SUBLIMAZE) for acute pain control. Move to HYDROmorphone (DILAUDID): - IF patient has received up to 200 mcg of fentaNYL (SUBLIMAZE), OR - IF patient has received 2 doses of fentaNYL (SUBLIMAZE) AND continues to have severe pain (pain score greater than or equal to seven (7) or is unable to participate in post op recovery due to pain. Wait 5 minutes AFTER last fentaNYL (SUBLIMAZE) dose before administering HYDROmorphone (DILADUDID). Postop Anesthesia Phase I only. Notify Provider to assess for uncontrolled pain or analgesic side effects. DO NOT revert back to fentanyl (SUBLIMAZE) after administering HYDROmorphone (DILAUDID)., PACU heparin 2 Units/mL 0.9% NaCl (1000 mL) 1 Bag, TABLE SOLN, EVERY 5 MIN PRN, Catheter prep table solution use as directed by provider., Starting on Fri11/08/24 at 1333, Maximum total dose 10 liters. Nurse will document total number of bags used at the end of the procedure., Intra-procedure 1333 ($Given by Otrafat r Clinician - Provider: Chichi Torres RN) HYDROmorphone (PF) (DILAUDID) injection 0.2 mg 0.2 mg, Intravenous, EVERY 5 MIN PRN, moderate pain, Starting on Fri11/08/24 at 1455, Use FentaNYL (SUBLIMAZE) first if ordered. Maximum total cumulative dose NOT to exceed 2 mg. DO NOT revert back to fentanyl (SUBLIMAZE) after administering HYDROmorphone (DILAUDID). Notify Provider to assess for uncontrolled pain or analgesic side effects., PACU HYDROmorphone (PF) (DILAUDID) injection 0.4 mg 0.4 mg, Intravenous, EVERY 5 MIN PRN, severe pain, Starting on Fri11/08/24 at 1455, Use FentaNYL (SUBLIMAZE) first if ordered. Maximum total cumulative dose NOT to exceed 2 mg. DO NOT revert back to fentanyl (SUBLIMAZE) after administering HYDROmorphone (DILAUDID). Notify Provider to assess for uncontrolled pain or analgesic side effects., PACU lidocaine (LMX4) cream Topical, EVERY 1 HOUR PRN, pain, with VAD insertion, Starting on Fri11/08/24 at 0855, Apply at least 30 minutes prior to VAD insertion in divided doses as needed for size of site for insertion. MAX Dose: 2.5 g ( of 5 g tube) Do NOT give if patient has a history of allergy to any local anesthetic or any valerie product. Do NOT use both lidocaine intradermal/subcutaneous injection and the lidocaine cream on the same site., Pre-procedure lidocaine (PF) (XYLOCAINE) 1 % injection 1-30 mL (COMPLETED) 1-30 mL, Subcutaneous, ONCE PRN, local anesthetic, Starting on Fri11/08/24 at 1138, For 1 dose, Dose may be into smaller doses dependent upon the procedure when ordered by provider during the procedure., IR Intra-procedure 1138 ($Given by Uma r Clinician - Provider: Kristen Betancur RN) lidocaine 1 % 0.1-1 mL 0.1-1 mL, Other, EVERY 1 HOUR PRN, mild pain with VAD insertion, Starting on Fri11/08/24 at 0855, MAX dose 1 mL subcutaneous OR intradermal along the side of the vein in divided doses as needed for VAD insertion. Do NOT give if patient has a history of allergy to any local anesthetic or any valerie product. Do NOT use both lidocaine intradermal/subcutaneous injection and the lidocaine cream on the same site., Pre-procedure naloxone (NARCAN) injection 0.1 mg 0.1 mg, Intravenous, EVERY 2 MIN PRN, opioid reversal, Starting on Fri11/08/24 at 1455, Notify Anesthesia Provider when administering naloxone (NARCAN) for unintended sedation or respiratory depression IF all three of the following criteria are met: 1. Respiratory rate LESS than or EQUAL to 8. 2. SaO2 is LESS than 92% and/or end-tidal CO2 is GREATER than 50. 3. Patient is receiving an opioid, has unintended sedation assessed as RASS (-4) or (-5) and patient is NOT currently on mechanical ventilation. RASS scale (-4) is deep sedation with no response to voice but movement or eye opening to physical stimulation. RASS scale (-5) is unarousable. Notify Anesthesia Provider PRIOR to administering additional opioids if naloxone (NARCAN) given. Monitor in Phase I for 2 hours after last naloxone (NARCAN) dose PRIOR to transfer to Patient Care Unit or Phase II., PACU naloxone (NARCAN) injection 0.1 mg 0.1 mg, Intravenous, EVERY 2 MIN PRN, opioid reversal, Starting on Fri11/08/24 at 1823, Notify Anesthesia Provider when administering naloxone (NARCAN) for unintended sedation or respiratory depression IF all three of the following criteria are met: 1. Respiratory rate LESS than or EQUAL to 8. 2. SaO2 is LESS than 92% and/or end-tidal CO2 is GREATER than 50. 3. Patient is receiving an opioid, has unintended sedation assessed as RASS (-4) or (-5) and patient is NOT currently on mechanical ventilation. RASS scale (-4) is deep sedation with no response to voice but movement or eye opening to physical stimulation. RASS scale (-5) is unarousable. Notify Anesthesia Provider PRIOR to administering additional opioids if naloxone (NARCAN) given. Once patient has demonstrated a response to naloxone (NARCAN), continue to monitor respiratory rate, depth, oxygen saturation EVERY 15 minutes x 2, then EVERY 30 minutes x 2, then EVERY hour x 1 after each naloxone (NARCAN) dose. Monitor in Phase II for 2 hours after last naloxone (NARCAN) dose PRIOR to discharge., Phase ll ondansetron (ZOFRAN ODT) ODT tab 4 mg(Linked Group 1) 4 mg, Oral, EVERY 30 MIN PRN, nausea, Starting on Fri11/08/24 at 1455, For 2 doses, Administer if NO vascular access present. This is Step 1 of nausea and vomiting management. If nausea/vomiting not resolved in 15 minutes, go to Step 2 dexamethasone (DECADRON) IV. MAX total dose = 8 mg, including OR dosing. With dry hands, peel back foil backing and gently remove tablet. Do not push oral disintegrating tablet through foil backing. Administer immediately on tongue and oral disintegrating tablet dissolves in seconds, then swallow with saliva. Liquid not required., PACU ondansetron (ZOFRAN ODT) ODT tab 4 mg(Linked Group 2) 4 mg, Oral, EVERY 30 MIN PRN, nausea, Starting on Fri11/08/24 at 1823, For 2 doses, Administer if NO vascular access present. This is Step 1 of nausea and vomiting management. If nausea/vomiting not resolved in 15 minutes, go to Step 2 dexamethasone (DECADRON) IV. MAX total dose = 8 mg, including OR dosing. With dry hands, peel back foil backing and gently remove tablet. Do not push oral disintegrating tablet through foil backing. Administer immediately on tongue and oral disintegrating tablet dissolves in seconds, then swallow with saliva. Liquid not required., Phase ll ondansetron (ZOFRAN) injection 4 mg(Linked Group 1) 4 mg, Intravenous, EVERY 30 MIN PRN, nausea, Administer over 2-5 Minutes, Starting on Fri11/08/24 at 1455, For 2 doses, This is Step 1 of nausea and vomiting management. If nausea/vomiting not resolved in 15 minutes, then go to Step 2 dexamethasone (DECADRON) IV. MAX total dose = 8 mg, including OR dosing., PACU ondansetron (ZOFRAN) injection 4 mg(Linked Group 2) 4 mg, Intravenous, EVERY 30 MIN PRN, nausea, Administer over 2-5 Minutes, Starting on Fri11/08/24 at 1823, For 2 doses, This is Step 1 of nausea and vomiting management. If nausea/vomiting not resolved in 15 minutes, then go to Step 2 dexamethasone (DECADRON) IV. MAX total dose = 8 mg, including OR dosing., Phase ll oxyCODONE (ROXICODONE) tablet 5 mg 5 mg, Oral, ONCE PRN, moderate pain, other, or is unable to participate in post op recovery due to pain., Starting on Fri11/08/24 at 1823, For 1 dose, Max: 5 mg for opioid-na ve patient., Phase ll oxyCODONE IR (ROXICODONE) tablet 10 mg 10 mg, Oral, ONCE PRN, severe pain, Starting on Fri11/08/24 at 1823, For 1 dose, Max: 5 mg for opioid-na ve patient. Use caution with patient Age GREATER than 65 years, COPD, or CrCl LESS than 50 mL/min., Phase ll prochlorperazine (COMPAZINE) injection 5 mg 5 mg, Intravenous, EVERY 6 HOURS PRN, nausea, vomiting, Administer over 1-2 Minutes, Starting on Fri11/08/24 at 1455, This is Step 3 of the nausea and vomiting protocol. If nausea/vomitting not resolved in 15-30 minutes, notify Provider., PACU 1501 ($Given - Provi phil: Inga Trujillo RN) prochlorperazine (COMPAZINE) injection 5 mg 5 mg, Intravenous, EVERY 6 HOURS PRN, nausea, vomiting, Administer over 1-2 Minutes, Starting on Fri11/08/24 at 1823, This is Step 3 of the nausea and vomiting protocol. If nausea/vomitting not resolved in 15-30 minutes, notify Provider., Phase ll sodium chloride (PF) 0.9% PF flush 3 mL 3 mL, Intracatheter, EVERY 1 MIN PRN, line flush, other, to ensure patency or to lock dormant line, Starting on Fri11/08/24 at 0855, Pre-procedure Linked Groups Order Group 1: ondansetron (ZOFRAN ODT) ODT tab 4 mgJump to med 4 mg, Oral, EVERY 30 MIN PRN, nausea, Starting on Fri11/08/24 at 1455, For 2 doses, Administer if NO vascular access present. This is Step 1 of nausea and vomiting management. If nausea/vomiting not resolved in 15 minutes, go to Step 2 dexamethasone (DECADRON) IV. MAX total dose = 8 mg, including OR dosing. With dry hands, peel back foil backing and gently remove tablet. Do not push oral disintegrating tablet through foil backing. Administer immediately on tongue and oral disintegrating tablet dissolves in seconds, then swallow with saliva. Liquid not required., PACU Or ondansetron (ZOFRAN) injection 4 mgJump to med 4 mg, Intravenous, EVERY 30 MIN PRN, nausea, Administer over 2-5 Minutes, Starting on Fri11/08/24 at 1455, For 2 doses, This is Step 1 of nausea and vomiting management. If nausea/vomiting not resolved in 15 minutes, then go to Step 2 dexamethasone (DECADRON) IV. MAX total dose = 8 mg, including OR dosing., PACU Group 2: ondansetron (ZOFRAN ODT) ODT tab 4 mgJump to med 4 mg, Oral, EVERY 30 MIN PRN, nausea, Starting on Fri11/08/24 at 1823, For 2 doses, Administer if NO vascular access present. This is Step 1 of nausea and vomiting management. If nausea/vomiting not resolved in 15 minutes, go to Step 2 dexamethasone (DECADRON) IV. MAX total dose = 8 mg, including OR dosing. With dry hands, peel back foil backing and gently remove tablet. Do not push oral disintegrating tablet through foil backing. Administer immediately on tongue and oral disintegrating tablet dissolves in seconds, then swallow with saliva. Liquid not required., Phase ll Or ondansetron (ZOFRAN) injection 4 mgJump to med 4 mg, Intravenous, EVERY 30 MIN PRN, nausea, Administer over 2-5 Minutes, Starting on Fri11/08/24 at 1823, For 2 doses, This is Step 1 of nausea and vomiting management. If nausea/vomiting not resolved in 15 minutes, then go to Step 2 dexamethasone (DECADRON) IV. MAX total dose = 8 mg, including OR dosing., Phase ll documented in this encounter Additional Health Concerns Assessment Noted Time PHQ-9 Depression Total Score: 23 023 8:49 AM RISK MANAGEMENT SPECIALIST documented as of this encounter Care Teams Urgent Care Relationship Specialty Start Date End Date Mamadou Gong MD [address] [place] [id number] PCP - General Gastroenterology 10/20/24 Yesika Chirinos PA-C [facility] [address] [place] [address] [place] [address] Referring Physician Gastroenterology 07/23/[address] [place] [address] Registered Dietitian Dietitian, Registered 08/13/23 Reinier Lehman MD [address] [place] [id number] Transplant Surgery 08/13/23 Mamadou Gong MD [address] [place] [id number] Gastroenterology 08/13/23 Arcelia Cid, LIFT DRIVER Slot Operations Director 08/13/23 Mamadou Gong MD [address] [place] [id number] Assigned Gastroenterology Provider 08/30/23 Reinier Lehman MD [address] [place] [id number] Assigned Surgical Provider 08/30/23 Trung Duran, [facility] Slot Operations Director Slot Operations Director - Clinical 09/30/23 Duran Luong MD [address] [place] [address] [id number] Assigned Pulmonology Provider 10/17/23 Osmany Rausch, xerox machine assemblerEmergency Medicine Physician Assistant Transplant 01/22/24 Hina Rojo MD [address] [place] [address] [phone] Assigned Infectious Disease Provider 03/07/24 Fabiola Epperson APRN OFFICE ADMINISTRATION INSTRUCTOR [address] [place] [address] [phone] Nurse Practitioner Anesthesiology 09/30/24 Paula Colbert MD [address] [place] [address] [phone] Physician Radiology 09/30/24 documented as of this encounter
--- OUTSIDE RECORDS SUMMARY | 2024-12-19 07:45 | XMS_ITS | Encounter Summary ---
Author Organization [place] Address [address] [place] [address] Care Team Providers Care Aquaculture Farm Manager Name Role Phone Taran Yesikacatracho Gee PA-C Unavailable [phone] Unavailable Unavail able Reinier Lehman MD Unavailable Mamadou Gong MD Unavailable + [phone] Arcelia Cid FIREPROOF DOOR MAKER Unavailable [phone] Mamadou Gong MD Unavailable + [phone] Reinier Lehman MD Unavailable Trung Duran INFORMATION SYSTEMS ARCHITECT Unavailable Unavailable Duran Luong MD Unavailable [phone] Osmany Rausch RN Unavailable Unavailable Hina Rojo MD Unavailable [phone] Fabiola Epperson APRN ENGLISH LANGUAGE ARTS TEACHER Unavailable [phone] Paula Colbert MD Unavailable [phone] Mamadou Gong MD Primary Care Provid er Reason for Visit * Auth/Cert Specialty Diagnoses / Procedures Referred By Contgrayson t Referred To Contact Surgery Diagnoses Alcoholic cirrhosis of liver with ascites (H) Alcoholic cirrhosis of liver with ascites (H) [K70.31] Procedures ANESTHESIA, IN NON-OPERATING ROOM SETTING transjugular intrahepatic portosystemic shunt (TIPS) procedure with ice possible embolization and paracentesis @1030 [facility] [address] [facility] [address] Phone: tel: fax: Referral ID Status Reason Start Date Expiration Date Visits Re quested Visits Authorized [id number] 1 1 Encounter Details Date Type Department Care Team (Late st Contact Info) Description 11/08/2024 10:30 AM CMO - 11/08/2024 1:30 PM CMO Surgery [facility] [address] [facility] [phone] GENERIC ANESTHESIA PROVIDER ANESTHESIA, IN NON-OPERATING ROOM SETTING transjugular intrahepatic portosystemic shunt (TIPS) procedure with ice possible embolization and paracentesis @1030 Surgery Details Date/Time Status Location OR Service Patient Class Case Class Case Type Trauma Case? 11/08/2024 10:30 AM Posted UU OR UU Out of OR 01 Anesthesiology Surgery Admit Elective Panel 1 Procedure LRB Anes Op Region Wound Class Comments ANESTHESIA, IN NON-OPERATING ROOM SETTING transjugular intrahepatic portosystemic shunt (TIPS) procedure with ice possible embolization and paracentesis @1030 N/A General Update Surgeon Surgeon Role Service Panel GENERIC ANESTHESIA PROVIDER Primary Anesthesiolog y 1 Paula Colbert MD Assisting Interventional Radio logy 1 Special Needs PAC 10/14/24 documented in this encounter Social History Tobacco [...] PM CDT Legal Sex Male 3:07 AM CMO Gender Identity Male 07/17/2023 2:30 PM CDT Sexual Orientation Not on file documented as of this encounter Last Filed Vital Signs Vital Sign Reading Time Taken Comments Blood Pressure 111/78 11/08/2024 8:46 AM CMO Pulse 55 11/08/2024 8:46 AM CMO Temperature 36.9 C (98.4 F) 11/08/2024 8:46 AM CMO Respiratory Rate 18 11/08/2024 8:46 AM CMO Oxygen Saturation 98% 11/08/2024 8:46 AM CMO Inhaled Oxygen Concentration - - Weight 82.8 kg (182 lb 8.7 oz) 11/08/2024 8:46 A M CMO Height 182.9 cm (6') 11/08/2024 8:46 AM CMO Body Mass Index 24.76 11/08/2024 8:46 AM CMO documented in this encounter Discharge Summaries * Paula Colbert MD - 11/08/2024 8:14 AM CST IR DISCHARGE SUMMARY Date: 11/10/2024 Client Name Adrián Shoemaker Date of 1990 MR# [id number] Discharge Status: Same day discontinue as admit [...] home. Prognosis: Nory Colbert MD VIR faculty documented in this encounter Discharge Instructions * Discharge Instructions* Dora Montelongo RN - 11/08/2024 7:29 PM CMO Contacting your Doctor - To contact a doctor, call the hospital french edge operator at [phone] and ask for the resident manufacturing production technician Interventional Radiology (answered 24 hours a day) Emergency Department: [facility]: [phone] 911 if you are in need of immediate or emergent help * Attachments The following attachments cannot be sent through Care Everywhere. * (s) After Anesthesia (Sleep Medicine) (Cameroonian) documented in this encounter Medications at Time [...] 2:57 PM CSTAssociated Order(s): IR Procedure Note [facility] Procedure: IR Procedure Note Date/Time: 11/08/2024 [...] the procedure a time out was called Boomer Protocol: the Joint Commission Boomer Protocol was followed Preparation: Patient was prepped [...] for 1:1 monitoring during sedation: 0 min documented in this encounter Miscellaneous Notes * Provider Notification - Inga Trujillo RN - 11/08/2024 5:[address] Collins notified to removed woggle device; IR paged x3 with no response from either. IR fellow paged, as well, to see pt and remove woggle device. Awaiting response. * IR Note - Surjit Vergara ARRT - 11/08/2024 2:52 PM CSTSummary: Pressures Pre: Wedge: 23,24 RA: 12 Post: Main portal: 11 Portal vein end of stent: 12 Mid stent:10 Hepatic venous end of stent: 8 RA: 9 * IR Note - Chichi Torres RN - 11/08/2024 9:50 AM CST Patient Name: Adrián Shoemaker Today's Date: 11/08/2024 Procedure: Transvenous Intrahepatic Portosystemic Shunt Placement Proceduralist: Dr. Colbert, Dr Smith, Dr. Collins Pathology present: n/a Procedure Start: 1120 Procedure end: 1430 Sedation: General Anesthesia Interventional Access: Right internal jugular vein Right femoral vein Report given to: Inga in PACU Licensing Worker: n/a Other Notes: Pt arrived to IR room 4 from . Consent reviewed. Pt denies any questions or concernsregarding procedure. Pt positioned supine and monitored per protocol. Pt tolerated procedure without any noted complications. Pt transferred back to PACU. documented in this encounter Plan of Treatment Upcoming Encounters Date Type Department Care Team (Late st Contact Info) Description 02/14/2025 10:30 AM CDT Appointment [facility] Imaging [address] [facility] [address] [place] [phone] Paula Colbert MD [address] [place] [address] 02/21/2025 10:30 AM CDT Lab [facility] Lab [address] [phone] Mamadou Gong MD [address] [place] [address] 02/21/2025 11:30 AM CDT Office Visit [facility] [address] [phone] Mamadou Gong MD [address] [place] [address] 05/19/2025 10:30 AM CDT Appointment [facility] Imaging [address] [facility] [address] [place] [phone] Paula Colbert MD [address] [place] [address] 05/19/2025 11:15 AM CDT Lab [address] [place] [address] 05/26/2025 10:30 AM CDT Virtual Visit [facility] [address] [phone] Paula Colbert MD [address] [place] [address] Pending Results Name Type Priority Associated Diagnoses Date /Time Prepare red blood cells (unit) Blood Bank Routine 11/08/2024 8:56 AM CMO Prepare red blood cells (unit) Blood Bank Routine 11/08/2024 8:56 AM CMO Scheduled Orders Name Type Priority Associated Diagnoses Orde r Schedule US Abdomen Complete with TIPS Doppler Imaging Radiology After Discharge Alcoholic cirrhosis of liver with ascites (H) Expected: 12/06/2024 (Approximate), Expires: 11/08/2025 documented as of this encounter Procedures Procedure Name Priority Date/Time Associated Diagnosis Comments IR TRANSVEN INTRAHEPATIC PORTOSYST SHUNT Routine 11/08/2024 2:57 PM CMO Alcoholic cirrhosis of liver with ascites (H) IR PROCEDURE NOTE Routine 11/08/2024 2:5 3 PM CMO ANESTHESIA, IN NON-OPERATING ROOM SETTING 11/08/2024 10:30 AM CMO Alcoholic cirrhosis of liver with ascites (H) Special Needs PAC 10/14/24 CBC WITH PLATELETS AND DIFFERENTIAL STAT 11/08/2024 9:14 AM CMO TYPE AND SCREEN, ADULT STAT 11/08/2024 9:14 AM CMO CBC WITH PLATELETS & DIFFERENTIAL STAT 11/08/2024 9:14 AM CMO INR STAT 11/08/2024 9:14 AM CMO COMPREHENSIVE METABOLIC PANEL STAT 11/08/2024 9:14 AM CMO BILIRUBIN DIRECT STAT 11/08/2024 9:14 AM CMO ABO/RH TYPE AND SCREEN STAT 11/08/2024 9:14 AM CMO PREPARE RED BLOOD CELLS (UNIT) Routine 11/08/2024 8:56 AM CMO PREPARE RED BLOOD CELLS (UNIT) Routine 11/08/2024 8:56 AM CMO GLUCOSE BY METER Routine 11/08/2024 8:53 AM CMO documented in this encounter Results * IR Transven Intrahepatic Portosyst Shunt (11/08/2024 2:57 PM CMO) Anatomical Region Laterality Modality Abdomen/Pelvis Radio Fluoroscop y Impressions 11/12/2024 8:08 AM CMO IMPRESSION: Initial TIPS placement with reduction of [...] vein accessed: Right portal vein TIPS device: Ephraim Viatorr Cx TIPS diameter (mm): 10 TIPS [...] PAULA COLBERT MD Narrative 11/12/2024 8:08 AM CMO PROCEDURE: Transjugular Intrahepatic Portosystemic Shunt (TIPS) Procedural [...] vein accessed: Right portal vein TIPS device: Ephraim Viatorr Cx TIPS diameter (mm): 10 TIPS [...] findings. PAULA COLBERT MD Paula Colbert MD IMG IR ORDERABLES Final Resul t * IR Procedure Note (11/08/2024 2:53 PM CMO) Narrative Paula Colbert MD - 11/08/2024 2:53 PM CMO Paula Colbert MD 11/10/2024 7:55 AM [facility] Procedure: IR Procedure Note Date/Time: 11/08/2024 [...] the procedure a time out was called Boomer Protocol: the Joint Commission Boomer Protocol was followed Preparation: Patient was prepped [...] SRINIVASA ADAMS Edited Result - Final * (ABNORMAL) CBC with platelets and differential (11/08/2024 9:14 AM CMO) WBC Count 5.2 4.0 - 11.0 10e3/uL 11/08/2024 9:31 AM CMO [facility] RBC Count 4.54 4.40 - 5.90 10e6/uL 11/08/2024 9:31 AM CMO [facility] Hemoglobin 14.6 13.3 - 17.7 g/dL 11/08/2024 9:31 AM CMO [facility] Hematocrit 43.2 40.0 - 53.0 % 11/08/2024 9:31 AM CMO [facility] MCV 95 78 - 100 fL 11/08/2024 9:31 AM CMO [facility] MCH 32.2 26.5 - 33.0 pg 11/08/2024 9:31 AM CMO [facility] MCHC 33.8 31.5 - 36.5 g/dL 11/08/2024 9:31 AM CMO [facility] RDW 13.2 10.0 - 15.0 % 11/08/2024 9:31 AM CMO [facility] Platelet Count 50(L) 150 - 450 10e3/uL 11/08/2024 9:31 AM CMO [facility] % Neutrophils 56 % 11/08/2024 9:31 AM CMO [facility] % Lymphocytes 31 % 11/08/2024 9:31 AM CMO [facility] % Monocytes 8 % 11/08/2024 9:31 AM CMO [facility] % Eosinophils 4 % 11/08/2024 9:31 AM CMO [facility] % Basophils 1 % 11/08/2024 9:31 AM CMO [facility] % Immature Granulocytes 0 % 11/08/2024 9:31 AM CMO [facility] NRBCs per 100 WBC 0 <1 /100 025 9:31 AM CMO [facility] Absolute Neutrophils 2.9 1.6 - 8.3 10e3/uL 11/08/2024 9:31 AM CMO [facility] Absolute Lymphocytes 1.6 0.8 - 5.3 10e3/uL 11/08/2024 9:31 AM CMO [facility] Absolute Monocytes 0.4 0.0 - 1.3 10e3/uL 11/08/2024 9:31 AM CMO [facility] Absolute Eosinophils 0.2 0.0 - 0.7 10e3/uL 11/08/2024 9:31 AM CMO [facility] Absolute Basophils 0.1 0.0 - 0.2 10e3/uL 11/08/2024 9:31 AM CMO [facility] Absolute Immature Granulocytes 0.0 <=0.4 10e3/uL 11/08/2024 9:31 AM CMO [facility] Absolute NRBCs 0.0 10e3/uL 11/08/2024 9:31 AM CMO [facility] Blood STRUCTURE OF RIGHT UPPER LIMB / Unknown Venipuncture / Unknown 11/08/2024 9:14 AM CMO 11/08/2024 9:21 AM CMO Peg Rai APRN, CNP LAB - BLOOD ORDERABL ES Final Result Performing Organization Address City/[facility]/ZIP Co de Phone Number LABORATORY [facility] [place] Core Lab [address] [facility], [address] [phone] * Adult Type and Screen (11/08/2024 9:14 AM CMO) ABO/RH(D) B POS 11/08/2024 8:56 AM CMO U BLOOD BANK Antibody Screen Negative Negative 11/08/2024 8:56 AM CMO BLOOD BANK SPECIMEN EXPIRATION DATE [id number] 11/08/2024 8:56 AM CMO BLOOD BANK Blood STRUCTURE OF RIGHT UPPER LIMB / Unknown Venipuncture / Unknown 11/08/2024 9:14 AM CMO 11/08/2024 9:20 AM CMO Peg Rai APRN ENGLISH LANGUAGE ARTS TEACHER LAB - BLOOD BANK BOB T ORDER Final Result Performing Organization Address City/[facility]/ZIP Co de Phone Number BLOOD BANK [address] [place] [address] * (ABNORMAL) Bilirubin direct (11/08/2024 9:14 AM CMO) Bilirubin Direct 1.46(H) 0.00 - 0.30 mg/dL 11/08/2024 9:53 AM CMO [facility] Blood STRUCTURE OF RIGHT UPPER LIMB / Unknown Venipuncture / Unknown 11/08/2024 9:14 AM CMO 11/08/2024 9:21 AM CMO Peg Rai APRN, CNP LAB - BLOOD ORDERABL ES Final Result U LABORATORY [facility] [place] [facility] Lab [address] [facility], [address] * (ABNORMAL) INR (11/08/2024 9:14 AM CMO) Pathologist [facility] INR 1.49(H) 0.85 - 1.15 11/08/2024 9:54 AM CMO [facility] Blood STRUCTURE OF RIGHT UPPER LIMB / Unknown Venipuncture / Unknown 11/08/2024 9:14 AM CMO 11/08/2024 9:21 AM CMO Peg Rai APRN, CNP LAB - BLOOD ORDERABL ES Final Result Performing Organization Address City/[facility] Co de Phone Number U LABORATORY [facility] Core Lab [address] [facility], [address] * (ABNORMAL) Comprehensive metabolic panel (11/08/2024 9:14 AM CMO) Sodium 141 135 - 145 mmol/L 11/08/2024 9:53 AM CMO [facility] Potassium 4.4 3.4 - 5.3 mmol/L 11/08/2024 9:53 AM CMO [facility] Carbon Dioxide (CO2) 21(L) 22 - 29 mmol/L 11/08/2024 9:53 AM CMO [facility] Anion Gap 9 7 - 15 mmol/L 11/08/2024 9:53 AM CMO [facility] Urea Nitrogen 8.8 6.0 - 20.0 mg/dL 11/08/2024 9:53 AM CMO [facility] Creatinine 0.77 0.67 - 1.17 mg/dL 11/08/2024 9:53 AM CMO [facility] GFR Estimate >90 >60 mL/min/1.7 3m2 11/08/2024 9:53 AM CMO [facility] Comment:eGFR calculated us2020 CKD-EPI equation. Calcium 9.2 8.8 - 10.4 mg/dL 11/08/2024 9:53 AM CMO [facility] Chloride 111(H) 98 - 107 mmol/L 11/08/2024 9:53 AM CMO [facility] Glucose 85 70 - 99 mg/dL 11/08/2024 9:53 AM CMO [facility] Alkaline Phosphatase 144 40 - 150 U/L 11/08/2024 9:53 AM CMO [facility] AST 60(H) 0 - 45 U/L 11/08/2024 9:53 AM CMO [facility] ALT 39 0 - 70 U/L 11/08/2024 9:53 AM CMO [facility] Protein Total 7.0 6.4 - 8.3 g/dL 11/08/2024 9:53 AM CMO [facility] Albumin 3.8 3.5 - 5.2 g/dL 11/08/2024 9:53 AM CMO [facility] Bilirubin Total 3.7(H) <=1.2 mg/dL 11/08/2024 9:53 AM CMO [facility] Blood STRUCTURE OF RIGHT UPPER LIMB / Unknown Venipuncture / Unknown 11/08/2024 9:14 AM CMO 11/08/2024 9:21 AM CMO Peg Rai APRN ENGLISH LANGUAGE ARTS TEACHER LAB - BLOOD ORDERABL ES Final Result [facility] [place] [facility] [address] [facility], [address] [place] [address] * Glucose by meter (11/08/2024 8:53 AM CMO) GLUCOSE BY METER POCT 76 70 - 99 mg/dL 11/08/2024 9:00 AM CMO [facility] POC Blood, Capillary BLOOD SPECIMEN / Unknown 11/08/2024 8:53 AM CMO 11/08/2024 9:00 AM CMO us Paula Colbert MD LAB - BEAKER POCT Final Resul t [facility] POC [facility] [place] [facility] Lab [address] [facility], [address] [place] [address] documented in this encounter Visit Diagnoses Diagnosis [...] exceed 4 grams/day. $Given 11/08/2024 4:51 PM CMO 975 mg clindamycin (CLEOCIN) 900 mg in 50 mL D5W intermittent infusion Routine, 900 mg, Intravenous, SEE ADMIN INSTRUCTIONS, Starting on Fri11/08/24 at 0855, Intra-Op Dose. Give every 6 hours while patient in surgery, starting 6 hours after pre-op dose., Indications: Perioperative Pharmacoprophylaxis, Pre-procedureIndications:Perio perative Pharmacoprophylaxis $Given 11/08/2024 10:19 AM CMO 900 mg dexAMETHasone (DECADRON) injection 4 mg [...] $Given by Other Clinician 11/08/2024 1:33 PM CMO 2 Bags HYDROmorphone (PF) (DILAUDID) injection 0.2 [...] cream on the same site., Pre-procedure lidocaine 1 % 0.1-1 mL 0.1-1 mL, [...] Fri11/08/24 at 1700 $Given 11/08/2024 4:52 PM CMO 1,000 mg naloxone (NARCAN) injection 0.1 mg [...] notify Provider., PACU $Given 11/08/2024 3:01 PM CMO 5 mg prochlorperazine (COMPAZINE) injection 5 mg [...] Recently Administered Medications Times are shown in CMO. Scheduled Medication Order 11/06/2024 11/07/2024 11/08/2024 clindamycin [...] of the procedure., Intra-procedure 1333 ($Given by Othe r Clinician - Provider: Chichi Torres RN) [...] the procedure., IR Intra-procedure 1138 ($Given by Othe r Clinician - Provider: Kristen Betancur RN) [...] Depression Total Score: 23 023 8:49 AM CMO documented as of this encounter Care Teams Aquaculture Farm Manager Relationship Specialty Start Date End Date Mamadou Gong MD [address] [place] [address] PCP - General Gastroenterology 10/20/24 Yesika Chirinos PA-C [facility] [address] [place] [address] Referring Physician Gastroenterology 07/23/[address] [address] Registered Dietitian Dietitian, Registered 08/13/23 Reinier Lehman MD [address] [place] [address]281 Transplant Surgery 08/13/23 Mamadou Gong MD [address] [place] [address] 120[address] MD Gastroenterology 08/13/23 Arcelia Cid, FIREPROOF DOOR MAKER Sawmill Tally Clerk 08/13/23 Mamadou Gong MD [address] [place] [address]54 Assigned Gastroenterology Provider 08/30/23 Reinier Lehman MD [address] [place] [address]45[address] Assigned Surgical Provider 08/30/23 Trung Duran, [facility] Sawmill Tally Clerk Sawmill Tally Clerk - Clinical 09/30/23 Duran Luong MD [address] [place] [address] Assigned Pulmonology Provider 10/17/23 Osmany Rausch, pocket closerDoctor Of Podiatry Transplant 01/22/24 Hina Rojo MD [address] [place] [address] [phone] Assigned Infectious Disease Provider 03/07/24 Fabiola Epperson APRN [facility] [address] [place] [address] [phone] Nurse Practitioner Anesthesiology 09/30/24 Paula Colbert MD [address] [place] [address] 478205 Physician Radiology 09/30/24 documented as of this encounter
--- OUTSIDE RECORDS SUMMARY | 2024-12-19 07:45 | XMS_ITS | Encounter Summary ---
Author Organization [place] Address [address] [place] [address] Care Team Providers Care Timber Sprinkler Name Role Phone TaranMoisesYesikacatracho Gee PA-C Unavailable [phone] Unavailable Unavail able Reinier Lehman MD Unavailable Mamadou Gong MD Unavailable + [phone] Arcelia Cid PET CAREGIVER Unavailable [phone] Mamadou Gong MD Unavailable + [phone] Reinier Lehman MD Unavailable Trung Duran LOAN APPROVER Unavailable Unavailable Duran Luong MD Unavailable [phone] Osmany Rausch RN Unavailable Unavailable Hina Rojo MD Unavailable [phone] Fabiola Epperson APRN BENCH BORING MACHINE OPERATOR Unavailable [phone] Jatin Carcamo MD Unavailable [phone] Mamadou Gong MD Primary Care Provid er Encounter Details Date Type Department Care Team (Latest Contact Info) Description 11/08/2024 Travel Social History Tobacco Use Types Packs/Day [...] PM CDT Legal Sex Male 3:07 AM MANAGER VIDEO Gender Identity Male 07/17/2023 2:30 PM CDT Sexual Orientation Not on file documented as of this encounter Plan of Treatment Upcoming Encounters Date Type Department Care Team (Late st Contact Info) Description 02/14/2025 10:30 AM CDT Appointment [facility] [address] [facility] [address] [place] [address] Jatin Carcamo MD [address] [place] [address] [phone] 02/21/2025 10:30 AM CDT Lab [facility] [address] [phone] Mamadou Gong MD [address] [place] [address] [phone] 02/21/2025 11:30 AM CDT Office Visit [facility] [address] [address] Mamadou Gong MD [address] [place] [address] 05/19/2025 10:30 AM CDT Appointment [facility] Imaging [address] [place] [phone] Jatin Carcamo MD [address] [place] [address] 05/19/2025 11:15 AM CDT Lab [facility] [address] [place] [phone] 05/26/2025 10:30 AM CDT Virtual Visit [facility] [address] 3[address] [place] [phone] Jatin Carcamo MD [address] [place] [address] [phone] documented as of this encounter Visit Diagnoses Not on filedocumented in this encounter Additional Health Concerns Assessment Noted Time PHQ-9 Depression Total Score: 23 023 8:49 AM MANAGER VIDEO documented as of this encounter Care Teams Timber Sprinkler Relationship Specialty Start Date End Date Mamadou Gong MD [address] [place] [address] PCP - General Gastroenterology 10/20/24 Yesika Chirinos PA-C [facility] [address] [place] [address] [place] [address] Referring Physician Gastroenterology 07/23/[address] [place] [address] Registered Dietitian Dietitian, Registered 08/13/23 Reinier Lehman MD [address] [place] [address] Transplant Surgery 08/13/23 Mamadou Gong MD [address] [place] [address] 132485 Gastroenterology 08/13/23 Arcelia Cid, PET CAREGIVER Physical Security Manager 08/13/23 Mamadou Gong MD [address] [place] [address] Assigned Gastroenterology Provider 08/30/23 Reinier Lehman MD [address] [place] [address] Assigned Surgical Provider 08/30/23 Trung Duran, [facility] Physical Security Manager Physical Security Manager - Clinical 09/30/23 Duran Luong MD [address] [place] [address] Assigned Pulmonology Provider 10/17/23 Osmany Rausch, calender operator helperYeast Pumper Transplant 01/22/24 Hina Rojo MD [address] [place] [address] [phone] Assigned Infectious Disease Provider 03/07/24 Fabiola Epperson APRN BENCH BORING MACHINE OPERATOR [address] [place] [address] [phone] Nurse Practitioner Anesthesiology 09/30/24 Jatin Carcamo MD [address] [place] [address] [phone] Physician Radiology 09/30/24 documented as of this encounter
--- OUTSIDE RECORDS SUMMARY | 2024-12-19 07:45 | XMS_ITS | Encounter Summary ---
Author Organization [facility] Address [address] [place] [id number] Care Team Providers Care Traffic Engineering Director Name Role Phone Taran Yesikacatracho Gee PA-C Unavailable [phone] No Ref-Primary, Physician Primary Care Provider Priscila Rogers RD Unavailable Unavail able Reinier Lehman MD Unavailable Mamadou Gong MD Unavailable + [phone] Arcelia Cid CIVIL ENGINEER HELPER Unavailable [phone] Mamadou Gong MD Unavailable + [phone] Reinier Lehman MD Unavailable Trung Duran LGSW Unavailable Unavailable Duran Luong MD Unavailable [phone] Osmany Rausch RN Unavailable Unavailable Hina Rojo MD Unavailable [phone] Fabiola Epperson APRN PREPARATION OPERATOR Unavailable [phone] Jatin Carcamo MD Unavailable [phone] Mamadou Gong MD Primary Care Provid er Encounter Details Date Type Department Care Team (Late st Contact Info) Description 10/14/2024 [facility] Preoperative Assessment Center [address] [place] [phone] Arlen Merritt RN Social History Tobacco Use Types Packs/Day [...] PM CDT Legal Sex Male 3:07 AM HAND WELT BUTTER Gender Identity Male 07/17/2023 2:30 PM CDT Sexual Orientation Not on file documented as of this encounter Plan of Treatment Upcoming Encounters Date Type Department Care Team (Late st Contact Info) Description 02/14/2025 10:30 AM CDT Appointment [facility] Imaging [address] [place] [phone] Jatin Carcamo MD [address] [place] [address] 02/21/2025 10:30 AM CDT Lab [facility] [address] 1[address] [place] [phone] Mamadou Gong MD [address] [place] [address] 02/21/2025 11:30 AM CDT Office Visit [facility] Hepatology [facility] [address] [phone] Mamadou Gong MD [address] [place] [address] 05/19/2025 10:30 AM CDT Appointment [facility] Imaging [address] [place] [phone] Jatin Carcamo MD [address] [place] [address] [phone] 05/19/2025 11:15 AM CDT Lab [facility] [address] [place] [phone] 05/26/2025 10:30 AM CDT Virtual Visit [facility] V[facility] [address] [place] [phone] Jatin Carcamo MD [address] [place] [address] [phone] documented as of this encounter Visit Diagnoses Not on filedocumented in this encounter Additional Health Concerns Assessment Noted Time PHQ-9 Depression Total Score: 023 8:49 AM HAND WELT BUTTER documented as of this encounter Care Teams Traffic Engineering Director Relationship Specialty Start Date End Date No Ref-Primary, Physician PCP - General 07/24/23 10/19/24 Mamadou Gong MD [address] [place] [address] PCP - General Gastroenterology 10/20/24 Yesika Chirinos PAVitorC [facility] [address] [place] [address] [place] [address] Referring Physician Gastroenterology 07/23/[address] [place] [address] Registered Dietitian Dietitian, Registered 08/13/23 Reinier Lehman MD [address] [place] [address] Transplant Surgery 08/13/23 Mamadou Gong MD [address] [place] [phone] Gastroenterology 08/13/23 Arcelia Cid, CIVIL ENGINEER HELPER Research Management Associate 08/13/23 Mamadou Gong MD [address] [place] [address] Assigned Gastroenterology Provider 08/30/23 Reinier Lehman MD [address] [place] [address] 21171 Assigned Surgical Provider 08/30/23 Trung Duran, [facility] Research Management Associate Research Management Associate - Clinical 09/30/23 Duran Luong MD [address] [place] [address] Assigned Pulmonology Provider 10/17/23 Osmany Rausch, business office directorChange Control Specialist Transplant 01/22/24 Hina Rojo MD [address] [place] [address] [phone] Assigned Infectious Disease Provider 03/07/24 Fabiola Epperson APRN PREPARATION OPERATOR [address] [place] [address] Nurse Practitioner Anesthesiology 09/30/24 Jtain Carcamo MD [address] [place] [address] [phone] Physician Radiology 09/30/24 documented as of this encounter
== END 2024-12-19 07:43 | disposition home or self-care (01) ==
PROVIDERS: Emergency Provider Internal Medicine; PCP Internal Medicine Gastroenterology
DX: T36 Poisoning by, adverse effect of and underdosing of systemic antibiotics (principal); T44.7X1A Poisoning by beta-adrenoreceptor antagonists, accidental (unintentional), initial encounter
CPT/HCPCS: 99282; 99283